=== PATIENT | female | born 1980 | race Caucasian/White ===

== ENCOUNTER 2016-07-05 06:09 | Observation (INO) | payer OTHER ==
[2016-06-08 11:50] VITALS: BMI 53.0
--- NOTE | 2016-06-08 12:35 | PAT Medication Instructions ---
Service Date Jun 08, 2016. Current Home Medication List Albuterol Inhaler (Ventolin Inhaler), 2 PUFFS INH QID PRN for PRN Albuterol Sulf (Albuterol Sulfate 0.083% For Inh), 3 ML INH Q4H PRN for Wheezing Budesonide/Formoterol Fumarate (Symbicort 160/4.5 Inhaler ), 1 PUFFS INH BID Carisoprodol (Soma), 350 MG PO TID PRN for PRN Cholestyramine (Questran), 1 PKT PO TID PRN for PRN Dexlansoprazole (Dexilant), 60 MG PO BID Diphenhydramine Hcl (Benadryl Allergy), 50 MG PO DIRECTED PRN for ALLERGIC REACTION Diphenoxylate W/ Atropine (Lomotil), 1 TAB PO QID PRN for Diarrhea Lidocaine (Lidoderm Patch 5%), 1 PATCH EX DAILY Montelukast Sodium (Singulair), 10 MG PO HS Pentosan Polysulfate Sodium (Elmiron), 100 MG PO TID Phenazopyridine Hcl (Pyridium), 1 TAB PO TID PRN for PRN Potassium Chloride Microencaps (Potassium Chloride Er), 1 TAB PO QAM Ranitidine Hcl (Ranitidine Hcl), 1 CAP PO BID Sucralfate (Carafate), 1 GM PO BID PRN for Topiramate (Topamax), 400 MG PO QAM Topiramate (Topamax), 200 MG PO HS Triamcinolone Acetonide (Nasal (Nasacort Allergy 24Hr), 1 SPRAY MARGARETTE BID Triamterene/Hctz (Triamterene/Hctz 37.5-25MG), 1 TAB PO DAILY PRN for Swelling Venlafaxine Hcl (Venlafaxine Hcl Er), 1 TAB PO HS [Vicodin], 1 TAB PO Q4H PRN for director decision support Instructions For Your Scheduled Surgery - Hold the following medications the morning of surgery: Triamterene/Hctz (Triamterene/Hctz 37.5-25MG), 1 TAB PO DAILY PRN for Swelling Sucralfate (Carafate), 1 GM PO BID PRN for Ranitidine Hcl (Ranitidine Hcl), 1 CAP PO BID Potassium Chloride Microencaps (Potassium Chloride Er), 1 TAB PO QAM Diphenhydramine Hcl (Benadryl Allergy), 50 MG PO DIRECTED PRN for ALLERGIC REACTION Diphenoxylate W/ Atropine (Lomotil), 1 TAB PO QID PRN for Diarrhea Cholestyramine (Questran), 1 PKT PO TID PRN for PRN Carisoprodol (Soma), 350 MG PO TID PRN for PRN Pentosan Polysulfate Sodium (Elmiron), 100 MG PO TID - Take the following medications the morning of surgery with a sip of water: Triamcinolone Acetonide (Nasal (Nasacort Allergy 24Hr), 1 SPRAY MARGARETTE BID Topiramate (Topamax), 400 MG PO QAM Phenazopyridine Hcl (Pyridium), 1 TAB PO TID PRN for PRN Dexlansoprazole (Dexilant), 60 MG PO BID Budesonide/Formoterol Fumarate (Symbicort 160/4.5 Inhaler ), 1 PUFFS INH BID Albuterol Inhaler (Ventolin Inhaler), 2 PUFFS INH QID PRN for PRN (bring with you to hospital morning of surgery if needed) Albuterol Sulf (Albuterol Sulfate 0.083% For Inh), 3 ML INH Q4H PRN for Wheezing [Vicodin], 1 TAB PO Q4H PRN for RN (okay to take up to 4 hours prior to surgery if needed) - Take the following medications as scheduled the night before surgery: Venlafaxine Hcl (Venlafaxine Hcl Er), 1 TAB PO HS Triamcinolone Acetonide (Nasal (Nasacort Allergy 24Hr), 1 SPRAY MARGARETTE BID Topiramate (Topamax), 200 MG PO HS Sucralfate (Carafate), 1 GM PO BID PRN for Ranitidine Hcl (Ranitidine Hcl), 1 CAP PO BID Phenazopyridine Hcl (Pyridium), 1 TAB PO TID PRN for PRN Montelukast Sodium (Singulair), 10 MG PO HS Diphenhydramine Hcl (Benadryl Allergy), 50 MG PO DIRECTED PRN for ALLERGIC REACTION Diphenoxylate W/ Atropine (Lomotil), 1 TAB PO QID PRN for Diarrhea Lidocaine (Lidoderm Patch 5%), 1 PATCH EX DAILY (uses on back) Dexlansoprazole (Dexilant), 60 MG PO BID Cholestyramine (Questran), 1 PKT PO TID PRN for PRN Budesonide/Formoterol Fumarate (Symbicort 160/4.5 Inhaler ), 1 PUFFS INH BID Albuterol Inhaler (Ventolin Inhaler), 2 PUFFS INH QID PRN for PRN Albuterol Sulf (Albuterol Sulfate 0.083% For Inh), 3 ML INH Q4H PRN for Wheezing Carisoprodol (Soma), 350 MG PO TID PRN for PRN [Vicodin], 1 TAB PO Q4H PRN for RN Pentosan Polysulfate Sodium (Elmiron), 100 MG PO TID If you have any questions please call us at [phone] (Emy Trevino PA-C) or [phone] or [phone]
[2016-06-08 13:23] LABS: BASO % 0.4 %; BASO ABS # 0.04 K/uL (0-0.2); COMPLETE YES; EOS % 3.1 %; HEMATOCRIT 40.2 % (37-47); IG% 0.4 %; LYMPH % 24.1 %; MEAN CELL VOLUME 85.7 fL (80-100); MEAN CORPUSCULAR HEMOGLOBIN 28.4 pg (25-34); MEAN CORPUSCULAR HGB CONC 33.1 g/dl (32-36); MONO % 6.3 %; NEUT % 65.7 %; PLATELET COUNT 291 K/uL (130-400); RED BLOOD COUNT 4.69 M/uL (4.2-5.4); WHITE BLOOD COUNT 11.19 K/uL (4.8-10.8)
[2016-06-08 13:38] LABS: BUN/CREATININE RATIO 14.2 (10-20); CALCIUM 9.2 mg/dl (8.5-10.1); CREATININE 0.62 mg/dl (0.60-1.20); POTASSIUM 3.7 mmol/L (3.5-5.1)
[~2016-07-05] VITALS: Ht 162.6 cm; Wt 140.5 kg
[2016-07-05] VITALS (7 sets, daily range): BP systolic 95–140; BP diastolic 61–74; PULSE 70–106; TEMP 36.5–36.9; O2SAT 95–97; Ht 162.6 cm; Wt 140.5 kg
[~2016-07-05 06:09] MED LIST: ALBU1NEB10 INH; ALBUAER19 INH; CARI350T28 PO; CEFAZOLIN 3000 MG/65 ML D5W 65 ML IV SCH; CHOL4POW11 PO; DEXL60CA4 PO; DIPH1TAB PO; DPH/ PO; LACTATED RINGER'S 1000ML 1,000 ML IV SCH; LACTATED RINGER'S 1000ML IV SCH; MONT1TAB3 PO; NF656 EX; PENT100C6 PO; PHEN-775 PO; POTA20TA13 PO; RANI300C PO; SUCR1TAB29 PO; SYMIN160 INH; TOPI200T20 PO; TOPI200T6 PO; TRIA1SPR4 NAE; TRIATAB3 PO; VENL150T33 PO; VICODIN PO
[2016-07-05] MEDS ORDERED: [UNRECOGNIZED DRUG - OTHER] INH (06:33)
[2016-07-05] MEDS ORDERED: MULT-506 PO (06:34)
[2016-07-05] MEDS ORDERED: BUPIVACAINE 0.5 % 5 MG/1 ML MPF 30ML VIAL ONE (06:59)
[2016-07-05] MEDS ORDERED: METHYLENE BLUE 0.5% 10 ML VIAL ONE (06:59)
[2016-07-05] MEDS ORDERED: ATROPINE SULFATE 0.1 MG/ML 5ML SYR IV PRN (07:00)
[2016-07-05] MEDS ORDERED: FENTANYL CITRATE INJ 50 MCG/1 ML 2 ML VIAL IV PRN (07:00)
[2016-07-05] MEDS ORDERED: EpHEDrine SULFATE INJ 50 MG/ML AMP IV PRN (07:00)
[2016-07-05] MEDS ORDERED: ONDANSETRON INJ 2 MG/ML 2 ML VIAL IV PRN (07:00)
[2016-07-05] MEDS ORDERED: MIDAZOLAM HCL 1 MG/ML 2ML VIAL ONE ×2 (07:11)
[2016-07-05] MEDS ORDERED: FENTANYL CITRATE INJ 50 MCG/1 ML 2 ML VIAL ONE ×3 (07:12→09:30)
--- NOTE | 2016-07-05 07:20 | History & Physical Bridge Note ---
H&P Re-Evaluation Bridge Note: I have examined the patient, reviewed the History & Physical and in the interval since the performance of the History & Physical I have noted the following changes of clinical significance: No changes noted
[2016-07-05] MEDS ORDERED: SCOPOLAMINE 1.5 MG TDSY TD ONE (07:21)
[2016-07-05] MEDS ORDERED: ROCURONIUM BROMIDE 10 MG/ML 5 ML VIAL ONE ×2 (07:56)
[2016-07-05] MEDS ORDERED: LIDOCAINE HCL 2% 2 ML VIAL (20MG/ML) ONE (07:56)
[2016-07-05] MEDS ORDERED: PROPOFOL IV EMULSION 10 MG/ML 20 ML VIAL IV ONE (07:56)
[2016-07-05] MEDS ORDERED: DEXAMETHASONE SOD INJ 4 MG/ML VIAL ONE (07:57)
[2016-07-05] MEDS ORDERED: TISSEEL FIBRIN SEALANT 4ML TOP ONE (10:32)
[2016-07-05] MEDS ORDERED: GLYCOPYRROLATE INJ 0.2 MG/ML VIAL ONE (10:51)
[2016-07-05] MEDS ORDERED: HYDROmorphone INJ 2 MG/ML SYR/VIAL ONE (10:52)
--- NOTE | 2016-07-05 11:13 | [facility] Post Operative Brief Note ---
Immediate Operative Summary Operative Date Jul 05, 2016. Pre-Operative Diagnosis Menorrhagia with irregular cycles Post-Operative Diagnosis Same, adhesive disease Procedure(s) Performed Robotic Assisted Total Laparoscopic Hysterectomy, Bilateral Salpingectomy, Cystoscopy Surgeon Dr Jimenez Job Service Specialist Surgeon(s) Dr. Guevara Estimated Blood Loss 50ml Findings Normal appearing uterus, tubes, ovaries. Multiple adhesions of peritoneum to omentum from prior surgery. Bilateral urine jets from ureters at conclusion of case. Specimens A. uterus, bilateral fallopian tubes and cervix Drains fuentes, clear yellow Anesthesia General Complication(s) None Disposition Recovery Room / PACU
[2016-07-05] MEDS ORDERED: BISACODYL 10 MG SUPP PR PRN (11:15)
[2016-07-05] MEDS ORDERED: PROMETHAZINE HCL INJ 25 MG in SODIUM CHLORIDE 0.9% 50ML 50 ML IV PRN (11:15)
[2016-07-05] MEDS ORDERED: MAGNESIUM HYDROXIDE SUSP 30 ML UDC PO PRN (11:15)
[2016-07-05] MEDS: ONDANSETRON INJ 2 MG/ML 2 ML VIAL IV PRN ×2 (12:00→18:37)
[2016-07-05] MEDS ORDERED: NURSING VERBAL MED ORDER ONE (12:15)
[2016-07-05] MEDS ORDERED: PROMETHAZINE HCL INJ 12.5 MG in SODIUM CHLORIDE 0.9% 50ML 50 ML IV ONE (12:30)
--- NOTE | 2016-07-05 12:44 | Anesthesiology Progress Note ---
Anesthesia Post Op Note Date & Time Jul 05, 2016 at 12:44 Vital Signs Pain Intensity: 3 Vital Signs Past 12 Hours Date Time Temp Pulse Resp B/P Pulse Ox O2 Delivery O2 Flow Rate FiO2 07/05/16 12:25 82 21 94 07/05/16 12:25 86 21 07/05/16 12:23 118/57 07/05/16 12:20 89 18 07/05/16 12:20 91 18 94 07/05/16 12:18 122/55 07/05/16 12:15 83 18 95 07/05/16 12:15 80 18 07/05/16 12:13 116/56 07/05/16 12:10 71 17 95 07/05/16 12:10 72 17 07/05/16 12:08 109/60 07/05/16 12:05 92 16 95 07/05/16 12:05 89 16 07/05/16 12:03 112/59 07/05/16 12:00 73 18 93 07/05/16 12:00 73 18 07/05/16 11:58 104/60 07/05/16 11:55 94 17 95 07/05/16 11:55 95 17 07/05/16 11:53 130/76 07/05/16 11:50 76 18 07/05/16 11:50 77 18 96 07/05/16 11:48 124/74 07/05/16 11:45 73 19 96 07/05/16 11:45 73 19 07/05/16 11:43 134/67 07/05/16 11:42 132/68 07/05/16 11:40 89 20 07/05/16 11:40 89 20 96 07/05/16 11:38 82/44 07/05/16 11:35 77 19 07/05/16 11:35 76 19 96 07/05/16 11:33 89/37 07/05/16 11:30 83 21 95 07/05/16 11:30 82 21 07/05/16 11:28 92/38 07/05/16 11:25 75 17 94 07/05/16 11:25 75 17 07/05/16 11:25 36.1 82 12 89/39 96 Mask 10 07/05/16 06:37 36.6 106 20 140/70 97 Room Air Notes Mental Status: alert / awake / arousable, participated in evaluation Pt Amnestic to Procedure: Yes Nausea / Vomiting: adequately controlled, improving with treatment Pain: adequately controlled Airway Patency, RR, SpO2: stable & adequate BP & HR: stable & adequate Hydration State: stable & adequate Anesthetic Complications: no major complications apparent
[2016-07-05] MEDS: KETOROLAC TROMETHAMINE 30 MG/ML VIAL IV. PRN ×2 (13:23→21:21)
[2016-07-05] MEDS ORDERED: IV FLUIDS COMPLETED PRN (14:00)
[2016-07-05] MEDS ORDERED: MoRPHine SULFATE 2 MG/ML CARP IV PRN (15:15)
[2016-07-05] MEDS ORDERED: MoRPHine SULFATE 4 MG/ML 1 ML CARP\\VIAL IV PRN (15:15)
[2016-07-05] MEDS: PHENAZOPYRIDINE HCL 200 MG TAB PO PRN (17:41)
[2016-07-05] MEDS: OXYCODONE/ACETAMINOPHEN 5-325 TAB PO PRN ×2 (19:54→20:56)
[2016-07-05] MEDS: DOCUSATE SODIUM 100 MG CAP PO SCH (20:57)
[2016-07-05 21:11] LABS: HEMATOCRIT 37.2 % (37-47)
[2016-07-05] MEDS: SIMETHICONE 80 MG CHEW PO PRN (23:19)
--- NOTE | 2016-07-06 00:12 | OPERATIVE REPORT ---
DATE OF OPERATION: 07/05/2016 PREOPERATIVE DIAGNOSES: 1. Menorrhagia with irregular cycles. 2. Obesity. 3. History of section x2 with history of wound infection. POSTOPERATIVE DIAGNOSES: Same plus adhesive disease. PROCEDURES PERFORMED: 1. Robotic-assisted total laparoscopic hysterectomy. 2. Bilateral salpingectomy. 3. Cystoscopy. SURGEON: Dr. Bhavya Jimenez. CHIEF MECHANICAL ENGINEER: Dr. Guevara. ESTIMATED BLOOD LOSS: 50 mL FINDINGS: Normal appearing uterus, tubes and ovaries, with multiple adhesions in the peritoneum to omentum from prior surgery. Bilateral urine jets noted from ureters at the conclusion of the case during cystoscopy. SPECIMENS: Uterus, bilateral fallopian tubes, and cervix. DRAINS: Shane, clear yellow. ANESTHESIA: General. COMPLICATIONS: None. DISPOSITION: Recovery room, PACU. CONDITION: Stable and good. DESCRIPTION OF PROCEDURE: The patient was seen in the preoperative holding area where risks, benefits, alternatives were reviewed. She elected to proceed with surgery. Informed consent had previously been obtained in the office under no duress. The patient was taken to the operating room where general anesthesia was introduced. The abdomen and vagina were prepped and draped in the normal sterile fashion. A Shane catheter was inserted. A long weighted speculum was placed in the vagina and anterior wall retractor was placed into the vagina. Cervix was grasped with a single tooth tenaculum. 0 Vicryl stay sutures were placed at 3 o'clock and 9 o'clock on the cervix. A VCare manipulator, medium size, was placed through the cervix. Cervical cup was placed around the cervix. Gloves were changed and attention was turned to the abdomen. Using the open Vineet cut down technique, the umbilical port was placed. This was the da Macy camera port. Bilaterally two additional ports were placed on each side with the arm #1 on the patient's right and lateral to this arm x3 and to the patient's left the post production assistant port, followed by arm #2. Adequate pneumoperitoneum was obtained and all ports were placed under direct visualization. The da Macy robot was then docked in the normal fashion and the patient was placed in steep Trendelenburg position. Inspection of the pelvis showed normal uterus, tubes and ovaries. The left uteroovarian ligament was cauterized using PK [place] bipolar cautery and was ligated using the hot madiha. The left fallopian was excised, and the round ligament was coagulated and cut. A bladder flap was created with the hot madiha and the bladder was dissected down from the cervix. Due to the patient's history of section x2, and therefore, scar tissue, bladder dissection was difficult. The entire procedure was then repeated on the contralateral side. The VCare cuff was identified, and uterine arteries were coagulated and cut on bilateral sides. The cervicovaginal junction incision was made on top of the vaginal cuff. This was repeated posteriorly and extended laterally, freeing the uterus from the surrounding vagina. The uterus was then delivered through the vagina using an Allis clamp. The vaginal cuff was then reapproximated with V-Loc suture. The ureters were identified bilaterally. The entire pelvis was hemostatic. Tisseel was used for excellent hemostasis. Cystoscopy showed bilateral ureteral jets and no sutures in the bladder. The robot was then undocked. The supraumbilical site fascia was reapproximated with 0 Vicryl. The skin was closed using 4-0 Monocryl using subcuticular stitches. Dermabond glue was placed. The final sponge, instrument and needle counts were correct. The patient tolerated the procedure well. She then went to the recovery room in good and stable condition. I attest to the content of the Intraoperative Record and any orders documented therein. Any exceptio ns are noted below.
[2016-07-06] MEDS: OXYCODONE/ACETAMINOPHEN 5-325 TAB PO PRN ×3 (00:43→08:18)
[2016-07-06 00:45] VITALS: BP 113/68; PULSE 66; TEMP 36.9; O2SAT 98
[2016-07-06] MEDS: PHENAZOPYRIDINE HCL 200 MG TAB PO PRN ×2 (01:06→08:17)
[2016-07-06] MEDS ORDERED: OXYC-57 PO (03:05)
--- NOTE | 2016-07-06 03:07 | Discharge Instructions ---
Discharge Instructions Admission Reason for Admission: Menorrhagia W/Irregular Cycles Discharge Discharge Diagnosis / Problem: s/p laparoscopic total hysterectomy Discharge Goals Goal(s): Routine recovery after surgery Activity Recommendations Activity Limitations: per Instructions/Follow-up section . Current Hospital Diet Patient's current hospital diet: Clear Liquid Diet Discharge Diet Recommended Diet: Regular Diet Procedures Procedures Performed: Robotic Assisted Total Laparoscopic Hysterectomy, Bilateral Salpingectomy, Cystoscopy Pending Studies Studies pending at discharge: no Medical Emergencies . Who to Call and When: Medical Emergencies: If at any time you feel your situation is an emergency, please call 911 immediately. . Non-Emergent Contact Non-Emergency issues call your: Primary Care Provider, Inspector Penetrant . . "Provider Documentation" section prepared by Bhavya Jimenez. VTE Core Measure Inpt VTE Proph given/why not?: Contraindicated
[2016-07-06] MEDS: KETOROLAC TROMETHAMINE 30 MG/ML VIAL IV. PRN ×2 (03:16→11:35)
[2016-07-06 04:30] VITALS: BP 108/71; PULSE 80; TEMP 36.8; O2SAT 98
[2016-07-06 07:01] LABS: BASO % 0.3 %; BASO ABS # 0.03 K/uL (0-0.2); COMPLETE YES; EOS % 2.6 %; HEMATOCRIT 34.3 % (37-47); IG% 0.5 %; LYMPH % 16.9 %; LYMPH ABS # 1.87 K/uL (1.2-3.4); MEAN CELL VOLUME 87.1 fL (80-100); MEAN CORPUSCULAR HEMOGLOBIN 28.7 pg (25-34); MEAN CORPUSCULAR HGB CONC 32.9 g/dl (32-36); MEAN PLATELET VOLUME 9.6 fL (7.4-10.4); MONO % 9.6 %; NEUT % 70.1 %; PLATELET COUNT 225 K/uL (130-400); RED BLOOD COUNT 3.94 M/uL (4.2-5.4); WHITE BLOOD COUNT 11.06 K/uL (4.8-10.8)
[2016-07-06 07:33] LABS: CALCIUM 8.1 mg/dl (8.5-10.1); POTASSIUM 3.2 mmol/L (3.5-5.1)
[2016-07-06 07:45] LABS: BUN/CREATININE RATIO 9.1 (10-20); CREATININE 0.64 mg/dl (0.60-1.20)
[2016-07-06 08:00] VITALS: BP 114/78; PULSE 75; TEMP 36.7; O2SAT 100
--- NOTE | 2016-07-06 08:16 | OB/GYN Progress Note ---
MICROBIOLOGY QUALITY CONTROL TECHNICIAN Progress Note Date of Service Jul 06, 2016. Subjective conversation w/ patient Ambulation: ambulating normally Voiding: no voiding problems Passing Gas: Yes Diet Tolerance: Regular Diet Pain: controlled with meds Review of Systems Constitutional: No problem reported Respiratory: No problem reported Cardiac: No problem reported Breast: No problem reported Abdomen: No problem reported Female : No problem reported Objective Vital Signs Date Time Temp Pulse Resp B/P Pulse Ox O2 Delivery O2 Flow Rate FiO2 07/06/16 04:30 36.8 80 18 108/71 98 Room Air 07/06/16 00:45 98 Room Air 07/06/16 00:45 36.9 66 18 113/68 98 Room Air 07/05/16 20:20 36.8 80 20 120/71 Room Air 07/05/16 16:10 97 Room Air 07/05/16 16:10 36.8 72 20 95/64 97 Room Air 07/05/16 15:10 36.9 73 18 109/74 96 Nasal Cannula 2.0 07/05/16 14:10 36.5 82 18 107/71 97 Nasal Cannula 2.0 07/05/16 13:40 36.7 70 16 96/61 95 Nasal Cannula 2.0 07/05/16 13:10 95 Nasal Cannula 2.0 07/05/16 13:10 36.5 99 16 96/63 95 Nasal Cannula 2.0 07/05/16 13:10 95 Nasal Cannula 2.0 07/05/16 12:50 36.4 82 16 102/55 95 Nasal Cannula 2 07/05/16 12:48 102/55 07/05/16 12:46 92 17 07/05/16 12:46 93 17 97 07/05/16 12:43 112/53 07/05/16 12:41 82 18 94 07/05/16 12:41 80 18 07/05/16 12:38 112/62 07/05/16 12:36 71 18 07/05/16 12:36 71 18 94 07/05/16 12:33 108/61 07/05/16 12:31 91 18 07/05/16 12:31 92 18 95 07/05/16 12:28 116/51 07/05/16 12:26 88 17 96 07/05/16 12:26 88 17 07/05/16 12:25 82 21 94 07/05/16 12:25 86 21 07/05/16 12:23 118/57 07/05/16 12:20 89 18 07/05/16 12:20 91 18 94 07/05/16 12:18 122/55 07/05/16 12:15 83 18 95 07/05/16 12:15 80 18 07/05/16 12:13 116/56 07/05/16 12:10 71 17 95 07/05/16 12:10 72 17 07/05/16 12:08 109/60 07/05/16 12:05 92 16 95 07/05/16 12:05 89 16 07/05/16 12:03 112/59 07/05/16 12:00 73 18 93 07/05/16 12:00 73 18 07/05/16 11:58 104/60 07/05/16 11:55 94 17 95 07/05/16 11:55 95 17 07/05/16 11:53 130/76 07/05/16 11:50 76 18 07/05/16 11:50 77 18 96 07/05/16 11:48 124/74 07/05/16 11:45 73 19 96 07/05/16 11:45 73 19 07/05/16 11:43 134/67 07/05/16 11:42 132/68 07/05/16 11:40 89 20 07/05/16 11:40 89 20 96 07/05/16 11:38 82/44 07/05/16 11:35 77 19 07/05/16 11:35 76 19 96 07/05/16 11:33 89/37 07/05/16 11:30 83 21 95 07/05/16 11:30 82 21 07/05/16 11:28 92/38 07/05/16 11:25 75 17 94 07/05/16 11:25 75 17 07/05/16 11:25 36.1 82 12 89/39 96 Mask 10 Physical Exam General Appearance: WELL-APPEARING, NO APPARENT DISTRESS Respiratory/Chest: normal breath sounds, no respiratory distress Cardiovascular: regular rate, rhythm Abdomen: non tender, soft Incision Description: Clean, Dry & Intact Extremities: non-tender, normal inspection Laboratory Results Last 24 Hours Test 07/05/16 20:55 07/06/16 06:43 Hemoglobin 12.0 g/dL 11.3 g/dL Hematocrit 37.2 % 34.3 % White Blood Count 11.06 K/uL Red Blood Count 3.94 M/uL Mean Corpuscular Volume 87.1 fL Mean Corpuscular Hemoglobin 28.7 pg Mean Corpuscular Hemoglobin Concent 32.9 g/dl Platelet Count 225 K/uL Mean Platelet Volume 9.6 fL Neutrophils (%) (Auto) 70.1 % Lymphocytes (%) (Auto) 16.9 % Monocytes (%) (Auto) 9.6 % Eosinophils (%) (Auto) 2.6 % Basophils (%) (Auto) 0.3 % Neutrophils # (Auto) 7.76 K/uL Lymphocytes # (Auto) 1.87 K/uL Monocytes # (Auto) 1.06 K/uL Eosinophils # (Auto) 0.29 K/uL Basophils # (Auto) 0.03 K/uL RDW Standard Deviation 46.8 fL RDW Coefficient of Variation 14.7 % Immature Granulocyte % (Auto) 0.5 % Immature Granulocyte # (Auto) 0.05 K/uL Sodium Level 143 mmol/L Potassium Level 3.2 mmol/L Chloride Level 109 mmol/L Carbon Dioxide Level 23 mmol/L Anion Gap 11.0 mmol/L Blood Urea Nitrogen 6 mg/dl Creatinine 0.64 mg/dl Est Creatinine Clear Calc Drug Dose 172.5 ml/min Estimated GFR () 134.0 Estimated GFR (Non- 115.6 BUN/Creatinine Ratio 9.1 Random Glucose 101 mg/dl Calcium Level 8.1 mg/dl Assessment and Plan Post-Op Day Number: 1 Continue Routine Care: Doing well Post-op Day 1. Discharge to home today. Rx QUINTEN bennett PDMP checked. Discharge instructions discussed. RTO 2 weeks for postop followup.
[2016-07-06] MEDS: DOCUSATE SODIUM 100 MG CAP PO SCH (08:17)
[2016-07-06] MEDS: SIMETHICONE 80 MG CHEW PO PRN (08:17)
[2016-07-06] MEDS ORDERED: POTASSIUM CHLORIDE 10 MEQ TABCR PO ONE (08:30)
[2016-07-06] MEDS: ONDANSETRON INJ 2 MG/ML 2 ML VIAL IV PRN (10:01)
[2016-07-06 10:48] VITALS: BP 114/78; PULSE 75; TEMP 36.7; O2SAT 100
--- NOTE | 2016-07-19 10:59 | DISCHARGE SUMMARY ---
PREOPERATIVE DIAGNOSIS: Menorrhagia with irregular cycles. POSTOPERATIVE DIAGNOSIS: Same. PROCEDURE PERFORMED: Robotic assisted total laparoscopic hysterectomy, bilateral salpingectomy and cystoscopy. COURSE OF STAY: The patient was admitted for the above noted procedures. She was then observed postoperatively and her postoperative course was uncomplicated. She was discharged to home on the morning of 07/06/2016. CONDITION ON DISCHARGE: Stable and good. MEDICATIONS: Motrin and Percocet. ACTIVITY: Pelvic rest. No heavy lifting. DIET: General. FOLLOWUP: Followup in the office in 2 weeks.
== END 2016-07-06 11:50 | disposition home or self-care (01) ==
LOC: C.ACU 06:09 → C.MS4N 11:16 → EDBEDREQSVC 12:00 → EDBEDREQ 12:00
PROVIDERS: ADMIT Obstetrics & Gynecology; ATTEND Obstetrics & Gynecology
DX: N92.1 Excessive and frequent menstruation with irregular cycle (principal); N83.8 Other noninflammatory disorders of ovary, fallopian tube and broad ligament; E66.9 Obesity, unspecified; N99.4 Postprocedural pelvic peritoneal adhesions; J45.909 Unspecified asthma, uncomplicated; F32.9 Major depressive disorder, single episode, unspecified; K21.9 Gastro-esophageal reflux disease without esophagitis; H91.93 Unspecified hearing loss, bilateral; Z98.891 History of uterine scar from previous surgery; Z86.19 Personal history of other infectious and parasitic diseases; Z68.43 Body mass index [BMI] 50.0-59.9, adult
CPT/HCPCS: 58571; S2900

== ENCOUNTER → 2016-09-29 | Outpatient (CLI) | payer OTHER ==
[~2016-09-29] MED LIST changes: -CEFAZOLIN 3000 MG/65 ML D5W 65 ML IV SCH; -DIPH1TAB PO; +DIPH1TAB87 PO; -LACTATED RINGER'S 1000ML 1,000 ML IV SCH; -LACTATED RINGER'S 1000ML IV SCH; +MULT-506 PO; -VICODIN PO; +[UNRECOGNIZED DRUG - OTHER] INH
[2016-09-29 14:30] LABS: BASO % 0.3 %; BASO ABS # 0.04 K/uL (0-0.2); COMPLETE YES; EOS % 0.3 %; HEMATOCRIT 45.6 % (37-47); IG% 0.6 %; LYMPH % 13.4 %; LYMPH ABS # 2.13 K/uL (1.2-3.4); MEAN CELL VOLUME 87.2 fL (80-100); MEAN CORPUSCULAR HEMOGLOBIN 27.5 pg (25-34); MEAN CORPUSCULAR HGB CONC 31.6 g/dl (32-36); MEAN PLATELET VOLUME 10.1 fL (7.4-10.4); MONO % 3.7 %; NEUT % 81.7 %; PLATELET COUNT 332 K/uL (130-400); RED BLOOD COUNT 5.23 M/uL (4.2-5.4); WHITE BLOOD COUNT 15.86 K/uL (4.8-10.8)
[2016-09-29 15:12] LABS: ALKALINE PHOSPHATASE 94 U/L (45-117); ALT/SGPT 37 U/L (12-78); AST/SGOT 15 U/L (15-37); THYROID STIMULATING HORMONE 0.451 uIu/ml (0.300-4.500)
--- NOTE | 2016-09-29 15:28 | DIAGNOSTIC IMAGING REPORT ---
CHEST 2 VIEWS ROUTINE CLINICAL HISTORY: Shortness of breath. Chest tightness. COMPARISON STUDY: Chest radiograph and chest CT March 25, 2016. FINDINGS: Thoracolumbar spine hardware is again noted. There is no pneumothorax or pleural effusion. There is no evidence of pulmonary edema. Lungs are clear. Cardiomediastinal silhouette is normal. IMPRESSION: No acute cardiopulmonary findings. Electronically signed by: Abhijeet Marcum M.D. 09/29/2016 3:26 PM Dictated Date/Time: 09/29/2016 3:26 PM
--- NOTE | 2016-09-29 17:39 | ECHOCARDIOGRAM REPORT ---
*NOTICE TO RECEIVING CONSTITUTION PARTY AGENCY This information is strictly Confidential and protected under [place] law. [place] law prohibits you from making any further disclosure of this information unless further disclosure is expressly permitted by the written consent of the person to whom it pertains or is authorized by law. A general authorization for the release of medical or other information is not sufficient for this purpose. Hospital accepts no responsibility if the information is made available to any other person, INCLUDING THE PATIENT. Interpretation Summary * Name: WILLIAN CM Study Date: 09/29/2016 02:34 PM BP: 129/78 mmHg * Patient Location: [facility] HR: 80 * : 1980 (M/d/yyyy) Gender: Female Height: 64 in * Age: 36 yrs Ethnicity: CA Weight: 306 lb * Ordering Physician: Brennan Tejada * Referring Physician: Brennan Tejada * Performed By: Susana Presley RDCS * * Reason For Study: Abnormal EKG, shortness of breath * BSA: 2.3 m2 * -- Conclusions -- * 1. Normal LV size. Mild concentric LVH. * 2. Normal LV systolic function. LVEF 55-60%. No regional wall motion abnormalities. * 3. Normal RV size and function. * 4. No significant valvular pathology. * 5. No prior studies for comparison. Procedure Details * A complete two-dimensional transthoracic echocardiogram was performed (2D, M-mode, Doppler and color flow Doppler). Left Ventricle * The left ventricle is grossly normal size. * There is mild concentric left ventricular hypertrophy. * Ejection Fraction = 55-60%. * No regional wall motion abnormalities noted. Right Ventricle * The right ventricle is grossly normal size. * The right ventricular systolic function is normal as assessed by tricuspid annular plane systolic excursion (TAPSE) (normal >1.5 cm). Atria * The left atrial size is normal. * Right atrial size is normal. * No ASD detected; PFO is not assessed. Mitral Valve * The mitral valve is grossly normal. * There is no mitral valve stenosis. * There is no mitral regurgitation noted. Tricuspid Valve * The tricuspid valve is not well visualized. * Significant tricuspid regurgitation is absent. Aortic Valve * The aortic valve is trileaflet. * No hemodynamically significant valvular aortic stenosis. * There is no significant aortic regurgitation. Pulmonic Valve * The pulmonary valve is inadequately visualized, but the Doppler data is adequate for interpretation. * Pulmonic stenosis is absent. * There is no significant pulmonary regurgitation. Great Vessels * The aortic root and proximal ascending aorta are normal sized. Pericardium/Pleural * There is no pericardial effusion. MMode 2D Measurements and Calculations IVSd 1.2 cm LVIDd 3.9 cm LVIDs 2.7 cm LVPWd 1.1 cm IVS/LVPW 1.1 FS 31.3 % EDV(Teich) 67.3 ml ESV(Teich) 27.1 ml EF(Teich) 59.8 % EDV(cubed) 60.9 ml ESV(cubed) 19.7 ml EF(cubed) 67.6 % LV mass(C)d 146.1 grams LV mass(C)dI 62.4 grams/m\S\2 CO(Teich) 3.6 l/min CI(Teich) 1.5 l/min/m\S\2 SV(Teich) 40.2 ml SI(Teich) 17.2 ml/m\S\2 CO(cubed) 3.7 l/min CI(cubed) 1.6 l/min/m\S\2 SV(cubed) 41.2 ml SI(cubed) 17.6 ml/m\S\2 Ao root diam 2.7 cm Ao root area 5.7 cm\S\2 ACS 1.9 cm LA dimension 2.7 cm asc Aorta Diam 2.5 cm LA/Ao 1.0 LVAd ap4 19.6 cm\S\2 LVLd ap4 7.1 cm EDV(MOD-sp4) 45.0 ml LVAs ap4 12.3 cm\S\2 LVLs ap4 6.5 cm ESV(MOD-sp4) 20.0 ml EF(MOD-sp4) 55.6 % LVAd ap2 22.8 cm\S\2 LVLd ap2 8.0 cm EDV(MOD-sp2) 54.0 ml LVAs ap2 13.1 cm\S\2 LVLs ap2 6.5 cm ESV(MOD-sp2) 23.0 ml EF(MOD-sp2) 57.4 % CO(MOD-sp4) 2.3 l/min CI(MOD-sp4) 0.96 l/min/m\S\2 SV(MOD-sp4) 25.0 ml SI(MOD-sp4) 10.7 ml/m\S\2 CO(MOD-sp2) 2.8 l/min CI(MOD-sp2) 1.2 l/min/m\S\2 SV(MOD-sp2) 31.0 ml SI(MOD-sp2) 13.2 ml/m\S\2 Doppler Measurements and Calculations MV E max samira 66.1 cm/sec MV A max samira 73.5 cm/sec MV E/A 0.90 MV dec time 0.30 sec Ao V2 max 143.5 cm/sec Ao max PG 8.2 mmHg Ao max PG (full) 3.6 mmHg LV V1 max PG 4.6 mmHg LV V1 max 107.6 cm/sec PA V2 max 99.1 cm/sec PA max PG 3.9 mmHg PA acc slope 499.4 cm/sec\S\2 PA acc time 0.17 sec PA pr(Accel) 2.9 mmHg
== END | disposition home or self-care (01) ==
LOC: C.CPL 13:54
PROVIDERS: ATTEND Internal Medicine Critical Care Medicine
DX: R06.02 Shortness of breath (principal); R07.89 Other chest pain; R07.9 Chest pain, unspecified; J45.901 Unspecified asthma with (acute) exacerbation; K75.81 Nonalcoholic steatohepatitis (NASH)

== ENCOUNTER → 2017-02-15 | Outpatient (CLI) | payer OTHER ==
[~2017-02-15] MED LIST changes: +DIPH1TAB PO; -DIPH1TAB87 PO
--- NOTE | 2017-02-16 07:13 | PAP/PSG TECHNICIAN REPORT ---
[facility] [place] Ship [employer] Polysomnogram Report Study name: None Report date: 02/16/2017 Study date: 02/15/2017 Referring Physician: Linda Calles M.D. Name: WILLIAN CM Interpreting Physician: Kevin Calles M.D. Date of : 1980 Ship Pilot: Linn Self, PSGT. Sex: Female Age: 36 StudyType: PSG Weight: 314 lbs Height: 36 years, Height 5' 3.5" Neck Circum:16.5 inches BMI: 54.74 Medications: See List of 31 Medications In Chart. Patient History 36 yr. old here for a split night study, whom snores, obesity hypoventilation syndrome, nocturia, morbid obesity. sleeps upright = 12, Neck = 16.5 inches. Parameters Monitored NPSG: E1-M2, E2-M1, Fp1-M2, Fp2-M1, F3-M2, F4-M2, F4-M1, C3-M2, C4-M2, C4-M1, O1-M2, O2-M2, O2-M1, T3-M2, T4-M1, P3-M2, P4-M1, CHIN1, CHIN2, HR, EKG, Legs, PFLOW, SNOR, FLOW, CFLOW, Tidal Volume, THOR, ABDO, SpO2, PLTH, CPRESS, ETCO2 Wave, ETCO2, pH Sleep Architecture Sleep Stages Time at Lights Off 11:07:24 PM STAGES Time (min.) TST (%) Time at Lights On 5:36:54 AM Wake 44.0 -- Total Recording Time (TRT) 389.00 min. N1 10.0 3 Total Sleep Period (TSP) 367.0 min. N2 254.0 74 Total Sleep Time (TST) 345.0min. N3 18.0 5 Awake Time 44.0 min. REM 63.0 18 Wake after Sleep Onset 22.5 min. Sleep Efficiency (SE) 89 % Sleep Onset Latency (LOU) 22.0 min. Number of Stage 1 Shifts None Awakenings 4 Stage Changes 28 Number of REM periods 2 REM 63.0 18 REM Latency 156.5 min. NREM 282.0 82 Body Position Analysis Supine Right Left Side Prone Vertical Total Sleep Time (min.) 192.8 117.6 43.5 161.17 0.0 0.5 Total Sleep Time (%) 53% 34% 13% 47 0% N/A% Total Sleep Time REM (min.) 30.0 33.0 0.0 None 0.0 0.0 Total Sleep Time NREM (min.) 153.8 84.6 43.5 None 0.0 0.0 Intermittent Wake (min.) 9.0 13.0 21.5 None 0.0 0.5 Total Sleep Period (%) 53% None None None None None Arousals Myoclonus (PLM) * Events Count Index Events Count Index Spontaneous 53 9 Events Awake (PLMW) 3 4.1 Respiratory 0 0.0 Events Asleep w/ Arousal (PLMA) 7 1.2 PLM 7 1 Events Asleep w/o Arousal (PLMS) 123 21.4 Snoring 6 1 Total Asleep 130 22.6 Total 66 11 Total 133 21 Respiratory Analysis * CA OA MA CH H RERA Total Count 1 0 0 0 6 0 7 Index 0.2 0.0 0.0 0 1.0 0 1.2 Mean Duration 17.7 0.0 0.0 0.00 25.0 0.0 23.9 Longest Duration 17.7 0.0 0.0 0.00 0.0 0.0 42.3 Respiratory Event Summary Total Supine ~Supine Right Left Prone REM NREM Apneas Count 1 1 0 0 0 N/A 1 0 Index 0.2 0 0 0.0 0.0 N/A 1 0 Hypopneas (4% Desat) Count 6 2 4 2 2 N/A 0 6 Index 1.0 0.7 1 1.0 2.8 N/A 0.0 1.3 Apneas & All Hypopneas Count 7 3 4 2 2 N/A 1 6 Index 1.2 1 1 1 3 N/A 1.0 1.3 Respiratory Events (Manager Life+All Hyp+RERA) Count 7 3 4 2 2 N/A 1 6 Index 1.2 1 1 1.0 2.8 N/A 1.0 1.3 Respiratory Related Arousal Count 0 3 0 0 0 N/A 0 0 Index 0.0 0 0 0 0 N/A 0 0 Snoring Analysis Supine Right Left Prone REM NREM Total Snore duration 4.9 min Snores count 145 29 7 N/A 7 174 181 Snore mean duration 1.6 Sec Snores index 47 15 10 N/A 6.7 37.0 31.5 TST with snoring (%) 1.4% SpO2 Analysis Total REM NREM Awake <50% 0.0 min. 0.0 min. 0.0 min. 0.0 min. 51 - 60% 0.0 min. 0.0 min. 0.0 min. 0.0 min. 61 - 70% 0.0 min. 0.0 min. 0.0 min. 0.0 min. 71 - 80% 0.0 min. 0.0 min. 0.0 min. 0.0 min. 81 - 90% 25.4 min. 2.0 min. 18.7 min. 4.7 min. 91 - 100% 351.2 min. 61.0 min. 263.2 min. 27.1 min. Average 92 92 92 92 Minimum SpO2 81 81 89 85 Desaturation Event Index 2.9 1.9 3.6 0.0 # Desat. Events below 89% 2 2 N/A N/A Time(%) with Saturation below 89% 0.2 0.1 0.0 0.1 Time(min.) with Saturation below 89% 0.9 0.3 0.0 0.5 Heart Rate Analysis End Tidal CO2 Analysis Min (bpm) Max (bpm) Average (bpm) TSP (mins) % of TSP Awake 68 167 94 Above 55 mmHg 0.0 0.0 NREM 75 111 89 50-55 mmHg 0.0 0.0 REM 61 100 80 45-50 mmHg 0.0 0.0 Overall 61 111 87 40-45 mmHg 75.5 21.9 35-40 mmHg 213.4 61.9 30-35 mmHg 31.3 9.1 Average ETCO2 0.1 Supplemental O2 Values Minimum O2 level: None Value Start Time End Time Ship Pilot Comments PSG Study MS. Cm slept in the right, left, and supine positions. No cardiac arrhythmia or PLM's noted. No bruxism noted. Snoring was noted and scored as a 3 on a scale of 1 through 5. (0=no snoring, 5=snoring loud enough to be heard through a closed door or down the womack way) Ms. Cm awoke to use the restroom 3 times during the night. Ms. Cm stated, I did not sleep as well as I do when I am in my own bed, I'm use to three dogs in the bed. The final report will be interpreted and signed by a sleep physician. The completed physician report will then be placed in the patient medical record. Pt. slept pretty well, she was up to use the restroom three times. Moderate snoring was displayed and heard. did not sleep upright, the head of the bed was elevated at 20 degree angle. Therapy (cm H2O) 0 TIB (min.) 389.0 TST (min.) 345.0 Sleep Onset (min.) 22.0 REM Onset From Sleep (min.) 156.5 Sleep Efficiency % 89 Wakefulness (%) 11 Wakefulness (min.) 44.0 NREM 1 (%) 3 NREM 1 (min.) 10.0 NREM 2 (%) 74 NREM 2 (min.) 254.0 NREM 3 (%) 5 NREM 3 (min.) 18.0 REM (%) 18 REM (min.) 63.0 # Arousals 66 Arousal Index 11 # Snore 181 Snore Index 31.5 AHI 1.2 AHI Supine 1 AHI Non-Supine 1 NREM AHI 1.3 REM AHI 1.0 RDI 1.2 # Obstructive Apnea 0 # Central Apnea 1 # Mixed Apnea 0 # Hypopneas 6 RERAs 0 Total Respiratory Events 7 Time Below SpO2 89% (min.) 0.3 Mean NREM SpO2 (%) 92 Mean REM SpO2 (%) 92 Mean Sleep SpO2 (%) 92 Min NREM SpO2 (%) 89 Min REM SpO2 (%) 81 Position Supine (min.) 192.8 Position Non-supine (min.) 161.2 LM Index Sleep 22.6 LM Index NREM 25.5 LM Index REM 9.5 Mean Heart Rate (bpm) 87 Min Heart Rate (bpm) 61
--- NOTE | 2017-02-28 19:23 | POLYSOMNOGRAPH REPORT ---
REFERRING PERSON: Dr. Kristal Calles. ROVING OR YARN COLOR CHECKER: Shannan Self. Ms. Rushing is 36-year-old morbidly obese female who snores, has nocturia and complains of excessive daytime sleepiness. She is sent to the sleep lab to rule out obesity hypoventilation as well as obstructive sleep apnea. She often sleeps upright at night. Per the technologist's notes tonight, this patient is sleeping with the head of her bed elevated 20 degrees. Beaver sleepiness scale score on the evening of this study is 12. BMI is a 54.74. Following the technical and digital specifications of the [place] [employer] (AASM) a standard diagnostic polysomnogram was performed monitoring EEG, EOG, EMG (chin and leg deviations), oxygen saturation, body position, digital video, respiratory effort and airflow. The sleep Stage and event scoring was based on the AASM Manual for the Scoring of Sleep and Associated Events 2007 edition. Apneas are defined as a drop in the peak thermal sensor excursion by >90% of baseline for at least 10 seconds. Hypopneas were scored using the 4% oxygen desaturation rule (4A-Medicare) and a decrease in the nasal pressure excursions by >30% of baseline for at least 10 seconds. Respiratory effort-related arousal (RERA's) is defined as a sequence of breaths lasting at least 10 seconds characterized by increasing respiratory effort or flattening of the nasal pressure waveform leading to an arousal from sleep when the sequence of breaths does not meet criteria for an apnea or hypopnea. Apnea Hypopnea index (AHI) is defined as the number of apneas and hypopneas occurring in an hour of sleep. Respiratory disturbance index (RDI) is defined as the number of apneas, hypopneas, and RERA's occurring in an hour of sleep. Ms. Rushing's total sleep period time was 367 minutes. Total sleep time was 345 minutes. Sleep efficiency was 89%. Latency to sleep onset was 22 minutes with wake after sleep onset was 22.5 minutes. Total non-REM sleep time was 282 minutes. She spent 3% of that time in N1 sleep, 74% in N2 sleep, and 5% in N3 sleep. REM latency was 156.5 minutes. Total REM sleep time was 63 minutes or 18% of total sleep time. There were 66 cortical arousals from sleep. Fifty four of these arousals were spontaneous, 7 were due to periodic limb movements of sleep and 6 were due to snoring. There were 130 periodic limb movements noted on this test. Limb movement index was 22.6. Limb movement with arousal index was 1.2. There was 1 central, no obstructive, and no mixed apneas on this test. There were 6 hypopneas and no RERA. Apnea-hypopnea index was normal at 1.2. One hundred and eighty one snoring events were recorded. Total sleep time with snoring was 1.4%. Mean saturation was 92%. Saturations were only less than 89% for 0.9 minutes of recorded time. There was no cardiac ectopy noted on this study. During sleep, this patient's heart rate ranged from a low of 61 beats per minute to a high of 111 beats per minute. End-tidal CO2 was recorded on this test. End-tidal CO2s were between 40 and 45 mmHg for 21.9% of total sleep period time, between 35 and 40 mmHg for 61.9% and between 30 and 35 mmHg for 9.1% of total sleep period time. IMPRESSION AND PLAN: A 36-year-old female with morbid obesity without evidence of sleep-disordered breathing, nocturnal hypoxemia, bruxism, parasomnia, clinically significant periodic limb movements of sleep or obesity hypoventilation on this study.
== END | disposition home or self-care (01) ==
LOC: C.NEUR 20:00
PROVIDERS: ATTEND Family Medicine
DX: E66.2 Morbid (severe) obesity with alveolar hypoventilation (principal); R06.83 Snoring; G47.33 Obstructive sleep apnea (adult) (pediatric)

== ENCOUNTER 2017-06-24 08:42 | Emergency (ER) | payer OTHER ==
[~2017-06-24] VITALS: Ht 162.6 cm; Wt 135.3 kg
[~2017-06-24 08:42] MED LIST changes: -DIPH1TAB PO; +DIPH1TAB87 PO
[2017-06-24 08:44] VITALS: TEMP 36.7; Ht 162.6 cm; Wt 135.3 kg
[2017-06-24] MEDS ORDERED: ALBINS/ INH (09:27)
[2017-06-24] MEDS ORDERED: VNTHFA/IN INH (09:27)
[2017-06-24] MEDS ORDERED: SPIR50TA3 PO (09:30)
[2017-06-24] MEDS ORDERED: MORP1TAB11 PO (09:30)
[2017-06-24] MEDS ORDERED: HYDR-4079 PO (09:30)
[2017-06-24] MEDS ORDERED: TOPI200T14 PO (09:30)
[2017-06-24] MEDS ORDERED: MoRPHine SULFATE 4 MG/ML 1 ML CARP\\VIAL IV STA ×2 (09:37→11:33)
[2017-06-24] MEDS ORDERED: SODIUM CHLORIDE 0.9% 1000ML 1,000 ML IV STA (09:37)
[2017-06-24] MEDS ORDERED: ONDANSETRON INJ 2 MG/ML 2 ML VIAL IV STA (09:37)
--- NOTE | 2017-06-24 10:24 | EMERGENCY ROOM VISIT NOTE ---
History Report prepared by Jatin: Rodrigo Huff Under the Supervision of: Dr. Lino Weir M.D. First contact with patient: 09:29 Chief Complaint: URINARY SYMPTOMS Stated Complaint: BLADDER PAIN AND BACK Nursing Triage Summary: Pt states x 1 week, diarrhea. Hx of interstitial cystitis. Pt states, "It arboleda when I pee, but I can't pee. I am having extreme back pain and pain in my upper abdomen. I am having a lot of burning." Nausea, emesis x 2 yesterday. History of Present Illness The patient is a 37 year old female who presents to the Emergency Room with complaints of intermittent generalized back pain beginning this week. She rates her pain as an 8/10 in severity. The patient states that her pain begins in her lower back, and radiates upward. She also complains of urinary symptoms including increased urgency, increased frequency, and burning with urination. She also complains of intermittent diarrhea, nausea, vomiting, and abdominal pain. The patient vomited twice total. She has a history of chronic back pain, but states that her current back pain feels different. She states that she felt "shaky" and lightheaded a few days ago. The patient has a history of interstitial cystitis, hysterectomy, and kidney stones. She denies fevers, loss of continence, numbness, or weakness. She is not on any antibiotics. The patient has taken Vicodin for her pain which has improved her symptoms briefly. Source of History: patient Onset: This week Position: back (generalized) Symptom Intensity: 8/10 Timing: intermittent Modifying Factors (Relieving): other (Vicodin) Associated Symptoms: + nausea, + vomiting (x2), + abdominal pain, + diarrhea (intermittent), + urinary symptoms (increased frequency, increased urgency, burning), No fevers, No weakness, No numbness Note: The patient also complains of an episode of lightheadedness and shakiness a few days ago. She denies loss of continence. Review of Systems See HPI for pertinent positives & negatives. A total of 10 systems reviewed and were otherwise negative. 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 Nurse's notes were reviewed and I agree with. Family History Diabetes mellitus FH: cancer FH: heart disease FH: lung disease Hypertension Kidney disease Kidney stones Social History Smoking Status: Never Smoker Alcohol Use: none Drug Use: none Marital Status: Housing Status: lives with significant other Current/Historical Medications Scheduled Budesonide/Formoterol Fumarate (Symbicort 160/4.5 Inhaler ), 1 PUFFS INH BID Ciprofloxacin Hcl (Cipro), 500 MG PO BID Montelukast Sodium (Singulair), 10 MG PO HS Multivitamin (Multivitamin), 1 TAB PO DAILY Pentosan Polysulfate Sodium (Elmiron), 100 MG PO TID Phenazopyridine HCl (Pyridium), 200 MG PO TID Potassium Chloride Microencaps (Potassium Chloride Er), 20 MEQ PO QAM Ranitidine Hcl (Ranitidine Hcl), 300 MG PO BID Spironolactone (Aldactone), 50 MG PO DAILY Topiramate (Topamax), 400 MG PO QAM Topiramate (Topamax), 200 MG PO QPM Triamcinolone Acetonide (Nasal (Nasacort Allergy 24Hr), 1 SPRAY MARGARETTE BID Venlafaxine Hcl (Venlafaxine Hcl Er), 300 MG PO HS Scheduled PRN Albuterol Hfa (Ventolin Hfa), 2-4 PUFFS INH Q6H PRN for SOB/Wheezing Albuterol Sulf (Proventil 0.083% 2.5MG/3ML), 2.5 MG INH QID PRN for SOB/Wheezing Carisoprodol (Soma), 350 MG PO TID PRN for PRN Cholestyramine (Questran), 1 PKT PO TID PRN for PRN Diphenhydramine Hcl (Benadryl Allergy), 50 MG PO DIRECTED PRN for ALLERGIC REACTION Diphenoxylate W/ Atropine (Lomotil), 1 TAB PO QID PRN for Diarrhea Hydrocodone/Acetaminophen 10MG/325MG ([place] 10MG/325MG), 0.5 TAB PO BID PRN for Pain Morphine Sulfate (Morphine Sulfate Er), 15 MG PO DAILY PRN for Pain Phenazopyridine Hcl (Pyridium), 1 TAB PO TID PRN for PRN Sucralfate (Carafate), 1 GM PO BID PRN for Triamterene/Hctz (Triamterene/Hctz 37.5-25MG), 1 TAB PO DAILY PRN for Swelling Allergies Coded Allergies: Azithromycin (Verified Allergy, Intermediate, HIVES, 06/24/17) Sulfa Antibiotics (Verified Allergy, Intermediate, RASH, 06/24/17) Sulfamethoxazole w/Trimethoprim (Verified Allergy, Unknown, RASH HEAD TO TOE- LASTED 3 WEEKS, 06/24/17) Codeine (Verified Adverse Reaction, Severe, TROUBLE BREATHING AND GI, ) tolerates hydromorphone Adhesives (Verified Adverse Reaction, Intermediate, ADHESIVE TAPE: RED WELTS AND BLISTERED SKIN, 06/24/17) Dimethyl Sulfoxide (Verified Adverse Reaction, Intermediate, ABDOMINAL PAIN AND CRAMPING, 06/24/17) Nitrofurantoin (Verified Adverse Reaction, Intermediate, SEVERE VOMITING, 06/24/17) HAS BEEN OK WITH RECENT DOSES PER PT Sumatriptan (Verified Adverse Reaction, Unknown, FEEL WEIRD, DIZZY, 06/24/17 ) Physical Exam Vital Signs Date Time Temp Pulse Resp B/P (MAP) Pulse Ox O2 Delivery O2 Flow Rate FiO2 06/24/17 12:25 75 16 116/74 97 06/24/17 10:56 81 16 118/84 98 Room Air 06/24/17 08:44 36.7 107 18 130/86 100 Room Air Physical Exam General: Mildly-uncomfortable appearing middle aged female in no acute distress. Complaining of back pain. HEENT: Normal cephalic atraumatic. Pupils are equal round and reactive to light. Extraocular movements are intact. Oropharynx is pink with moist mucous membranes. No swelling of the mouth lips or tongue. Neck: Supple with a midline trachea. No meningeal signs or stiffness, no JVD or bruits. No Stridor. Chest: Clear to auscultation bilaterally. No wheezes or rhonchi. No increased work of breathing. Heart: regular rate and rhythm. Abdomen: Soft nontender, nondistended without rebound guarding or rigidity. Extremities: No cyanosis clubbing or edema. No calf tenderness or assymetry Spine/Back. Non tender to palpation. No CVA tenderness Skin: Good turgor without rashes. Neurologic exam: Cranial nerves two through 12 are intact. Motor and sensation are intact and symmetrical throughout. Medical Decision & Procedures ER Provider Diagnostic Interpretation: Radiology results as stated below per my review and radiologist interpretation: ABDOMEN AND PELVIS CT WITHOUT CONTRAST FINDINGS: A stable 3 mm nodule within the right middle lobe on image 39. Punctate calcified granuloma within the right middle lobe. 2 mm subpleural nodule within the left lower lobe, unchanged. No pneumoperitoneum. No pneumatosis. No suspicious lytic or blastic osseous lesions. Posterior fusion hardware seen within the visualized thoracic and upper lumbar spine. Therefore, there are suboptimal evaluation of the upper abdominal structures due to the metallic artifact. Tiny fat-containing supraumbilical hernia and infraumbilical hernias. Hepatic steatosis. Cholecystectomy. The unenhanced liver, adrenal glands, pancreas, and kidneys are unremarkable. No renal or ureteral calculi. No hydronephrosis. Normal bladder. No retroperitoneal lymphadenopathy. Hysterectomy. Suboptimal evaluation for bowel pathology due to the lack of intravenous and oral contrast. However, there is no definite bowel wall thickening or obstruction. Normal appendix. The ovaries are within normal limits. IMPRESSION: 1. No renal or ureteral stones. No hydronephrosis. 2. No definite bowel wall thickening or obstruction. 3. Normal appendix. 4. Hepatic steatosis. 5. Subcentimeter pulmonary nodules within the right middle lobe and left lower lobe remain stable. These are technically indeterminate but likely benign. Electronically signed by: Puneet Leroy M.D. 06/24/2017 10:50 AM Laboratory Results 06/24/17 10:05 Red Blood Count 4.43, Mean Corpuscular Volume 87.8, Mean Corpuscular Hemoglobin 29.1, Mean Corpuscular Hemoglobin Concent 33.2, Mean Platelet Volume 10.2, Neutrophils (%) (Auto) 56.3, Lymphocytes (%) (Auto) 31.1, Monocytes (%) (Auto) 7.2, Eosinophils (%) (Auto) 4.8, Basophils (%) (Auto) 0.4, Neutrophils # (Auto) 5.12, Lymphocytes # (Auto) 2.83, Monocytes # (Auto) 0.66, Eosinophils # (Auto) 0.44, Basophils # (Auto) 0.04 06/24/17 10:05 Test 06/24/17 09:30 06/24/17 10:05 Urine Color YELLOW Urine Appearance CLOUDY (CLEAR) Urine pH 5.0 (4.5-7.5) Urine Specific [place] 1.017 (1.000-1.030) Urine Protein NEG (NEG) Urine Glucose (UA) NEG (NEG) Urine Ketones NEG (NEG) Urine Occult Blood TRACE (NEG) Urine Nitrite NEG (NEG) Urine Bilirubin NEG (NEG) Urine Urobilinogen NEG (NEG) Urine Leukocyte Esterase MODERATE (NEG) Urine WBC (Auto) >30 /hpf (0-5) Urine RBC (Auto) 5-10 /hpf (0-4) Urine Hyaline Casts (Auto) 10-30 /lpf (0-5) Urine Epithelial Cells (Auto) >30 /lpf (0-5) Urine Bacteria (Auto) 1+ (NEG) White Blood Count 9.11 K/uL (4.8-10.8) Red Blood Count 4.43 M/uL (4.2-5.4) Hemoglobin 12.9 g/dL (12.0-16.0) Hematocrit 38.9 % (37-47) Mean Corpuscular Volume 87.8 fL (80-100) Mean Corpuscular Hemoglobin 29.1 pg (25-34) Mean Corpuscular Hemoglobin Concent 33.2 g/dl (32-36) Platelet Count 249 K/uL (130-400) Mean Platelet Volume 10.2 fL (7.4-10.4) Neutrophils (%) (Auto) 56.3 % Lymphocytes (%) (Auto) 31.1 % Monocytes (%) (Auto) 7.2 % Eosinophils (%) (Auto) 4.8 % Basophils (%) (Auto) 0.4 % Neutrophils # (Auto) 5.12 K/uL (1.4-6.5) Lymphocytes # (Auto) 2.83 K/uL (1.2-3.4) Monocytes # (Auto) 0.66 K/uL (0.11-0.59) Eosinophils # (Auto) 0.44 K/uL (0-0.5) Basophils # (Auto) 0.04 K/uL (0-0.2) RDW Standard Deviation 47.4 fL (36.4-46.3) RDW Coefficient of Variation 14.8 % (11.5-14.5) Immature Granulocyte % (Auto) 0.2 % Immature Granulocyte # (Auto) 0.02 K/uL (0.00-0.02) Anion Gap 6.0 mmol/L (3-11) Est Creatinine Clear Calc Drug Dose 166.8 ml/min Estimated GFR () 133.1 Estimated GFR (Non- 114.8 BUN/Creatinine Ratio 9.3 (10-20) Calcium Level 8.3 mg/dl (8.5-10.1) Total Bilirubin 0.4 mg/dl (0.2-1) Direct Bilirubin 0.1 mg/dl (0-0.2) Aspartate Amino Transf (AST/SGOT) 29 U/L (15-37) Alanine Aminotransferase (ALT/SGPT) 34 U/L (12-78) Alkaline Phosphatase 85 U/L (45-117) Total Protein 7.2 gm/dl (6.4-8.2) Albumin 3.6 gm/dl (3.4-5.0) Lipase 161 U/L (73-393) Laboratory studies as stated above per my review. Medications Administered Medications (Trade) Dose Ordered Sig/Michelle Route Start Time Stop Time Status Last Admin Dose Admin Sodium Chloride 1,000 ml @ 999 mls/hr Q1H1M STAT IV 06/24/17 09:37 06/24/17 10:37 DC 06/24/17 10:09 999 MLS/HR Morphine Sulfate (MoRPHine SULFATE INJ) 4 mg NOW STAT IV 06/24/17 09:37 06/24/17 09:39 DC 06/24/17 10:09 4 MG Ondansetron HCl (Zofran Inj) 4 mg NOW STAT IV 06/24/17 09:37 06/24/17 09:39 DC 06/24/17 10:08 4 MG Morphine Sulfate (MoRPHine SULFATE INJ) 4 mg NOW STAT IV 06/24/17 11:33 06/24/17 11:34 DC 06/24/17 11:38 4 MG Ciprofloxacin (Cipro Tab) 500 mg NOW STAT PO 06/24/17 11:57 06/24/17 11:58 DC 06/24/17 12:16 500 MG Fluconazole (Diflucan Tab) 200 mg STK-MED ONCE .ROUTE 06/24/17 12:21 06/24/17 12:22 DC 06/24/17 12:23 200 MG ED Course 0930: Past medical records reviewed. The patient was evaluated in room B7, and a complete history and physical examination were performed. 0937: Ordered Zofran Inj 4 mg IV, Morphine Sulfate 4 mg IV, Sodium Chloride 1000 ml @ 999 mls/hr IV. 1133: Ordered Morphine Sulfate 4 mg IV. 1155: Upon reevaluation, the patient is resting comfortably. I discussed the results and treatment plan with her. She verbalized agreement of the treatment plan. The patient was discharged home. 1157: Ordered Cipro Tab 500 mg PO. Medical Decision Differentials include, but are not limited to; UTI, interstitial cystitis, kidney stone, musculoskeletal, infection, and electrolyte or metabolic abnormality. This patient comes in as described above. She has a history of interstitial cystitis as well as back problems and has been having urinary symptoms and back pain. It is worse with movement. She's been afebrile. She's had some nausea as well. She has no neurologic deficits nothing to suggest cauda equina syndrome or central spinal process. IV access was established and she was given IV morphine 4 mg and IV Zofran 4 mg. Her is at the bedside and driving. Urinalysis was obtained as well as blood work and a CAT scan of her abdomen to rule out obstructive uropathy. She was reassessed frequently. She did request additional IV morphine is resting comfortably with this. She has no white count or fever to suggest infection. Clinically she has nothing to suggest pyelonephritis. She has normal renal function and no acute electrode or metabolic abnormalities. I did a noncontrast CT the abdomen is no obstructive uropathy or any other acute findings which would explain her symptoms. I do not think this is likely related to spinal infection or epidural abscess. Her urinalysis does suggest a UTI with a backup culture pending she's felt like this before with her interstitial cystitis. She has multiple antibiotic allergies but says she does well with Cipro. I'll start on Cipro 500 mg twice a day for 10 days. She should rest and drink plenty of fluids. Return if increasing pain, worsening of symptoms, fever or chills, not tolerating fluids, any problems concerns. She is happy with the plan and discharged to home. Medication Reconcilliation Current Medication List: was personally reviewed by me Blood Pressure Screening Patient's blood pressure: Normal blood pressure Blood pressure disposition: Did not require urgent referral Impression Primary Impression: Urinary tract infection Additional Impression: Back pain Scribe Attestation The scribe's documentation has been prepared under my direction and personally reviewed by me in its entirety. I confirm that the note above accurately reflects all work, treatment, procedures, and medical decision making performed by me. Departure Information Dispostion Home / Self-Care Prescriptions Phenazopyridine HCl (Pyridium) 200 Mg Tab 200 MG PO TID for Bladder Pain, #6 TAB Prov: Lino Weir M.D. 06/24/17 Ciprofloxacin Hcl (CIPRO) 500 Mg Tab 500 MG PO BID, #20 TAB Prov: Lino Weir M.D. 06/24/17 Referrals Jenna Madrigal [facility] (PCP) Forms HOME CARE DOCUMENTATION FORM, IMPORTANT VISIT INFORMATION Patient Instructions My [facility] Additional Instructions Rest. Drink plenty of fluids. Use Cipro 500 mg twice a day for 10 daysantibiotic May use Pyridium every 8 hours as needed for the next 48 hours Return if: Fever or chills, increasing pain, worsening symptoms, not tolerating fluids, any new problems or concerns Follow-up with your doctor Tuesday for recheck or return to the ER over the weekend if symptoms worsen Problem Qualifiers
[2017-06-24 10:33] LABS: BASO % 0.4 %; BASO ABS # 0.04 K/uL (0-0.2); EOS % 4.8 %; EOS ABS # 0.44 K/uL (0-0.5); HEMATOCRIT 38.9 % (37-47); HEMOGLOBIN 12.9 g/dL (12.0-16.0); IG# 0.02 K/uL (0.00-0.02); LYMPH % 31.1 %; LYMPH ABS # 2.83 K/uL (1.2-3.4); MEAN CELL VOLUME 87.8 fL (80-100); MEAN CORPUSCULAR HEMOGLOBIN 29.1 pg (25-34); MEAN CORPUSCULAR HGB CONC 33.2 g/dl (32-36); MEAN PLATELET VOLUME 10.2 fL (7.4-10.4); MONO % 7.2 %; MONO ABS # 0.66 K/uL (0.11-0.59); NEUT % 56.3 %; NEUT ABS # 5.12 K/uL (1.4-6.5); PLATELET COUNT 249 K/uL (130-400); RED CELL DISTRIBUTION WIDTH CV 14.8 % (11.5-14.5); RED CELL DISTRIBUTION WIDTH SD 47.4 fL (36.4-46.3); WHITE BLOOD COUNT 9.11 K/uL (4.8-10.8)
[2017-06-24 10:51] LABS: ALBUMIN 3.6 gm/dl (3.4-5.0); CALCIUM 8.3 mg/dl (8.5-10.1); CREATININE 0.64 mg/dl (0.60-1.20); POTASSIUM 3.5 mmol/L (3.5-5.1)
--- NOTE | 2017-06-24 10:51 | DIAGNOSTIC IMAGING REPORT ---
ABDOMEN AND PELVIS CT WITHOUT CONTRAST CT DOSE: 2325.01 mGy.cm HISTORY: Right-sided abdominal pain. TECHNIQUE: Multiaxial CT images of the abdomen and pelvis were performed without the use of intravenous and oral contrast according to the standard department stone protocol. A dose lowering technique was utilized adhering to the principles of ALARA. COMPARISON STUDY: Abdomen and pelvis CT 03/25/2016. FINDINGS: A stable 3 mm nodule within the right middle lobe on image 39. Punctate calcified granuloma within the right middle lobe. 2 mm subpleural nodule within the left lower lobe, unchanged. No pneumoperitoneum. No pneumatosis. No suspicious lytic or blastic osseous lesions. Posterior fusion hardware seen within the visualized thoracic and upper lumbar spine. Therefore, there are suboptimal evaluation of the upper abdominal structures due to the metallic artifact. Tiny fat-containing supraumbilical hernia and infraumbilical hernias. Hepatic steatosis. Cholecystectomy. The unenhanced liver, adrenal glands, pancreas, and kidneys are unremarkable. No renal or ureteral calculi. No hydronephrosis. Normal bladder. No retroperitoneal lymphadenopathy. Hysterectomy. Suboptimal evaluation for bowel pathology due to the lack of intravenous and oral contrast. However, there is no definite bowel wall thickening or obstruction. Normal appendix. The ovaries are within normal limits. IMPRESSION: 1. No renal or ureteral stones. No hydronephrosis. 2. No definite bowel wall thickening or obstruction. 3. Normal appendix. 4. Hepatic steatosis. 5. Subcentimeter pulmonary nodules within the right middle lobe and left lower lobe remain stable. These are technically indeterminate but likely benign. Electronically signed by: Puneet Leroy M.D. 06/24/2017 10:50 AM Dictated Date/Time: 06/24/2017 10:35 AM
[2017-06-24 10:54] LABS: TOTAL PROTEIN 7.2 gm/dl (6.4-8.2)
[2017-06-24] MEDS ORDERED: CIPROFLOXACIN 500 MG TAB PO STA (11:57)
[2017-06-24] MEDS ORDERED: CIPR-255 PO (12:00)
[2017-06-24] MEDS ORDERED: PHEN-876 PO (12:00)
[2017-06-24] MEDS ORDERED: FLUCONAZOLE 50 MG TAB ONE (12:21)
[2017-06-24 12:25] VITALS: BP 116/74; PULSE 75; O2SAT 97
== END 2017-06-24 12:25 | disposition home or self-care (01) ==
LOC: C.EDB 08:43
DX: N39.0 Urinary tract infection, site not specified (principal); M54.9 Dorsalgia, unspecified; G89.29 Other chronic pain; Z90.710 Acquired absence of both cervix and uterus; J45.40 Moderate persistent asthma, uncomplicated; K21.9 Gastro-esophageal reflux disease without esophagitis; K58.9 Irritable bowel syndrome, unspecified; K75.81 Nonalcoholic steatohepatitis (NASH); M42.00 Juvenile osteochondrosis of spine, site unspecified; Z98.1 Arthrodesis status; Z83.3 Family history of diabetes mellitus; Z80.9 Family history of malignant neoplasm, unspecified; Z82.49 Family history of ischemic heart disease and other diseases of the circulatory system; Z84.1 Family history of disorders of kidney and ureter; Z79.899 Other long term (current) drug therapy

== ENCOUNTER 2024-09-24 08:27 | Observation (INO) ==
--- NOTE | 2024-09-24 08:50 | Emergency Department Note ---
ED DC CONDITION Conditon at Discharge Condition at Discharge: Fair Impression & Plan Acute appendicitis, Adnexal cyst, Right lower quadrant abdominal pain, Leukocytosis ED Provider Note HISTORY OF PRESENT ILLNESS: Patient is a 44-year-old female presenting with abdominal pain. Patient reports she has been having intermittent episodes of dizziness, nausea and vomiting with diarrhea over the last 1.5 weeks. She states that yesterday while out with her daughters she was having chills and developed an intense pain in her right lower quadrant. Reports when she took a deep breath it would hurt. Reports that when she would walk she would have immense pain. Reports an abdominal surgical history significant for cholecystectomy. She has had continued nausea despite taking Zofran 8 mg tabs at home. She describes the pain as sharp in nature. Denies any measured fevers at home. Denies any chest pain or shortness of breath. She reports a history of intermittent cystitis and reports that she has been unable to urinate this morning. She does have history of kidney stones. States that the pain radiates into her back. ROS: as above PHYSICAL EXAM: Constitutional: Patient appears in no acute distress. HENT: Head: Normocephalic and atraumatic. Eyes: EOMI, PERRL Mouth/Throat: Mucous membranes moist. Neck: Trachea midline. Neck supple. Abdominal: Abdomen soft, no rebound or guarding. RLQ TTP Musculoskeletal: No edema, tenderness or deformity noted. Skin: Warm and dry. No rash, erythema, pallor or cyanosis Psychiatric: Appropriate mood and affect for situation. Neurological: Alert and keenly responsive. CN II-XII grossly intact, moving all extremities equally and fully. MDM: - Vitals signs stable. - History obtained via patient. History as above. - Chronic conditions affecting care: obesity; hx of pancreatitis; GERD; HAIRSTON; IBS - Differential diagnoses include, but are not limited to: Aortic aneurysm; appendicitis; diverticulitis; ischemic colitis; ovarian cyst; ureteral calculi - Order placed for continuous cardiac monitoring. At this time, monitor showed rate of 100 bpm with normal sinus rhythm, per my interpretation. - External medical records reviewed. Hematology report dated 04/19/2023 was reviewed. Patient follows with [facility] for fatty liver. - Laboratory workup interpreted by myself showed slight leukocytosis (WBC 11.32) with neutrophilic shift; stable electrolytes; slightly elevated lipase (95); negative hCG; normal AST/ALT - UA negative for infection - Patient initially given 1L NS, 50 mcg IV fentanyl and 4 mg IV zofran on arrival for symptomatic management. - CT abdomen/pelvis with IV contrast showed findings consistent with acute appendicitis with moderate periappendiceal inflammation. No free air or abscess. Patient is noted to have a 6 cm cystic left adnexal lesion which is increased in size from March 2022. - On reassessment, patient reports pain initially improved but has returned. Given another 50 mcg IV fentanyl. - Discussed case with general surgeon on-call, Dr. Sears, at 10:57 via [place] text. He reports that he would like the patient to get mefoxin for antibiotic and that the OR will be calling for patient to come for apendectomy. - Patient taken to the OR with general surgery. Please see the final disposition of the patient in their note. 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) Portal hypertension (Chronic) Failed back syndrome (Chronic) Chronic abdominal pain (Chronic) Cervical radiculopathy (Chronic) Edema Acute lateral meniscus tear of left knee Cyst of meniscus of left knee Vitamin D deficiency History of COVID-19 (Acute 05/2021) Adnexal cyst Pelvic pain Essential tremor (Chronic) Hypothyroidism Gastroparesis Dyslipidemia Diabetes mellitus, type 2 IDDM Depression with anxiety (Chronic) Mild persistent asthma controlled with inhalers Morbid obesity (Acute) Anemia (Chronic) Pancreatitis (Chronic) last episode 2 years ago Kidney stones (Chronic) History of anesthesia reaction (Chronic) "If they bring me out of it too fast I become violent" Endometriosis (Chronic) reason for hysterectomy Interstitial cystitis (Chronic) IBS (irritable bowel syndrome) (Chronic) HAIRSTON (nonalcoholic steatohepatitis) (Chronic) GERD (gastroesophageal reflux disease) (Chronic) Sphincter of Oddi dysfunction (Chronic) "s/p ERCP with sphincterotomy" Migraines (Chronic) F/U DR DANIEL Medical History History of COVID-19 multiple times. last had 06/07/2022 - tested with home test. mild cold symptoms. no current issues. Celiac disease Autoimmune disorder PT UNSURE OF NAME OF DISORDER, STATES FOLLOW W/ [facility] Arthritis BACK Scheurmann's disease Chronic back pain Somatic dysfunction Surgical History History of meniscectomy of left knee History of ERCP History of section x2 History of bladder surgery x5 History of colonoscopy History of esophagogastroduodenoscopy (EGD) History of cholecystectomy S/P laparoscopic hysterectomy S/P lumbar fusion hardware in place S/P tonsillectomy H/O wisdom tooth extraction Family History Uncle Diabetes Grandfather (Paternal) Family hx of colon cancer Colorectal cancer Prostate cancer Grandmother Breast cancer Father Myocardial infarction Mother Stroke Ulcerative colitis Other No family history of adverse response to anesthesia Denies family history of Ovarian cancer Crohn's disease Social History Smoking Status: Never smoker Second Hand Exposure: No; Do You Dip or Chew Tobacco: No; Hx Alcohol Use: Yes Alcohol type: beer and wine Hx Substance Use: No Preferred Language: [place] Communication Ability: Effective Visual Impairment: No Limitations Hearing Ability: Normal Strapper Operator Required: No Beliefs That Will Affect Care: None marital status: Current Living Situation: Spouse and Family Current Living Situation Comment: Lives with and 3 kids current occupational status: unemployed Feels Safe at Home: Yes Childhood Exposure to Second-Hand Smoke: Yes Diet: diabetic and regular Diet Comment: Regular caffeine: Yes during the past year weight has: remained stable Dental Care, Regularly: Yes Physical Activity Frequency: Does not Exercise Seatbelt Use: always Sunscreen Use: Yes Assistive Devices: Cane and Glasses Allergies Allergies Allergy/AdvReac Type Severity Reaction Status Date / Time celecoxib [From Celebrex] Allergy Intermediate SOB,RASH Verified 11/23/23 10:21 azithromycin [From Zithromax] Allergy Mild Rash Verified 11/23/23 10:21 camphor [From Biofreeze] Allergy Mild Rash Verified 11/23/23 10:21 menthol [From Biofreeze] Allergy Mild Rash Verified 11/23/23 10:21 Sulfa (Sulfonamide Allergy Mild RASH Verified 11/23/23 10:21 Antibiotics) sulfamethoxazole Allergy Mild RASH HEAD Verified 11/23/23 10:21 TO TOE- LASTED 3 WEEKS trimethoprim Allergy Mild RASH HEAD Verified 11/23/23 10:21 TO TOE- LASTED 3 WEEKS acetaminophen [From Tylenol] Allergy Unknown Unknown Verified 11/23/23 10:21 Bactrim Allergy Unknown RASH HEAD Verified 06/24/17 09:23 TO TOE- LASTED 3 WEEKS ibuprofen Allergy Unknown Unknown Verified 11/23/23 10:21 codeine AdvReac Severe TROUBLE Verified 11/23/23 10:21 BREATHING AND GI adhesive AdvReac Intermediate ADHESIVE Verified 11/23/23 10:21 TAPE: RED WELTS AND BLISTERED SKIN nitrofurantoin AdvReac Intermediate SEVERE Verified 11/23/23 10:21 VOMITING gabapentin AdvReac Mild Drowsy Verified 11/23/23 10:21 semaglutide [From Ozempic] AdvReac Mild Nausea Verified 11/23/23 10:21 sumatriptan AdvReac Mild FEEL Verified 11/23/23 10:21 WEIRD, DIZZY Dimethyl Sulfoxide AdvReac Intermediate ABDOMINAL Uncoded 11/23/23 10:21 PAIN AND CRAMPING Home Meds Home Medications Medication Instructions Recorded Confirmed diclofenac sodium 1 % topical gel 2 gm topical QID PRN Pain 10/08/19 11/23/23 sucralfate 1 gram tablet (Carafate) 1 g PO BID PRN Gi Upset 10/08/19 11/23/23 buprenorphine HCl 450 mcg buccal 450 mcg buccal Q12H 08/17/21 11/23/23 film (Belbuca) atorvastatin 20 mg tablet 20 mg PO HS 08/11/22 11/23/23 dexlansoprazole 60 mg 60 mg PO QAM 08/11/22 11/23/23 capsule,biphase delayed release (Dexilant) tirzepatide 7.5 mg/0.5 mL 7.5 mg subcut .weekly 11/23/23 11/23/23 subcutaneous pen injector (Karlo) Previous Rx's Medication Instructions Recorded albuterol sulfate 1.25 mg/3 mL 1.25 mg (3 mL) inhalation Q6H PRN 04/10/20 solution for nebulization shortness of breath or wheezing #180 mL nystatin 100,000 unit/gram topical 1 applic topical BID #30 grams 12/19/20 cream pen needle, diabetic 32 gauge x #100 ea 10/14/21" (BD Ultra-Fine Dena Pen Needle) promethazine 25 mg tablet 25 mg PO BID PRN nausea and 12/07/21 vomiting #30 tabs montelukast 10 mg tablet 10 mg PO HS #30 tabs 12/17/21 pregabalin 150 mg capsule 150 mg PO HS #90 caps 12/31/21 furosemide 20 mg tablet 40 mg (2 x 20 mg) PO DAILY PRN 01/12/22 edema #60 tabs lidocaine 5 % topical patch 1 patch topical DAILY PRN Pain #30 04/26/22 (Lidoderm) ea albuterol sulfate 90 mcg/actuation 2 puff inhalation Q4 PRN Shortness 05/10/22 aerosol inhaler (Ventolin HFA) Of Breath Or Wheezing #18 grams buspirone 10 mg tablet 10 mg PO BID #60 tabs 08/05/22 ondansetron 8 mg disintegrating 8 mg PO Q8H PRN nausea and 08/05/22 tablet vomiting #20 tabs levofloxacin 500 mg tablet 500 mg PO DAILY 5 days #5 tabs 08/09/22 lancets #100 ea 08/13/22 budesonide-formoterol HFA 160 2 puff inhalation BID #3 Inhalers 08/30/22 mcg-4.5 mcg/actuation aerosol inhaler (Symbicort) prednisone 20 mg tablet 40 mg (2 x 20 mg) PO DAILY 5 days 08/30/22 #10 tabs blood sugar diagnostic (Blood #100 ea 09/02/22 Glucose Test strips) blood-glucose meter (Blood Glucose #1 ea 09/02/22 Monitoring kit) liothyronine 25 mcg tablet 25 mcg PO QAM #90 tabs 09/02/22 insulin glargine U-300 conc 300 28 unit (0.0933 mL) subcut QAM 09/16/22 unit/mL (1.5 mL) subcutaneous pen #4.5 mL (Touprince SoloStar U-300 Insulin) phenazopyridine 200 mg tablet 200 mg PO Q8H PRN pain #10 tabs 11/08/22 (Pyridium) tamsulosin 0.4 mg capsule 0.4 mg PO HS #30 caps 11/08/22 linaclotide 72 mcg capsule 72 mcg PO QAM #30 caps 12/06/22 (Linzess) methocarbamol 750 mg tablet 750 mg PO TID PRN Muscle Spasm #60 12/06/22 tabs venlafaxine 150 mg 300 mg (2 x 150 mg) PO HS #180 caps 12/06/22 capsule,extended release 24 hr (Effexor XR) potassium chloride 20 mEq 20 meq PO TID #160 tabs 12/22/22 tablet,extended release triamterene 37.5 1 cap PO QAM #90 caps 12/23/22 mg-hydrochlorothiazide 25 mg capsule fluconazole 150 mg tablet 150 mg PO Q48H #3 tabs 12/24/22 (Diflucan) metformin 500 mg tablet 500 mg PO BID #60 tabs 01/04/23 solifenacin 5 mg tablet (Vesicare) 5 mg PO DAILY #30 tabs 05/09/23 topiramate 200 mg tablet 400 mg (2 x 200 mg) PO BID #360 11/21/23 tabs fremanezumab-vfrm 225 mg/1.5 mL 225 mg (1.5 mL) subcut MONTHLY 11/23/23 subcutaneous syringe (Ajovy #1.5 mL Syringe) ketorolac 10 mg tablet 10 - 20 mg (1 - 2 x 10 mg) PO BID 11/23/23 PRN Migraine Headache #20 tabs cholecalciferol (vitamin D3) 1,250 50,000 unit PO WK 90 days #12 tabs 12/14/23 mcg (50,000 unit) tablet zolmitriptan 5 mg nasal spray 1 spray intranasal DIRECTED PRN 07/16/24 Migraine Headache #6 ea fluconazole 150 mg tablet 150 mg PO Q3D 2 doses #2 tabs 08/01/24 lorazepam 1 mg tablet (Ativan) 1 mg PO Q8H PRN anxiety #10 tabs 08/01/24 Results & Data (ED) Vital Signs Vital Signs - 24 hr 09/24/24 08:28 09/24/24 09:37 09/24/24 09:37 Temperature 36.7 C Temperature Source Temporal Artery Scan Pulse Rate 85 93 H Pulse Rate [Apical] 97 H Respiratory Rate 14 19 21 Blood Pressure 114/78 Blood Pressure [Right Arm] 139/87 Blood Pressure Mean 90 Blood Pressure Mean [Right Arm] 104 Pulse Oximetry 99 98 99 Oxygen Delivery Method Room Air Room Air Room Air Sepsis New/Unexplained Change in Mental Status No Sepsis Action Taken by Nursing No Action Required 09/24/24 09:37 Temperature Temperature Source Pulse Rate 98 H Pulse Rate [Apical] Respiratory Rate Blood Pressure Blood Pressure [Right Arm] Blood Pressure Mean Blood Pressure Mean [Right Arm] Pulse Oximetry Oxygen Delivery Method Sepsis New/Unexplained Change in Mental Status Sepsis Action Taken by Nursing Laboratory Data 09/24/24 09:30 09/24/24 09:30 Lab Results 09/24/24 09/24/24 Range/Units : 09:30 WBC 11.32 H (4.8-10.8) K/ul RBC 4.95 (4.20-5.40) M/uL Hgb 14.0 (12.0-16.0) g/dl Hct 41.8 (37.0-47.0) % MCV 84.4 (80.0-100.0) fL MCH 28.3 (25.0-34.0) pg MCHC 33.5 (32.0-36.0) g/dL RDW Std Deviation 42.3 (36.4-46.3) fL RDW Coeff of Hernan 13.7 (11.5-14.5) % Plt Count 204 (130-400) K/uL MPV 10.7 (9.4-12.4) fL Immature Gran % (Auto) 0.2 % Neut % (Auto) 69.1 % Lymph % (Auto) 22.0 % [place] % (Auto) 5.6 % Eos % (Auto) 2.7 % Baso % (Auto) 0.4 % Neut # (Auto) 7.83 H (1.40-6.50) K/uL Lymph # (Auto) 2.49 (1.20-3.40) K/uL [place] # (Auto) 0.63 H (0.11-0.59) K/uL Eos # (Auto) 0.30 (0.00-0.50) K/uL Baso # (Auto) 0.05 (0.00-0.20) K/uL Immature Gran # (Auto) 0.02 (0.01-0.20) K/uL Sodium 140 (136-145) mmol/L Potassium 3.5 (3.5-5.1) mmol/L Chloride 110 H (98-107) mmol/L Carbon Dioxide 24 (21-32) mmol/L Anion Gap 6 (3-11) BUN 9 (6-23) mg/dl Creatinine 0.77 (0.6-1.2) mg/dl Est Cr Clr Drug Dosing 116.5 ml/min eGFR 98.10 BUN/Creatinine Ratio 11.7 (10-20) Glucose 82 (70-99(Fasting)) mg/dl Calcium 8.7 (8.6-10.3) mg/dl Total Bilirubin 0.3 (0.2-1.0) mg/dl AST 15 (13-39) U/L ALT 13 (7-52) U/L Alkaline Phosphatase 90 (34-104) U/L Total Protein 6.8 (6.0-8.3) gm/dl Albumin 4.1 (3.4-5.0) gm/dl Globulin 2.7 (2.5-4.0) gm/dl Albumin/Globulin Ratio 1.5 (0.9-2) Lipase 95 H (11-82) U/L HCG, Qual Negative (Negative) Urine Color Yellow Urine Appearance Clear (Clear) Urine pH 6.0 (4.5-7.5) Ur Specific [place] 1.012 (1.000-1.030) Urine Protein Negative (Negative) Urine Glucose (UA) Negative (Negative) Urine Ketones Negative (Negative) Urine Blood Negative (Negative) Urine Nitrite Negative (Negative) Urine Bilirubin Negative (Negative) Urine Urobilinogen Negative (Negative) Ur Leukocyte Esterase Negative (Negative) Administered Medications Cefoxitin Sodium (Mefoxin) 2,000 mg in 60 mls @ 100 mls/hr IV NOW STA Stop: 09/24/24 11:42 Last Admin: 09/24/24 11:32 Dose: 100 mls/hr Documented By: ARMANDO Discontinued Medications Fentanyl Citrate (Fentanyl Citrate Pf 100 Mcg/2 Ml Vial) 50 mcg IV NOW STA Stop: 09/24/24 08:49 Last Admin: 09/24/24 09:39 Dose: 50 mcg Documented By: ARMANDO Sodium Chloride (Nss) 1,000 mls @ 999 mls/hr IV .Q1H1M ONE Stop: 09/24/24 09:47 Last Infusion: 09/24/24 10:57 Dose: Infused Documented By: Admin: 09/24/24 09:39 Dose: 999 mls/hr Documented By: ARMANDO Piperacillin Sod/Tazobactam Sod (Zosyn) 4.5 gm in 100 mls @ 200 mls/hr IV NOW ONE; Protocol Stop: 09/24/24 11:25 Last Admin: 09/24/24 11:27 Dose: Not Given Documented By: ARMANDO Ioversol (Optiray 320 100ml) 94 ml IV ONCE ONE Stop: 09/24/24 10:21 Last Admin: 09/24/24 10:20 Dose: 94 ml Documented By: ABILIO Ondansetron HCl (Ondansetron Inj 2 Mg/Ml 2 Ml Vial) 4 mg IV NOW STA Stop: 09/24/24 08:49 Last Admin: 09/24/24 09:39 Dose: 4 mg Documented By: ARMANDO Imaging Data Radiologist's Impression: Abdomen/Pelvis CT 09/24/24 08:47 CT SCAN OF THE ABDOMEN AND PELVIS WITH IV CONTRAST CLINICAL HISTORY: Right flank pain. COMPARISON STUDY: CT of the abdomen and pelvis March 26, 2022. TECHNIQUE: Following the IV administration of 94 cc of Optiray 320, CT scan of the abdomen and pelvis is performed from the lung bases to the proximal femora. Images are reviewed in the axial, sagittal, and coronal planes. IV contrast was administered without complication. A dose lowering technique was utilized adhering to the principles of ALARA. CT DOSE: 1518.87 mGy.cm FINDINGS: Lung bases: The size of the heart is normal. There is no pericardial effusion. The lung bases are clear. Images of the lower chest and upper abdomen are degraded by streak artifact from thoracolumbar spine fusion hardware. Liver: The liver morphology is normal and there are no hepatic lesions. There is no biliary ductal dilatation status post cholecystectomy. The hepatic veins and portal veins are patent. Gallbladder: Unremarkable. Spleen: Splenomegaly has decreased since prior CT. Pancreas: There are no pancreatic lesions. No pancreatic ductal dilatation is present. Adrenal glands: Unremarkable. Kidneys: There are no renal lesions. There is no hydronephrosis. The kidneys enhance symmetrically. Abdominal vasculature: The caliber of the abdominal aorta is normal. Major vasculature is patent. Bowel: The caliber and wall thickness of small and large bowel are normal. The appendix is mildly dilated, measuring 9 mm in caliber. There is moderate periappendiceal inflammation. No free air is present. There is no fluid collection. Peritoneum: There is no intraperitoneal free air or abdominal ascites. Lymphadenopathy: None. Skeletal structures: No lytic or blastic lesions are seen. Pelvic viscera: A 6 x 4.3 cm cystic left adnexal lesion has mildly increased in size since CT of March 26, 2022. This is better depicted on pelvic ultrasound March 31, 2022. IMPRESSION: 1. Findings consistent with acute appendicitis. Moderate periappendiceal inflammation. No free air or abscess. 2. 6 cm cystic left adnexal lesion, mildly increased in size since CT of March 26, 2022. This is likely benign although indeterminate and could be reassessed with a follow-up nonemergent pelvic ultrasound. ACT 112: Negative or not required by law. Electronically signed by: Abhijeet Marcum M.D. 09/24/2024 10:47 AM Discharge Plan Visit Data Chief Complaint: Flank Pain Stated Complaint: RT FLANK PAIN ED Provider: Debbie Corona Discharge Problem: Acute appendicitis, Adnexal cyst, Right lower quadrant abdominal pain, Leukocytosis Patient Disposition: Being Evaluated by Surgeon Condition: Fair Forms Stand Alone Forms: My [facility] Prescriptions Prescriptions: No Action albuterol sulfate 1.25 mg/3 mL solution for nebulization 1.25 mg INH Q6H PRN (Reason: shortness of breath or wheezing) Qty: 180 0RF furosemide 20 mg tablet 40 mg PO DAILY PRN (Reason: edema) Qty: 60 4RF albuterol sulfate [Ventolin HFA] 90 mcg/actuation HFA aerosol inhaler 2 puff INHALATION Q4 PRN (Reason: Shortness Of Breath Or Wheezing) Qty: 18 0RF ondansetron 8 mg tablet,disintegrating 8 mg PO Q8H PRN (Reason: nausea and vomiting) Qty: 20 0RF buspirone 10 mg tablet 10 mg PO BID Qty: 60 3RF (DME) lancets Misc See Rx Instructions .Route Qty: 100 0RF Rx Instructions: As directed, testing BS daily (DME) Blood Glucose Test Strip See Rx Instructions .ROUTE .MEDSUPPLY Qty: 100 1RF Rx Instructions: As directed. Testing BS daily. Dx: E11.9 (DME) blood-glucose meter [Blood Glucose Monitoring] Kit See Rx Instructions .ROUTE .MEDSUPPLY Qty: 1 0RF Rx Instructions: As directed Testing BS daily. Dx: E11.9 liothyronine 25 mcg tablet 25 mcg PO QAM Qty: 90 1RF Toujeo SoloStar U-300 Insulin 300 unit/mL (1.5 mL) insulin pen 28 unit subcut QAM Qty: 4.5 5RF Rx Instructions: 28 units per patient methocarbamol 750 mg tablet 750 mg PO TID PRN (Reason: Muscle Spasm) Qty: 60 1RF Linzess 72 mcg capsule 72 mcg PO QAM Qty: 30 1RF venlafaxine [Effexor XR] 150 mg capsule,extended release 24hr 300 mg PO HS Qty: 180 1RF potassium chloride 20 mEq tablet extended release 20 meq PO TID Qty: 160 3RF Rx Instructions: 40 mEq Q AM, 20 mEq in the afternoon, 40 mEq in the evenings triamterene-hydrochlorothiazid 37.5-25 mg capsule 1 cap PO QAM Qty: 90 3RF fluconazole [Diflucan] 150 mg tablet 150 mg PO Q48H Qty: 3 0RF metformin 500 mg tablet 500 mg PO BID Qty: 60 0RF Hold Instructions: Diarrhea solifenacin [Vesicare] 5 mg tablet 5 mg PO DAILY Qty: 30 3RF topiramate 200 mg tablet 400 mg PO BID Qty: 360 3RF cholecalciferol (vitamin D3) 1,250 mcg (50,000 unit) tablet 50,000 unit PO WK 90 Days Qty: 12 3RF Rx Instructions: 50,000 units once weekly, mon zolmitriptan 5 mg spray,non-aerosol 1 spray Intranasal DIRECTED PRN (Reason: Migraine Headache) Qty: 6 5RF Rx Instructions: 1 spray intranasal per nostril at onset of migraine , may repeat in 2 hours if needed PRN; tamsulosin 0.4 mg capsule 0.4 mg PO HS Qty: 30 5RF phenazopyridine [Pyridium] 200 mg tablet 200 mg PO Q8H PRN (Reason: pain) Qty: 10 0RF promethazine 25 mg tablet 25 mg PO BID PRN (Reason: nausea and vomiting) Qty: 30 0RF pregabalin 150 mg capsule 150 mg PO HS Qty: 90 1RF montelukast 10 mg tablet 10 mg PO HS Qty: 30 5RF Symbicort 160-4.5 mcg/actuation HFA aerosol inhaler 2 puff INHALATION BID Qty: 3 3RF prednisone 20 mg tablet 40 mg PO DAILY 5 Days Qty: 10 0RF levofloxacin 500 mg tablet 500 mg PO DAILY 5 Days Qty: 5 0RF (DME) pen needle, diabetic [BD Ultra-Fine Dena Pen Needle] 32 gauge x 5/32" needle See Rx Instructions .Route Qty: 100 2RF Rx Instructions: As directed lidocaine [Lidoderm] 5 % adhesive patch,medicated 1 patch TOP DAILY PRN (Reason: Pain) Qty: 30 5RF Rx Instructions: leave on most painful area for 12 hrs nystatin 100,000 unit/gram cream 1 applic topical BID Qty: 30 1RF buprenorphine HCl [Belbuca] 450 mcg film 450 mcg buccal Q12H Mounjaro 7.5 mg/0.5 mL pen injector 7.5 mg subcut .weekly Ajovy Syringe 225 mg/1.5 mL syringe 225 mg subcut MONTHLY Qty: 1.5 11RF ketorolac 10 mg tablet 10 - 20 mg PO BID PRN (Reason: Migraine Headache) Qty: 20 0RF diclofenac sodium 1 % gel 2 gm TOP QID PRN (Reason: Pain) sucralfate [Carafate] 1 gram tablet 1 g PO BID PRN (Reason: Gi Upset) Patient Comments: atorvastatin 20 mg tablet 20 mg PO HS dexlansoprazole [Dexilant] 60 mg capsule,biphase delayed releas 60 mg PO QAM fluconazole 150 mg tablet 150 mg PO Q3D Qty: 2 0RF Rx Instructions: may repeat second dose 72 hrs after first dose if symptoms persist lorazepam [Ativan] 1 mg tablet 1 mg PO Q8H PRN (Reason: anxiety) Qty: 10 0RF Referrals Referrals: Melissa Fitzpatrick CRNP [Primary Care Provider] -
--- OUTSIDE RECORDS SUMMARY | 2024-09-24 09:12 | External Medical Summary | Continuity of Care Document ---
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 Name Role Phone Melissa Ma Primary Care Physician [phone] Encounter [facility] [phone] Date(s): 08/02/24 - 08/02/24 [facility] [address] [id number] [phone] Encounter Diagnosis Anxiety(Discharge Diagnosis) - 08/03/24 Discharge Disposition: Home or Self Care Attending Physician: DO Schwartz Franklin J Encounter Type: Clinic Allergies, Adverse Reactions, Alerts Substance Criticality Severity Reaction Reaction Severity Status codeine Vomiting Shortness of breath Active Macrobid Vomiting Active Bactrim 1 Rash Active Biofreeze rash swelling Active Ozempic (1 mg dose) n/v/d; rash Active 1NOted from the [facility] EMR chart. Immunizations Given and Recorded Vaccine Date Status Refusal Reason SARS-CoV-2 mRNA-1273 (6y+ bivalent) 03/17/22 Recor ded SARS-CoV-2 (COVID-19) mRNA-1273 vaccine 01/08/21 R ecorded SARS-CoV-2 (COVID-19) mRNA-1273 vaccine 08/26/20 R ecorded SARS-CoV-2 (COVID-19) mRNA-1273 vaccine 06/21/20 R ecorded tetanus/diphtheria/pertuss, acel (Tdap) 09/09/16 R ecorded tetanus/diphtheria/pertuss, acel (Tdap) 05/24/06 R ecorded pneumococcal 13-valent vaccine 02/05/16 Recorded pneumococcal 23-valent vaccine 03/11/15 Recorded pneumococcal 23-valent vaccine 03/11/08 Recorded influenza virus vaccine, H1N1 04/12/09 Recorded measles/mumps/rubella virus vaccine 01/01/98 Recor ded measles/mumps/rubella virus vaccine 01/13/84 Recor ded Medications Ajovy 225 mg/1.5 mL subcutaneous solution Start: 03/02/23 2:47:00 PM EDT Start Date: 03/02/23 Status: Ordered Repeat number: 1 Ativan 1 mg oral tablet Start: 08/02/24 3:59:00 PM EDT, 1 tab, PO, tid, PRN: as needed for anxiety Start Date: 08/02/24 Status: Ordered Repeat number: 1 Belbuca 600 mcg buccal film Start: 03/02/23 2:46:00 PM EDT Start Date: 03/02/23 Status: Ordered Repeat number: 1 buPROPion 300 mg/24 hours (XL) oral tablet, extended release Start: 04/18/24 3:18:00 PM EST, 1 tab, PO, Daily, Disp# 90 tab, Refills: 0, Pharmacy: [id number] Start Date: 04/18/24 Status: Ordered Quantity: 90.0 Unit: tab Repeat number: 1 buPROPion HCl ER (XL) Oral Tablet Extended Release 24 Hour 150 MG Start: 08/03/24 9:49:00 AM EDT, buPROPion HCl ER (XL) Oral Tablet Extended Release 24 Hour 150 MG, 1tab, PO, Daily, Disp# 90 tab, Refills: 0, Pharmacy [id number] Start Date: 08/03/24 Status: Ordered Quantity: 90.0 Unit: tab Repeat number: 1 buPROPion HCl ER (XL) Oral Tablet Extended Release 24 Hour 150 MG Start: 05/03/24 10:01:00 PM EST, buPROPion HCl ER (XL) Oral Tablet Extended Release 24 Hour 150 MG,1 tab, PO, Daily, Disp# 90 tab, Refills: 0, Pharmacy [id number] Start Date: 05/03/24 Status: Ordered Quantity: 90.0 Unit: tab Repeat number: 1 busPIRone 10 mg oral tablet Start: 03/19/24 10:58:00 AM EDT, 1 tab, PO, tid, Disp# 90 tab, Refills: 3, Pharmacy: [id number] Start Date: 03/19/24 Status: Ordered Quantity: 90.0 Unit: tab Repeat number: 1 Colace 10 mg/mL oral liquid Start: 07/22/08 9:53:46 AM EST, 10 mL, PO, bid, Refills: 0, current medication from another provider Start Date: 07/22/08 Status: Ordered Repeat number: 1 dexlansoprazole 60 mg oral delayed release capsule Start: 03/27/24 10:35:00 AM EST, 1 cap, PO, Daily, Disp# 90 cap, Refills: 0, Pharmacy: [id number] Start Date: 03/27/24 Stop Date: 06/25/24 Status: Ordered Quantity: 90.0 Unit: cap Repeat number: 1 Flonase 0.05 mg/inh nasal spray Start: 03/31/09 11:39:38 AM EST, 1 spray, intranasal, Daily, Refills: 0, current medication from another provider Start Date: 03/31/09 Status: Ordered Repeat number: 1 fluconazole 200 mg oral tablet Start: 06/12/24 4:48:00 PM EST, 1 tab, PO, tid, Disp# 5 tab, Refills: 0, Pharmacy: [id number] Start Date: 06/12/24 Stop Date: 06/26/24 Status: Ordered Quantity: 5.0 Unit: tab Repeat number: 1 FreeStyle Rasheed 2 - 14 day reader Start: 07/25/23 10:18:00 AM EST, See Instructions, Disp# 1 each, Check sugars up to three times daily, Note to Pharmacy: E11.65;, Pharmacy: [id number] Start Date: 07/25/23 Status: Ordered Quantity: 1.0 Unit: each Repeat number: 1 FreeStyle Rasheed 2 - 14 day sensor Start: 07/25/23 10:18:00 AM EST, See Instructions, Disp# 2 each, Refills: 5, Check sugars three timesdaily, Note to Pharmacy: E11.65, Pharmacy: [id number] Start Date: 07/25/23 Status: Ordered Quantity: 2.0 Unit: each Repeat number: 6 FreeStyle Rasheed 2 [place] Device Start: 10/03/23 2:06:00 PM EDT, FreeStyle Rasheed 2 [place] Device, See Instructions, Disp# 1 unknown unit, Refills: 5, CHECK SUGARS UP TO 3 TIMES DAILY, Pharmacy [id number] Start Date: 10/03/23 Status: Ordered Quantity: 1.0 Unit: unknown unit Repeat number: 1 FreeStyle Rasheed 2 Sensor Miscellaneous Start: 02/01/24 5:11:00 PM EDT, FreeStyle Rasheed 2 Sensor Miscellaneous, See Instructions, Disp# 2 unknown unit, Refills: 0, CHECK BLOOD SUGARS 3 TIMES DAILY, Pharmacy [id number] Start Date: 02/01/24 Status: Ordered Quantity: 2.0 Unit: unknown unit Repeat number: 1 FreeStyle Rasheed 2 Sensor Miscellaneous Start: 12/12/23 11:01:00 AM EDT, FreeStyle Rasheed 2 Sensor Miscellaneous, See Instructions, Disp# 2 unknown unit, Refills: 0, CHECK BLOOD SUGARS 3 TIMES DAILY, Pharmacy [facility] Start Date: 12/12/23 Status: Ordered Quantity: 2.0 Unit: unknown unit Repeat number: 1 furosemide 20 mg oral tablet Start: 07/17/24 8:42:00 AM EST, 1 tab, PO, Daily, Disp# 30 tab, Refills: 0, PRN: NEEDED FOR SWELLING, Pharmacy: [id number] Start Date: 07/17/24 Status: Ordered Quantity: 30.0 Unit: tab Repeat number: 1 hydrochlorothiazide-triamterene 25 mg-37.5 mg oral capsule Start: 04/18/24 3:18:00 PM EST, 1 cap, PO, qAM, Disp# 90 cap, Refills: 0, Pharmacy: [id number] Start Date: 04/18/24 Status: Ordered Quantity: 90.0 Unit: cap Repeat number: 1 hydrOXYzine pamoate 25 mg oral capsule Start: 12/05/23 9:59:00 AM EDT, 1 cap, PO, tid, Disp# 60 cap, Refills: 0, PRN: NEEDED for anxiety, Pharmacy: [id number] Start Date: 12/05/23 Status: Ordered Quantity: 60.0 Unit: cap Repeat number: 1 Linzess 72 mcg oral capsule Start: 06/12/24 4:48:00 PM EST, 1 cap, PO, Daily, Disp# 90 cap, Refills: 0, on an empty stomach., Pharmacy: [id number] Start Date: 06/12/24 Status: Ordered Quantity: 90.0 Unit: cap Repeat number: 1 liothyronine 25 mcg oral tablet Start: 04/18/24 3:18:00 PM EST, 1 tab, PO, Daily, Disp# 90 tab, Refills: 0, Pharmacy: [facility] Start Date: 04/18/24 Status: Ordered Quantity: 90.0 Unit: tab Repeat number: 1 LORazepam 0.5 mg oral tablet Start: 05/19/24 1:57:00 PM EST, 1 tab, PO, bid, Disp# 15 tab, Refills: 0, PRN: as needed for anxiety, Pharmacy: [facility] Start Date: 05/19/24 Status: Ordered Quantity: 15.0 Unit: tab Repeat number: 1 metFORMIN 500 mg oral tablet Start: 06/12/24 4:48:00 PM EST, 1 tab, PO, bid, Disp# 180 tab, Refills: 0, Pharmacy: [facility] Start Date: 06/12/24 Status: Ordered Quantity: 180.0 Unit: tab Repeat number: 1 methocarbamol 750 mg oral tablet Start: 08/02/24 4:55:00 PM EDT, 1 tab, PO, Daily, Disp# 20 tab, PRN: spasms, Pharmacy: [facility] Start Date: 08/02/24 Stop Date: 08/22/24 Status: Ordered Quantity: 20.0 Unit: tab Repeat number: 1 Mounjaro 10 mg/0.5 mL subcutaneous solution Start: 07/17/24 8:46:00 AM EST, 10 mg =, subQ, q7days, Disp# 2 mL, Refills: 0, Pharmacy: [facility] ([facility]) Start Date: 07/17/24 Status: Ordered Quantity: 2.0 Unit: mL Repeat number: 1 ondansetron 8 mg oral tablet Start: 07/25/23 10:20:00 AM EST, 1 tab, PO, ONCE, Disp# 90 tab, Refills: 1, PRN: as needed for nausea/vomiting, Pharmacy: [id number] Start Date: 07/25/23 Status: Ordered Quantity: 90.0 Unit: tab Repeat number: 2 potassium chloride 10 mEq oral capsule, extended release Start: 07/17/24 8:42:00 AM EST, 2 cap, PO, bid, Disp# 120 cap, Refills: 0, Pharmacy: [facility] Start Date: 07/17/24 Status: Ordered Quantity: 120.0 Unit: cap Repeat number: 1 Symbicort 160 mcg-4.5 mcg/inh inhalation aerosol Start: 10/01/22 3:06:00 PM EDT Start Date: 10/01/22 Status: Ordered Repeat number: 1 Sharif Palomo SoloStar 300 units/mL subcutaneous solution Start: 11/21/23 7:23:00 PM EDT, 38 unit =, subQ, Daily, Disp# 6 mL, Refills: 0, Pharmacy: [facility] Start Date: 11/21/23 Status: Ordered Quantity: 6.0 Unit: mL Repeat number: 1 Ubrelvy 50 mg oral tablet Start: 07/25/23 10:08:00 AM EST, 1 tab, PO, ONCE, Disp# 9 tab, Pharmacy: [facility] Start Date: 07/25/23 Status: Ordered Quantity: 9.0 Unit: tab Repeat number: 1 venlafaxine 75 mg oral capsule, extended release Start: 12/05/23 9:59:00 AM EDT, 1 cap, PO, Daily, Disp# 90 cap, Refills: 0, Pharmacy: [facility] Start Date: 12/05/23 Status: Ordered Quantity: 90.0 Unit: cap Repeat number: 1 Vitamin D3 50,000 intl units (1250 mcg) oral capsule Start: 10/01/22 3:05:00 PM EDT Start Date: 10/01/22 Status: Ordered Repeat number: 1 ZOLMitriptan 5 mg nasal spray Start: 10/01/22 3:04:00 PM EDT Start Date: 10/01/22 Status: Ordered Repeat number: 1 Mental Status 08/02/24 Barriers to Learning one year None evide nt Mandatory Health Literacy Documentation Yes Health Literacy Communication Barriers N ever Primary Language Bol[place]ian Problem List Condition Confirmation Course Effective Dates Status H ealth Status Informant Acquired hypothyroidism Confirmed Active ALLERGIC RHINITIS Confirmed Active Arthritis of left knee Confirmed Active IC (interstitial cystitis) Confirmed Active Constipation Confirmed Active Diabetes mellitus Confirmed Active Liver disease Confirmed Active Hip pain 1 Confirmed Active Migraine Confirmed Active HAIRSTON (nonalcoholic steatohepatitis) Confirmed Active Obesity due to excess calories Confirmed Active Depression, major, recurrent, moderate Confirmed Active 1bilat hips Diagnosis Diagnosis Type Effective Dates Health Status Clini meeta Service Informant Anxiety Discharge Diagnosis 08/03/24 Non-Specified Procedures Procedure Date Related Diagnosis Body Site Status Hysterectomy 2012 Completed Vital Signs Most recent to oldest [Reference Range]: 1 Heart Rate 93 bpm (08/02/24 4:00 PM) Respiratory Rate 12 br/min (08/02/24 4:00 PM) Blood Pressure 110/78mmHg (08/02/24 4:00 PM) Social History Social History Type Response Smoking Status Never smoked cigaret mariah Sex Female Sex Representation Female (finding) Patient Care team information Care Team Personnel Name: LOUANN Ma, Melissa Neumann Position: Physician Asst [place] - Family Med Member Role: Primary Care Provider Address: [address] [place] [address] Telecom: [phone] Care Team Related Persons Name: LISSETTE CM Name: LUIS ANTONIO CM Insurance Providers Guarantor name: WILLIAN CM Health Plan Information #: 1 Payer: [employer] Member Number: [id number] Policy Number: NA Group Number: [id number] Health Plan Information #: 2 Payer: [employer] Member Number: [id number] Policy Number: NA Group Number: NA Health Plan Information #: 3 Payer: JORGE SHIPLEY Member Number: NA Policy Number: NA Group Number: NA
--- OUTSIDE RECORDS SUMMARY | 2024-09-24 09:12 | External Medical Summary | Summary of Care ---
Author Name Unknown Organization [facility] Address [address] [place] [address] Phone [phone] Care Team Providers Care Main Line Assembler Name Role Phone Fernanda Stone DO Primary Care Provider [phone]- [phone] Reason for Visit * Reason Onset Date Comments TRIAGE 11/30/2023 Diabetes Management 11/30/2023 Non-CE DM Encounter Details Date Type Department Care Team (Late st Contact Info) Description 11/30/2023 Telephone Centralized Clinical Pharmacy Services, Trisha Leon [address] [place] [address] [place] [address] [address] [address] TRIAGE; Diabetes Management (Non-CE DM) Allergies Active Allergy Reactions Criticality Noted Date Comments Adhesive Tape Other (Please comment) 08/07/2013 Red welts with blistering of skin-localized Sulfamethoxazole-Trimeth oprim 04/07/2016 Rash Menthol (Topical Analgesic) Rash 05/01/2018 Celecoxib 06/04/2019 Codeine 12/03/2004 Trouble breathing, GI issues Gabapentin Other (Please comment) 03/22/2018 Makes patient too drowsy 03/22/18 Meloxicam Rash 03/13/2018 Nitrofurantoin 11/07/2012 Dimethyl Sulfoxide High 12/11/2013 abd pain and cramping Sulfa Antibiotics Rash 03/22/2016 Azithromycin Rash 08/02/2011 Rash documented as of this encounter (statuses as of 08/03/2024) Medications diphenoxylate-a tropine 2.5-0.025 mg per tab (LOMOTIL) 2.5-0.025 MG Tablet Take 1 Tab by mouth 4 times a day as needed for Diarrhea. 30 Tab 0 07/24/19 16 Active Nebulizers (NEBULIZER COMPRESSOR) MISCIndications :Moderate persistent asthma with acute exacerbation Use every 4 hours as needed for shortness of breath wheezing 1 Each 0 10/27/19 16 Active Pentosan polysulfate (ELMIRON) 100 MG Capsule Take 1 Cap by mouth 3 times a day. 270 Cap 3 11/18/19 16 Active Albuterol Sulfate 0.63 MG/3ML nebulizer solutionIndicat ions:Moderate persistent asthma with acute exacerbation Use 1 vial in nebulizer every 4 hours as needed for wheezing 120 Vial 1 03/22/20 16 Active Budesonide-Form oterol Fumarate (SYMBICORT) 160-4.5 MCG/ACT inhaler Inhale 2 Puffs by mouth 2 times a day. 1 Inhaler 5 04/07/20 16 Active albuterol (VENTOLIN HFA) 108 (90 BASE) MCG/ACT inhalerIndicati ons:pt takes this twice daily Inhale 2 Puffs by mouth every 4 hours as needed for Cough, Shortness of Breath or Wheezing. 1 Inhaler 3 06/16/19 17 Active montelukast (SINGULAIR) 10 MG Tablet Take 1 Tab by mouth every evening. 30 Tab 11 06/16/19 17 Active triamcinolone acetonide (ARISTOCORT) 0.1 % cream Apply topically to affected area 2 times a day. Apply to contact rash 80 g 3 06/16/19 17 Active Additional Information Patient taking differently:Topical BID (.AM/PM), Apply to contact rash,Indications: pt takes as needed, Reported on 07/10/2018 sucralfate (CARAFATE) 1 GM Tablet TAKE 1 TABLET BY MOUTH TWICE A DAY 60 Tab 5 08/19/19 17 Active Additional Information Patient taking differently: TAKE 1 TABLET BY MOUTH TWICE A DAY- pt taking as needed, Reported on 07/10/2018 Tiotropium Floyd Monohydrate (SPIRIVA RESPIMAT) 1.25 MCG/ACT AERSIndications :twice in the AM Inhale by mouth every morning. Indications: twice in the AM Active Frovatriptan Succinate (FROVA) 2.5 MG Tablet Take 1 Tab by mouth as needed for Migraine. If recurs, may repeat after 2 hours. Max of 3 tabs in 24 hours. 10 Tab 11/20/19 17 Active Beclomethasone Dipropionate (QVAR) 40 MCG/ACT inhaler Inhale 2 Puffs by mouth 2 times a day. Active cholestyramine (QUESTRAN) 4 GM powder Take 1 Packet by mouth 3 times a day. mixed with liquid. 270 Packet 1 01/07/20 17 Active Additional Information Patient taking differently:4 g Oral TID(AM/NOON/HS), mixed with liquid.,Indications: pt takes as needed, Reported on 07/10/2018 topiramate (TOPAMAX) 200 MG Tablet 200 mg. TAKE 2 TABS TWICE A DAY 60 Tab 5 04/20/20 17 Active venlafaxine XR (EFFEXOR XR) 150 MG CP24 Do not cut, crush or chew TAKE 2 TABS TWICE A DAY 30 Cap 5 04/20/20 17 Active ZOMIG 5 MG SOLN 0 10/28/19 18 Active lidocaine (LIDODERM) 5 %Indications:Ch ronic bilateral low back pain without sciatica,Myalgi a Place 1 Patch topically on the skin daily. 30 Patch 5 11/16/19 18 Active Ketoconazole 2 % cream Apply topically to affected area daily. Apply to abdomen skin fold 30 g 1 11/30/19 18 Active Additional Information Patient taking differently:External Daily(AM), Apply to abdomen skin fold,Indications: pt uses as needed, Reported on 07/10/2018 Potassium Chloride Kira ER 20 MEQ TBCR Take 1 Tab by mouth daily. 30 Tab 11 02/10/20 18 Active Diclofenac Sodium 1 % gel Apply 2 g topically to affected area 4 times a day. Active ASMANEX 60 METERED DOSES 220 MCG/INH inhaler TAKE 2 PUFFS BY MOUTH TWICE A DAY 0 03/07/20 18 Active FREMANEZUMAB-VF RM 225 MG/1.5ML SOSY INJECT MONTHLY 3 04/03/20 18 Active Phenazopyridine HCl 200 MG Tablet Take 100 mg by mouth 3 times a day as needed. Active hydrocortisone (ANUSOL-HC) 2.5 % rectal cream Administer into the rectum 2 times a day. 30 g 05/17/20 18 Active Triamterene-HCT Z (MAXZIDE) 37.5-25 MG per capsule TAKE ONE CAPSULE BY MOUTH DAILY NEEDED FOR SWELLING 90 Cap 3 08/09/19 19 Active pregabalin (LYRICA) 75 MG Capsule Take 75 mg by mouth 2 times a day. Active spironolactone (ALDACTONE) 50 MG TabletIndicatio ns:Adult acne Take 1 Tab by mouth daily. 30 Tab 11 01/30/20 19 Active metroNIDAZOLE, topical, (METROCREAM) 0.75 % cream Apply topically to affected area 2 times a day. apply thin layer to the face 45 g 3 01/30/20 19 Active dicyclomine (BENTYL) 20 MG Tablet Take 1 Tab by mouth 3 times a day as needed for Pain, Cramping or Diarrhea. 270 Tab 1 03/09/20 19 Active fluconazole (DIFLUCAN) 200 MG Tablet Take 1 Tab by mouth daily. 14 Tab 06/06/19 20 Active pantoprazole (PROTONIX) 40 MG TBECIndications :Gastroesophage al reflux disease, esophagitis presence not specified TAKE 1 TABLET BY MOUTH EVERY DAY 90 Tab 1 07/20/19 20 Active nystatin 535364 UNIT/GM cream Apply topically to affected area 2 times a day. apply to affected area. 30 g 10/31/19 20 Active hydrocortisone acetate (ANUSOL HC) 25 MG suppository Administer 1 Suppository into the rectum at bedtime. 12 Suppository 3 11/20/19 20 Active ondansetron ODT (ZOFRAN) [address] 1 Tab on tongue every 12 hours as needed for Nausea. dissolve on tongue. 30 Tab 11/20/19 20 Active liothyronine (CYTOMEL) 25 MCG TABS 1 at bedtime 12/11/19 20 Active BELBUCA 300 MCG FILM Twice daily 11/25/19 20 Active Carisoprodol 250 MG Tablet As needed 12/02/19 20 Active furosemide (LASIX) 20 MG Tablet Take 1 Tab by mouth daily. As needed 90 Tab 12/13/19 20 Active DEXILANT 60 MG CPDR Take 1 Cap by mouth daily. 01/29/20 20 Active methocarbamol (ROBAMOL) 750 MG Tablet 09/03/20 20 Active Ketorolac Tromethamine 10 MG Tablet 01/11/20 20 Active prochlorperazin e (COMPAZINE) 10 MG Tablet 01/01/20 20 Active Fluconazole 100 MG Oral Tablet (Diflucan) Take 2 tablets by mouth and repeat dose in 1 week. 4 Tablet 2 04/02/20 21 Active metFORMIN HCl 500 MG Oral Tablet (Glucophage) Take by mouth 500 mg 2 times a day with morning and evening meals . 08/21/19 22 Active Clindamycin Phosphate 1 % External GelIndications: Acne vulgaris Apply to clean face daily in morning 60 g 5 09/08/19 22 Active Tretinoin 0.025 % External CreamIndication s:Acne vulgaris Apply to clean face every other night x 2-3 weeks and increase to nightly as tolerated 45 g 09/08/19 22 Active Betamethasone Dipropionate 0.05 % External Cream (Diprosone) apply topically to affected area 2 times a day 45 g 01/13/20 22 Active Toujeo Max SoloStar 300 UNIT/ML Subcutaneous Solution Pen-injector (Insulin Glargine (2 Unit Dial)) Inject under the skin 22 Units daily . Active One-A-Day Womens 50+ Advantage Oral Tablet Take by mouth 1 Tablet in the morning. Active traMADol 12.5 MG OR TABS Take by mouth . Act brennon Finacea 15 % External Foam (Azelaic Acid) Apply to face twice a day 50 g 3 09/25/19 23 Active Clindamycin Phosphate 1 % External Solution Apply to areas of inflamed follicles 60 mL 5 09/25/19 23 Active Euflexxa 20 MG/2ML Intra-articular Solution Prefilled Syringe (Sodium Hyaluronate) Inject 20 mg intra-articularly to left knee every 7 days for 3 weeks 6 mL 3 1:54 PM EDT 10/02/19 23 Active Mounjaro 5 MG/0.5ML Subcutaneous Solution Pen-injector (Tirzepatide) inject 5mg subcutaneously every 7 days 12 mL 4 2:19 PM EDT 08/23/19 24 Active Mounjaro 5 MG/0.5ML Subcutaneous Solution Pen-injector (Tirzepatide) INJECT 1 PEN (5 MG) INTO THE SKIN EVERY 7 DAYS 2 mL 3 4 12:19 PM EDT 09/16/19 24 Active Zepbound 7.5 MG/0.5ML Subcutaneous Solution Auto-injector (Tirzepatide-We ight Management) Inject 7.5 mg (1 pen) under the skin once a week. 2 mL 3 11/02/19 24 Active Tirzepatide 7.5 MG/0.5ML Subcutaneous Solution Pen-injector (Mounjaro) inject 7.5mg into the skin every 7 days 4 mL 4 3:36 PM EDT 11/14/19 24 Active documented as of this encounter (statuses as of 08/03/2024) Active Problems Problem Noted Date Diagnosed Date Sebaceous cyst 01/19/2022 Other cirrhosis of liver 05/03/2018 Medical marijuana use 05/03/2018 Morbid obesity with BMI of 45.0-49.9, adult 02/22 TERMINATED MEDICATION USAGE AGREEMENT 02/23/2018 Overview (02/23/2018): Failed UDS from 02/09/18 Neck pain 11/11/2017 S/P fusion of thoracic spine 11/08/2017 Bilateral low back pain without sciatica 016 Myalgia 06/04/2015 Motion sickness 03/13/2014 Overview (03/13/2014): Sometimes helped by ondansetron. Avoids back seat, reading in car. 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 09/14/2013 Migraines 10/02/2012 Steatohepatitis, non-alcoholic 03/16/2011 Asthma, moderate persistent 03/23/2010 Gastroparesis 07/11/2009 Internal hemorrhoids 07/11/2009 Overview (07/11/2009): Internal and external hemorroids Urinary incontinence 06/11/2008 Overview (02/21/2017): ICD-10 update of inactive term PELV PERIT ENDOMETRIOSIS 05/18/2005 GERD (gastroesophageal reflux disease) 4 Irritable bowel syndrome 03/19/2004 CHR INTERSTIT CYSTITIS 12/03/2003 documented as of this encounter (statuses as of 08/03/2024) Resolved Problems Problem Noted Date Diagnosed Date Resolved Date Narcotic dependence 03/22/2018 04/17/20 18 Narcotic abuse 03/22/2018 04/17/2018 Body mass index (BMI) of 45. 0 to 49.9 in adult 02/27/2018 03/22/2018 Overview: Per Obesity protocol #1 - Well adult exam 01/26/2018 03/22/2018 Overview (03/11/2018): 02/07 EMG --Dr Govea--mild right cervical radiculopathy Low back pain 11/11/2017 03/22/2018 Body mass index (BMI) of 50. 0 to 59.9 in adult 02/21/2017 03/06/2018 Overview: Per Obesity protocol #1 Deconditioned low back 06/04/201504/17 Mixed urge and stress incontinence 12/11/2013 08/11/2014 Overview (12/11/2013): Minimal concern and does seem to be related to state of bladder. ADVANCE DIRECTIVE INFORMATION 03/29/2013 09/09/2016 Overview (06/24/2011): No, Advance Directive brochure offered , patient declined. Backache 11/28/2012 09/09/2016 Somatic dysfunction 11/28/2012 09/10/19 17 GERD 01/18/2012 12/02/2017 Gestational diabetes 09/28/2011 017 Obesity, BMI 50.0 - 59.9 03/10/201109/2015 Asthma with severity to be determined 11/13/2009 03/23/2010 Overview (09/01/2015): Per Asthma Taxonomy ICD-10 update of inactive term GERD (gastroesophageal reflux disease) 10/31/2009 07/07/2011 Obesity, morbid (more than 1 00 lbs over ideal weight or BMI > 40) 08/19/2009 03/10/2011 Overview (08/11/2015): Per Obesity Taxonomy ICD-10 update of inactive term Abnormal levels of other serum enzymes 07/08/2009 09/09/2016 Overview (02/21/2017): ICD-10 update of inactive term Chronic diarrhea 06/12/2009 09/09/2016 Urinary incontinence 10/22/2008 011 Overview (02/21/2017): ICD-10 update of inactive term Obesity, BMI not known 12/14/200708/19 Overview (08/19/2009): Per Obesity Taxonomy Asthma, allergic 06/15/2007 11/13/2009 Closed fracture of metatarsal bone 09/23/2005 09/09/2016 Overview (02/21/2017): ICD-10 update of inactive term Overflow incontinence 05/18/20052013 FEM STRESS INCONTINENCE 05/18/200507/22 Nocturia 05/18/2005 03/22/2018 Chronic constipation 05/18/2005 017 Female genital symptoms 05/18/200507/22 Overview (02/21/2017): ICD-10 update of inactive term NEUROGENIC BLADDER, NOT OTHERWISE SPECIFIED 05/18/2005 08/11/2014 Dysuria 05/18/2005 09/09/2016 Incomplete bladder emptying 05/18/2005 08/11/2014 Hematuria 05/18/2005 08/11/2014 Overview (08/14/2015): ICD-10 update of inactive term Urgency of urination 05/18/2005 014 Urinary frequency 05/18/2005 01/09/2014 CHR INTERSTIT CYSTITIS 05/18/200506/27 Overview (06/27/2008): Resolved per Duplicate Protocol #2. Chronic cholecystitis 06/24/20032013 Endometriosis of other specified sites 12/11/2002 09/09/2016 OBESITY, UNSPECIFIED 11/21/2000 004 documented as of this encounter (statuses as of 08/03/2024) Immunizations Name Administration Dates Next Due COVID-19 mRNA, LNP-s, No Pre serve, 2-Dose Series (Moderna) 06/21/2020 MMR - Measles/Mumps/Rubella Vaccine 01/01/1998,0 01/13/1984 PPD 11/28/2006,12/11/2002 Pneumococcal Conjugate Vacc, 13 Valent (Prevnar) 02/05/2016 Pneumococcal Polysaccharide PPV23 (Pneumovax) 03/11/2008 Seasonal Influenza Vac., MDV , IM, 0.5 mL (Fluzone) 03/26/2016,02/11/2015,02/16/2014,01/27,02/02/2011,08/20/2010,05/04/2010 (Deferred: Patient Refused),03/11/2008 Seasonal Influenza, PF, 6 M & above, IM , (FluLaval or Fluzone) 02/09/2018 Seasonal Influenza, Quadriva lent, No Preserve, IM 02/17/2017 TDAP (age 10 and older)(Boostrix) 09/09/2016 TDAP, Age 7 and older, IM (Adacel) 05/24/2006 documented as of this encounter Social History Tobacco Use Types Packs/Day Years Used Date Smoking Tobacco: Never Smokeless Tobacco: Never Alcohol Use Standard Drinks/Week Comments No 0 (1 standard drink = 0.6 oz pur e alcohol) AUDIT-C Answer Date Recorded Frequency of Alcohol Consumption Never 10/03/2018 Average Number of Drinks Not on file 019 Frequency of Binge Drinking Not on file 09/20 PHQ-2 Answer Date Recorded PHQ-2 Score -1 03/26/2018 Comments No Sex and Gender Information Value Date Recorded Sex Assigned at Not on file Legal Sex Female 5:58 AM EST Gender Identity Not on file Sexual Orientation Not on file Occupation Industry Job Start Date Job End Date Homemaker, [id number] Not on file Not on file Not on file documented as of this encounter Functional Status * Are you deaf or do you have serious difficulty hearing? Answer Date of Assessment Author No 03/13/2014 9:00 PM Nel Das RN * Are you blind or do you have serious difficulty seeing, even when wearing glasses? Answer Date of Assessment Author No 03/13/2014 9:00 PM Nel Das RN * Do you have serious difficulty walking or climbing stairs? (5 years old or older) Answer Date of Assessment Author No 03/13/2014 9:00 PM EDT Nel Llanos RN * Do you have difficulty dressing or bathing? (5 years old or older) Answer Date of Assessment Author No 03/13/2014 9:00 PM GHASSANT Nel Llanos RN * Because of a physical, mental, or emotional condition, do you have difficulty doing errands alone such as visiting a doctor’s office or shopping? (15 years old or older) Answer Date of Assessment Author No 03/13/2014 9:00 PM GHASSANT Nel Llanos RN documented as of this encounter Mental Status * Because of a physical, mental, or emotional condition, do you have serious difficulty concentrating, remembering, or making decisions? (5 years old or older) Answer Entry Date Author No 03/13/2014 9:00 PM Nel Das RN documented in this encounter Miscellaneous Notes * Telephone Encounter - Frida Tello CPhT - 05/28/2024 1:53 PM EST We have previously attempted to reach patient twice during normal business hours. Please reattempt to contact after 4:30pm on weekday or during weekends hours. * Telephone Encounter - Ken Mendez RPh - 04/30/2024 9:26 AM EST [facility] Non-Clinical [place] [facility] THIS NOTE SERVES FOR TRIAGING PURPOSES ONLY AND IS NOT A PATIENT CONTACT. PATIENT MAY BE CONTACTED FOLLOWING MY ASSESSMENT. Patient was identified to be a candidate for the Non-CE telephonic program based on the following criteria: Pharmacy AND/OR Medical High Cost / No A1c Result / PDC <80% Patient managed by [facility] provider? No; Is Pertinent Diabetes Info in Care Everywhere? No information available Reattempt- new number through [facility] [phone] Last A1C: ? (Result Date: ?) Diabetes Diagnosis: Type 2 After chart review the following opportunities were identified: Mail Order Invite, Obtain Updated A1c, and Therapy Optimization (statin?) Action to be taken by physical therapy technician: Please contact and warm transfer to [facility] if patient is agreeable Needs Language Line: No Medication Claims Data (To verify during call): Med: MOUNJARO 2.5 Fill date: 04/18/2024 Day Supply: 28 Quantity: 2 || Med: TOUJEO MAX SOLOSTAR 300 Fill date: 11/23/2023 Day Supply: 47 Quantity: 6 || Med: METFORMIN HYDROCHLORIDE 500 Fill date: 02/20/2024 Day Supply: 90 Quantity: 180 || Med: JARDIANCE 10 Fill date: 02/20/2024 Day Supply: 100 Quantity: 30 Ken Mendez [facility] Clinical Pharmacist 04/30/2024, 9:26 AM * Telephone Encounter - Brendan Ronquillo PHARM Tech - 01/04/2024 9:52 AM EDT We have previously attempted to reach patient twice during normal business hours. Please reattempt to contact after 4:30pm on weekday or during weekends hours. * Telephone Encounter - Ken Mendez jazmyn - 11/30/2023 8:05 AM EDT [facility] Plan Non-Clinical [place] [facility] THIS NOTE SERVES FOR TRIAGING PURPOSES ONLY AND IS NOT A PATIENT CONTACT. PATIENT MAY BE CONTACTED FOLLOWING MY ASSESSMENT. Patient was identified to be a candidate for the Non-CE telephonic program based on the following criteria: Pharmacy AND/OR Medical High Cost / No A1c result / PDC >=80% Patient managed by [facility] provider? No; Is Pertinent Diabetes Info in Care Everywhere? Yes Last A1C: ? (Result Date: ?) Diabetes Diagnosis: unsure After chart review the following opportunities were identified: Mail Order Invite and Obtain Updated A1c Action to be taken by physical therapy technician: Please contact and warm transfer to [facility] if patient is agreeable Needs Language Line: No Medication Claims Data (To verify during call): Med: MOUNJARO 7.5 Fill date: 11/19/2023 Day Supply: 28 Quantity: 2 || Med: METFORMIN HYDROCHLORIDE 500 Fill date: 06/06/2023 Day Supply: 90 Quantity: 180 || Med: JARDIANCE 10 Fill date: 06/17/2023 Day Supply: 30 Quantity: 30 || Med: TOUJEO MAX SOLOSTAR 300 Fill date: 09/20/2023 Day Supply: 47 Quantity: 6 Ken Mendez [facility] Clinical Pharmacist 11/30/2023, 8:05 AM documented in this encounter Plan of Treatment Health Maintenance Due Date Last Done Comments Hepatitis B Vaccine (1 of 3 - 19+ 3-dose series) 2000 Lipid Panel 12/18/2014 12/18/2009, 05/19/2002 Depression Screening 02/16/2019 02/16/2018, 02/05/20 16 Diabetes Screening 12/29/2021 12/29/2018, 0 07/27/2018, 03/14/2018, Additional history exists COVID-19 Vaccine ( season) 2024 06/21/2020 Influenza Vaccine (FLU shot) (#1) 2024 02/09/2018, 02/17/2017, 03/26/2016, Additional history exists Mammogram 01/05/2025 01/06/2024, 12/31/2022 DTap/Tdap Vaccines (3 - Td or Tdap) 09/09/2026 09/09/2016, 05/24/2006 Pneumococcal Vaccine: Pediatrics (0 to 5 Years) and At-Risk Patients (6 to 18 Years and 19+ Years) (3 of 3 - PCV20 or PCV21) 2031 02/05/2016, 03/11/2015, 03/11/2008 HPV (Gardasil) Vaccine Aged Out No lo nger eligible based on patient's age to complete this topic MENINGOCOCCAL (MENACTRA/MENVEO) Aged Out No longer eligible based on patient's age to complete this topic Meningitis B Vaccine (Bexsero/Trumemba) Aged Out No longer eligible based on patient's age to complete this topic documented as of this encounter Medical Devices Implanted Type Area Director Money Device Identifier Shelf Expiration Date Model / Serial / Lot Dbx [facility] [id number] - [id number] [place] [facility] - Human N/A: Back [employer] FND 10/03/2015 [id number] / [id number] / Dbx [facility] [id number] - [id number] Implanted:Qty : 1 on 03/13/2014 [place] [facility] [place] - Human N/A: Back [employer]LETAL [employer]ANSPL[employer] FND 11/01/2015 [id number] / [id number] / [place] [employer]ight 450 Hex [id number] - [id number] Implanted:Qty : 2 on 03[place]13/2014 [place] [facility]A: Back JNJ : [employer] [id number] / / Expedium Ss Sfx 6.35 Lat A1 - [id number] [place]planted:Qty : 1 on 03[place]13[place]2014 [place] [facility] [place]: Back JNJ : [employer] [id number] / / Expedium Ss Sfx 6.35 Lat A3 - [id number] [place]planted:Qty : 1 on 03[place]13[place]2014 [place] [facility] [place] Back JNJ : [employer] [id number] / / Screw 6.35 5x30 P [id number] - [id number] Implanted:Qty : 8 on 03/13/2014 [place] [facility] [place] Back JNJ : [employer] [id number] / / Screw 6.35 6x35 P [id number] - [id number] Implanted:Qty : 2 on 03/13/2014 [place] [facility] [place] Back JNJ : [employer] [id number] / / Screw 6.35 6x40 P [id number] - [id number] Implanted:Qty : 2 on 03/13/2014 [place] [facility] [place] Back JNJ : [employer] [id number] / / Screw 6.35 6x45 P [id number] - [id number] Implanted:Qty : 2 on 03/13/2014 [place] [facility] [place] Back JNJ : [employer] [id number] / / Screw 6.35 6x50 P [id number] - [id number] Implanted:Qty : 2 on 03/13/2014 [place] [facility] [place] Back JNJ : [employer] [id number] / / Screw 6.35 7x45 P [id number] - [id number] Implanted:Qty : 2 on 03/13/2014 [place] [facility] [place]: Back JNJ : [employer] [id number] / / Screw Set 635 [id number] - [id number] Implanted:Qty : 18 on 03/13/2014 [place] [facility] [place] Back JNJ : [employer] [id number] / / documented as of this encounter Advance Directives * Full Code (Latest Code Status on File) Date Activated Date Inactivated Comments 03/13/2014 6:16 AM 03/20/2014 5:42 PM This order reflects the patients wishes and were consensually agreed upon. Question Answer Comments Discussion of Advance Directives occurred with: Patient Does the patient have a Living Will? No Does the patient have Health Care Power of Attor prateek? No Care Teams Main Line Assembler Relationship Specialty Start Date End Date Fernanda Stone DO [address] [facility] [address] [place] [address] PCP - General Family Medicine 09/23/22 documented as of this encounter"
[2024-09-24] MEDS: ONDANSETRON INJ 2 MG/ML 2 ML VIAL IV STA (09:39)
[2024-09-24] MEDS: fentaNYL citrate PF 100 MCG/2 ML VIAL IV STA ×2 (09:39→14:40)
[2024-09-24] MEDS: SODIUM CHLORIDE 0.9% 1,000 ML IV ONE (09:39)
[2024-09-24 09:54] LABS: Appearance Urine Clear (Clear); Bilirubin Urine Negative (Negative); Blood Urine Negative (Negative); Color Urine Yellow; Glucose Urine UA Negative (Negative); Ketones Urine Negative (Negative); Leukocyte Esterase Urine Negative (Negative); Nitrite Urine Negative (Negative); Protein Urine Negative (Negative); Specific Gravity Urine 1.012 (1.000-1.030); Urobilinogen Urine Negative (Negative)
[2024-09-24 09:56] LABS: Basophils # (auto) 0.05 K/uL (0.00-0.20); Basophils % (auto) 0.4 %; Eosinophils % (auto) 2.7 %; Hematocrit (blood only) 41.8 % (37.0-47.0); Immature Granulocytes # (auto) 0.02 K/uL (0.01-0.20); Immature Granulocytes % (auto) 0.2 %; Lymphocytes # (auto) 2.49 K/uL (1.20-3.40); Mean Corpuscular Hemoglobin 28.3 pg (25.0-34.0); Mean Corpuscular Hgb Conc 33.5 g/dL (32.0-36.0); Mean Corpuscular Volume 84.4 fL (80.0-100.0); Mean Platelet Volume 10.7 fL (9.4-12.4); Monocytes # (auto) 0.63 K/uL (0.11-0.59); Monocytes % (auto) 5.6 %; Neutrophils # (auto) 7.83 K/uL (1.40-6.50); Neutrophils % (auto) 69.1 %; Platelet Count 204 K/uL (130-400); RDW Coefficient of Variation 13.7 % (11.5-14.5); RDW Standard Deviation 42.3 fL (36.4-46.3); Red Blood Count 4.95 M/uL (4.20-5.40); White Blood Count 11.32 K/ul (4.8-10.8)
[2024-09-24 10:11] LABS: Pregnancy Test, Serum Negative (Negative)
[2024-09-24 10:12] LABS: Albumin Globulin Ratio 1.5 (0.9-2); Albumin Level 4.1 gm/dl (3.4-5.0); BUN Creatinine Ratio 11.7 (10-20); Bilirubin,Total 0.3 mg/dl (0.2-1.0); Calcium 8.7 mg/dl (8.6-10.3); Creatinine Clr Calc Pharmacy 116.5 ml/min; Globulin 2.7 gm/dl (2.5-4.0); Potassium 3.5 mmol/L (3.5-5.1); Total Protein 6.8 gm/dl (6.0-8.3)
[2024-09-24] MEDS: OPTIRAY 320 100ml IV ONE (10:20)
--- NOTE | 2024-09-24 10:49 | CT Scan Report ---
CT SCAN OF THE ABDOMEN AND PELVIS WITH IV CONTRAST CLINICAL HISTORY: Right flank pain. COMPARISON STUDY: CT of the abdomen and pelvis March 26, 2022. TECHNIQUE: Following the IV administration of 94 cc of Optiray 320, CT scan of the abdomen and pelvi s is performed from the lung bases to the proximal femora. Images are reviewed in the axial, sagittal , and coronal planes. IV contrast was administered without complication. A dose lowering technique wa s utilized adhering to the principles of ALARA. CT DOSE: 1518.87 mGy.cm FINDINGS: Lung bases: The size of the heart is normal. There is no pericardial effusion. The lung bases are manisha ar. Images of the lower chest and upper abdomen are degraded by streak artifact from thoracolumbar sp ine fusion hardware. Liver: The liver morphology is normal and there are no hepatic lesions. There is no biliary ductal di latation status post cholecystectomy. The hepatic veins and portal veins are patent. Gallbladder: Unremarkable. Spleen: Splenomegaly has decreased since prior CT. Pancreas: There are no pancreatic lesions. No pancreatic ductal dilatation is present. Adrenal glands: Unremarkable. Kidneys: There are no renal lesions. There is no hydronephrosis. The kidneys enhance symmetrically. Abdominal vasculature: The caliber of the abdominal aorta is normal. Major vasculature is patent. Bowel: The caliber and wall thickness of small and large bowel are normal. The appendix is mildly dil ated, measuring 9 mm in caliber. There is moderate periappendiceal inflammation. No free air is prese nt. There is no fluid collection. Peritoneum: There is no intraperitoneal free air or abdominal ascites. Lymphadenopathy: None. Skeletal structures: No lytic or blastic lesions are seen. Pelvic viscera: A 6 x 4.3 cm cystic left adnexal lesion has mildly increased in size since CT of [facility]2021. This is better depicted on pelvic ultrasound March 31, 2022. IMPRESSION: 1. Findings consistent with acute appendicitis. Moderate periappendiceal inflammation. No free air or abscess. 2. 6 cm cystic left adnexal lesion, mildly increased in size since CT of March 26, 2022. This is li wale benign although indeterminate and could be reassessed with a follow-up nonemergent pelvic ultras ound. ACT 112: Negative or not required by law. Electronically signed by: Abhijeet Marcum M.D. 09/24/2024 10:47 AM
[2024-09-24] MEDS ORDERED: fentaNYL citrate PF 100 MCG/2 ML VIAL ONE ×2 (11:15→13:08)
[2024-09-24] MEDS ORDERED: ONDANSETRON INJ 2 MG/ML 2 ML VIAL ONE (11:15)
[2024-09-24] MEDS ORDERED: NEOSTIGMINE METHYLSULFATE 1 MG/ML 10ML VIAL ONE (11:15)
[2024-09-24] MEDS ORDERED: MIDAZOLAM HCL 1 MG/ML 2ML VIAL ONE (11:15)
[2024-09-24] MEDS ORDERED: LIDOCAINE 2% 2 ML VIAL/AMP(20MG/ML) INFIL ONE (11:15)
[2024-09-24] MEDS ORDERED: GLYCOPYRROLATE 0.2 MG/ML VIAL ONE (11:15)
[2024-09-24] MEDS ORDERED: PROPOFOL IV EMULSION 10 MG/ML 20 ML VIAL IV ONE (11:15)
[2024-09-24] MEDS ORDERED: DEXAMETHASONE SOD INJ 4 MG/ML VIAL ONE (11:15)
[2024-09-24] MEDS ORDERED: ROCURONIUM BROMIDE 10 MG/ML 5 ML VIAL IV ONE ×2 (11:15→11:17)
[2024-09-24] MEDS ORDERED: SUGAMMADEX SODIUM 200 MG/2 ML VIAL IV ONE (11:20)
[2024-09-24] MEDS: PIPERACILLIN/TAZOBACTAM 4.5 GM/100 ML BAG IV ONE (11:27)
--- NOTE | 2024-09-24 11:31 | History & Physical Report ---
Date of Service September 24, 2024 Assessment & Plan (1) Acute appendicitis: Plan: IV abx IVF to OR for lap appendectomy Medical consult for DM Present on Admission?: Yes History of Present Illness Primary Care Provider: CARLOTTA Garcia This is a 44YO who came to ED with abdominal pain. She first with chills and then developed an intense pain in her right lower quadrant. She has associated nausea but no fevers, A CT scan shows acute appendicitis. Allergies Allergy/AdvReac Type Severity Reaction Status Date / Time celecoxib [From Celebrex] Allergy Intermediate SOB,RASH Verified 11/23/23 10:21 azithromycin [From Zithromax] Allergy Mild Rash Verified 11/23/23 10:21 camphor [From Biofreeze] Allergy Mild Rash Verified 11/23/23 10:21 menthol [From Biofreeze] Allergy Mild Rash Verified 11/23/23 10:21 Sulfa (Sulfonamide Allergy Mild RASH Verified 11/23/23 10:21 Antibiotics) sulfamethoxazole Allergy Mild RASH HEAD Verified 11/23/23 10:21 TO TOE- LASTED 3 WEEKS trimethoprim Allergy Mild RASH HEAD Verified 11/23/23 10:21 TO TOE- LASTED 3 WEEKS acetaminophen [From Tylenol] Allergy Unknown Unknown Verified 11/23/23 10:21 Bactrim Allergy Unknown RASH HEAD Verified 06/24/17 09:23 TO TOE- LASTED 3 WEEKS ibuprofen Allergy Unknown Unknown Verified 11/23/23 10:21 codeine AdvReac Severe TROUBLE Verified 11/23/23 10:21 BREATHING AND GI adhesive AdvReac Intermediate ADHESIVE Verified 11/23/23 10:21 TAPE: RED WELTS AND BLISTERED SKIN nitrofurantoin AdvReac Intermediate SEVERE Verified 11/23/23 10:21 VOMITING gabapentin AdvReac Mild Drowsy Verified 11/23/23 10:21 semaglutide [From Ozempic] AdvReac Mild Nausea Verified 11/23/23 10:21 sumatriptan AdvReac Mild FEEL Verified 11/23/23 10:21 WEIRD, DIZZY Dimethyl Sulfoxide AdvReac Intermediate ABDOMINAL Uncoded 11/23/23 10:21 PAIN AND CRAMPING Home Medications Medication Instructions Recorded Confirmed Type diclofenac sodium 1 % topical gel 2 gm topical QID PRN Pain 10/08/19 11/23/23 History sucralfate 1 gram tablet (Carafate) 1 g PO BID PRN Gi Upset 10/08/19 11/23/23 History albuterol sulfate 1.25 mg/3 mL 1.25 mg (3 mL) inhalation Q6H PRN 04/10/20 11/23/23 Rx solution for nebulization shortness of breath or wheezing #180 mL nystatin 100,000 unit/gram topical 1 applic topical BID #30 grams 12/19/20 11/23/23 Rx cream buprenorphine HCl 450 mcg buccal 450 mcg buccal Q12H 08/17/21 11/23/23 History film (Belbuca) pen needle, diabetic 32 gauge x #100 ea 10/14/21 11/23/23 Rx 5/32" (BD Ultra-Fine Dena Pen Needle) promethazine 25 mg tablet 25 mg PO BID PRN nausea and 12/07/21 11/23/23 Rx vomiting #30 tabs montelukast 10 mg tablet 10 mg PO HS #30 tabs 12/17/21 11/23/23 Rx pregabalin 150 mg capsule 150 mg PO HS #90 caps 12/31/21 11/23/23 Rx furosemide 20 mg tablet 40 mg (2 x 20 mg) PO DAILY PRN 01/12/22 11/23/23 Rx edema #60 tabs lidocaine 5 % topical patch 1 patch topical DAILY PRN Pain #30 04/26/22 11/23/23 Rx (Lidoderm) ea albuterol sulfate 90 mcg/actuation 2 puff inhalation Q4 PRN Shortness 05/10/22 11/23/23 Rx aerosol inhaler (Ventolin HFA) Of Breath Or Wheezing #18 grams buspirone 10 mg tablet 10 mg PO BID #60 tabs 08/05/22 11/23/23 Rx ondansetron 8 mg disintegrating 8 mg PO Q8H PRN nausea and 08/05/22 11/23/23 Rx tablet vomiting #20 tabs levofloxacin 500 mg tablet 500 mg PO DAILY 5 days #5 tabs 08/09/22 11/23/23 Rx atorvastatin 20 mg tablet 20 mg PO HS 08/11/22 11/23/23 History dexlansoprazole 60 mg 60 mg PO QAM 08/11/22 11/23/23 History capsule,biphase delayed release (Dexilant) lancets #100 ea 08/13/22 11/23/23 Rx budesonide-formoterol HFA 160 2 puff inhalation BID #3 Inhalers 08/30/22 11/23/23 Rx mcg-4.5 mcg/actuation aerosol inhaler (Symbicort) prednisone 20 mg tablet 40 mg (2 x 20 mg) PO DAILY 5 days 08/30/22 11/23/23 Rx #10 tabs blood sugar diagnostic (Blood #100 ea 09/02/22 11/23/23 Rx Glucose Test strips) blood-glucose meter (Blood Glucose #1 ea 09/02/22 11/23/23 Rx Monitoring kit) liothyronine 25 mcg tablet 25 mcg PO QAM #90 tabs 09/02/22 11/23/23 Rx insulin glargine U-300 conc 300 28 unit (0.0933 mL) subcut QAM 09/16/22 11/23/23 Rx unit/mL (1.5 mL) subcutaneous pen #4.5 mL (Toujeo SoloStar U-300 Insulin) phenazopyridine 200 mg tablet 200 mg PO Q8H PRN pain #10 tabs 11/08/22 11/23/23 Rx (Pyridium) tamsulosin 0.4 mg capsule 0.4 mg PO HS #30 caps 11/08/22 11/23/23 Rx linaclotide 72 mcg capsule 72 mcg PO QAM #30 caps 12/06/22 11/23/23 Rx (Linzess) methocarbamol 750 mg tablet 750 mg PO TID PRN Muscle Spasm #60 12/06/22 11/23/23 Rx tabs venlafaxine 150 mg 300 mg (2 x 150 mg) PO HS #180 caps 12/06/22 11/23/23 Rx capsule,extended release 24 hr (Effexor XR) potassium chloride 20 mEq 20 meq PO TID #160 tabs 12/22/22 11/23/23 Rx tablet,extended release triamterene 37.5 1 cap PO QAM #90 caps 12/23/22 11/23/23 Rx mg-hydrochlorothiazide 25 mg capsule fluconazole 150 mg tablet 150 mg PO Q48H #3 tabs 12/24/22 11/23/23 Rx (Diflucan) metformin 500 mg tablet 500 mg PO BID #60 tabs 08/15/23 07/03/24 Rx solifenacin 5 mg tablet (Vesicare) 5 mg PO DAILY #30 tabs 05/09/23 11/23/23 Rx topiramate 200 mg tablet 400 mg (2 x 200 mg) PO BID #360 11/21/23 11/23/23 Rx tabs fremanezumab-vfrm 225 mg/1.5 mL 225 mg (1.5 mL) subcut MONTHLY 11/23/23 11/23/23 Rx subcutaneous syringe (Ajovy #1.5 mL Syringe) ketorolac 10 mg tablet 10 - 20 mg (1 - 2 x 10 mg) PO BID 11/23/23 11/23/23 Rx PRN Migraine Headache #20 tabs tirzepatide 7.5 mg/0.5 mL 7.5 mg subcut .weekly 11/23/23 11/23/23 History subcutaneous pen injector (Karlo) cholecalciferol (vitamin D3) 1,250 50,000 unit PO WK 90 days #12 tabs 12/14/23 Rx mcg (50,000 unit) tablet zolmitriptan 5 mg nasal spray 1 spray intranasal DIRECTED PRN 07/16/24 Rx Migraine Headache #6 ea fluconazole 150 mg tablet 150 mg PO Q3D 2 doses #2 tabs 08/01/24 Rx lorazepam 1 mg tablet (Ativan) 1 mg PO Q8H PRN anxiety #10 tabs 08/01/24 Rx Past Med/Surg History Problem List (Updated 09/24/24 @ 11:37 by Debbie Corona MD) Leukocytosis (Acute) Right lower quadrant abdominal pain (Acute) Adnexal cyst (Acute) Acute appendicitis (Acute) Witnessed episode of apnea Hypersomnia 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) Portal hypertension (Chronic) Failed back syndrome (Chronic) Chronic abdominal pain (Chronic) Cervical radiculopathy (Chronic) Edema Acute lateral meniscus tear of left knee Cyst of meniscus of left knee Vitamin D deficiency History of COVID-19 (Acute 05/2021) Adnexal cyst Pelvic pain Essential tremor (Chronic) Hypothyroidism Gastroparesis Dyslipidemia Diabetes mellitus, type 2 IDDM Depression with anxiety (Chronic) Mild persistent asthma controlled with inhalers Morbid obesity (Acute) Anemia (Chronic) Pancreatitis (Chronic) last episode 2 years ago Kidney stones (Chronic) History of anesthesia reaction (Chronic) "If they bring me out of it too fast I become violent" Endometriosis (Chronic) reason for hysterectomy Interstitial cystitis (Chronic) IBS (irritable bowel syndrome) (Chronic) HAIRSTON (nonalcoholic steatohepatitis) (Chronic) GERD (gastroesophageal reflux disease) (Chronic) Sphincter of Oddi dysfunction (Chronic) "s/p ERCP with sphincterotomy" Migraines (Chronic) F/U DR DANIEL Medical History History of COVID-19 multiple times. last had 06/07/2022 - tested with home test. mild cold symptoms. no current issues. Celiac disease Autoimmune disorder PT UNSURE OF NAME OF DISORDER, STATES FOLLOW / [facility] Arthritis BACK Scheurmann's disease Chronic back pain Somatic dysfunction Surgical History History of meniscectomy of left knee History of ERCP History of section x2 History of bladder surgery x5 History of colonoscopy History of esophagogastroduodenoscopy (EGD) History of cholecystectomy S/P laparoscopic hysterectomy S/P lumbar fusion hardware in place S/P tonsillectomy H/O wisdom tooth extraction Family History Uncle Diabetes Grandfather (Paternal) Family hx of colon cancer Colorectal cancer Prostate cancer Grandmother Breast cancer Father Myocardial infarction Mother Stroke Ulcerative colitis Other No family history of adverse response to anesthesia Denies family history of Ovarian cancer Crohn's disease Social History Smoking Status: Never smoker Second Hand Exposure: No; Do You Dip or Chew Tobacco: No; Hx Alcohol Use: Yes Alcohol type: beer and wine Hx Substance Use: No Preferred Language: Moldovan Communication Ability: Effective Visual Impairment: No Limitations Hearing Ability: Normal Sales Floor Associate Required: No Beliefs That Will Affect Care: None marital status: Current Living Situation: Spouse and Family Current Living Situation Comment: Lives with and 3 kids current occupational status: unemployed Feels Safe at Home: Yes Childhood Exposure to Second-Hand Smoke: Yes Diet: diabetic and regular Diet Comment: Regular caffeine: Yes during the past year weight has: remained stable Dental Care, Regularly: Yes Physical Activity Frequency: Does not Exercise Seatbelt Use: always Sunscreen Use: Yes Assistive Devices: Cane and Glasses Review of Systems + chills and + anorexia; no fever no problem reported no problem reported no cough and no dyspnea no chest pain + abdominal pain, + nausea and + diarrhea/loose stools; no vomiting no dysuria + back pain no problem reported no localized weakness and no generalized weakness no behavioral changes no easy bleeding and no easy bruising Physical Exam Constitutional: WD/WN, vitals as above Eyes: no scleral abnormality ENMT: external ear and nose normal, oropharynx normal Neck: trachea midline Respiratory: normal respiratory effort, lungs clear to auscultation Cardiovascular: RRR, no murmur, no edema Gastrointestinal (Abdomen): Inspection/Auscultation: abdomen normal to inspection and normal bowel sounds; abdomen not distended Percussion/Palpation: + abdomen tender and abdomen soft; no guarding and abdomen not rigid Musculoskeletal: Head/Neck/Chest: normocephalic and head atraumatic Skin: no rashes, warm and dry Psychiatric: Orientation: alert Results & Data Vital Signs (Past 12 Hours) Vital Signs Temp Pulse Pulse Resp BP BP Pulse Ox 09/24/24 09:37 98 H 09/24/24 09:37 93 H 21 99 09/24/24 09:37 97 H 19 139/87 98 09/24/24 08:28 36.7 C 85 14 114/78 99 O2 Del Method 09/24/24 09:37 09/24/24 09:37 Room Air 09/24/24 09:37 Room Air 09/24/24 08:28 Room Air Diagnostic Findings CT SCAN OF THE ABDOMEN AND PELVIS WITH IV CONTRAST CLINICAL HISTORY: Right flank pain. COMPARISON STUDY: CT of the abdomen and pelvis March 26, 2022. TECHNIQUE: Following the IV administration of 94 cc of Optiray 320, CT scan of the abdomen and pelvis is performed from the lung bases to the proximal femora. Images are reviewed in the axial, sagittal, and coronal planes. IV contrast was administered without complication. A dose lowering technique was utilized adhering to the principles of ALARA. CT DOSE: 1518.87 mGy.cm FINDINGS: Lung bases: The size of the heart is normal. There is no pericardial effusion. The lung bases are clear. Images of the lower chest and upper abdomen are degraded by streak artifact from thoracolumbar spine fusion hardware. Liver: The liver morphology is normal and there are no hepatic lesions. There is no biliary ductal dilatation status post cholecystectomy. The hepatic veins and portal veins are patent. Gallbladder: Unremarkable. Spleen: Splenomegaly has decreased since prior CT. Pancreas: There are no pancreatic lesions. No pancreatic ductal dilatation is present. Adrenal glands: Unremarkable. Kidneys: There are no renal lesions. There is no hydronephrosis. The kidneys enhance symmetrically. Abdominal vasculature: The caliber of the abdominal aorta is normal. Major v asculature is patent. Bowel: The caliber and wall thickness of small and large bowel are normal. The appendix is mildly dilated, measuring 9 mm in caliber. There is moderate periappendiceal inflammation. No free air is present. There is no fluid collection. Peritoneum: There is no intraperitoneal free air or abdominal ascites. Lymphadenopathy: None. Skeletal structures: No lytic or blastic lesions are seen. Pelvic viscera: A 6 x 4.3 cm cystic left adnexal lesion has mildly increased in size since CT of March 26, 2022. This is better depicted on pelvic ultrasound March 31, 2022. IMPRESSION: 1. Findings consistent with acute appendicitis. Moderate periappendiceal inflammation. No free air or abscess. 2. 6 cm cystic left adnexal lesion, mildly increased in size since CT of [facility] 2021. This is likely benign although indeterminate and could be reassessed with a follow-up nonemergent pelvic ultrasound.
[2024-09-24] MEDS: cefOXitin 2,000 MG/60 ML BAG IV STA (11:32)
[2024-09-24] MEDS ORDERED: ATROPINE SULFATE 0.1 MG/ML 10ML SYR IV PRN (12:13)
[2024-09-24] MEDS ORDERED: ONDANSETRON INJ 2 MG/ML 2 ML VIAL IV PRN (12:13)
[2024-09-24] MEDS ORDERED: ePHEDrine sulfate 50 MG/ML AMP IV PRN (12:13)
[2024-09-24] MEDS ORDERED: fentaNYL citrate PF 100 MCG/2 ML VIAL IV PRN (12:13)
--- NOTE | 2024-09-24 12:17 | Anesthesiology Consultation ---
Date of Service September 24, 2024 Assessment & Plan Chart Review Chart Review: Acceptable Risk for Surgery Consults Requested none ASA ASA3 Proposed Anesthesia Anesthesia Type: General History Surgery Operation Date: 09/24/24 12:35 Proposed Procedures p Laparoscopic Appendectomy - Jass Sears MD Height/Weight Height: 5 ft 4 in Weight: 113.8 kg Allergies Allergy/AdvReac Type Severity Reaction Status Date / Time celecoxib [From Celebrex] Allergy Intermediate SOB,RASH Verified 09/24/24 11:54 azithromycin [From Zithromax] Allergy Mild Rash Verified 09/24/24 11:54 camphor [From Biofreeze] Allergy Mild Rash Verified 09/24/24 11:54 menthol [From Biofreeze] Allergy Mild Rash Verified 09/24/24 11:54 Sulfa (Sulfonamide Allergy Mild RASH Verified 09/24/24 11:54 Antibiotics) sulfamethoxazole Allergy Mild RASH HEAD Verified 09/24/24 11:54 TO TOE- LASTED 3 WEEKS trimethoprim Allergy Mild RASH HEAD Verified 09/24/24 11:54 TO TOE- LASTED 3 WEEKS acetaminophen [From Tylenol] Allergy Unknown Unknown Verified 09/24/24 11:54 Bactrim Allergy Unknown RASH HEAD Verified 06/24/17 09:23 TO TOE- LASTED 3 WEEKS ibuprofen Allergy Unknown Unknown Verified 09/24/24 11:54 codeine AdvReac Severe TROUBLE Verified 09/24/24 11:54 BREATHING AND GI adhesive AdvReac Intermediate ADHESIVE Verified 09/24/24 11:54 TAPE: RED WELTS AND BLISTERED SKIN nitrofurantoin AdvReac Intermediate SEVERE Verified 09/24/24 11:54 VOMITING gabapentin AdvReac Mild Drowsy Verified 09/24/24 11:54 semaglutide [From Ozempic] AdvReac Mild Nausea Verified 09/24/24 11:54 sumatriptan AdvReac Mild FEEL Verified 09/24/24 11:54 WEIRD, DIZZY Dimethyl Sulfoxide AdvReac Intermediate ABDOMINAL Uncoded 09/24/24 11:54 PAIN AND CRAMPING Medications Home Medications Medication Instructions Recorded Confirmed Last Taken diclofenac sodium 1 % topical gel 2 gm topical QID PRN Pain 10/08/19 09/24/24 12/08/21 sucralfate 1 gram tablet (Carafate) 1 g PO BID PRN Gi Upset 10/08/19 09/24/24 09/23/24 18:00 albuterol sulfate 1.25 mg/3 mL 1.25 mg (3 mL) inhalation Q6H PRN 04/10/20 09/24/24 08/18/22 20:00 solution for nebulization shortness of breath or wheezing #180 mL buprenorphine HCl 450 mcg buccal 450 mcg buccal Q12H 08/17/21 09/24/24 09/17/24 film (Belbuca) pen needle, diabetic 32 gauge x #100 ea 10/14/21 11/23/23 Unknown " (BD Ultra-Fine Dena Pen Needle) promethazine 25 mg tablet 25 mg PO BID PRN nausea and 12/07/21 09/24/24 09/17/24 vomiting #30 tabs montelukast 10 mg tablet 10 mg PO HS #30 tabs 12/17/21 09/24/24 09/17/24 lidocaine 5 % topical patch 1 patch topical DAILY PRN Pain #30 04/26/22 09/24/24 08/16/22 (Lidoderm) ea albuterol sulfate 90 mcg/actuation 2 puff inhalation Q4 PRN Shortness 05/10/22 09/24/24 Unknown aerosol inhaler (Ventolin HFA) Of Breath Or Wheezing #18 grams buspirone 10 mg tablet 10 mg PO BID #60 tabs 08/05/22 09/24/24 09/23/24 18:00 ondansetron 8 mg disintegrating 8 mg PO Q8H PRN nausea and 08/05/22 09/24/24 09/23/24 23:00 tablet vomiting #20 tabs dexlansoprazole 60 mg 60 mg PO QAM 08/11/22 09/24/24 09/23/24 11:00 capsule,biphase delayed release (Dexilant) lancets #100 ea 08/13/22 11/23/23 Unknown budesonide-formoterol HFA 160 2 puff inhalation BID #3 Inhalers 08/30/22 09/24/24 09/22/24 mcg-4.5 mcg/actuation aerosol inhaler (Symbicort) blood sugar diagnostic (Blood #100 ea 09/02/22 11/23/23 Unknown Glucose Test strips) blood-glucose meter (Blood Glucose #1 ea 09/02/22 11/23/23 Unknown Monitoring kit) phenazopyridine 200 mg tablet 200 mg PO Q8H PRN pain #10 tabs 11/08/22 09/24/24 Unknown (Pyridium) methocarbamol 750 mg tablet 750 mg PO TID PRN Muscle Spasm #60 12/06/22 09/24/24 09/17/24 tabs venlafaxine 150 mg 300 mg (2 x 150 mg) PO HS #180 caps 12/06/22 09/24/24 09/23/24 18:00 capsule,extended release 24 hr (Effexor XR) potassium chloride 20 mEq 20 meq PO TID #160 tabs 12/22/22 09/24/24 09/23/24 23:00 tablet,extended release triamterene 37.5 1 cap PO QAM #90 caps 12/23/22 09/24/24 09/23/24 11:00 mg-hydrochlorothiazide 25 mg capsule fluconazole 150 mg tablet 150 mg PO Q48H #3 tabs 12/24/22 09/24/24 Unknown (Diflucan) solifenacin 5 mg tablet (Vesicare) 5 mg PO DAILY #30 tabs 05/09/23 09/24/24 09/23/24 18:00 fremanezumab-vfrm 225 mg/1.5 mL 225 mg (1.5 mL) subcut MONTHLY 11/23/23 09/24/24 09/17/24 subcutaneous syringe (Ajovy #1.5 mL Syringe) ketorolac 10 mg tablet 10 - 20 mg (1 - 2 x 10 mg) PO BID 11/23/23 09/24/24 Unknown PRN Migraine Headache #20 tabs tirzepatide 7.5 mg/0.5 mL 10 mg subcut .weekly 11/23/23 09/24/24 09/17/24 subcutaneous pen injector (Karlo) cholecalciferol (vitamin D3) 1,250 50,000 unit PO WK 90 days #12 tabs 12/14/23 09/24/24 09/23/24 18:00 mcg (50,000 unit) tablet fluconazole 150 mg tablet 150 mg PO Q3D 2 doses #2 tabs 08/01/24 09/24/24 Unknown lorazepam 1 mg tablet (Ativan) 1 mg PO Q8H PRN anxiety #10 tabs 08/01/24 09/24/24 Unknown bupropion HCl 100 mg tablet 300 mg PO DAILY 09/24/24 09/24/24 09/23/24 18:00 furosemide 20 mg tablet (Lasix) 40 mg PO DAILY PRN edema 09/24/24 09/24/24 Unknown liothyronine 25 mcg tablet 25 mcg PO QAM 09/24/24 09/24/24 09/23/24 11:00 (Cytomel) prednisone 20 mg tablet 40 mg PO DAILY PRN Pain 09/24/24 09/24/24 Unknown pregabalin 150 mg capsule (Lyrica) 150 mg PO HS 09/24/24 09/24/24 09/23/24 18:00 tamsulosin 0.4 mg capsule (Flomax) 0.4 mg PO HS 09/24/24 09/24/24 09/23/24 18:00 topiramate 200 mg tablet (Topamax) 400 mg PO BID 09/24/24 09/24/24 09/23/24 18:00 trazodone 100 mg tablet 100 mg PO HS PRN Sleep 09/24/24 09/24/24 09/23/24 18:00 zolmitriptan 5 mg nasal spray 1 spray intranasal DIRECTED PRN 09/24/24 09/24/24 Unknown (Zomig) Migraine Headache NPO Date Last Intake of Fluids: 09/24/24 Time Last Intake of Fluids: 07:30 Date Last Intake of Solids: 09/23/24 Time Last Intake of Solids: 16:00 Past Medical History Medical History (Updated 09/24/24 @ 11:52 by Monica Rubalcava RN) Migraine Interstitial cystitis IBS (irritable bowel syndrome) History of pancreatitis Gastroparesis Anxiety Diabetes History of COVID-19 multiple times. last had 06/07/2022 - tested with home test. mild cold symptoms. no current issues. Celiac disease Autoimmune disorder PT UNSURE OF NAME OF DISORDER, STATES FOLLOW W/ [facility] Arthritis BACK Scheurmann's disease Chronic back pain Somatic dysfunction Exercise / Class Metabolic Activity II 4-5 Yardwork/Stairs/Walk up hill Past Family History Family History Uncle Diabetes Grandfather (Paternal) Family hx of colon cancer Colorectal cancer Prostate cancer Grandmother Breast cancer Father Myocardial infarction Mother Stroke Ulcerative colitis Other No family history of adverse response to anesthesia Denies family history of Ovarian cancer Crohn's disease Past Surgical History Surgical History (Updated 09/24/24 @ 11:53 by Monica Rubalcava RN) Hx of rectal sphincterotomy History of meniscectomy of left knee History of ERCP History of section x2 History of bladder surgery x5 History of colonoscopy History of esophagogastroduodenoscopy (EGD) History of cholecystectomy S/P laparoscopic hysterectomy S/P lumbar fusion hardware in place S/P tonsillectomy H/O wisdom tooth extraction Past Anesthesia History No Hx of Anesthesia Complications and Other (Can wake up "violent" ) Social History Smoking Status: Never smoker Do You Dip or Chew Tobacco: No Hx Alcohol Use: Yes Alcohol type: beer and wine alcohol intake frequency: holidays/special occasions only Hx Substance Use: No substance use type: does not use Physical Exam Vital Signs Last Vital Signs Temp 36.8 C 09/24/24 11:44 Pulse 75 09/24/24 11:38 Resp 16 09/24/24 11:44 BP 127/93 09/24/24 11:44 Pulse Ox 100 09/24/24 11:44 O2 Del Method Room Air 09/24/24 11:44 Constitutional no acute distress ENMT Mouth: + loose teeth ([employer] ); no TMJ abnormality Thyromental Distance: > or= 3.5 Finger Breadths Mallampati Class: II Neck normal visual inspection, + short neck and + thick neck Respiratory normal respiratory effort Auscultation: lungs clear to auscultation bilaterally Cardiovascular Rate/Rhythm: regular rate and regular rhythm Neurologic moves all extremities Psychiatric Orientation: alert and oriented x 3 Testing Laboratory Results 09/24/24 09:30 09/24/24 09:30 Urine Color Yellow 09/24/24 09:25 Urine Appearance Clear (Clear) 09/24/24 09:25 Urine pH 6.0 (4.5-7.5) 09/24/24 09:25 Ur Specific [place] 1.012 (1.000-1.030) 09/24/24 09:25 Urine Protein Negative (Negative) 09/24/24 09:25 Urine Glucose (UA) Negative (Negative) 09/24/24 09:25 Urine Ketones Negative (Negative) 05/05/25 09:25 Urine Nitrite Negative (Negative) 09/24/24 09:25 Ur Leukocyte Esterase Negative (Negative) 09/24/24 09:25 09/24/24 11:56 POC Glucose 70
[2024-09-24] MEDS ORDERED: KETAMINE HCL 10MG/ML SYR ONE (12:20)
[2024-09-24] MEDS: BUPIVACAINE/EPINEPHRINE 0.5% MPF 1:200,000 30 ML VIAL ONE (12:56)
--- NOTE | 2024-09-24 13:12 | Operative Report ---
Post Operative Report Pre & Post Diagnosis Operation Date: 09/24/24 12:35 Acute appendicitis I identified the patient and participated in the time-out.: Yes Procedure Operation Date: 09/24/24 12:35 Laparoscopic appendectomy Surgeon Jass Sears MD Cable Tool Operator none Estimated Blood Loss 7 Findings Consistent with Post-Op Diagnosis Early acute appendicitis Specimens Appendix to pathology Drains none Anesthesia Type General Complications none Indications This is a 43-year-old female who was admitted through the ED with abdominal pain. A CT scan showed an acute appendicitis. We talked her in detail and recommended a laparoscopic appendectomy. We went over all we went over all the risks in detail. Description of Procedure The patient was taken to the OR and underwent excellent general anesthesia. Their abdomen was prepped and draped in normal sterile fashion. A transverse supraumbilical incision was made, towel clamps were used to create tension on the abdominal wall and a visualized 11 port was placed in the supraumbilical position. A 12 mm left lower quadrant port , a 5mm suprapubic port , and a 5mm right upper quadrant port were all placed in normal fashion. She had a low midline scar that had some adhesions, these adhesions were avoided in placing the LLQ port. The patient was then placed in head down and rolled to the left. A good diagnostic lap was performed, she had some cirrhotic changes to her liver. They had obvious acute appendicitis. The cecum was grasped with an atraumatic grasper. A grasper was then was then used to grasp the tip of the appendix. The mesoappendix was splayed open and a harmonic scalpel was used to take down the mesoappendix. The base of the appendix was identified and an Endo DANYA stapler was used to transect the appendix at its base. A endobag was then inserted through the left lower quadrant port and the appendix was placed into the bag, The bag was removed through the left lower quadrant port. The appendix was sent for pathologic evaluation. The pneumoperitoneum was re- established after the 12 mm port was replaced. Saline was then used to irrigate the abdomen. There was no active bleeding nor any other abnormalities noted in the abdomen. The patient was then placed back in neutral position, the ports were removed and the pneumoperitoneum decompressed. The skin was then anesthetized with 0.5% Marcaine with epinephrine local. Interrupted Vicryl is used to close the skin. Dermabond was used to reinforce the incisions. Sterile dressings were applied. The patient tolerated procedure without complications was sent to the postop recovery period of observation. They will be sent to the floor for the rest of their care. I attest to the content of the Intraoperative Record and any orders documented therein. Any exceptions are noted below.
[2024-09-24] MEDS: HYDROmorphone INJ 1 MG/ML SYRINGE IV PRN (13:25)
--- NOTE | 2024-09-24 14:13 | Anesthesiology Progress Note ---
Date of Service September 24, 2024 Anesthesia Post Procedure Vital Signs Vital Signs: Temp Pulse Pulse Resp BP BP Pulse Ox 09/24/24 13:50 70 16 115/50 L 100 09/24/24 13:40 77 20 102/63 100 09/24/24 13:30 36.5 C 81 20 115/68 99 09/24/24 13:20 80 14 110/72 97 09/24/24 13:12 36.2 C L 92 H 12 117/42 L 100 09/24/24 11:44 36.8 C 16 127/93 100 09/24/24 11:38 75 20 98/77 L 100 09/24/24 09:37 98 H 09/24/24 09:37 93 H 21 99 09/24/24 09:37 97 H 19 139/87 98 09/24/24 08:28 36.7 C 85 14 114/78 99 O2 Del Method O2 Flow Rate 09/24/24 13:50 Room Air 09/24/24 13:40 Room Air 09/24/24 13:30 Room Air 09/24/24 13:20 Oxymask 4 09/24/24 13:12 Oxymask 6 09/24/24 11:44 Room Air 09/24/24 11:38 Room Air 09/24/24 09:37 09/24/24 09:37 Room Air 09/24/24 09:37 Room Air 09/24/24 08:28 Room Air Pain Intensity Right Lower Abdomen: Pain Intensity: 6 Abdomen: Pain Intensity: 4 Transfer of Care Handoff Completed per policy Notes Mental Status: alert / awake / arousable Patient Amnestic to Procedure: Yes Nausea / Vomiting: adequately controlled Pain: adequately controlled Airway Patency, RR, SpO2: stable & adequate BP & HR: stable & adequate Hydration State: stable & adequate Anesthetic Complications: no major complications apparent and Pt Satisfied with anesthetic care
[2024-09-24] MEDS ORDERED: oxyCODONE/ACETAMINOPHEN 5mg/325mg TAB PO PRN (14:21)
[2024-09-24] MEDS ORDERED: MoRPHine SULFATE 2 MG/ML CARP IV PRN (14:21)
[2024-09-24] MEDS ORDERED: MoRPHine SULFATE 4 MG/ML 1 ML CARP\\VIAL IV PRN (14:21)
--- NOTE | 2024-09-24 14:35 | Hospitalist Consultation ---
Date of Consultation September 24, 2024 Assessment & Plan (1) Acute appendicitis: #Acute Appendicitis Monitor per primary team. Pain control and antiemetics as needed. Fluids and abx. Abdominal binder if tolerated. #Diabetes Well controlled on Mounjaro. Will cover with bolus SSI while inpatient, add basal if needed. #Interstitial Cystitis Continue home meds #Migraines Continue home meds #Mood Disorder Patient on trazodone, buspar, wellbutrin. Continue home meds - monitor for sedation with the addition of opioids #Failed Back Syndrome #Chronic Back Pain Patient with a history of significant kyphosis and has a lot of hardware in her spine. Patient has chronic pain from this. Is on buprenorphine as needed for pain. Has topical diclofenac, lidocaine patch, methocarbamol as well. #HTN Continue triamterene-HCTZ. Has Lasix PRN for edema. #Asthma Continue home meds #IBS/gastroparesis/GERD Continue home meds #Hypothryoidism Continue Cytomel Rest of care per primary team. (2) Adnexal cyst: (3) Hypothyroidism: (4) Mild persistent asthma: (5) Depression with anxiety: (6) Failed back syndrome: (7) Migraines: (8) GERD (gastroesophageal reflux disease): (9) HAIRSTON (nonalcoholic steatohepatitis): (10) IBS (irritable bowel syndrome): (11) Interstitial cystitis: Supervising Physician Co-Signing Physician Notes I personally examined the patient and verified all pringle points of history and exam, discussed case, and agree with decision making with Dr Dyer Feeling okay except for some pain postop. Has not had pain medicine since she got upstairs yet. Vitals noted, in general she is awake and alert pleasant no distress. Does appear fatigued. Breathing unlabored no accessory muscle use good effort. Skin shows no rashes no pallor or icterus. Neuro without focal deficits. Acute appendicitisPer surgery [id number] appears to be well-controlled. Follow glucoses, treat if needed. DVT prophylaxisambulation and SCDs. Add pharmacologic prophylaxis if she is less mobile than I would expect, but I anticipate her being able to get up and moving fairly quickly. Otherwise as above History of Present Illness Reason for Consultation: med management Requesting Physician: Dr. Sears Attending Physician: Jass Sears MD History of Present Illness Patient with a complex PMHx - diabetes, IBS/gastroparesis/GERD, interstitial cystitis, mood disorder, migraines, prior pancreatitis, prior kidney stones, HTN, chronic back pain, asthma, hypothyroidism, edema Patient presented with abdominal pain and was found to have acute appendicitis. Patient underwent laparoscopic appendectomy 09/24. Hospitalist team consulted for management of chronic conditions. Doing okay after surgery. Does have pain. No SOB or CP. Allergies Allergy/AdvReac Type Severity Reaction Status Date / Time celecoxib [From Celebrex] Allergy Intermediate SOB,RASH Verified 09/24/24 11:54 azithromycin [From Zithromax] Allergy Mild Rash Verified 09/24/24 11:54 camphor [From Biofreeze] Allergy Mild Rash Verified 09/24/24 11:54 menthol [From Biofreeze] Allergy Mild Rash Verified 09/24/24 11:54 Sulfa (Sulfonamide Allergy Mild RASH Verified 09/24/24 11:54 Antibiotics) sulfamethoxazole Allergy Mild RASH HEAD Verified 09/24/24 11:54 TO TOE- LASTED 3 WEEKS trimethoprim Allergy Mild RASH HEAD Verified 09/24/24 11:54 TO TOE- LASTED 3 WEEKS acetaminophen [From Tylenol] Allergy Unknown Unknown Verified 09/24/24 11:54 Bactrim Allergy Unknown RASH HEAD Verified 06/24/17 09:23 TO TOE- LASTED 3 WEEKS ibuprofen Allergy Unknown Unknown Verified 09/24/24 11:54 codeine AdvReac Severe TROUBLE Verified 09/24/24 11:54 BREATHING AND GI adhesive AdvReac Intermediate ADHESIVE Verified 09/24/24 11:54 TAPE: RED WELTS AND BLISTERED SKIN nitrofurantoin AdvReac Intermediate SEVERE Verified 09/24/24 11:54 VOMITING gabapentin AdvReac Mild Drowsy Verified 09/24/24 11:54 semaglutide [From Ozempic] AdvReac Mild Nausea Verified 09/24/24 11:54 sumatriptan AdvReac Mild FEEL Verified 09/24/24 11:54 WEIRD, DIZZY Dimethyl Sulfoxide AdvReac Intermediate ABDOMINAL Uncoded 09/24/24 11:54 PAIN AND CRAMPING Home Medications Medication Instructions Recorded Confirmed Type diclofenac sodium 1 % topical gel 2 gm topical QID PRN Pain 10/08/19 09/24/24 History sucralfate 1 gram tablet (Carafate) 1 g PO BID PRN Gi Upset 10/08/19 09/24/24 History albuterol sulfate 1.25 mg/3 mL 1.25 mg (3 mL) inhalation Q6H PRN 04/10/20 09/24/24 Rx solution for nebulization shortness of breath or wheezing #180 mL buprenorphine HCl 450 mcg buccal 450 mcg buccal Q12H 08/17/21 09/24/24 History film (Belbuca) pen needle, diabetic 32 gauge x #100 ea 10/14/21 11/23/23 Rx 532" (BD Ultra-Fine Dena Pen Needle) promethazine 25 mg tablet 25 mg PO BID PRN nausea and 12/07/21 09/24/24 Rx vomiting #30 tabs montelukast 10 mg tablet 10 mg PO HS #30 tabs 12/17/21 09/24/24 Rx lidocaine 5 % topical patch 1 patch topical DAILY PRN Pain #30 04/26/22 09/24/24 Rx (Lidoderm) ea albuterol sulfate 90 mcg/actuation 2 puff inhalation Q4 PRN Shortness 05/10/22 09/24/24 Rx aerosol inhaler (Ventolin HFA) Of Breath Or Wheezing #18 grams buspirone 10 mg tablet 10 mg PO BID #60 tabs 08/05/22 09/24/24 Rx ondansetron 8 mg disintegrating 8 mg PO Q8H PRN nausea and 08/05/22 09/24/24 Rx tablet vomiting #20 tabs dexlansoprazole 60 mg 60 mg PO QAM 08/11/22 09/24/24 History capsule,biphase delayed release (Dexilant) lancets #100 ea 08/13/22 11/23/23 Rx budesonide-formoterol HFA 160 2 puff inhalation BID #3 Inhalers 08/30/22 09/24/24 Rx mcg-4.5 mcg/actuation aerosol inhaler (Symbicort) blood sugar diagnostic (Blood #100 ea 09/02/22 11/23/23 Rx Glucose Test strips) blood-glucose meter (Blood Glucose #1 ea 09/02/22 11/23/23 Rx Monitoring kit) phenazopyridine 200 mg tablet 200 mg PO Q8H PRN pain #10 tabs 11/08/22 09/24/24 Rx (Pyridium) methocarbamol 750 mg tablet 750 mg PO TID PRN Muscle Spasm #60 12/06/22 09/24/24 Rx tabs venlafaxine 150 mg 300 mg (2 x 150 mg) PO HS #180 caps 12/06/22 09/24/24 Rx capsule,extended release 24 hr (Effexor XR) potassium chloride 20 mEq 20 meq PO TID #160 tabs 12/22/22 09/24/24 Rx tablet,extended release triamterene 37.5 1 cap PO QAM #90 caps 12/23/22 09/24/24 Rx mg-hydrochlorothiazide 25 mg capsule fluconazole 150 mg tablet 150 mg PO Q48H #3 tabs 12/24/22 09/24/24 Rx (Diflucan) solifenacin 5 mg tablet (Vesicare) 5 mg PO DAILY #30 tabs 05/09/23 09/24/24 Rx fremanezumab-vfrm 225 mg/1.5 mL 225 mg (1.5 mL) subcut MONTHLY 11/23/23 09/24/24 Rx subcutaneous syringe (Twinov #1.5 mL Syringe) ketorolac 10 mg tablet 10 - 20 mg (1 - 2 x 10 mg) PO BID 11/23/23 09/24/24 Rx PRN Migraine Headache #20 tabs tirzepatide 7.5 mg/0.5 mL 10 mg subcut .weekly 11/23/23 09/24/24 History subcutaneous pen injector (Karlo) cholecalciferol (vitamin D3) 1,250 50,000 unit PO WK 90 days #12 tabs 12/14/23 09/24/24 Rx mcg (50,000 unit) tablet fluconazole 150 mg tablet 150 mg PO Q3D 2 doses #2 tabs 08/01/24 09/24/24 Rx lorazepam 1 mg tablet (Ativan) 1 mg PO Q8H PRN anxiety #10 tabs 08/01/24 09/24/24 Rx bupropion HCl 100 mg tablet 300 mg PO DAILY 09/24/24 09/24/24 History furosemide 20 mg tablet (Lasix) 40 mg PO DAILY PRN edema 09/24/24 09/24/24 History liothyronine 25 mcg tablet 25 mcg PO QAM 09/24/24 09/24/24 History (Cytomel) prednisone 20 mg tablet 40 mg PO DAILY PRN Pain 09/24/24 09/24/24 History pregabalin 150 mg capsule (Lyrica) 150 mg PO HS 09/24/24 09/24/24 History tamsulosin 0.4 mg capsule (Flomax) 0.4 mg PO HS 09/24/24 09/24/24 History topiramate 200 mg tablet (Topamax) 400 mg PO BID 09/24/24 09/24/24 History trazodone 100 mg tablet 100 mg PO HS PRN Sleep 09/24/24 09/24/24 History zolmitriptan 5 mg nasal spray 1 spray intranasal DIRECTED PRN 09/24/24 09/24/24 History (Zomig) Migraine Headache Patient History Medical History (Updated 09/24/24 @ 11:52 by Monica Rubalcava RN) Migraine Interstitial cystitis IBS (irritable bowel syndrome) History of pancreatitis Gastroparesis Anxiety Diabetes History of COVID-19 multiple times. last had 06/07/2022 - tested with home test. mild cold symptoms. no current issues. Celiac disease Autoimmune disorder PT UNSURE OF NAME OF DISORDER, STATES FOLLOW W/ [facility] Arthritis BACK Scheurmann's disease Chronic back pain Somatic dysfunction Surgical History (Updated 09/24/24 @ 11:53 by Monica Rubalcava RN) Hx of rectal sphincterotomy History of meniscectomy of left knee History of ERCP History of section x2 History of bladder surgery x5 History of colonoscopy History of esophagogastroduodenoscopy (EGD) History of cholecystectomy S/P laparoscopic hysterectomy S/P lumbar fusion hardware in place S/P tonsillectomy H/O wisdom tooth extraction Family History Uncle Diabetes Grandfather (Paternal) Family hx of colon cancer Colorectal cancer Prostate cancer Grandmother Breast cancer Father Myocardial infarction Mother Stroke Ulcerative colitis Other No family history of adverse response to anesthesia Denies family history of Ovarian cancer Crohn's disease Social History Smoking Status: Never smoker Second Hand Exposure: No; Do You Dip or Chew Tobacco: No; Hx Alcohol Use: Yes Alcohol type: beer and wine Hx Substance Use: No Preferred Language: Tristanian Communication Ability: Effective Visual Impairment: No Limitations Hearing Ability: Normal Reducer Required: No Beliefs That Will Affect Care: None marital status: Current Living Situation: Spouse and Family Current Living Situation Comment: Lives with and 3 kids current occupational status: unemployed Other Information That Helps Us Care for You: No Feels Safe at Home: Yes Safety Concerns: Feels Safe At This Time Childhood Exposure to Second-Hand Smoke: Yes Diet: diabetic and regular Diet Comment: Regular caffeine: Yes during the past year weight has: remained stable Dental Care, Regularly: Yes Physical Activity Frequency: Does not Exercise Seatbelt Use: always Sunscreen Use: Yes Assistive Devices: Cane and Walker Physical Exam 2 Physical Exam: Gen: well appearing patient in NAD, mild to moderate discomfort HEENT: AT NC MMM Resp: CTAB no wheezing noted no increased work of breathing CV: RRR no m/r/g clinically well perfused Abd: soft, non-distended MSK: no obvious deformities Skin: no rashes or bruising Neuro: alert and oriented Psych: appropriate mood and affect Results & Data Results & Data Laboratory Results 09/24/24 09:30 09/24/24 09:30 Diagnostic Findings Abdomen/Pelvis CT 09/24/24 08:47 FINDINGS: Lung bases: The size of the heart is normal. There is no pericardial effusion. The lung bases are clear. Images of the lower chest and upper abdomen are degraded by streak artifact from thoracolumbar spine fusion hardware. Liver: The liver morphology is normal and there are no hepatic lesions. There is no biliary ductal dilatation status post cholecystectomy. The hepatic veins and portal veins are patent. Gallbladder: Unremarkable. Spleen: Splenomegaly has decreased since prior CT. Pancreas: There are no pancreatic lesions. No pancreatic ductal dilatation is present. Adrenal glands: Unremarkable. Kidneys: There are no renal lesions. There is no hydronephrosis. The kidneys enhance symmetrically. Abdominal vasculature: The caliber of the abdominal aorta is normal. Major vasculature is patent. Bowel: The caliber and wall thickness of small and large bowel are normal. The appendix is mildly dilated, measuring 9 mm in caliber. There is moderate periappendiceal inflammation. No free air is present. There is no fluid collection. Peritoneum: There is no intraperitoneal free air or abdominal ascites. Lymphadenopathy: None. Skeletal structures: No lytic or blastic lesions are seen. Pelvic viscera: A 6 x 4.3 cm cystic left adnexal lesion has mildly increased in size since CT of March 26, 2022. This is better depicted on pelvic ultrasound March 31, 2022. IMPRESSION: 1. Findings consistent with acute appendicitis. Moderate periappendiceal inflammation. No free air or abscess. 2. 6 cm cystic left adnexal lesion, mildly increased in size since CT of March 26, 2022. This is likely benign although indeterminate and could be reassessed with a follow-up nonemergent pelvic ultrasound. Resident Activity Tracking Resident Involvement: Resident Care Provided Care Provided: [facility]
[2024-09-24] MEDS ORDERED: PROMETHAZINE HCL 25 MG TAB PO PRN (15:26)
[2024-09-24] MEDS ORDERED: FUROSEMIDE 40 MG TAB PO PRN (15:26)
[2024-09-24] MEDS ORDERED: NON-FORMULARY MEDICATION (Albuterol Sulfate 1.25 mg/3 mL solution for nebulization) INH PRN (15:26)
[2024-09-24] MEDS ORDERED: METHOCARBAMOL 750 MG TABLET PO PRN (15:26)
[2024-09-24] MEDS ORDERED: ALBUTEROL HFA 8 GM INHALER INH PRN (15:26)
[2024-09-24] MEDS ORDERED: GLUCOSE 10 TAB/TUBE PO PRN (15:30)
[2024-09-24] MEDS ORDERED: GLUCAGON FOR INJ 1 MG VIAL SQ PRN (15:30)
[2024-09-24] MEDS ORDERED: GLUCOSE 40% GEL 15 GM TUBE PO PRN (15:30)
[2024-09-24] MEDS ORDERED: DEXTROSE 50% 50 ML SYRINGE IV PRN (15:30)
[2024-09-24] MEDS ORDERED: CARBOHYDRATES FOR HYPOGLYCEMIA PO PRN (15:30)
[2024-09-24] MEDS: LACTATED RINGER'S 1,000 ML IV SCH (15:45)
[2024-09-24] MEDS: oxyCODONE/ACETAMINOPHEN 5mg/325mg TAB PO PRN (15:45)
--- NOTE | 2024-09-24 16:57 | Billing Data ---
Date of Service September 24, 2024 Coding Level of Care Code 26021 SUB INP/OBS CARE
[2024-09-24] MEDS: cefOXitin 2,000 MG in DEXTROSE 5 % MINI-B 50 ML IV SCH (17:21)
[2024-09-24] MEDS: INSULIN ASPART PER UNIT CHARGE SC SCH (17:25)
[2024-09-24] MEDS: MoRPHine SULFATE 4 MG/ML 1 ML CARP\\VIAL IV PRN (18:16)
[2024-09-24] MEDS: ONDANSETRON INJ 2 MG/ML 2 ML VIAL IV PRN (18:20)
[2024-09-24] MEDS: PREGABALIN 150 MG CAP PO SCH (20:36)
[2024-09-24] MEDS: traZODone HCL 100 MG TAB PO PRN (20:36)
[2024-09-24] MEDS: TAMSULOSIN HCL 0.4 MG CAP PO SCH (20:37)
[2024-09-24] MEDS: MONTELUKAST SODIUM 10 MG TABLET PO SCH (20:37)
[2024-09-24] MEDS: TOPIRAMATE 100 MG TAB PO SCH (20:37)
[2024-09-24] MEDS: VENLAFAXINE HCL XR 150 MG CAPXR PO SCH (20:37)
[2024-09-24] MEDS: busPIRone 5 MG TAB PO SCH (20:37)
[2024-09-24] MEDS: buPROPion XL 300 MG TABCR PO SCH (20:38)
[2024-09-24] MEDS: POTASSIUM CHLORIDE CRTAB 20 MEQ TABCR PO SCH (20:38)
[2024-09-24] MEDS ORDERED: buPROPion HCl 100 MG TABLET PO SCH (21:00)
[2024-09-25 06:08] LABS: Basophils # (auto) 0.03 K/uL (0.00-0.20); Basophils % (auto) 0.2 %; Eosinophils # (auto) 0.05 K/uL (0.00-0.50); Eosinophils % (auto) 0.4 %; Hematocrit (blood only) 37.2 % (37.0-47.0); Hemoglobin 12.6 g/dl (12.0-16.0); Immature Granulocytes # (auto) 0.04 K/uL (0.01-0.20); Immature Granulocytes % (auto) 0.3 %; Lymphocytes # (auto) 2.47 K/uL (1.20-3.40); Lymphocytes % (auto) 19.4 %; Mean Corpuscular Hemoglobin 28.8 pg (25.0-34.0); Mean Corpuscular Hgb Conc 33.9 g/dL (32.0-36.0); Mean Corpuscular Volume 85.1 fL (80.0-100.0); Monocytes # (auto) 0.81 K/uL (0.11-0.59); Monocytes % (auto) 6.4 %; Neutrophils # (auto) 9.33 K/uL (1.40-6.50); Neutrophils % (auto) 73.3 %; Platelet Count 172 K/uL (130-400); RDW Coefficient of Variation 13.7 % (11.5-14.5); RDW Standard Deviation 42.8 fL (36.4-46.3); Red Blood Count 4.37 M/uL (4.20-5.40); White Blood Count 12.73 K/ul (4.8-10.8)
[2024-09-25 06:26] LABS: Albumin Globulin Ratio 1.6 (0.9-2); Albumin Level 3.6 gm/dl (3.4-5.0); BUN Creatinine Ratio 8.5 (10-20); Bilirubin,Total 0.3 mg/dl (0.2-1.0); Calcium 8.3 mg/dl (8.6-10.3); Creatinine Clr Calc Pharmacy 147.2 ml/min; Globulin 2.3 gm/dl (2.5-4.0); Potassium 3.3 mmol/L (3.5-5.1); Total Protein 5.9 gm/dl (6.0-8.3)
[2024-09-25] MEDS: PANTOprazole 40 MG TAB PO SCH (07:42)
[2024-09-25] MEDS: LIOTHYRONINE SODIUM 25 MCG TAB PO SCH (07:42)
[2024-09-25] MEDS: TRIAMTERENE/HCTZ 37.5/25MG TAB PO SCH (07:43)
[2024-09-25] MEDS: OXYBUTYNIN CHLORIDE XL 5 MG TABCR PO SCH (07:44)
[2024-09-25] MEDS: FLUTICASONE/VILANTEROL 200/25MCG 14 PUFFS/INHALER INH SCH (07:45)
[2024-09-25] MEDS ORDERED: buPROPion HCl 100 MG TABLET PO SCH (09:00)
--- NOTE | 2024-09-25 10:52 | Surgery Progress Note ---
Date of Service September 25, 2024 Assessment & Plan (1) Acute appendicitis: Plan: POD # 1 lap appy avss postop pain moderate, controlled Plan: continue to ambulate to help alleviate gas pain pain management as needed Iv fluids reg diet possible discharge this afternoon Dr. Sears has seen and examined pt agrees with above. Admission and Anticipated Discharge Date Admission Date: September 24, 2024 Subjective moderate gas pain tolerating diet no n,v ambulating hallway Physical Exam Constitutional: WD/WN, vitals as above + obese, cooperative and comfortable; no acute distress and not ill appearing Respiratory: normal respiratory effort; no respiratory distress Gastrointestinal (Abdomen): Inspection/Auscultation: abdomen normal to inspection and + abdominal surgical incision (c/d/i with dermabond); abdomen not distended Percussion/Palpation: + abdomen tender (at incision sites) and abdomen soft; no guarding, abdomen not rigid and abdomen not firm Skin: no rashes, warm and dry Psychiatric: Orientation: alert and oriented x 3 Results & Data Vital Signs (Past 12 Hours) Vital Signs Temp Pulse Resp BP Pulse Ox O2 Del Method 09/25/24 07:26 36.4 C L 78 15 90/60 L 98 Room Air 09/25/24 04:08 36.8 C 68 16 112/73 99 Room Air 09/25/24 00:07 36.7 C 66 18 97/67 L 99 Room Air Laboratory Results 09/25/24 09/25/24 09/24/24 Range/Units 07:29 05:24 20:36 WBC 12.73 H (4.8-10.8) K/ul RBC 4.37 (4.20-5.40) M/uL Hgb 12.6 (12.0-16.0) g/dl Hct 37.2 (37.0-47.0) % MCV 85.1 (80.0-100.0) fL MCH 28.8 (25.0-34.0) pg MCHC 33.9 (32.0-36.0) g/dL RDW Std Deviation 42.8 (36.4-46.3) fL RDW Coeff of Hernan 13.7 (11.5-14.5) % Plt Count 172 (130-400) K/uL MPV 11.0 (9.4-12.4) fL Immature Gran % (Auto) 0.3 % Neut % (Auto) 73.3 % Lymph % (Auto) 19.4 % Bibb % (Auto) 6.4 % Eos % (Auto) 0.4 % Baso % (Auto) 0.2 % Neut # (Auto) 9.33 H (1.40-6.50) K/uL Lymph # (Auto) 2.47 (1.20-3.40) K/uL Bibb # (Auto) 0.81 H (0.11-0.59) K/uL Eos # (Auto) 0.05 (0.00-0.50) K/uL Baso # (Auto) 0.03 (0.00-0.20) K/uL Immature Gran # (Auto) 0.04 (0.01-0.20) K/uL Sodium 142 (136-145) mmol/L Potassium 3.3 L (3.5-5.1) mmol/L Chloride 114 H (98-107) mmol/L Carbon Dioxide 24 (21-32) mmol/L Anion Gap 4 (3-11) BUN 5 L (6-23) mg/dl Creatinine 0.59 L (0.6-1.2) mg/dl Est Cr Clr Drug Dosing 147.2 ml/min eGFR 114.61 BUN/Creatinine Ratio 8.5 L (10-20) Glucose 92 (70-99(Fasting)) mg/dl POC Glucose 95 93 (70-99) mg/dl Calcium 8.3 L (8.6-10.3) mg/dl Total Bilirubin 0.3 (0.2-1.0) mg/dl AST 12 L (13-39) U/L ALT 12 (7-52) U/L Alkaline Phosphatase 73 (34-104) U/L Total Protein 5.9 L (6.0-8.3) gm/dl Albumin 3.6 (3.4-5.0) gm/dl Globulin 2.3 L (2.5-4.0) gm/dl Albumin/Globulin Ratio 1.6 (0.9-2) 09/24/24 09/24/24 09/24/24 Range/Units 16:30 13:25 11:56 WBC (4.8-10.8) K/ul RBC (4.20-5.40) M/uL Hgb (12.0-16.0) g/dl Hct (37.0-47.0) % MCV (80.0-100.0) fL MCH (25.0-34.0) pg MCHC (32.0-36.0) g/dL RDW Std Deviation (36.4-46.3) fL RDW Coeff of Hernan (11.5-14.5) % Plt Count (130-400) K/uL MPV (9.4-12.4) fL Immature Gran % (Auto) % Neut % (Auto) % Lymph % (Auto) % Bibb % (Auto) % Eos % (Auto) % Baso % (Auto) % Neut # (Auto) (1.40-6.50) K/uL Lymph # (Auto) (1.20-3.40) K/uL Bibb # (Auto) (0.11-0.59) K/uL Eos # (Auto) (0.00-0.50) K/uL Baso # (Auto) (0.00-0.20) K/uL Immature Gran # (Auto) (0.01-0.20) K/uL Sodium (136-145) mmol/L Potassium (3.5-5.1) mmol/L Chloride (98-107) mmol/L Carbon Dioxide (21-32) mmol/L Anion Gap (3-11) BUN (6-23) mg/dl Creatinine (0.6-1.2) mg/dl Est Cr Clr Drug Dosing ml/min eGFR BUN/Creatinine Ratio (10-20) Glucose (70-99(Fasting)) mg/dl POC Glucose 112 H 100 H 70 (70-99) mg/dl Calcium (8.6-10.3) mg/dl Total Bilirubin (0.2-1.0) mg/dl AST (13-39) U/L ALT (7-52) U/L Alkaline Phosphatase (34-104) U/L Total Protein (6.0-8.3) gm/dl Albumin (3.4-5.0) gm/dl Globulin (2.5-4.0) gm/dl Albumin/Globulin Ratio (0.9-2)
[2024-09-25] MEDS: MoRPHine SULFATE 2 MG/ML CARP IV PRN (12:00)
[2024-09-25] MEDS ORDERED: POTASSIUM CHLORIDE CRTAB 20 MEQ TABCR PO SCH (12:00)
--- NOTE | 2024-09-25 13:59 | Hospitalist Progress Note ---
Date of Service September 25, 2024 Assessment & Plan (1) Acute appendicitis: Plan: Monitor per primary team. Pain control and antiemetics as needed. Fluids and abx. Possible D/C this afternoon (2) Diabetes: Plan: Well controlled on Mounjaro. SSI while inpatient (3) Adnexal cyst: (4) Hypothyroidism: Plan: Continue Cytomel (5) Mild persistent asthma: Plan: con't home meds (6) Depression with anxiety: Plan: Patient on trazodone, buspar, wellbutrin. (7) Failed back syndrome: Plan: Patient with a history of significant kyphosis and has a lot of hardware in her spine. Patient has chronic pain from this. Is on buprenorphine as needed for pain. Has topical diclofenac, lidocaine patch, methocarbamol as well. (8) Migraines: (9) GERD (gastroesophageal reflux disease): (10) HAIRSTON (nonalcoholic steatohepatitis): (11) IBS (irritable bowel syndrome): (12) Interstitial cystitis: (13) HTN (hypertension): Plan: Continue triamterene-HCTZ Admission and Anticipated Discharge Date Admission Date: September 24, 2024 Subjective Pt seen and examined in bed tolerating diet. Pain undercontrol. Review of Systems Review of Systems: CONST: Negative for fever, body aches and chills. HENT: Negative for neck pain/stiffness, headache, congestion, sore throat, swelling. EYES: Negative for discharge/pain or vision changes. RESP: Negative for cough/hemoptysis and shortness of breath. CV: Negative chest pain, difficulty breathing, palpitations. ABD: Negative pain, nausea, vomiting. : Negative increase frequency, dysuria, blood in urine or stool. MUSC: Negative for muscle aches, edema. SKIN: Negative rash, lesions/sores. NEURO: Negative headache, dizziness, weakness. Physical Exam Physical Exam: GENERAL APPEARANCE NAD, activity normal for age, well developed/ well nourished, no cyanosis, pallor, or diaphoresis. EYES lids/conjunctiva normal. EARS/NOSE/THROAT Mucous membranes moist, nares normal, lips/teeth normal uvula midline without oral pharyngeal erythema, exudate or swelling TMs normal bilaterally. No lymphangitis/lymphedema. HEAD/NECK normocephalic atraumatic, no facial trauma, neck is supple. RESPIRATORY respiratory effort normal, speaks in full sentences, no tripod position, no accessory muscle use. Lungs clear to auscultation without rhonchi, wheezes, rales CARDIAC Regular rate and rhythm, no edema. ABDOMINAL Soft, ND/NT. No evidence of fluid wave. No pulsatile masses on exam, rebound tenderness, Trammell sign or pain over Mcburney's point. Dress C/D/I MUSCLES/EXTREMITIES No abnormal range of motion, no swelling. SKIN Warm, pink and dry. No rashes, dermatoses, petechiae or lesions. NEUROLOGICAL Speech is clear and appropriate. Normal level of consciousness. Gait and coordination are normal. 5/5 strength in all extremities. PSYCH Normal mood and affect. Judgement/competence is appropriate Results & Data Results & Data Vital Signs (Past 12 Hours) Vital Signs Temp Pulse Resp BP Pulse Ox O2 Del Method 09/25/24 11:21 17 105/65 09/25/24 11:18 36.6 C 78 17 82/54 L 99 Room Air 09/25/24 07:26 36.4 C L 78 15 90/60 L 98 Room Air 09/25/24 04:08 36.8 C 68 16 112/73 99 Room Air PG Care Time/CCT Total # of Minutes Spent Total Time Spent with Patient: Total time spent is greater than 50% in coordination of care (as documented) at patient's floor/unit and/or counseling patient: Coding Level of Care Code 74507 SUB INP/OBS CARE 2/35MIN Diagnoses Acute appendicitis K35.80 Diabetes E11.9 Adnexal cyst N94.9 Hypothyroidism E03.9 Mild persistent asthma J45.30 Depression with anxiety F41.8 Failed back syndrome M96.1 Migraines G43.909 GERD (gastroesophageal reflux disease) K21.9 HAIRSTON (nonalcoholic steatohepatitis) K75.81 IBS (irritable bowel syndrome) K58.9 Interstitial cystitis N30.10 HTN (hypertension) I10
[2024-09-25] MEDS: POTASSIUM CHLORIDE CRTAB 20 MEQ TABCR PO SCH (14:13)
[2024-09-25] MEDS ORDERED: buPROPion XL 300 MG TABCR PO SCH (21:00)
[2024-09-26 04:47] VITALS: RESP 16
[2024-09-26 05:31] LABS: Basophils # (auto) 0.04 K/uL (0.00-0.20); Basophils % (auto) 0.6 %; Eosinophils # (auto) 0.26 K/uL (0.00-0.50); Eosinophils % (auto) 3.6 %; Hematocrit (blood only) 36.1 % (37.0-47.0); Hemoglobin 11.7 g/dl (12.0-16.0); Immature Granulocytes # (auto) 0.03 K/uL (0.01-0.20); Immature Granulocytes % (auto) 0.4 %; Lymphocytes # (auto) 3.23 K/uL (1.20-3.40); Lymphocytes % (auto) 44.9 %; Mean Corpuscular Hemoglobin 27.9 pg (25.0-34.0); Mean Corpuscular Hgb Conc 32.4 g/dL (32.0-36.0); Mean Corpuscular Volume 86.2 fL (80.0-100.0); Mean Platelet Volume 10.9 fL (9.4-12.4); Monocytes # (auto) 0.58 K/uL (0.11-0.59); Monocytes % (auto) 8.1 %; Neutrophils # (auto) 3.06 K/uL (1.40-6.50); Neutrophils % (auto) 42.4 %; Platelet Count 189 K/uL (130-400); RDW Coefficient of Variation 14.1 % (11.5-14.5); RDW Standard Deviation 44.1 fL (36.4-46.3); Red Blood Count 4.19 M/uL (4.20-5.40)
[2024-09-26 05:46] LABS: Albumin Globulin Ratio 1.6 (0.9-2); Albumin Level 3.6 gm/dl (3.4-5.0); BUN Creatinine Ratio 12.7 (10-20); Bilirubin,Total 0.2 mg/dl (0.2-1.0); Calcium 8.3 mg/dl (8.6-10.3); Creatinine Clr Calc Pharmacy 122.3 ml/min; Globulin 2.2 gm/dl (2.5-4.0); Potassium 3.7 mmol/L (3.5-5.1); Total Protein 5.8 gm/dl (6.0-8.3)
[2024-09-26 07:55] VITALS: PULSE 77; TEMP 97.7; O2SAT 100
[2024-09-26] MEDS: SUCRALFATE 1 GM TAB PO PRN (08:15)
--- NOTE | 2024-09-26 08:45 | Hospitalist Progress Note ---
Date of Service September 26, 2024 Assessment & Plan (1) Acute appendicitis: Plan: Monitor per primary team Pain control and antiemetics as needed Fluids and abx Possible D/C on 09/26 (2) Hypotension: Plan: Patient's BP found to be 82/55 this morning (MAP <65) Hold a.m. Jennifer Patient does report she tends to run low, and that it is somewhat positional Repeat BP 106/61 Lactated ringer at 100 mL/hr x 500 mL Orthostatic vitals positive (3) Burning with urination: Plan: Dysuria and burning with urination began evening of 09/25 Urinalysis negative for infection No leukocytosis IVF resuscitation for now, and continue to monitor (4) Constipation: Plan: Added on patient's Linzess QAM (5) Diabetes: Plan: Well controlled on Mounjaro SSI while inpatient (6) Hypothyroidism: Plan: Continue Cytomel (7) Mild persistent asthma: Plan: con't home meds (8) Depression with anxiety: Plan: Patient on trazodone, buspar, wellbutrin. (9) Failed back syndrome: Plan: Patient with a history of significant kyphosis and has a lot of hardware in her spine. Patient has chronic pain from this. Is on buprenorphine as needed for pain. Has topical diclofenac, lidocaine patch, methocarbamol as well. (10) Migraines: (11) GERD (gastroesophageal reflux disease): (12) HAIRSTON (nonalcoholic steatohepatitis): (13) IBS (irritable bowel syndrome): (14) Interstitial cystitis: (15) Adnexal cyst: Admission and Anticipated Discharge Date Admission Date: September 24, 2024 Subjective Mrs. Rushing reports that overall she is doing this morning. She had difficulty sleeping last night, but her pain is improving. She rates her right lower quadrant abdominal pain as a 4/10 at present, and an 8/10 at worst when she is attempting to urinate, or when she coughs. No radiation to the back or down the legs. Additionally, she reports that she has a low blood pressure at baseline, and it is somewhat positional. She has been eating and drinking okay. However, her one new complaint is that she had burning with urination started yesterday, and she was having difficulty peeing this morning. She also is requesting her Linzess as she has not had a bowel movement since her operation. ROS: Patient endorses congestion, pain in the right lower quadrant with deep breaths and coughing, nausea, dysuria, and burning with urination. Patient denies fever, chills, night sweats, dizziness/lightheadedness, CP, SOB, vomiting, or numbness or tingling in the arms or legs. Review of Systems Review of Systems: See HPI above Physical Exam Physical Exam: General: no acute distress; resting peacefully in bed eating breakfast; pleasant affect; non-toxic appearing; cooperative; SpO2 100% on RA HEENT: normocephalic, atraumatic; no scleral icterus; PERRLA; vision and hearing grossly intact Neck: supple; no lymphadenopathy; trachea midline Skin: warm, dry without signs of tenting; no cyanosis; no rashes, bruising, lesions, or erythema noted CV: chest wall NTP; RRR; S1/S2 normal; no murmurs/rubs/gallops; pulses intact and symmetric at radial, DP, and PT Lungs: no acute respiratory distress; symmetrical chest wall expansion; clear breath sounds across all lung barnhart w/o adventitious sounds; no wheezing ABD: Soft; RUQ and RLQ are TTP; left abdomen/flank are NTP; incision sites in the process of healing; BS present; no rebound/guarding MSK: no tics or fasciculations; no edema noted in the LEs b/l, nonerythematous; patient demonstrates ability to wiggle toes bilateral Neuro: A&Ox3; normal mood and affect; fluent speech; no focal deficits; sensation intact and symmetric in the LEs b/l Results & Data Results & Data Vital Signs (Past 12 Hours) Vital Signs Temp Pulse Resp BP Pulse Ox O2 Del Method 09/26/24 07:53 36.5 C 77 16 82/55 L 100 Room Air 09/26/24 03:40 37.0 C 79 16 101/68 97 Room Air 09/25/24 23:00 36.5 C 85 14 102/63 97 Room Air PG Care Time/CCT Total # of Minutes Spent Total Time Spent with Patient: Total time spent is greater than 50% in coordination of care (as documented) at patient's floor/unit and/or counseling patient: Coding [place] [address] SUB INP/OBS CARE 2/35MIN Patient Type Established Medical Decision Making Moderate Complexity Diagnoses Acute appendicitis K35.80 Hypotension I95.9 Burning with urination R30.0 Constipation K59.00 Diabetes E11.9 Hypothyroidism E03.9 Mild persistent asthma J45.30 Depression with anxiety F41.8 Failed back syndrome M96.1 Migraines G43.909 GERD (gastroesophageal reflux disease) K21.9 HAIRSTON (nonalcoholic steatohepatitis) K75.81 IBS (irritable bowel syndrome) K58.9 Interstitial cystitis N30.10 Adnexal cyst N94.9
[2024-09-26] MEDS: LACTATED RINGER'S 500 ML IV ONE (08:49)
[2024-09-26 08:50] VITALS: BP 106/61
[2024-09-26 10:53] LABS: Appearance Urine Clear (Clear); Bilirubin Urine Negative (Negative); Blood Urine Negative (Negative); Color Urine Yellow; Glucose Urine UA Negative (Negative); Ketones Urine Negative (Negative); Leukocyte Esterase Urine Negative (Negative); Nitrite Urine Negative (Negative); Protein Urine Negative (Negative); Specific Gravity Urine 1.006 (1.000-1.030); Urobilinogen Urine Negative (Negative); pH Urine 5.5 (4.5-7.5)
[2024-09-26] MEDS: linaCLOtide 72 MCG CAPSULE PO ONE (12:21)
--- NOTE | 2024-09-26 12:26 | Discharge Summary ---
Date of Service September 26, 2024 Admission HPI Per Admitting Provider This is a 44YO who came to ED with abdominal pain. She first with chills and then developed an intense pain in her right lower quadrant. She has associated nausea but no fevers, A CT scan shows acute appendicitis. Admission Exam Per Admitting Provider Constitutional: WD/WN, vitals as above Eyes: no scleral abnormality ENMT: external ear and nose normal, oropharynx normal Neck: trachea midline Respiratory: normal respiratory effort, lungs clear to auscultation Cardiovascular: RRR, no murmur, no edema Gastrointestinal (Abdomen): Inspection/Auscultation: abdomen normal to inspection and normal bowel sounds; abdomen not distended Percussion/Palpation: + abdomen tender and abdomen soft; no guarding and abdomen not rigid Musculoskeletal: Head/Neck/Chest: normocephalic and head atraumatic Skin: no rashes, warm and dry Psychiatric: Orientation: alert Principal Diagnosis Acute appendicitis Discharge Data Allergies Allergy/AdvReac Type Severity Reaction Status Date / Time celecoxib [From Celebrex] Allergy Intermediate SOB,RASH Verified 09/24/24 11:54 azithromycin [From Zithromax] Allergy Mild Rash Verified 09/24/24 11:54 camphor [From Biofreeze] Allergy Mild Rash Verified 09/24/24 11:54 menthol [From Biofreeze] Allergy Mild Rash Verified 09/24/24 11:54 Sulfa (Sulfonamide Allergy Mild RASH Verified 09/24/24 11:54 Antibiotics) sulfamethoxazole Allergy Mild RASH HEAD Verified 09/24/24 11:54 TO TOE- LASTED 3 WEEKS trimethoprim Allergy Mild RASH HEAD Verified 09/24/24 11:54 TO TOE- LASTED 3 WEEKS acetaminophen [From Tylenol] Allergy Unknown Unknown Verified 09/24/24 11:54 Bactrim Allergy Unknown RASH HEAD Verified 06/24/17 09:23 TO TOE- LASTED 3 WEEKS ibuprofen Allergy Unknown Unknown Verified 09/24/24 11:54 codeine AdvReac Severe TROUBLE Verified 09/24/24 11:54 BREATHING AND GI adhesive AdvReac Intermediate ADHESIVE Verified 09/24/24 11:54 TAPE: RED WELTS AND BLISTERED SKIN nitrofurantoin AdvReac Intermediate SEVERE Verified 09/24/24 11:54 VOMITING gabapentin AdvReac Mild Drowsy Verified 09/24/24 11:54 semaglutide [From Ozempic] AdvReac Mild Nausea Verified 09/24/24 11:54 sumatriptan AdvReac Mild FEEL Verified 09/24/24 11:54 WEIRD, DIZZY Dimethyl Sulfoxide AdvReac Intermediate ABDOMINAL Uncoded 09/24/24 11:54 PAIN AND CRAMPING Consultations 09/24/24 14:21 Consult Hospitalist Routine Procedures Performed Operation Date: 09/24/24 12:35 Actual Procedures p Laparoscopic Appendectomy(Not Applicable) - Jass Sears MD Ordered Studies 09/24/24 08:47 CT abd pelvis IV con only Stat Hospital Course (1) Acute appendicitis: This is a 43-year-old female who is admitted through the ED with acute appendicitis. She was begun on IV fluids IV antibiotics and taken to the OR for laparoscopic appendectomy. She did well with this. She had a little bit of issue with some nausea postop but this improved. Her diabetes was managed by the hospitalist. She did well overall and discharged to home on postoperative day #2 Total Time Total Time Spent Total Time Spent (In Minutes): 15 min Total Time Includes: Examination of the Patient, Discharge Planning and Medication Reconciliation Discharge Plan Discharge Items Patient Disposition: Home - Self-Care Reason For Visit: APPENDICITIS Discharge Diagnosis: Acute appendicitis Condition on Discharge: Good Activity: Per Instructions section Lifting: No more than 25 pounds Non-emergency contact: Primary Care Provider and Surgeon Call non-emergency contact if: you have any medication questions, your pain is not controlled, your pain is worsening, you have a fever, your temperature is above 101, your wound has increased redness, your wound has increased drainage and your wound pain has increased Follow-up/Referrals: Jass Sears MD [Physician] - 10/09/24 2:45 pm Melissa Fitzpatrick CRNP [Primary Care Provider] - Diet: Carb Consistent or DM2 Addtl Attending Provider Instructions: Post-Surgical ~Discharge Instructions Activity Recommendations: - lifting limitation: (20 pounds for 2-3 weeks), - exercise/sex/sports limit: (nonstrenuous for 2 weeks), - driving or machine use limit: (none for 1 week or until pain free and no longer taking narcotic pain medication), - Shower/bathe limit: (may shower, no submerging incisions underwater for two weeks) Diet: - Resume previous diet SPECIAL CARE INSTRUCTIONS: - May shower. Let water run over area and pat dry. - Leave surgical glue on incisions this will fall off on its own. - Call the surgeon's office with any questions or concerns - - (ex. temperature higher than 101 degrees F, excessive bleeding or pain). MEDICATIONS: - Resume previous medications unless instructed otherwise by your surgeon. - Ibuprofen 600 mg every 6 hours as needed (take with food), do not take for more than 3 consecutive days - Percocet 1 every 6 hours, as needed for moderate to severe pain - Recommend daily stool softener (Colace) while taking narcotic pain medication. Drink plenty of water daily. FOLLOW UP VISIT: - If not already scheduled, please call the office to schedule a two week follow-up appointment. Office number Pending Studies at Discharge: Yes (appendix pathology) Stand-Alone Forms: My Vtap, Smoking Cessation Medications and DC Order Prescriptions: New oxycodone 5 mg tablet 5 mg PO Q6H Qty: 14 0RF Continued albuterol sulfate 1.25 mg/3 mL solution for nebulization 1.25 mg INH Q6H PRN (Reason: shortness of breath or wheezing) Qty: 180 0RF albuterol sulfate [Ventolin HFA] 90 mcg/actuation HFA aerosol inhaler 2 puff INHALATION Q4 PRN (Reason: Shortness Of Breath Or Wheezing) Qty: 18 0RF ondansetron 8 mg tablet,disintegrating 8 mg PO Q8H PRN (Reason: nausea and vomiting) Qty: 20 0RF buspirone 10 mg tablet 10 mg PO BID Qty: 60 3RF (DME) lancets Misc See Rx Instructions .Route Qty: 100 0RF Rx Instructions: As directed, testing BS daily (DME) Blood Glucose Test Strip See Rx Instructions .ROUTE .MEDSUPPLY Qty: 100 1RF Rx Instructions: As directed. Testing BS daily. Dx: E11.9 (DME) blood-glucose meter [Blood Glucose Monitoring] Kit See Rx Instructions .ROUTE .MEDSUPPLY Qty: 1 0RF Rx Instructions: As directed Testing BS daily. Dx: E11.9 methocarbamol 750 mg tablet 750 mg PO TID PRN (Reason: Muscle Spasm) Qty: 60 1RF venlafaxine [Effexor XR] 150 mg capsule,extended release 24hr 300 mg PO HS Qty: 180 1RF potassium chloride 20 mEq tablet extended release 20 meq PO TID Qty: 160 3RF Rx Instructions: 40 mEq Q AM, 20 mEq in the afternoon, 40 mEq in the evenings triamterene-hydrochlorothiazid 37.5-25 mg capsule 1 cap PO QAM Qty: 90 3RF fluconazole [Diflucan] 150 mg tablet 150 mg PO Q48H Qty: 3 0RF solifenacin [Vesicare] 5 mg tablet 5 mg PO DAILY Qty: 30 3RF cholecalciferol (vitamin D3) 1,250 mcg (50,000 unit) tablet 50,000 unit PO WK 90 Days Qty: 12 3RF Rx Instructions: 50,000 units once weekly, mon phenazopyridine [Pyridium] 200 mg tablet 200 mg PO Q8H PRN (Reason: pain) Qty: 10 0RF promethazine 25 mg tablet 25 mg PO BID PRN (Reason: nausea and vomiting) Qty: 30 0RF montelukast 10 mg tablet 10 mg PO HS Qty: 30 5RF Symbicort 160-4.5 mcg/actuation HFA aerosol inhaler 2 puff INHALATION BID Qty: 3 3RF (DME) pen needle, diabetic [BD Ultra-Fine Dena Pen Needle] 32 gauge x 5/32" needle See Rx Instructions .Route Qty: 100 2RF Rx Instructions: As directed lidocaine [Lidoderm] 5 % adhesive patch,medicated 1 patch TOP DAILY PRN (Reason: Pain) Qty: 30 5RF Rx Instructions: leave on most painful area for 12 hrs buprenorphine HCl [Belbuca] 450 mcg film 450 mcg buccal Q12H Mounjaro 7.5 mg/0.5 mL pen injector 10 mg subcut .weekly Ajovy Syringe 225 mg/1.5 mL syringe 225 mg subcut MONTHLY Qty: 1.5 11RF ketorolac 10 mg tablet 10 - 20 mg PO BID PRN (Reason: Migraine Headache) Qty: 20 0RF diclofenac sodium 1 % gel 2 gm TOP QID PRN (Reason: Pain) sucralfate [Carafate] 1 gram tablet 1 g PO BID PRN (Reason: Gi Upset) Patient Comments: dexlansoprazole [Dexilant] 60 mg capsule,biphase delayed releas 60 mg PO QAM liothyronine [Cytomel] 25 mcg tablet 25 mcg PO QAM prednisone 20 mg tablet 40 mg PO DAILY PRN (Reason: Pain) Rx Instructions: back pain tamsulosin [Flomax] 0.4 mg capsule 0.4 mg PO HS topiramate [Topamax] 200 mg tablet 400 mg PO BID furosemide [Lasix] 20 mg tablet 40 mg PO DAILY PRN (Reason: edema) zolmitriptan [Zomig] 5 mg spray,non-aerosol 1 spray Intranasal DIRECTED PRN (Reason: Migraine Headache) Rx Instructions: 1 spray intranasal per nostril at onset of migraine , may repeat in 2 hours if needed PRN; pregabalin [Lyrica] 150 mg capsule 150 mg PO HS bupropion HCl 100 mg Tablet 300 mg PO DAILY trazodone 100 mg Tablet 100 mg PO HS PRN (Reason: Sleep) fluconazole 150 mg tablet 150 mg PO Q3D Qty: 2 0RF Rx Instructions: may repeat second dose 72 hrs after first dose if symptoms persist lorazepam [Ativan] 1 mg tablet 1 mg PO Q8H PRN (Reason: anxiety) Qty: 10 0RF Discharge Orders: Discharge Order (Routine); Ordered 09/26/24 Ordered By: Jass Sears Admission Data Admit Date/Time: 09/24/24 13:17 Attending Provider: Jass Sears Admit Provider: Jass Sears Primary Care Provider: Melissa Fitzpatrick Other Providers: Ty Garvin
--- NOTE | 2024-09-27 07:57 | Electrocardiogram Report ---
Test Reason : Blood Pressure : */* mmHG Vent. Rate : 72 BPM Atrial Rate : 72 BPM P-R Int : 134 ms QRS Dur : 92 ms QT Int : 444 ms P-R-T Axes : 51 6 36 degrees QTcB Int : 486 ms Normal sinus rhythm with sinus arrhythmia Low voltage QRS Prolonged QT Abnormal ECG When compared with ECG of 26-Mar-2022 20:51, No significant change was found Confirmed by Jossue Guillen ([id number]) on 09/27/2024 7:57:05 AM Referred By: REFERRED SELF Confirmed By: Jossue Guillen
[2024-09-27] MEDS ORDERED: linaCLOtide 72 MCG CAPSULE PO SCH (09:00)
== END 2024-09-26 14:20 | disposition home or self-care (01) ==
LOC: ED 08:27 → OR 11:38 → 4W 11:38 → ED 11:38

== ENCOUNTER 2025-03-08 12:21 | Inpatient (IN) ==
--- NOTE | 2025-03-08 13:39 | Emergency Department Note ---
History of Present Illness General Chief complaint: Shortness of Breath/Dyspnea Stated complaint: SOB DIZZY BLACKOUTS LOW BP PAIN Time Seen by Provider: 03/08/25 12:59 History of Present Illness Maximum Pain Intensity: 8 Patient is a 44-year-old female with past medical history significant for migraine disorder, IBS, endometriosis, history of pancreatitis, liver disease, obesity, hypothyroidism, asthma, type 2 diabetes, gastroparesis, dyslipidemia, among other chronic medical problems who presents to the emergency department for continued dizziness, and feeling near syncopal, with associated nausea, abdominal pain, anorexia and now with shortness of breath with exertion. Patient was seen in the emergency department 1 week ago for the same symptoms. She was thoroughly evaluated, noting orthostatic hypotension. She was discharged. The last week, patient states the symptoms have persisted. She is now noting she is short of breath with minimal exertion. She continues to feel dizzy with position changes,Patient states that she gets a flash of warmth and sometimes has to deangelo to objects to keep her from falling. She feels cold and clammy, and generally achy. She is having a lot of back pain, which is chronic for her. She reports nausea, generalized abdominal pain, anorexia, and diarrhea. She is on her chronic medications, including buprenorphine and, methocarbamol, she has tried Zofran for her nausea. She was at [facility] today, and referred back to the emergency department for continued workup, spouse reports that "they did not do any imaging" last week. She had her appendix out in September of this year, and is 4 weeks status post laparoscopic oophorectomy done at [facility] in [place]. Home Medications Medication Instructions Recorded Confirmed Type diclofenac sodium 1 % topical gel 2 gm topical QID PRN Pain 10/08/19 03/08/25 History sucralfate 1 gram tablet (Carafate) 1 g PO BID PRN Gi Upset 10/08/19 03/08/25 History albuterol sulfate 1.25 mg/3 mL 1.25 mg (3 mL) inhalation Q6H PRN 04/10/20 03/08/25 Rx solution for nebulization shortness of breath or wheezing #180 mL pen needle, diabetic 32 gauge x #100 ea 10/14/21 11/23/23 Rx " (BD Ultra-Fine Dena Pen Needle) promethazine 25 mg tablet 25 mg PO BID PRN nausea and 12/07/21 03/08/25 Rx vomiting #30 tabs montelukast 10 mg tablet 10 mg PO HS #30 tabs 12/17/21 03/08/25 Rx lidocaine 5 % topical patch 1 patch topical DAILY PRN Pain #30 04/26/22 03/08/25 Rx (Lidoderm) ea albuterol sulfate 90 mcg/actuation 2 puff inhalation Q4 PRN Shortness 05/10/22 03/08/25 Rx aerosol inhaler (Ventolin HFA) Of Breath Or Wheezing #18 grams dexlansoprazole 60 mg 60 mg PO QAM 08/11/22 03/08/25 History capsule,biphase delayed release (Dexilant) lancets #100 ea 08/13/22 11/23/23 Rx budesonide-formoterol HFA 160 2 puff inhalation BID #3 Inhalers 08/30/22 03/08/25 Rx mcg-4.5 mcg/actuation aerosol inhaler (Symbicort) blood sugar diagnostic (Blood #100 ea 09/02/22 11/23/23 Rx Glucose Test strips) blood-glucose meter (Blood Glucose #1 ea 09/02/22 11/23/23 Rx Monitoring kit) phenazopyridine 200 mg tablet 200 mg PO Q8H PRN pain #10 tabs 11/08/22 03/08/25 Rx (Pyridium) methocarbamol 750 mg tablet 750 mg PO TID PRN Muscle Spasm #60 12/06/22 03/08/25 Rx tabs venlafaxine 150 mg 300 mg (2 x 150 mg) PO HS #180 caps 12/06/22 03/08/25 Rx capsule,extended release 24 hr (Effexor XR) potassium chloride 20 mEq 20 meq PO TID #160 tabs 12/22/22 03/08/25 Rx tablet,extended release triamterene 37.5 1 cap PO QAM #90 caps 12/23/22 03/08/25 Rx mg-hydrochlorothiazide 25 mg capsule solifenacin 5 mg tablet (Vesicare) 5 mg PO DAILY #30 tabs 05/09/23 03/08/25 Rx lorazepam 1 mg tablet (Ativan) 1 mg PO Q8H PRN anxiety #10 tabs 08/01/24 03/08/25 Rx furosemide 20 mg tablet (Lasix) 40 mg PO DAILY PRN edema 09/24/24 03/08/25 History liothyronine 25 mcg tablet 25 mcg PO QAM 09/24/24 03/08/25 History (Cytomel) pregabalin 150 mg capsule (Lyrica) 150 mg PO HS 09/24/24 03/08/25 History tamsulosin 0.4 mg capsule (Flomax) 0.4 mg PO HS 09/24/24 03/08/25 History topiramate 200 mg tablet (Topamax) 400 mg PO BID 09/24/24 03/08/25 History trazodone 100 mg tablet 100 mg PO HS PRN Sleep 09/24/24 03/08/25 History zolmitriptan 5 mg nasal spray 1 spray intranasal DIRECTED PRN 09/24/24 03/08/25 History (Zomig) Migraine Headache ondansetron 4 mg disintegrating 4 - 8 mg (1 - 2 x 4 mg) PO Q8H PRN 10/01/24 03/08/25 Rx tablet nausea and vomiting #14 tabs oxycodone 5 mg tablet 5 mg PO Q6H PRN pain #12 tabs 10/01/24 03/08/25 Rx ketorolac 10 mg tablet 10 - 20 mg (1 - 2 x 10 mg) PO BID 10/24/24 03/08/25 Rx PRN Migraine Headache #20 tabs cholecalciferol (vitamin D3) 1,250 50,000 unit PO WK 90 days #12 tabs 01/18/25 03/08/25 Rx mcg (50,000 unit) tablet fremanezumab-vfrm 225 mg/1.5 mL 225 mg (1.5 mL) subcut MONTHLY 01/18/25 03/08/25 Rx subcutaneous syringe (Ajovy #1.5 mL Syringe) buprenorphine HCl 600 mcg buccal 600 mcg buccal BID 03/08/25 03/08/25 History film (Belbuca) bupropion HCl 300 mg 24 hr tablet, 300 mg PO DAILY 03/08/25 03/08/25 History extended release buspirone 30 mg tablet 30 mg PO BID 03/08/25 03/08/25 History clonidine HCl 0.2 mg tablet 0.2 mg PO BID 03/08/25 03/08/25 History linaclotide 72 mcg capsule 72 mcg PO QAM 03/08/25 03/08/25 History (Linzess) quetiapine 50 mg tablet 50 mg PO HS 03/08/25 03/08/25 History tirzepatide 12.5 mg/0.5 mL 12.5 mg subcut WK 03/08/25 03/08/25 History subcutaneous pen injector (Mounjaro) Allergies Allergy/AdvReac Type Severity Reaction Status Date / Time celecoxib [From Celebrex] Allergy Intermediate SOB,RASH Verified 03/08/25 16:11 sulfamethoxazole Allergy Intermediate RASH HEAD Verified 03/08/25 16:11 TO TOE- LASTED 3 WEEKS trimethoprim Allergy Intermediate RASH HEAD Verified 03/08/25 16:11 TO TOE- LASTED 3 WEEKS azithromycin [From Zithromax] Allergy Mild Rash Verified 03/08/25 16:11 camphor [From Biofreeze] Allergy Mild Rash Verified 03/08/25 16:11 menthol [From Biofreeze] Allergy Mild Rash Verified 03/08/25 16:11 Sulfa (Sulfonamide Allergy Mild RASH Verified 03/08/25 16:11 Antibiotics) ibuprofen Allergy Unknown Unknown Verified 03/08/25 16:11 codeine AdvReac Severe TROUBLE Verified 03/08/25 16:11 BREATHING AND GI adhesive AdvReac Intermediate ADHESIVE Verified 03/08/25 16:11 TAPE: RED WELTS AND BLISTERED SKIN nitrofurantoin AdvReac Intermediate SEVERE Verified 03/08/25 16:11 VOMITING gabapentin AdvReac Mild Drowsy Verified 03/08/25 16:11 semaglutide [From Ozempic] AdvReac Mild Nausea Verified 03/08/25 16:11 sumatriptan AdvReac Mild FEEL Verified 03/08/25 16:11 WEIRD, DIZZY acetaminophen [From Tylenol] AdvReac Unknown LIVER Verified 03/08/25 21:14 ISSUES Dimethyl Sulfoxide AdvReac Intermediate ABDOMINAL Uncoded 03/08/25 16:11 PAIN AND CRAMPING Past Med/Surg History Problem List (Updated 03/11/25 @ 00:03 by Background Daemon) Shortness of breath (Acute) Dizziness (Acute) Acute hypokalemia (Acute) Hypoglycemia (Acute) Generalized weakness (Acute) Lightheadedness (Acute) Orthostatic hypotension (Acute) Constipation Burning with urination Hypotension HTN (hypertension) Adnexal cyst (Acute) Acute appendicitis (Acute) Witnessed episode of apnea Hypersomnia Dyslipidemia Pelvic pain Adnexal cyst Gastroparesis Diabetes mellitus, type 2 IDDM History of COVID-19 (Acute 05/2021) Vitamin D deficiency Hypothyroidism Mild persistent asthma controlled with inhalers Morbid obesity (Acute) Cyst of meniscus of left knee Acute lateral meniscus tear of left knee Edema Cervical radiculopathy (Chronic) Chronic abdominal pain (Chronic) Depression with anxiety (Chronic) Essential tremor (Chronic) Failed back syndrome (Chronic) Portal hypertension (Chronic) History of anesthesia reaction (Chronic) "If they bring me out of it too fast I become violent" Kidney stones (Chronic) Pancreatitis (Chronic) last episode 2 years ago Anemia (Chronic) Migraines (Chronic) F/U DR DANIEL 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 last had 06/07/2022 - tested with home test. mild cold symptoms. no current issues. Celiac disease Autoimmune disorder PT UNSURE OF NAME OF DISORDER, STATES FOLLOW W/ [facility] Arthritis BACK Scheurmann's disease Chronic back pain Somatic dysfunction Surgical History Hx of rectal sphincterotomy History of meniscectomy of left knee History of ERCP History of section x2 History of bladder surgery x5 History of colonoscopy History of esophagogastroduodenoscopy (EGD) History of cholecystectomy S/P laparoscopic hysterectomy S/P lumbar fusion hardware in place S/P tonsillectomy H/O wisdom tooth extraction Family History Uncle Diabetes Grandfather (Paternal) Family hx of colon cancer Colorectal cancer Prostate cancer Grandmother Breast cancer Father Myocardial infarction Mother Stroke Ulcerative colitis Other No family history of adverse response to anesthesia Denies family history of Ovarian cancer Crohn's disease Social History Smoking Status: Never smoker Second Hand Exposure: No; Do You Dip or Chew Tobacco: No; Hx Alcohol Use: No Hx Substance Use: No Preferred Language: Czech Communication Ability: Effective Visual Impairment: No Limitations Hearing Ability: Normal Wholesale Representative Required: No Beliefs That Will Affect Care: None marital status: Current Living Situation: Spouse Current Living Situation Comment: Lives with and 3 kids current occupational status: unemployed Other Information That Helps Us Care for You: No Feels Safe at Home: Yes Safety Concerns: Feels Safe At This Time Childhood Exposure to Second-Hand Smoke: Yes Diet: diabetic and regular Diet Comment: Regular caffeine: Yes during the past year weight has: remained stable Dental Care, Regularly: Yes Physical Activity Frequency: Does not Exercise Seatbelt Use: always Sunscreen Use: Yes Assistive Devices: Walker Review of Systems A total of 10 systems reviewed and were otherwise negative Physical Exam Vital Signs Vital Signs - 24 hr 03/08/25 12:24 03/08/25 12:51 03/08/25 12:53 Temperature 36.0 C L Temperature Source Skin Pulse Rate 112 H 100 H Pulse Rate [Apical] Pulse Rhythm Regular Pulse Rhythm [Apical] Pulse Strength Normal Pulse Strength [Apical] Respiratory Rate 20 Respiratory Effort / Characteristics Non-Labored Spontaneous Respiratory Depth Normal Respiratory Pattern Regular Blood Pressure 101/67 Blood Pressure [Right Arm] Blood Pressure Mean 78 Blood Pressure Mean [Right Arm] Pulse Oximetry 100 99 Oxygen Delivery Method Room Air Room Air Sepsis Recent Fever Within 48 Hours No Sepsis New/Unexplained Change in Mental Status N/A Sepsis Action Taken by Nursing No Action Required 03/08/25 12:54 03/08/25 13:25 03/08/25 14:04 Temperature Temperature Source Pulse Rate 92 H Pulse Rate [Apical] Pulse Rhythm Pulse Rhythm [Apical] Pulse Strength Pulse Strength [Apical] Respiratory Rate 13 Respiratory Effort / Characteristics Non-Labored Spontaneous Respiratory Depth Normal Respiratory Pattern Regular Blood Pressure 129/110 H Blood Pressure [Right Arm] Blood Pressure Mean 117 Blood Pressure Mean [Right Arm] Pulse Oximetry 100 97 Oxygen Delivery Method Room Air Sepsis Recent Fever Within 48 Hours Sepsis New/Unexplained Change in Mental Status Sepsis Action Taken by Nursing 03/08/25 16:39 03/08/25 17:46 Temperature Temperature Source Pulse Rate 95 H Pulse Rate [Apical] 89 Pulse Rhythm Pulse Rhythm [Apical] Regular Pulse Strength Pulse Strength [Apical] Normal Respiratory Rate 16 Respiratory Effort / Characteristics Non-Labored Spontaneous Respiratory Depth Normal Respiratory Pattern Regular Blood Pressure Blood Pressure [Right Arm] 94/55 L Blood Pressure Mean Blood Pressure Mean [Right Arm] 68 Pulse Oximetry 100 Oxygen Delivery Method Room Air Sepsis Recent Fever Within 48 Hours Sepsis New/Unexplained Change in Mental Status Sepsis Action Taken by Nursing CONSTITUTIONAL: Overweight 44yof sitting semiupright on the gurney. is at the bedside. EYES: Pupils equal, round, reactive to light and accommodation. EOMs intact without nystagmus. Sclera are anicteric. ENT: Tympanic membranes intact, with normal landmarks. External canals are clear. Oral and nasopharynx are clear. Mucous membranes are moist, no lesions, tongue and gums appear normal. NECK: Supple without lymphadenopathy. No meningeal signs. Full active range of motion without discomfort. CARDIOVASCULAR: Regular rate and rhythm. Peripheral pulses easy to palpable. RESPIRATORY: Breath sounds equal and clear to auscultation. GI: Bowel sounds are present. Well healed surgical scars without signs of infection. Abdomen is soft, obese, nondistended. Diffusely TTP, primarily on left in the LUQ and LLQ. No guarding or rebound. MUSCULOSKELETAL: Full range of motion of extremities x 4 with good strength. No cyanosis, edema, joint tenderness or swelling. No deformity. INTEGUMENTARY: No lesions or rash, normal skin turgor. NEUROLOGICAL: Alert, oriented, and cooperative. Cranial nerves, sensation and strength grossly intact. LYMPH: No lymphadenopathy. Course Course The patient was seen and assessed as above. External medical records reviewed, including outside [facility] notes, and recent ED visit from 7 days ago. She returns to the emergency department with continued symptoms ongoing since last week, primarily dizziness with position changes and now shortness of breath with exertion. She has a complex extensive past medical history, and recent surgery 4 weeks ago. IV lock was initiated, repeat laboratory studies collected. EKG, chest x-ray, chest, abdominal/pelvic CTs obtained. Of note, I did order orthostatic vitals and ambulatory pulse ox, however these were not done by nursing staff prior to patient receiving IV hydration and therefore were never done. She was treated with a liter bolus of normal saline solution, Toradol 15 mg and Zofran 4 mg IV. Patient's potassium noted to be critically low at 2.4. Patient reviewed with Dr. Marx. She was ordered to 10 mEq K riders and 40 mg of p.o. potassium. She requested something additional for headache, was ordered Compazine and Benadryl IV. Patient is on chronic buprenorphine, and I did not feel comfortable ordering narcotics given this, in addition to the extensive symptoms she is endorsing today. Diagnostics, as interpreted by me: Laboratory studies: Normal white count at 9700. H&H 16 and 45. Sodium 138, potassium low at 2.4, chloride 94, carbon dioxide 32, BUN 17, creatinine 1.06. No transaminitis. Magnesium normal. Troponin not elevated. TSH indicates corrected state. Urine microscopy negative. ECG: Sinus tachycardia 110 bpm. No acute ischemic changes. Cardiac monitoring: An order was placed for continuous cardiac monitoring. The monitor shows sinus tachycardia in the 100s per my interpretation. Imaging studies: Chest x-ray clear, no infiltrate or consolidation. Chest CT negative for PE. Abdominal/pelvic CT: Post surgical changes without acute infectious/findings. Patient was reviewed with attending physician, Dr. Marx. All laboratory and diagnostic imaging studies were reviewed with the patient and her spouse at length. Admission/observation advised and she was agreeable. Patient discussed with ED case management coordinator and reviewed with the [facility] hospitalist service for admission. Patient discussed with R2, Dr. Mckinney. Chronic conditions affecting care: HTN, dyslipidemia, gastroparesis, obesity, DM type II, hypothyroidism, asthma, chronic pain syndrome, migraine disorder among others. Differential diagnosis: Benign positional vertigo, dehydration, hypovolemia, anemia, infection, hypoglycemia, electrolyte abnormalities, cardiac sources, pneumonia, asthma exacerbation, pulmonary embolism, musculoskeletal, as well as other pathologies. Administered Medications Acetaminophen (Acetaminophen 500 Mg Tab) 1,000 mg PO Q8H PRN PRN Reason: Pain or Fever Stop: 04/08/25 23:21 Last Admin: 03/10/25 20:55 Dose: 1,000 mg Documented By: EFK Bupropion HCl (Bupropion Xl 300 Mg Tabcr) 300 mg PO DAILY JOE Stop: 04/08/25 08:59 Last Admin: 03/11/25 08:45 Dose: 300 mg Documented By: mnk Admin: 03/10/25 08:42 Dose: 300 mg Documented By: Admin: 03/09/25 08:49 Dose: 300 mg Documented By: neema Buspirone HCl (Buspirone 15 Mg Tab) 30 mg PO BID JOE Stop: 04/07/25 20:59 Last Admin: 03/11/25 08:48 Dose: 30 mg Documented By: johanny Admin: 03/10/25 20:55 Dose: 30 mg Documented By: Admin: 03/10/25 08:42 Dose: 30 mg Documented By: Admin: 03/09/25 20:03 Dose: 30 mg Documented By: Admin: 03/09/25 08:44 Dose: 30 mg Documented By: neema Admin: 03/08/25 22:23 Dose: 30 mg Documented By: JULY Clonidine HCl (Clonidine Hcl 0.1 Mg Tab) 0.2 mg PO BID JOE Stop: 04/07/25 21:14 Last Admin: 03/11/25 08:47 Dose: 0.2 mg Documented By: johanny Admin: 03/10/25 21:18 Dose: 0.2 mg Documented By: Admin: 03/10/25 08:44 Dose: Not Given Documented By: Admin: 03/09/25 20:03 Dose: 0.2 mg Documented By: Admin: 03/09/25 08:45 Dose: 0.2 mg Documented By: neema Admin: 03/08/25 22:24 Dose: 0.2 mg Documented By: JULY Enoxaparin Sodium (Enoxaparin Inj 40 Mg/0.4 Ml Syr) 40 mg SQ BID JOE Stop: 04/07/25 21:29 Last Admin: 03/11/25 08:44 Dose: 40 mg Documented By: johanny Admin: 03/10/25 20:56 Dose: 40 mg Documented By: Admin: 03/10/25 08:41 Dose: 40 mg Documented By: Admin: 03/09/25 20:02 Dose: 40 mg Documented By: Admin: 03/09/25 08:46 Dose: 40 mg Documented By: neema Admin: 03/08/25 22:25 Dose: 40 mg Documented By: JULY Fluticasone/Vilanterol (Fluticasone/Vilanterol 100/25mcg 14 Puffs/Inhaler) 1 puffs INH DAILY JOE; Protocol Stop: 04/08/25 08:59 Last Admin: 03/11/25 08:44 Dose: 1 puffs Documented By: johanny Admin: 03/10/25 08:43 Dose: 1 puffs Documented By: Admin: 03/09/25 08:49 Dose: 1 puffs Documented By: neema Lidocaine (Lidocaine 5% 1 Patch) 1 patch TD DAILY PRN PRN Reason: Back pain Q12H Stop: 04/07/25 18:16 Last Admin: 03/10/25 21:18 Dose: 1 patch Documented By: Admin: 03/09/25 08:39 Dose: 1 patch Documented By: neema Liothyronine Sodium (Liothyronine Sodium 25 Mcg Tab) 25 mcg PO QAM JOE Stop: 04/08/25 08:59 Last Admin: 03/11/25 08:47 Dose: 25 mcg Documented By: johanny Admin: 03/10/25 08:43 Dose: 25 mcg Documented By: Admin: 03/09/25 08:46 Dose: 25 mcg Documented By: neema Lorazepam (Lorazepam 1 Mg Tab) 1 mg PO Q8H PRN PRN Reason: anxiety Stop: 04/07/25 18:16 Last Admin: 03/11/25 08:47 Dose: 1 mg Documented By: johanny Admin: 03/11/25 00:27 Dose: 1 mg Documented By: Admin: 03/10/25 16:24 Dose: 1 mg Documented By: Admin: 03/10/25 08:41 Dose: 1 mg Documented By: Admin: 03/09/25 17:52 Dose: 1 mg Documented By: neema Admin: 03/08/25 23:55 Dose: 1 mg Documented By: JULY Methocarbamol (Methocarbamol 750 Mg Tablet) 750 mg PO TID PRN PRN Reason: Muscle Spasm Stop: 04/07/25 18:22 Last Admin: 03/11/25 08:45 Dose: 750 mg Documented By: johanny Admin: 03/11/25 00:57 Dose: 750 mg Documented By: Admin: 03/10/25 16:24 Dose: 750 mg Documented By: Admin: 03/09/25 17:45 Dose: 750 mg Documented By: neema Admin: 03/09/25 08:42 Dose: 750 mg Documented By: neema Miscellaneous (Remove Lidoderm Patch) 1 each N/A DAILY@2100 [facility] Stop: 04/07/25 20:59 Last Admin: 03/10/25 21:01 Dose: 1 each Documented By: Admin: 03/09/25 20:08 Dose: 1 each Documented By: Admin: 03/08/25 22:24 Dose: Not Given Documented By: JULY Miscellaneous (Zolmitriptan [Zomig] 5 Mg [place],~Order Awaiting Action) 1 each N/A QS [facility] Stop: 04/07/25 21:14 Last Admin: 03/11/25 08:27 Dose: Not Given Documented By: Admin: 03/10/25 22:55 Dose: Not Given Documented By: Admin: 03/10/25 15:05 Dose: Not Given Documented By: Admin: 03/10/25 07:38 Dose: Not Given Documented By: Admin: 03/09/25 23:14 Dose: Not Given Documented By: [facility] Admin: 03/09/25 15:00 Dose: Not Given Documented By: neema Admin: 03/09/25 07:45 Dose: Not Given Documented By: neema Admin: 03/08/25 22:29 Dose: Not Given Documented By: JULY Montelukast Sodium (Montelukast Sodium 10 Mg Tablet) 10 mg PO HS [facility] Stop: 04/07/25 20:59 Last Admin: 03/10/25 21:01 Dose: 10 mg Documented By: Admin: 03/09/25 20:04 Dose: 10 mg Documented By: [facility] Admin: 03/08/25 22:29 Dose: 10 mg Documented By: [facility] Belbuca 600mcg [employer]--Non- Formulary Patient's Own Med 1 each PO BID JOE Stop: 04/09/25 20:59 Last Admin: 03/11/25 08:53 Dose: 600 mcg Documented By: otonielk Admin: 03/10/25 20:56 Dose: 600 mcg Documented By: ROXANNEK Ondansetron HCl (Ondansetron 4 Mg Od Tab) 4 - 8 mg PO Q4H PRN PRN Reason: nausea and vomiting Stop: 04/07/25 18:16 Last Admin: 03/10/25 16:24 Dose: 4 mg Documented By: Admin: 03/10/25 08:41 Dose: 4 mg Documented By: FAVIAN Pregabalin (Pregabalin 150 Mg Cap) 150 mg PO HS JOE Stop: 04/07/25 20:59 Last Admin: 03/10/25 20:55 Dose: 150 mg Documented By: Admin: 03/09/25 20:01 Dose: 150 mg Documented By: Admin: 03/08/25 22:39 Dose: 150 mg Documented By: JULY Quetiapine Fumarate (Quetiapine Fumarate 25 Mg Tablet) 50 mg PO HS JOE Stop: 04/07/25 20:59 Last Admin: 03/10/25 20:55 Dose: 50 mg Documented By: Admin: 03/09/25 20:03 Dose: 50 mg Documented By: Admin: 03/08/25 22:22 Dose: 50 mg Documented By: JULY Topiramate (Topiramate 100 Mg Tab) 400 mg PO BID JOE Stop: 04/07/25 20:59 Last Admin: 03/11/25 08:47 Dose: 400 mg Documented By: otonielk Admin: 03/10/25 21:22 Dose: 400 mg Documented By: Admin: 03/10/25 08:43 Dose: 400 mg Documented By: Admin: 03/09/25 20:06 Dose: 400 mg Documented By: Admin: 03/09/25 08:46 Dose: 400 mg Documented By: [facility] Admin: 03/08/25 22:29 Dose: 400 mg Documented By: JULY Trazodone HCl (Trazodone Hcl 100 Mg Tab) 100 mg PO HS PRN PRN Reason: Sleep Stop: 04/07/25 18:22 Last Admin: 03/09/25 22:29 Dose: 100 mg Documented By: JULY Venlafaxine HCl (Venlafaxine Hcl Xr 150 Mg Capxr) 300 mg PO HS JOE Stop: 04/07/25 20:59 Last Admin: 03/10/25 20:54 Dose: 300 mg Documented By: Admin: 03/09/25 20:07 Dose: 300 mg Documented By: Admin: 03/08/25 22:24 Dose: 300 mg Documented By: JULY Discontinued Medications Acetaminophen/Butalbital/Caffeine (Butalbital/Acetamin/Caffeine Tab) 1 tab PO NOW STA Stop: 03/09/25 07:49 Last Admin: 03/09/25 08:42 Dose: 1 tab Documented By: neema Diazepam (Diazepam 5 Mg Tablet) 5 mg PO NOW ONE Stop: 03/10/25 00:14 Last Admin: 03/10/25 00:22 Dose: 5 mg Documented By: JULY Diazepam (Diazepam 5 Mg Tablet) 5 mg PO NOW ONE Stop: 03/10/25 21:13 Last Admin: 03/10/25 21:18 Dose: 5 mg Documented By: EFK Diphenhydramine HCl (Diphenhydramine 50 Mg/Ml Vial) 50 mg IV NOW STA Stop: 03/08/25 16:07 Last Admin: 03/08/25 16:18 Dose: 50 mg Documented By: claudio Sodium Chloride (Nss) 1,000 mls @ 999 mls/hr IV .Q1H1M JOE Stop: 03/08/25 14:36 Last Infusion: 03/08/25 16:00 Dose: Infused Documented By: claudio Admin: 03/08/25 13:45 Dose: 999 mls/hr Documented By: BRJ Potassium Chloride (K Jesus / Wtr) 10 meq in 100 mls @ 100 mls/hr IV Q1H JOE Stop: 03/08/25 16:29 Last Infusion: 03/08/25 16:56 Dose: Infused Documented By: claudio Admin: 03/08/25 15:30 Dose: 100 mls/hr Documented By: claudio Infusion: 03/08/25 15:30 Dose: Infused Documented By: claudio Admin: 03/08/25 14:34 Dose: 100 mls/hr Documented By: hebert Prochlorperazine (Compazine) 2 mls @ 1 mls/min IV ONE ONE Stop: 03/08/25 16:07 Last Admin: 03/08/25 16:18 Dose: 1 mls/min Documented By: claudio Potassium Chloride (K Jesus / Wtr) 10 meq in 100 mls @ 100 mls/hr IV Q1H JOE Stop: 03/08/25 21:59 Last Infusion: 03/08/25 23:30 Dose: Infused Documented By: Admin: 03/08/25 22:26 Dose: 100 mls/hr Documented By: Infusion: 03/08/25 22:26 Dose: Infused Documented By: Admin: 03/08/25 21:27 Dose: 100 mls/hr Documented By: Infusion: 03/08/25 20:46 Dose: Infused Documented By: claudio Admin: 03/08/25 19:41 Dose: 100 mls/hr Documented By: claudio Infusion: 03/08/25 19:41 Dose: Infused Documented By: claudio Admin: 03/08/25 18:33 Dose: 100 mls/hr Documented By: claudio Potassium Chloride (K Jesus / Wtr) 10 meq in 100 mls @ 100 mls/hr IV Q1H JOE Stop: 03/09/25 05:29 Last Infusion: 03/09/25 06:08 Dose: Infused Documented By: [facility] Admin: 03/09/25 04:54 Dose: 100 mls/hr Documented By: [facility] Infusion: 03/09/25 04:54 Dose: Infused Documented By: [facility] Admin: 03/09/25 03:55 Dose: 100 mls/hr Documented By: [facility] Infusion: 03/09/25 03:52 Dose: Infused Documented By: [facility] Admin: 03/09/25 02:52 Dose: 100 mls/hr Documented By: [facility] Infusion: 03/09/25 02:39 Dose: Infused Documented By: [facility] Admin: 03/09/25 01:39 Dose: 100 mls/hr Documented By: [facility] Potassium Chloride 40 meq/ (Sodium Chloride) 1,020 mls @ 120 mls/hr IV .Q8H30M JOE Stop: 03/10/25 19:44 Last Infusion: 03/10/25 22:24 Dose: Infused Documented By: Admin: 03/10/25 12:02 Dose: 120 mls/hr Documented By: FAVIAN Ioversol (Optiray 320 125ml) 118 ml IV ONCE ONE Stop: 03/08/25 14:58 Last Admin: 03/08/25 14:58 Dose: 118 ml Documented By: TAMMIE Ketorolac Tromethamine (Ketorolac Tromethamine 15 Mg/Ml Vial) 15 mg IV NOW STA Stop: 03/08/25 13:36 Last Admin: 03/08/25 13:44 Dose: 15 mg Documented By: TEJA Miscellaneous ((Buprenorphine Hcl [Belbuca] 600 Mcg Film)~Order Awaiting Action) 1 each N/A QS [facility] Stop: 04/07/25 21:14 Last Admin: 03/10/25 15:05 Dose: Not Given Documented By: Admin: 03/10/25 07:37 Dose: Not Given Documented By: Admin: 03/09/25 23:14 Dose: Not Given Documented By: Admin: 03/09/25 15:00 Dose: Not Given Documented By: neema Admin: 03/09/25 07:45 Dose: Not Given Documented By: neema Admin: 03/08/25 22:29 Dose: Not Given Documented By: JULY Ondansetron HCl (Ondansetron Inj 2 Mg/Ml 2 Ml Vial) 4 mg IV NOW STA Stop: 03/08/25 13:36 Last Admin: 03/08/25 13:44 Dose: 4 mg Documented By: TEJA Potassium Chloride (Potassium Chloride Crtab 20 Meq Tabcr) 40 meq PO NOW STA Stop: 03/08/25 14:22 Last Admin: 03/08/25 14:33 Dose: 40 meq Documented By: hebert Potassium Chloride (Potassium Chloride Crtab 20 Meq Tabcr) 40 meq PO ONE ONE Stop: 03/08/25 21:31 Last Admin: 03/08/25 22:41 Dose: 40 meq Documented By: JULY Potassium Chloride (Potassium Chloride Crtab 20 Meq Tabcr) 40 meq PO NOW STA Stop: 03/09/25 09:40 Last Admin: 03/09/25 09:51 Dose: 40 meq Documented By: neema Potassium Chloride (Potassium Chloride Crtab 20 Meq Tabcr) 40 meq PO TID JOE Stop: 03/09/25 21:01 Last Admin: 03/09/25 20:02 Dose: 40 meq Documented By: Admin: 03/09/25 13:07 Dose: 40 meq Documented By: neema Potassium Chloride (Potassium Chloride Pwd 20 Meq Pack) 40 meq PO ONE ONE Stop: 03/10/25 11:04 Last Admin: 03/10/25 12:02 Dose: 40 meq Documented By: FAVIAN Potassium Chloride (Potassium Chloride Pwd 20 Meq Pack) 40 meq PO ONE ONE Stop: 03/10/25 17:31 Last Admin: 03/10/25 16:24 Dose: 40 meq Documented By: FAVIAN Medical Decision Making Differential Diagnosis See ED Course. Medical Records Attestation: I reviewed the patient's medical records. Home Medications Current Medication List: was personally reviewed by me Laboratory Data Attestation: I reviewed the patient's lab results. 03/11/25 06:10 03/11/25 06:10 Lab Results 03/08/25 03/08/25 Range/Units 12:47 13:58 WBC 9.78 (4.8-10.8) K/ul RBC 5.63 H (4.20-5.40) M/uL Hgb 16.1 H (12.0-16.0) g/dl POC Hgb 14.3 (12.0-16.0) g/dl Hct 45.2 (37.0-47.0) % POC Hct 42 (37-47) % MCV 80.3 (80.0-100.0) fL MCH 28.6 (25.0-34.0) pg MCHC 35.6 (32.0-36.0) g/dL RDW Std Deviation 37.5 (36.4-46.3) fL RDW Coeff of [place] 13.0 (11.5-14.5) % Plt Count 286 (130-400) K/uL MPV 10.9 (9.4-12.4) fL Immature Gran % (Auto) 0.2 % Neut % (Auto) 53.7 % Lymph % (Auto) 32.4 % [place] % (Auto) 6.6 % Eos % (Auto) 6.4 % Baso % (Auto) 0.7 % Neut # (Auto) 5.24 (1.40-6.50) K/uL Lymph # (Auto) 3.17 (1.20-3.40) K/uL [place] # (Auto) 0.65 H (0.11-0.59) K/uL Eos # (Auto) 0.63 H (0.00-0.50) K/uL Baso # (Auto) 0.07 (0.00-0.20) K/uL Immature Gran # (Auto) 0.02 (0.01-0.20) K/uL POC Sodium 138 (135-144) mmol/L Sodium 138 (136-145) mmol/L POC Potassium < 2.0 L* (3.3-5.0) mmol/L Potassium 2.4 L* (3.5-5.1) mmol/L POC Chloride 99 L (101-112) mmol/L Chloride 94 L (98-107) mmol/L Carbon Dioxide 32 (21-32) mmol/L POC Total CO2 25 (24-31) mmol/L Anion Gap 12 H (3-11) POC Anion Gap TNP POC BUN 15 (7-18) mg/dl BUN 17 (6-23) mg/dl Creatinine 1.06 (0.6-1.2) mg/dl POC Creatinine 1.0 (0.6-1.3) mg/dl Est Cr Clr Drug Dosing Not Reportable eGFR 66.85 BUN/Creatinine Ratio 16.0 (10-20) Glucose 97 (70-99(Fasting)) mg/dl POC Glucose (other) 92 (70-99) mg/dl Calcium 9.9 (8.6-10.3) mg/dl POC Ioniz Calcium Dasha 1.01 L (1.12-1.32) mmol/l Magnesium 1.8 (1.7-2.4) mg/dl Total Bilirubin 0.6 (0.2-1.0) mg/dl AST 26 (13-39) U/L ALT 30 (7-52) U/L Alkaline Phosphatase 125 H (34-104) U/L Troponin I High Sens 3.9 (0-14) pg/ml Total Protein 8.0 (6.0-8.3) gm/dl Albumin 4.7 (3.4-5.0) gm/dl Globulin 3.3 (2.5-4.0) gm/dl Albumin/Globulin Ratio 1.4 (0.9-2) TSH 0.404 (0.300-4.500) uIu/ml Imaging Data Attestation: I personally reviewed and interpreted this imaging study as follows: Radiologist's Impression: Abdomen/Pelvis CT 03/08/25 13:[address] WITH IV CONTRAST CT DOSE: 2278.88 mGy.cm HISTORY: 4 weeks s/p lap oophorectomy, abd pain, nausea TECHNIQUE: Multiaxial CT images of the abdomen and pelvis were performed following the IV administration of 120 cc of Optiray, A dose lowering technique was utilized adhering to the principles of ALARA. COMPARISON STUDY: 10/01/2024 FINDINGS: ABDOMEN: Stable mild hepatosplenomegaly. Gallbladder is surgically absent. Otherwise the liver, spleen, pancreas, and adrenal glands are unremarkable. Kidneys show no hydronephrosis or calculi. No abdominal aortic aneurysm. Pelvis: Uterus is absent. No adnexal mass seen. Urinary bladder is mildly distended. No bowel inflammation or obstruction seen. No free fluid, free air, or abscess. No enlarged adenopathy. Osseous structures: Stable thoracolumbar metallic spinal fusion. No acute osseous finding seen. IMPRESSION: No acute findings. Otherwise as described. ACT 112: Negative or not required by law. The above report was generated using voice recognition software. It may contain grammatical, syntax or spelling errors. Electronically signed by: Ben Bhagat M.D. 03/08/2025 3:22 PM Chest CTA 03/08/25 13:33 CT ANGIOGRAM OF THE CHEST CLINICAL HISTORY: Dyspnea COMPARISON STUDY: Chest CT dated 07/06/2021. A chest x-ray dated 03/08/2025. TECHNIQUE: Following the IV administration of 118 cc of Optiray 320, CT angiogram of the chest was performed from the upper abdomen to the thoracic inlet utilizing the pulmonary embolus protocol. Images are reviewed in the axial, sagittal, and coronal planes. 3-D MIPS images are created and assessed. IV contrast was administered without complication. A dose lowering technique was utilized adhering to the principles of ALARA. The examination is degraded by streak artifact from multilevel spinal hardware. FINDINGS: Thyroid: Imaged portions of the thyroid gland are normal in size and attenuation. Thoracic aorta: The thoracic aorta is normal in caliber and demonstrates standard 3-vessel arch anatomy. No dissection is seen. Pulmonary vasculature: The pulmonary trunk is normal in caliber. There are no filling defects identified in main, lobar, or segmental pulmonary branches to suggest pulmonary embolus. Heart: The heart is normal in size and without pericardial effusion. Lungs and pleural spaces: There is no airspace consolidation or pleural effusion. The trachea and central airways are clear. There are scattered calcified granulomas. A 3 mm right middle lobe pulmonary nodule on image #71 is unchanged from 202 and of doubtful significance. Mediastinum: There is no mediastinal lymphadenopathy. Leslie: Clear. Axillae: There is no axillary lymphadenopathy. Upper abdomen: The liver there is steatotic. The gallbladder is surgically absent. The spleen is enlarged measuring 14.7 cm in length. Skeletal structures: Extensive postsurgical changes seen throughout the thoracic spine. No lytic or blastic bony lesions are seen. IMPRESSION: 1. There is no evidence of pulmonary embolus in the main, lobar, or segmental pulmonary arteries. 2. There is no airspace consolidation or pleural effusion. 3. Hepatic steatosis and splenomegaly. 4. Additional findings as above. ACT 112: Negative or not required by law. Electronically signed by: Candido Corrales M.D. 03/08/2025 3:12 PM Chest X-Ray 03/08/25 13:33 XR chest 1V portable CLINICAL HISTORY: SOB with exertion COMPARISON STUDY: 06/14/2021 FINDINGS: Stable metallic thoracic spine fusion. Heart size and pulmonary vasculature are normal. No consolidation or pleural effusion. No pneumothorax. IMPRESSION: No acute findings. ACT 112: Negative or not required by law. Electronically signed by: Ben Bhagat M.D. 03/08/2025 1:57 PM MDM Narrative See ED Course. Impression & Plan Acute hypokalemia, Dizziness, Shortness of breath Discharge Plan Visit Data Chief Complaint: Shortness of Breath/Dyspnea Stated Complaint: SOB DIZZY BLACKOUTS LOW BP PAIN ED Provider: Sin Marx ED Midlevel Provider: Rohan Chahal Discharge Problem: Acute hypokalemia, Dizziness, Shortness of breath Patient Disposition: Admitted As Inpatient Condition: Fair Discharge Instructions Interventions: ED Discharge Assessment Last Done: 03/08/25 20:52
[2025-03-08] MEDS: KETOROLAC TROMETHAMINE 15 MG/ML VIAL IV STA (13:44)
[2025-03-08] MEDS: ONDANSETRON INJ 2 MG/ML 2 ML VIAL IV STA (13:44)
[2025-03-08] MEDS: SODIUM CHLORIDE 0.9% 1,000 ML IV SCH (13:45)
[2025-03-08 13:50] LABS: Hematocrit (blood only) 45.2 % (37.0-47.0); Hemoglobin 16.1 g/dl (12.0-16.0); Immature Granulocytes # (auto) 0.02 K/uL (0.01-0.20); Immature Granulocytes % (auto) 0.2 %; Mean Corpuscular Hemoglobin 28.6 pg (25.0-34.0); Mean Corpuscular Volume 80.3 fL (80.0-100.0); Platelet Count 286 K/uL (130-400); RDW Standard Deviation 37.5 fL (36.4-46.3); Red Blood Count 5.63 M/uL (4.20-5.40); White Blood Count 9.78 K/ul (4.8-10.8)
--- NOTE | 2025-03-08 13:58 | XRay Report ---
XR chest 1V portable CLINICAL HISTORY: SOB with exertion COMPARISON STUDY: 06/14/2021 FINDINGS: Stable metallic thoracic spine fusion. Heart size and pulmonary vasculature are normal. No consolidation or pleural effusion. No pneumothorax. IMPRESSION: No acute findings. ACT 112: Negative or not required by law. Electronically signed by: Ben Bhagat M.D. 03/08/2025 1:57 PM
[2025-03-08 14:10] LABS: Appearance Urine Clear (Clear); Glucose Urine UA Negative (Negative)
[2025-03-08 14:19] LABS: Alanine Aminotransferase 30 U/L (7-52); Albumin Globulin Ratio 1.4 (0.9-2); Albumin Level 4.7 gm/dl (3.4-5.0); Alkaline Phosphatase 125 U/L (34-104); Anion Gap 12 (3-11); Bilirubin,Total 0.6 mg/dl (0.2-1.0); Blood Urea Nitrogen 17 mg/dl (6-23); Calcium 9.9 mg/dl (8.6-10.3); Carbon Dioxide 32 mmol/L (21-32); Chloride 94 mmol/L (98-107); Globulin 3.3 gm/dl (2.5-4.0); Glucose 97 mg/dl (70-99(Fasting)); Potassium 2.4 mmol/L (3.5-5.1); Sodium 138 mmol/L (136-145); Total Protein 8.0 gm/dl (6.0-8.3)
[2025-03-08] MEDS: POTASSIUM CHLORIDE CRTAB 20 MEQ TABCR PO STA (14:33)
[2025-03-08] MEDS: POTASSIUM CHLORIDE / WTR 10 MEQ/100 ML PLCT IV SCH ×2 (14:34→18:33)
[2025-03-08 14:40] LABS: Thyroid Stimulating Hormone 0.404 uIu/ml (0.300-4.500)
[2025-03-08] MEDS: OPTIRAY 320 125ml IV ONE (14:58)
--- NOTE | 2025-03-08 15:14 | CT Scan Report ---
CT ANGIOGRAM OF THE CHEST CLINICAL HISTORY: Dyspnea COMPARISON STUDY: Chest CT dated 07/06/2021. A chest x-ray dated 03/08/2025. TECHNIQUE: Following the IV administration of 118 cc of Optiray 320, CT angiogram of the chest was pe rformed from the upper abdomen to the thoracic inlet utilizing the pulmonary embolus protocol. Images are reviewed in the axial, sagittal, and coronal planes. 3-D MIPS images are created and assessed. I V contrast was administered without complication. A dose lowering technique was utilized adhering to the principles of ALARA. The examination is degraded by streak artifact from multilevel spinal hardw are. FINDINGS: Thyroid: Imaged portions of the thyroid gland are normal in size and attenuation. Thoracic aorta: The thoracic aorta is normal in caliber and demonstrates standard 3-vessel arch anato my. No dissection is seen. Pulmonary vasculature: The pulmonary trunk is normal in caliber. There are no filling defects identif ied in main, lobar, or segmental pulmonary branches to suggest pulmonary embolus. Heart: The heart is normal in size and without pericardial effusion. Lungs and pleural spaces: There is no airspace consolidation or pleural effusion. The trachea and delta tral airways are clear. There are scattered calcified granulomas. A 3 mm right middle lobe pulmonary nodule on image #71 is unchanged from 2022 and of doubtful significance. Mediastinum: There is no mediastinal lymphadenopathy. Leslie: Clear. Axillae: There is no axillary lymphadenopathy. Upper abdomen: The liver there is steatotic. The gallbladder is surgically absent. The spleen is enla rged measuring 14.7 cm in length. Skeletal structures: Extensive postsurgical changes seen throughout the thoracic spine. No lytic or b lastic bony lesions are seen. IMPRESSION: 1. There is no evidence of pulmonary embolus in the main, lobar, or segmental pulmonary arteries. 2. There is no airspace consolidation or pleural effusion. 3. Hepatic steatosis and splenomegaly. 4. Additional findings as above. ACT 112: Negative or not required by law. Electronically signed by: Candido Corrales M.D. 03/08/2025 3:12 PM
--- NOTE | 2025-03-08 15:23 | CT Scan Report ---
ABDOMEN AND PELVIS CT WITH IV CONTRAST CT DOSE: 2278.88 mGy.cm HISTORY: 4 weeks s/p lap oophorectomy, abd pain, nausea TECHNIQUE: Multiaxial CT images of the abdomen and pelvis were performed following the IV administrat ion of 120 cc of Optiray, A dose lowering technique was utilized adhering to the principles of ALARA . COMPARISON STUDY: 10/01/2024 FINDINGS: ABDOMEN: Stable mild hepatosplenomegaly. Gallbladder is surgically absent. Otherwise the liver, splee n, pancreas, and adrenal glands are unremarkable. Kidneys show no hydronephrosis or calculi. No abdom inal aortic aneurysm. Pelvis: Uterus is absent. No adnexal mass seen. Urinary bladder is mildly distended. No bowel inflamm ation or obstruction seen. No free fluid, free air, or abscess. No enlarged adenopathy. Osseous structures: Stable thoracolumbar metallic spinal fusion. No acute osseous finding seen. IMPRESSION: No acute findings. Otherwise as described. ACT 112: Negative or not required by law. The above report was generated using voice recognition software. It may contain grammatical, syntax o r spelling errors. Electronically signed by: Ben Bhagat M.D. 03/08/2025 3:22 PM
[2025-03-08] MEDS: diphenhydrAMINE 50 MG/ML VIAL IV STA (16:18)
[2025-03-08] MEDS: PROCHLORPERAZINE 2 ML IV ONE (16:18)
--- NOTE | 2025-03-08 17:53 | History & Physical Report ---
Date of Service March 08, 2025 Assessment & Plan (1) Hypoglycemia: (2) Generalized weakness: (3) Lightheadedness: (4) Orthostatic hypotension: (5) Hypotension: (6) HTN (hypertension): (7) Gastroparesis: (8) Morbid obesity: (9) Hypothyroidism: (10) Vitamin D deficiency: (11) Depression with anxiety: (12) Chronic abdominal pain: (13) GERD (gastroesophageal reflux disease): (14) Migraine: Plan Raegan Rushing is a 44 y/o F with a past medical history of migraine disorder, IBS, endometriosis, cervical cancer s/p hysterectomy, hx of pancreatitis, hypothyroidism, T2DM, gastroparesis, dyslipidemia, recent hx of laparoscopic oophorectomy 5 weeks ago arriving at [facility] ED due to dizziness, lightheaded, darkened vision when rising, nausea, vomiting, diarrhea and fatigue and was seen on 03/01 with similar less severe symptoms and without hypokalemia. Hypoglycemia/Hypokalemia - 2x IV Potassium 10 meq given in ED - 4x IV Potassium 10 meq given while admitted with 40 meq PO given after - Potassium correction: 2.0 ->2.4->3.0 - Expect to continue replenishing as intracellular stores normalize - Hypoglycemia resolved - BMP QAM Nausea/Vomiting/diarrhea - Hx of vomiting yesterday, and diarrhea x1 week; likely reason behind potassium deficiency - Tirzepatide medication increase vs daily Linzess contributing to diarrhea, medications held - Stop stool softener medications, Zofran 4mg PO Q4H for nausea - BMP QAM Dizzy/lightheaded/hypotension - Likely in part due to vomiting/diarrhea, poor fluid intake and electrolyte abnormalities - Add MIVF if patient unable to tolerate PO intake - Orthostatic vitals - BMP QAM Dyspnea w/ exertion - Patient satting well on RA - Troponin's negative, unlikely to be cardiac in nature - CTA PE, and CXR negative for acute pulmonary findings, no PE, pulmonary edema - Hx of mild persistent asthma on Albuterol, Montelukast, and Fluticasone therapy - Continue to monitor Chronic problems: Morbid obesity: Tirzepatide 12.5mg SQ injections weekly held; next dose 03/14 Insomnia: Trazodone 100mg QHS/Quetiapine 50mg PO HS Migraines: Topimarate 400mg PO BID Depression/anxiety: Venlafaxine 300mg PO, Quetiapine 50mg PO HS/Buspar 300mg daily Chronic back pain/hx of spine surgery: Methocarbamol 750mg Neuropathy: Pregabalin 150mg PO QHS History of Present Illness Chief Complaint: lightheadedness Primary Care Provider: Melissa Ma Raegan Rushing is a 44 y/o F with a past medical history of migraine disorder, IBS, endometriosis, cervical cancer s/p hysterectomy, hx of pancreatitis, hypothyroidism, T2DM, gastroparesis, dyslipidemia, recent hx of laparoscopic oophorectomy 5 weeks ago arriving at [facility] ED due to dizziness, lightheaded, darkened vision when rising, nausea, vomiting, diarrhea and fatigue. Patient endorses palpitations, SOB w/ exertion, back pain, and headaches. Patient denies chest pain, abdominal pain, dyspnea at rest, fevers, and chills. Patient denies hematochezia, melena and hemoptysis. Patient has felt pre-syncopal but denies recent falls or significant trauma/head trauma. Patient was seen in the ED last Thursday 03/01 due to similar complaints but less severe, and now notes that she is also having SOB with exertion. Patient feels that these symptoms began approximately 4.5 weeks ago a few days before her laparoscopic oophorectomy, and these symptoms have persisted and progressively worsened over the following weeks leading to the previous ED admission. At the present time patient feels that symptoms have improved and typically feels that symptoms worsen when standing and ambulating. Patient notes that there are times when she stands up and feels that her vision darkens for the past few weeks and at the prior ED visit orthostatics were positive for blood pressure abnormalities. Additionally patient does report a history of hypokalemia with mild decreases in levels requiring oral medication. Patient notes that for the past week she has also had loose stools and diarrhea approximately 3x per day compared to her normal 1x daily BMs. Patient remains afebrile and hemodynamically stable. Patient is amenable to admission for further work-up and diagnosis. Allergies Allergy/AdvReac Type Severity Reaction Status Date / Time celecoxib [From Celebrex] Allergy Intermediate SOB,RASH Verified 03/08/25 16:11 sulfamethoxazole Allergy Intermediate RASH HEAD Verified 03/08/25 16:11 TO TOE- LASTED 3 WEEKS trimethoprim Allergy Intermediate RASH HEAD Verified 03/08/25 16:11 TO TOE- LASTED 3 WEEKS azithromycin [From Zithromax] Allergy Mild Rash Verified 03/08/25 16:11 camphor [From Biofreeze] Allergy Mild Rash Verified 03/08/25 16:11 menthol [From Biofreeze] Allergy Mild Rash Verified 03/08/25 16:11 Sulfa (Sulfonamide Allergy Mild RASH Verified 03/08/25 16:11 Antibiotics) ibuprofen Allergy Unknown Unknown Verified 03/08/25 16:11 codeine AdvReac Severe TROUBLE Verified 03/08/25 16:11 BREATHING AND GI adhesive AdvReac Intermediate ADHESIVE Verified 03/08/25 16:11 TAPE: RED WELTS AND BLISTERED SKIN nitrofurantoin AdvReac Intermediate SEVERE Verified 03/08/25 16:11 VOMITING gabapentin AdvReac Mild Drowsy Verified 03/08/25 16:11 semaglutide [From Ozempic] AdvReac Mild Nausea Verified 03/08/25 16:11 sumatriptan AdvReac Mild FEEL Verified 03/08/25 16:11 WEIRD, DIZZY acetaminophen [From Tylenol] AdvReac Unknown LIVER Verified 03/08/25 21:14 ISSUES Dimethyl Sulfoxide AdvReac Intermediate ABDOMINAL Uncoded 03/08/25 16:11 PAIN AND CRAMPING Home Medications Medication Instructions Recorded Confirmed Type diclofenac sodium 1 % topical gel 2 gm topical QID PRN Pain 10/08/19 03/08/25 History sucralfate 1 gram tablet (Carafate) 1 g PO BID PRN Gi Upset 10/08/19 03/08/25 History albuterol sulfate 1.25 mg/3 mL 1.25 mg (3 mL) inhalation Q6H PRN 04/10/20 03/08/25 Rx solution for nebulization shortness of breath or wheezing #180 mL pen needle, diabetic 32 gauge x #100 ea 10/14/21 11/23/23 Rx 5/32" (BD Ultra-Fine Dena Pen Needle) promethazine 25 mg tablet 25 mg PO BID PRN nausea and 12/07/21 03/08/25 Rx vomiting #30 tabs montelukast 10 mg tablet 10 mg PO HS #30 tabs 12/17/21 03/08/25 Rx lidocaine 5 % topical patch 1 patch topical DAILY PRN Pain #30 04/26/22 03/08/25 Rx (Lidoderm) ea albuterol sulfate 90 mcg/actuation 2 puff inhalation Q4 PRN Shortness 05/10/22 03/08/25 Rx aerosol inhaler (Ventolin HFA) Of Breath Or Wheezing #18 grams dexlansoprazole 60 mg 60 mg PO QAM 08/11/22 03/08/25 History capsule,biphase delayed release (Dexilant) lancets #100 ea 08/13/22 11/23/23 Rx budesonide-formoterol HFA 160 2 puff inhalation BID #3 Inhalers 08/30/22 03/08/25 Rx mcg-4.5 mcg/actuation aerosol inhaler (Symbicort) blood sugar diagnostic (Blood #100 ea 09/02/22 11/23/23 Rx Glucose Test strips) blood-glucose meter (Blood Glucose #1 ea 09/02/22 11/23/23 Rx Monitoring kit) phenazopyridine 200 mg tablet 200 mg PO Q8H PRN pain #10 tabs 11/08/22 03/08/25 Rx (Pyridium) methocarbamol 750 mg tablet 750 mg PO TID PRN Muscle Spasm #60 12/06/22 03/08/25 Rx tabs venlafaxine 150 mg 300 mg (2 x 150 mg) PO HS #180 caps 12/06/22 03/08/25 Rx capsule,extended release 24 hr (Effexor XR) potassium chloride 20 mEq 20 meq PO TID #160 tabs 12/22/22 03/08/25 Rx tablet,extended release triamterene 37.5 1 cap PO QAM #90 caps 12/23/22 03/08/25 Rx mg-hydrochlorothiazide 25 mg capsule solifenacin 5 mg tablet (Vesicare) 5 mg PO DAILY #30 tabs 05/09/23 03/08/25 Rx lorazepam 1 mg tablet (Ativan) 1 mg PO Q8H PRN anxiety #10 tabs 08/01/24 03/08/25 Rx furosemide 20 mg tablet (Lasix) 40 mg PO DAILY PRN edema 09/24/24 03/08/25 History liothyronine 25 mcg tablet 25 mcg PO QAM 09/24/24 03/08/25 History (Cytomel) pregabalin 150 mg capsule (Lyrica) 150 mg PO HS 09/24/24 03/08/25 History tamsulosin 0.4 mg capsule (Flomax) 0.4 mg PO HS 09/24/24 03/08/25 History topiramate 200 mg tablet (Topamax) 400 mg PO BID 09/24/24 03/08/25 History trazodone 100 mg tablet 100 mg PO HS PRN Sleep 09/24/24 03/08/25 History zolmitriptan 5 mg nasal spray 1 spray intranasal DIRECTED PRN 09/24/24 03/08/25 History (Zomig) Migraine Headache ondansetron 4 mg disintegrating 4 - 8 mg (1 - 2 x 4 mg) PO Q8H PRN 10/01/24 03/08/25 Rx tablet nausea and vomiting #14 tabs oxycodone 5 mg tablet 5 mg PO Q6H PRN pain #12 tabs 10/01/24 03/08/25 Rx ketorolac 10 mg tablet 10 - 20 mg (1 - 2 x 10 mg) PO BID 10/24/24 03/08/25 Rx PRN Migraine Headache #20 tabs cholecalciferol (vitamin D3) 1,250 50,000 unit PO WK 90 days #12 tabs 01/18/25 03/08/25 Rx mcg (50,000 unit) tablet fremanezumab-vfrm 225 mg/1.5 mL 225 mg (1.5 mL) subcut MONTHLY 01/18/25 03/08/25 Rx subcutaneous syringe ([employer] #1.5 mL Syringe) buprenorphine HCl 600 mcg buccal 600 mcg buccal BID 03/08/25 03/08/25 History film (Belbuca) bupropion HCl 300 mg 24 hr tablet, 300 mg PO DAILY 03/08/25 03/08/25 History extended release buspirone 30 mg tablet 30 mg PO BID 03/08/25 03/08/25 History clonidine HCl 0.2 mg tablet 0.2 mg PO BID 03/08/25 03/08/25 History linaclotide 72 mcg capsule 72 mcg PO QAM 03/08/25 03/08/25 History (Linzess) quetiapine 50 mg tablet 50 mg PO HS 03/08/25 03/08/25 History tirzepatide 12.5 mg/0.5 mL 12.5 mg subcut WK 03/08/25 03/08/25 History subcutaneous pen injector (Mounjaro) Past Med/Surg History Problem List (Updated 03/10/25 @ 00:04 by Eliot Edwards) Shortness of breath (Acute) Dizziness (Acute) Acute hypokalemia (Acute) Hypoglycemia (Acute) Generalized weakness (Acute) Lightheadedness (Acute) Orthostatic hypotension (Acute) Constipation Burning with urination Hypotension HTN (hypertension) Adnexal cyst (Acute) Acute appendicitis (Acute) Witnessed episode of apnea Hypersomnia Dyslipidemia Pelvic pain Adnexal cyst Gastroparesis Diabetes mellitus, type 2 IDDM History of COVID-19 (Acute 05/2021) Vitamin D deficiency Hypothyroidism Mild persistent asthma controlled with inhalers Morbid obesity (Acute) Cyst of meniscus of left knee Acute lateral meniscus tear of left knee Edema Cervical radiculopathy (Chronic) Chronic abdominal pain (Chronic) Depression with anxiety (Chronic) Essential tremor (Chronic) Failed back syndrome (Chronic) Portal hypertension (Chronic) History of anesthesia reaction (Chronic) "If they bring me out of it too fast I become violent" Kidney stones (Chronic) Pancreatitis (Chronic) last episode 2 years ago Anemia (Chronic) Migraines (Chronic) F/U DR DANIEL 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 last had 06/07/2022 - tested with home test. mild cold symptoms. no current issues. Celiac disease Autoimmune disorder PT UNSURE OF NAME OF DISORDER, STATES FOLLOW W/ [facility] Arthritis BACK Scheurmann's disease Chronic back pain Somatic dysfunction Surgical History Hx of rectal sphincterotomy History of meniscectomy of left knee History of ERCP History of section x2 History of bladder surgery x5 History of colonoscopy History of esophagogastroduodenoscopy (EGD) History of cholecystectomy S/P laparoscopic hysterectomy S/P lumbar fusion hardware in place S/P tonsillectomy H/O wisdom tooth extraction Family History Uncle Diabetes Grandfather (Paternal) Family hx of colon cancer Colorectal cancer Prostate cancer Grandmother Breast cancer Father Myocardial infarction Mother Stroke Ulcerative colitis Other No family history of adverse response to anesthesia Denies family history of Ovarian cancer Crohn's disease Social History Smoking Status: Never smoker Second Hand Exposure: No; Do You Dip or Chew Tobacco: No; Hx Alcohol Use: No Hx Substance Use: No Preferred Language: Mohawk Communication Ability: Effective Visual Impairment: No Limitations Hearing Ability: Normal Science Writer Required: No Beliefs That Will Affect Care: None marital status: Current Living Situation: Spouse Current Living Situation Comment: Lives with and 3 kids current occupational status: unemployed Other Information That Helps Us Care for You: No Feels Safe at Home: Yes Safety Concerns: Feels Safe At This Time Childhood Exposure to Second-Hand Smoke: Yes Diet: diabetic and regular Diet Comment: Regular caffeine: Yes during the past year weight has: remained stable Dental Care, Regularly: Yes Physical Activity Frequency: Does not Exercise Seatbelt Use: always Sunscreen Use: Yes Assistive Devices: Walker Physical Exam Physical Exam: General: patient resting comfortably, NAD, non-toxic in appearance, answers questions appropriately. Skin: warm, dry, intact HEENT: NC/AT, anicteric sclera, conjunctiva without injection, moist mucus membranes. Heart: +S1/S2, regular, no m/r/g Lungs: equal air entry bilaterally, no rales/rhonchi/wheezes Abd: +BS, soft, NT/ND Ext: warm, no clubbing/cyanosis or edema Neuro: nonfocal, speech intact, no facial droop, moving all extremities. Results & Data Results & Data Vital Signs (Past 12 Hours) Vital Signs Temp Pulse Resp BP Pulse Ox O2 Del Method 03/08/25 16:39 95 H 03/08/25 14:04 97 Room Air 03/08/25 13:25 92 H 13 129/110 H 100 03/08/25 12:53 99 Room Air 10/17/25 12:51 100 H 03/08/25 12:24 36.0 C L 112 H 20 101/67 100 Room Air Supervising Physician Co-Signing Physician Notes I personally examined the patient and verified all pringle points of history and exam, discussed case, and agree with decision making with Dr Mckinney PGY 2 Patient admitted with hypokalemia, various other symptoms. Dizziness, diarrhea, nausea, lightheadedness and chronic pain. Goal in the short term is to replete her elctrolytes and to assess if her symptoms improve. Patient will be admitted to [facility]. will obtain orthostatic vitals and monitor her symptoms. Resident Activity Tracking Resident Involvement: Resident Care Provided Care Provided: Adult Hospital Medicine
[2025-03-08] MEDS ORDERED: ALBUTEROL HFA 8 GM INHALER INH PRN (18:17)
[2025-03-08] MEDS ORDERED: PHARMACY GLYCEMIC MGMT CONSULT PRN (21:06)
[2025-03-08] MEDS ORDERED: ALBUTEROL 0.083% NEBU SOLN 3 ML VIAL INH PRN (21:13)
[2025-03-08 21:23] LABS: Magnesium 1.8 mg/dl (1.7-2.4)
[2025-03-08] MEDS: busPIRone 15 MG TAB PO SCH (22:23)
[2025-03-08] MEDS: VENLAFAXINE HCL XR 150 MG CAPXR PO SCH (22:24)
[2025-03-08] MEDS: REMOVE LIDODERM PATCH SCH (22:24)
[2025-03-08] MEDS: ENOXAPARIN INJ 40 MG/0.4 ML SYR SQ SCH (22:25)
[2025-03-08] MEDS: MONTELUKAST SODIUM 10 MG TABLET PO SCH (22:29)
[2025-03-08] MEDS: TOPIRAMATE 100 MG TAB PO SCH (22:29)
[2025-03-08] MEDS: PREGABALIN 150 MG CAP PO SCH (22:39)
[2025-03-08] MEDS: POTASSIUM CHLORIDE CRTAB 20 MEQ TABCR PO ONE (22:41)
[2025-03-08] MEDS: LORazepam 1 MG TAB PO PRN (23:55)
[2025-03-09 01:15] LABS: Anion Gap 9.0 (3-11); Blood Urea Nitrogen 15.0 mg/dl (6-23); Calcium 8.4 mg/dl (8.6-10.3); Carbon Dioxide 28.0 mmol/L (21-32); Chloride 100.0 mmol/L (98-107); Creatinine Clr Calc Pharmacy 91.8 ml/min; Glucose 101.0 mg/dl (70-99(Fasting)); Potassium 3.0 mmol/L (3.5-5.1); Sodium 137.0 mmol/L (136-145)
[2025-03-09] MEDS: POTASSIUM CHLORIDE / WTR 10 MEQ/100 ML PLCT IV SCH (01:39)
[2025-03-09 06:48] LABS: Hematocrit (blood only) 37.2 % (37.0-47.0); Hemoglobin 12.5 g/dl (12.0-16.0); Immature Granulocytes # (auto) 0.01 K/uL (0.01-0.20); Immature Granulocytes % (auto) 0.1 %; Mean Corpuscular Hemoglobin 27.8 pg (25.0-34.0); Mean Corpuscular Volume 82.9 fL (80.0-100.0); Platelet Count 183 K/uL (130-400); RDW Standard Deviation 40.3 fL (36.4-46.3); Red Blood Count 4.49 M/uL (4.20-5.40); White Blood Count 6.77 K/ul (4.8-10.8)
[2025-03-09 07:11] LABS: Alanine Aminotransferase 20.0 U/L (7-52); Albumin Globulin Ratio 1.5 (0.9-2); Albumin Level 3.5 gm/dl (3.4-5.0); Alkaline Phosphatase 87.0 U/L (34-104); Anion Gap 8.0 (3-11); Bilirubin,Total 0.5 mg/dl (0.2-1.0); Blood Urea Nitrogen 13.0 mg/dl (6-23); Calcium 8.3 mg/dl (8.6-10.3); Carbon Dioxide 26.0 mmol/L (21-32); Chloride 104.0 mmol/L (98-107); Creatinine Clr Calc Pharmacy 107.3 ml/min; Globulin 2.4 gm/dl (2.5-4.0); Glucose 83.0 mg/dl (70-99(Fasting)); Potassium 3.1 mmol/L (3.5-5.1); Sodium 138.0 mmol/L (136-145); Total Protein 5.9 gm/dl (6.0-8.3)
[2025-03-09] MEDS: LIDOCAINE 5% 1 PATCH TD PRN (08:39)
[2025-03-09] MEDS: METHOCARBAMOL 750 MG TABLET PO PRN (08:42)
[2025-03-09] MEDS: BUTALBITAL/ACETAMIN/CAFFEINE TAB PO STA (08:42)
[2025-03-09] MEDS: LIOTHYRONINE SODIUM 25 MCG TAB PO SCH (08:46)
[2025-03-09] MEDS: FLUTICASONE/VILANTEROL 100/25MCG 14 PUFFS/INHALER INH SCH (08:49)
[2025-03-09] MEDS: POTASSIUM CHLORIDE CRTAB 20 MEQ TABCR PO STA (09:51)
[2025-03-09] MEDS: POTASSIUM CHLORIDE CRTAB 20 MEQ TABCR PO SCH (13:07)
[2025-03-09 18:50] LABS: Adenovirus F 40/41 PCR Not Detected (NotDetected); Campylobacter PCR Not Detected (NotDetected); Enteroaggregative E.coli(EAEC) Not Detected (NotDetected); Shiga-like Toxin E.coli (STEC) Not Detected (NotDetected); Vibrio species PCR Not Detected (NotDetected)
--- NOTE | 2025-03-09 20:22 | Hospitalist Progress Note ---
Date of Service March 09, 2025 Assessment & Plan (1) Hypoglycemia: (2) Generalized weakness: (3) Lightheadedness: (4) Orthostatic hypotension: (5) Hypotension: (6) HTN (hypertension): (7) Gastroparesis: (8) Morbid obesity: (9) Hypothyroidism: (10) Vitamin D deficiency: (11) Depression with anxiety: (12) Chronic abdominal pain: (13) GERD (gastroesophageal reflux disease): (14) Migraine: Plan Raegan Rushing is a 44 y/o F with a past medical history of migraine disorder, IBS, endometriosis, cervical cancer s/p hysterectomy, hx of pancreatitis, hypothyroidism, T2DM, gastroparesis, dyslipidemia, recent hx of laparoscopic oophorectomy 5 weeks ago arriving at [facility] ED due to dizziness, lightheaded, darkened vision when rising, nausea, vomiting, diarrhea and fatigue and was seen on 03/01 with similar less severe symptoms and without hypokalemia. Hypoglycemia/Hypokalemia - 2x IV Potassium 10 meq given in ED - 4x IV Potassium 10 meq given while admitted with 40 meq PO given after - Potassium correction: 2.0 ->2.4->3.0 - Expect to continue replenishing as intracellular stores normalize - Hypoglycemia resolved - BMP QAM Nausea/Vomiting/diarrhea - Hx of vomiting yesterday, and diarrhea x1 week; likely reason behind potassium deficiency - Tirzepatide medication increase vs daily Linzess contributing to diarrhea, medications held - Stop stool softener medications, Zofran 4mg PO Q4H for nausea - BMP QAM Dizzy/lightheaded/hypotension - Likely in part due to vomiting/diarrhea, poor fluid intake and electrolyte abnormalities - Add MIVF if patient unable to tolerate PO intake - Orthostatic vitals - BMP QAM Dyspnea w/ exertion - Patient satting well on RA - Troponin's negative, unlikely to be cardiac in nature - CTA PE, and CXR negative for acute pulmonary findings, no PE, pulmonary edema - Hx of mild persistent asthma on Albuterol, Montelukast, and Fluticasone therapy - Continue to monitor Chronic problems: Morbid obesity: Tirzepatide 12.5mg SQ injections weekly held; next dose 03/14 Insomnia: Trazodone 100mg QHS/Quetiapine 50mg PO HS Migraines: Topimarate 400mg PO BID Depression/anxiety: Venlafaxine 300mg PO, Quetiapine 50mg PO HS/Buspar 300mg daily Chronic back pain/hx of spine surgery: Methocarbamol 750mg Neuropathy: Pregabalin 150mg PO QHS Admission and Anticipated Discharge Date Admission Date: March 08, 2025 Supervising Physician Co-Signing Physician Notes I personally examined the patient and verified all pringle points of history and exam, discussed case, and agree with decision making with Dr Mckinney PGY 2 Patient admitted with hypokalemia, various other symptoms. Dizziness, diarrhea, nausea, lightheadedness and chronic pain. Patient has shown improvement with fluids and replenishing her potassium. Potassium though remains low and will rerue 40 meq of oral potassum TID with close monitoring. Given her worsening diarrhea, will obtain a stool culture to assess for any diarrhea that requires treatment given the duration of this diarrhea. Her GI losses are likely contributing to her potassium being low and her symptoms. will obtain orthostatic vitals and monitor her symptoms. Subjective Patient is seen resting comfortably this AM, patient notes that her chronic back pain has been worse recently as she has not been on her buprenorphine/oxycodone therapy. Patient does note that her dizziness, lightheadedness and vertigo symptoms have improved, and has not ambulated yet, but feels less fatigued than the day prior. Patient remains afebrile and hemodynamically stable. Physical Exam Physical Exam: General: patient resting comfortably, NAD, non-toxic in appearance, answers questions appropriately. Skin: warm, dry, intact HEENT: NC/AT, anicteric sclera, conjunctiva without injection, moist mucus membranes. Heart: +S1/S2, regular, no m/r/g Lungs: equal air entry bilaterally, no rales/rhonchi/wheezes Abd: +BS, soft, NT/ND Ext: warm, no clubbing/cyanosis or edema Neuro: nonfocal, speech intact, no facial droop, moving all extremities. Results & Data Results & Data Vital Signs (Past 12 Hours) Vital Signs Temp Pulse Pulse Resp BP Pulse Ox O2 Del Method 03/09/25 14:54 36.8 C 91 H 18 103/66 99 Room Air 03/09/25 14:14 94 H 03/09/25 11:45 36.4 C L 88 16 98/68 L 100 Room Air Resident Activity Tracking Resident Involvement: Resident Care Provided Care Provided: Adult [facility] Medicine
[2025-03-10 06:49] LABS: Hematocrit (blood only) 34.6 % (37.0-47.0); Hemoglobin 11.7 g/dl (12.0-16.0); Mean Corpuscular Hemoglobin 28.5 pg (25.0-34.0); Mean Corpuscular Volume 84.4 fL (80.0-100.0); Platelet Count 172 K/uL (130-400); RDW Standard Deviation 41.2 fL (36.4-46.3); Red Blood Count 4.10 M/uL (4.20-5.40); White Blood Count 5.42 K/ul (4.8-10.8)
[2025-03-10 07:13] LABS: Immature Granulocytes # (auto) 0.02 K/uL (0.01-0.20); Immature Granulocytes % (auto) 0.4 %
[2025-03-10 07:14] LABS: Anion Gap 7.0 (3-11); Blood Urea Nitrogen 11.0 mg/dl (6-23); Calcium 8.6 mg/dl (8.6-10.3); Carbon Dioxide 25.0 mmol/L (21-32); Chloride 109.0 mmol/L (98-107); Creatinine Clr Calc Pharmacy 119.8 ml/min; Glucose 85.0 mg/dl (70-99(Fasting)); Potassium 3.1 mmol/L (3.5-5.1); Sodium 141.0 mmol/L (136-145)
[2025-03-10] MEDS: ONDANSETRON 4 MG OD TAB PO PRN (08:41)
--- NOTE | 2025-03-10 10:29 | Billing Data ---
Date of Service March 08, 2025 Coding Level of Care Code 86304 INT INP/OBS CARE
--- NOTE | 2025-03-10 10:31 | Billing Data ---
Date of Service March 09, 2025 Coding Level of Care Code 71637 SUB INP/OBS CARE MIN
[2025-03-10] MEDS: POTASSIUM CHLORIDE PWD 20 MEQ PACK PO ONE ×2 (12:02→16:24)
[2025-03-10] MEDS: POTASSIUM CHLORIDE 40 MEQ in SODIUM CHLORIDE 0.9% 1,000 ML IV SCH (12:02)
--- NOTE | 2025-03-10 13:44 | Hospitalist Progress Note ---
Date of Service March 10, 2025 Assessment & Plan (1) Hypoglycemia: (2) Generalized weakness: (3) Lightheadedness: (4) Orthostatic hypotension: (5) Hypotension: (6) HTN (hypertension): (7) Gastroparesis: (8) Morbid obesity: (9) Hypothyroidism: (10) Vitamin D deficiency: (11) Depression with anxiety: (12) Chronic abdominal pain: (13) GERD (gastroesophageal reflux disease): Plan Raegan Rushing is a 44 y/o F with a past medical history of migraine disorder, IBS, endometriosis, cervical cancer s/p hysterectomy, hx of pancreatitis, hypothyroidism, T2DM, gastroparesis, dyslipidemia, recent hx of laparoscopic oophorectomy 5 weeks ago arriving at [facility] ED due to dizziness, lightheaded, darkened vision when rising, nausea, vomiting, diarrhea and fatigue and was seen on 03/01 with similar less severe symptoms and without hypokalemia. Hypoglycemia/Hypokalemia - 2x IV Potassium 10 meq given in ED - 4x IV Potassium 10 meq given while admitted with 40 meq PO given after - Potassium 40mg TID scheduled 03/09 and 03/10 - Potassium correction: 2.0 ->2.4->3.0 -> 3.1 (03/09) - Expect to continue replenishing as intracellular stores normalize - Hypoglycemia resolved - BMP QAM Nausea/Vomiting/diarrhea - Hx of vomiting yesterday, and diarrhea x1 week; likely reason behind potassium deficiency - Tirzepatide medication increase vs daily Linzess contributing to diarrhea, medications held - Stop stool softener medications, Zofran 4mg PO Q4H for nausea - BMP QAM Dizzy/lightheaded/hypotension - Likely in part due to vomiting/diarrhea, poor fluid intake and electrolyte abnormalities - Add MIVF if patient unable to tolerate PO intake - Orthostatic vitals - Due to persistent 90s/60s BPs fluids started 1L NSS with 40meq K+ at 120ml/hr - BMP QAM Dyspnea w/ exertion - Patient satting well on RA - Troponin's negative, unlikely to be cardiac in nature - CTA PE, and CXR negative for acute pulmonary findings, no PE, pulmonary edema - Hx of mild persistent asthma on Albuterol, Montelukast, and Fluticasone therapy - Continue to monitor Chronic problems: Morbid obesity: Tirzepatide 12.5mg SQ injections weekly held; next dose 03/14 Insomnia: Trazodone 100mg QHS/Quetiapine 50mg PO HS Migraines: Topimarate 400mg PO BID Depression/anxiety: Venlafaxine 300mg PO, Quetiapine 50mg PO HS/Buspar 300mg daily Chronic back pain/hx of spine surgery: Methocarbamol 750mg Neuropathy: Pregabalin 150mg PO QHS Admission and Anticipated Discharge Date Admission Date: March 08, 2025 Supervising Physician Co-Signing Physician Notes I personally examined the patient and verified all pringle points of history and exam, discussed case, and agree with decision making with Dr Mckinney PGY 2 Patient admitted with hypokalemia, various other symptoms. Dizziness, diarrhea, nausea, lightheadedness and chronic pain. Patient has shown improvement with fluids and replenishing her potassium. Patient continues to have diarrhea, likely secondary to her home meds. Potassium though remains low and will rerue 40 meq of oral potassum TID with close monitoring. Stool cultures are negative, likely medication related Stilll requires potassium Subjective Patient is seen resting comfortably this AM, patient notes that her chronic back pain has been worse recently as she has not been on her buprenorphine/oxycodone therapy. Patient does note that her dizziness, lightheadedness and vertigo symptoms have improved, and rates improvement based on scale being worst symptoms at a 10/10 on arrival and today reports that she feels like she is at a 6/10. Patient notes that she has had 3 loose BMs yesterday and the day before and 1 accident in bed today. Patient reports that her will bring in her medications later today. Patient remains afebrile and hemodynamically stable. Physical Exam Physical Exam: General: patient resting comfortably, NAD, non-toxic in appearance, answers questions appropriately. Skin: warm, dry, intact HEENT: NC/AT, anicteric sclera, conjunctiva without injection, moist mucus membranes. Heart: +S1/S2, regular, no m/r/g Lungs: equal air entry bilaterally, no rales/rhonchi/wheezes Abd: +BS, soft, NT/ND Ext: warm, no clubbing/cyanosis or edema Neuro: nonfocal, speech intact, no facial droop, moving all extremities. Results & Data Results & Data Vital Signs (Past 12 Hours) Vital Signs Temp Pulse Pulse Resp BP Pulse Ox O2 Del Method 03/10/25 11:42 36.7 C 77 16 104/65 95 Room Air 03/10/25 09:29 Room Air 03/10/25 07:37 36.8 C 85 20 90/58 L 97 Room Air 03/10/25 07:28 89 03/10/25 02:30 36.6 C 91 H 18 93/60 L 97 Room Air Resident Activity Tracking Resident Involvement: Resident Care Provided Care Provided: Adult Hospital Medicine
[2025-03-10] MEDS ORDERED: POTASSIUM CHLORIDE CRTAB 20 MEQ TABCR PO SCH (14:00)
[2025-03-10] MEDS ORDERED: POTASSIUM CHLORIDE PWD 20 MEQ PACK PO SCH (14:00)
[2025-03-10] MEDS: ACETAMINOPHEN 500 MG TAB PO PRN (20:55)
[2025-03-10] MEDS: BUPRENORPHINE 600 MCG PO SCH (20:56)
--- NOTE | 2025-03-10 23:08 | Electrocardiogram Report ---
Test Reason : Blood Pressure : */* mmHG Vent. Rate : 110 BPM Atrial Rate : 110 BPM P-R Int : 152 ms QRS Dur : 104 ms QT Int : 372 ms P-R-T Axes : 37 -22 83 degrees QTcB Int : 503 ms Sinus tachycardia Minimal voltage criteria for LVH, may be normal variant ( García product ) Nonspecific ST and T wave abnormality Abnormal ECG When compared with ECG of 01-Mar-2025 17:49, Nonspecific T wave abnormality no longer evident in Inferior leads Nonspecific T wave abnormality now evident in Lateral leads Confirmed by Chevy Collins ([id number]) on 03/10/2025 11:08:02 PM Referred By: REFERRED SELF Confirmed By: Chevy Collins
[2025-03-11 07:02] LABS: Hematocrit (blood only) 37.1 % (37.0-47.0); Hemoglobin 11.9 g/dl (12.0-16.0); Mean Corpuscular Hemoglobin 27.9 pg (25.0-34.0); Mean Corpuscular Volume 87.1 fL (80.0-100.0); Platelet Count 145 K/uL (130-400); RDW Standard Deviation 42.6 fL (36.4-46.3); Red Blood Count 4.26 M/uL (4.20-5.40); White Blood Count 5.06 K/ul (4.8-10.8)
[2025-03-11 07:21] LABS: Anion Gap 5.0 (3-11); Blood Urea Nitrogen 8.0 mg/dl (6-23); Calcium 8.6 mg/dl (8.6-10.3); Carbon Dioxide 24.0 mmol/L (21-32); Chloride 115.0 mmol/L (98-107); Creatinine Clr Calc Pharmacy 115.2 ml/min; Glucose 76.0 mg/dl (70-99(Fasting)); Immature Granulocytes # (auto) 0.01 K/uL (0.01-0.20); Immature Granulocytes % (auto) 0.2 %; Potassium 3.5 mmol/L (3.5-5.1); Sodium 144.0 mmol/L (136-145)
[2025-03-11] MEDS: KETOROLAC 30 MG/ML VIAL IV ONE (15:29)
[2025-03-11] MEDS: diphenhydrAMINE Capsule 25 MG CAP PO ONE (15:29)
[2025-03-11] MEDS: LACTATED RINGER'S 1,000 ML IV ONE (15:30)
[2025-03-11] MEDS: MAGNESIUM SULFATE / D5W 1 GM/100 ML BAG IV SCH (15:30)
--- NOTE | 2025-03-11 16:58 | Hospitalist Progress Note ---
Date of Service March 11, 2025 Assessment & Plan (1) Hypoglycemia: (2) Generalized weakness: (3) Lightheadedness: (4) Orthostatic hypotension: (5) Hypotension: (6) HTN (hypertension): (7) Gastroparesis: (8) Morbid obesity: (9) Hypothyroidism: (10) Vitamin D deficiency: (11) Depression with anxiety: (12) Chronic abdominal pain: (13) GERD (gastroesophageal reflux disease): (14) Viral gastroenteritis: Plan Raegan Rushing is a 44 y/o F with a past medical history of migraine disorder, IBS, endometriosis, cervical cancer s/p hysterectomy, hx of pancreatitis, hypothyroidism, T2DM, gastroparesis, dyslipidemia, recent hx of laparoscopic oophorectomy 5 weeks ago arriving at [facility] ED due to dizziness, lightheaded, darkened vision when rising, nausea, vomiting, diarrhea and fatigue and was seen on 03/01 with similar less severe symptoms and without hypokalemia. Hypoglycemia/Hypokalemia - 2x IV Potassium 10 meq given in ED - 4x IV Potassium 10 meq given while admitted with 40 meq PO given after - Potassium 40mg TID scheduled 03/09 and 03/10 - Potassium correction: 2.0 ->2.4->3.0 -> 3.1 (03/09) - Expect to continue replenishing as intracellular stores normalize - Hypoglycemia resolved - BMP QAM Nausea/Vomiting/diarrhea/viral gastroenteritis - Hx of vomiting yesterday, and diarrhea x1 week; likely reason behind potassium deficiency - Tirzepatide medication increase vs daily Linzess contributing to diarrhea, medications held - Stop stool softener medications, Zofran 4mg PO Q4H for nausea Dizzy/lightheaded/hypotension - Likely in part due to vomiting/diarrhea, poor fluid intake and electrolyte abnormalities - Add MIVF if patient unable to tolerate PO intake - Orthostatic vitals - Due to persistent 90s/60s BPs fluids started 1L NSS with 40meq K+ at 120ml/hr Dyspnea w/ exertion - Patient satting well on RA - Troponin's negative, unlikely to be cardiac in nature - CTA PE, and CXR negative for acute pulmonary findings, no PE, pulmonary edema - Hx of mild persistent asthma on Albuterol, Montelukast, and Fluticasone therapy - Continue to monitor Chronic problems: Morbid obesity: Tirzepatide 12.5mg SQ injections weekly held; next dose 03/14 Insomnia: Trazodone 100mg QHS/Quetiapine 50mg PO HS Migraines: Topimarate 400mg PO BID Depression/anxiety: Venlafaxine 300mg PO, Quetiapine 50mg PO HS/Buspar 300mg daily Chronic back pain/hx of spine surgery: Methocarbamol 750mg Neuropathy: Pregabalin 150mg PO QHS Admission and Anticipated Discharge Date Admission Date: March 08, 2025 Supervising Physician Co-Signing Physician Notes I personally examined the patient and verified all pringle points of history and exam, discussed case, and agree with decision making with Dr Mckinney still having some fecal incontinence. A little bit of dizziness with standing. Headache. Back pain. Would like something additional for back pain at bedtime. Vitals noted, in general she is awake and alert pleasant no distress. HEENT normocephalic atraumatic mucous membranes moist. Breathing unlabored no accessory muscle use good effort. Skin without rashes pallor or icterus. Neuro without focal deficits. Nausea vomiting diarrheaimproving. Likely viral enteritis. Dizziness probably due to still being a bit hypovolemicadditional IV fluids ordered. Encourage p.o. intake. Fecal incontinence persistsone-time dose of Metamucil to try to thicken stool. Back pain/chronicprior back surgeriesshe requests additional medicationsat bedtime certainly seems reasonable. Additional lorazepam orderedat bedtime scheduled. dysuriaurinalysis ordered DVT prophylaxisLovenox otherwise as above Subjective Patient is seen resting comfortably this AM, patient notes that her chronic back pain has been worse recently as she has not been on her buprenorphine/oxycodone therapy. Patient does note that her dizziness, lightheadedness and vertigo symptoms have improved and reports daily improvements. Patient notes 1 accident in bed today and was unable to make it to the restroom. Patient reports that her will bring in her medications later today. Patient remains afebrile and hemodynamically stable. Physical Exam Physical Exam: General: patient resting comfortably, NAD, non-toxic in appearance, answers questions appropriately. Skin: warm, dry, intact HEENT: NC/AT, anicteric sclera, conjunctiva without injection, moist mucus membranes. Heart: +S1/S2, regular, no m/r/g Lungs: equal air entry bilaterally, no rales/rhonchi/wheezes Abd: +BS, soft, NT/ND Ext: warm, no clubbing/cyanosis or edema Neuro: nonfocal, speech intact, no facial droop, moving all extremities. Results & Data Results & Data Vital Signs (Past 12 Hours) Vital Signs Temp Pulse Pulse Resp BP Pulse Ox O2 Del Method 03/11/25 15:58 36.6 C 80 16 107/65 99 Room Air 03/11/25 11:32 36.5 C 86 20 104/63 98 Room Air 03/11/25 07:42 36.3 C L 74 20 124/72 100 Room Air 03/11/25 07:00 86 Resident Activity Tracking Resident Involvement: Resident Care Provided Care Provided: Adult Hospital Medicine
--- NOTE | 2025-03-11 17:59 | Billing Data ---
Date of Service March 11, 2025 Coding Level of Care Code 63476 SUB INP/OBS CARE MIN
[2025-03-11] MEDS: PSYLLIUM HUSK 4GM PACKET PO ONE (18:07)
[2025-03-11] MEDS: LACTATED RINGER'S 500 ML IV ONE (19:37)
[2025-03-11] MEDS: KETOROLAC TROMETHAMINE 15 MG/ML VIAL IV ONE (19:37)
[2025-03-11] MEDS: LORazepam 1 MG TAB PO SCH (21:07)
[2025-03-11 21:58] LABS: Appearance Urine Clear (Clear); Glucose Urine UA Negative (Negative)
[2025-03-12 07:32] LABS: Hematocrit (blood only) 36.3 % (37.0-47.0); Hemoglobin 11.5 g/dl (12.0-16.0); Immature Granulocytes # (auto) 0.01 K/uL (0.01-0.20); Immature Granulocytes % (auto) 0.2 %; Mean Corpuscular Hemoglobin 27.4 pg (25.0-34.0); Mean Corpuscular Volume 86.4 fL (80.0-100.0); Platelet Count 154 K/uL (130-400); RDW Standard Deviation 42.7 fL (36.4-46.3); Red Blood Count 4.20 M/uL (4.20-5.40); White Blood Count 5.36 K/ul (4.8-10.8)
[2025-03-12 07:49] LABS: Anion Gap 5.0 (3-11); Blood Urea Nitrogen 6.0 mg/dl (6-23); Calcium 8.7 mg/dl (8.6-10.3); Carbon Dioxide 24.0 mmol/L (21-32); Chloride 115.0 mmol/L (98-107); Creatinine Clr Calc Pharmacy 112.4 ml/min; Glucose 79.0 mg/dl (70-99(Fasting)); Magnesium 2.3 mg/dl (1.7-2.4); Potassium 3.6 mmol/L (3.5-5.1); Sodium 144.0 mmol/L (136-145)
[2025-03-12] MEDS: PSYLLIUM HUSK 4GM PACKET PO SCH (08:42)
[2025-03-12] MEDS: BUTALBITAL/ACETAMIN/CAFFEINE TAB PO STA (12:17)
[2025-03-12] MEDS: FLUCONAZOLE 50 MG TAB PO ONE (12:18)
[2025-03-12 13:39] LABS: Vitamin B12 264 pg/ml (180-914)
[2025-03-12 13:40] LABS: Folate (Folic Acid),Ser orPlas > 22.30 ng/ml (>5.38)
--- NOTE | 2025-03-12 13:43 | Magnetic Resonance Report ---
MRI OF THE BRAIN WITHOUT IV CONTRAST CLINICAL HISTORY: Migraines dizziness near syncope. COMPARISON STUDY: None TECHNIQUE: MRI of the brain was performed utilizing various T1 and T2-weighted sequences in the axial , sagittal, and coronal planes. IV contrast was not administered for this examination. FINDINGS: The examination is mildly compromised due to motion artifact. No intraventricular extra-axial mass lesions are visualized. Axial diffusion-weighted images reveal no evidence of acute or subacute infarction. Gradient echo images reveal no hemorrhagic products. T2-weighted and FLAIR images reveal no significant white matter lesions. IMPRESSION: Normal MRI of the brain. ACT 112: Negative or not required by law. Electronically signed by: Adalberto Jose M.D. 03/12/2025 1:40 PM
--- NOTE | 2025-03-12 17:03 | Hospitalist Progress Note ---
Date of Service March 12, 2025 Assessment & Plan (1) Hypoglycemia: (2) Generalized weakness: (3) Lightheadedness: (4) Orthostatic hypotension: (5) Hypotension: (6) HTN (hypertension): (7) Gastroparesis: (8) Morbid obesity: (9) Hypothyroidism: (10) Vitamin D deficiency: (11) Depression with anxiety: (12) Chronic abdominal pain: (13) GERD (gastroesophageal reflux disease): Plan Raegan Rushing is a 44 y/o F with a past medical history of migraine disorder, IBS, endometriosis, cervical cancer s/p hysterectomy, hx of pancreatitis, hypothyroidism, T2DM, gastroparesis, dyslipidemia, recent hx of laparoscopic oophorectomy 5 weeks ago arriving at [facility] ED due to dizziness, lightheaded, darkened vision when rising, nausea, vomiting, diarrhea and fatigue and was seen on 03/01 with similar less severe symptoms and without hypokalemia. Nausea/Vomiting/diarrhea - Seems to likely be viral enteritis worsened by medications. Improving, but still having some degree of fecal incontinence. Anticipate improvement with fiber to thicken stools. I suspect some of his liquid stools creating rectal urgency and some of his back pain and slow mobility making it impossible for her to make it to the bathroom in time with the urgency. (Considered such etiologies even as cauda equinabut given that she is not having urinary incontinence, and given that she is walking reasonably well, this seems extremely unlikely) - tolerating diet - continue current care forgetfulness - discussed with patient my lead differential is "pseudodementia" from anxiety/pain - certainly also I would have strong suspicion for elements of polypharmacy as well - to ensure not overlooking anything, especially given that she does have a surprisingly large disease burden for such a young age, will workup for other reversible and/or structural causescheck B12 (was a bit low a few years ago), folate, B1, recent TSH was okay, check RPR, MRI brain. Dizzy/lightheaded/hypotension - Due to volume depletion from problem #1. Improved with IV fluids. persistent dysuria urinalysis does not appear consistent with infection. Question vaginitis/Candidadiscussed empiric treatment versus exam/etc.patient and I both agree empiric treatment makes more sense right now, and then if symptoms persist moved to physical exam. (With everything she has been through, we both agree that anything that would feel embarrassing or dehumanizing is more risk at this point then simply an empiric dose of Diflucan) Dyspnea w/ exertion - Patient satting well on RA - Troponin's negative, unlikely to be cardiac in nature - CTA PE, and CXR negative for acute pulmonary findings, no PE, pulmonary edema - Suspect mostly due to back pain and added exertion making her feel a disproportionate degree of dyspnea for her degree of exertion, far more than a "true disease process" Hypoglycemia/Hypokalemia - overall improving. Continue to replace and follow Chronic problems: Morbid obesity: Tirzepatide 12.5mg SQ injections weekly held; next dose 03/14 Insomnia: Trazodone 100mg QHS/Quetiapine 50mg PO HS Migraines: Topimarate 400mg PO BID Depression/anxiety: Venlafaxine 300mg PO, Quetiapine 50mg PO HS/Buspar 300mg daily Chronic back pain/hx of spine surgery: Methocarbamol 750mg Neuropathy: Pregabalin 150mg PO QHS DVT prophylaxisLovenox Admission and Anticipated Discharge Date Admission Date: March 08, 2025 Subjective Still having some dysuria. Notes it could be a little bit of a vaginal discharge and irritation. Walking a bit better. Right leg not working ext remely well, but whenever asked the timeline on this, she relates it back to previous back surgery. Her biggest concern today is forgetfulnessshe notes over about the last 6 months she has been noticing a lot of forgetfulnesssometimes at simple things, other times it will be that she is driving one of her kids somewhere and she forgets where she is going. She notes that she is getting more and more worried about what she is forgetting. Relates that she was apparently referred to see someone about this, but nothing has actually happened yet. Very tearful today. Review of Systems Review of Systems: All systems reviewed & are unremarkable except as noted in HPI & below Physical Exam Physical Exam: In general she is awake alert oriented tearful at times, no physical distress. HEENT normocephalic atraumatic mucous membranes moist. Breathing unlabored no accessory muscle use good effort. Skin without rashes pallor or icterus. Neuro without focal deficits. Seen walking in the hallway with physical therapygait somewhat stooped related to her back, but otherwise. Steady with a walker. Results & Data Results & Data Vital Signs (Past 12 Hours) Vital Signs Temp Pulse Pulse Resp BP Pulse Ox O2 Del Method 03/12/25 15:18 98.2 F 85 20 148/90 H 95 Room Air 03/12/25 12:00 97.7 F 89 14 114/74 97 Room Air 03/12/25 10:39 82 03/12/25 08:02 97.5 F L 88 20 112/72 96 Room Air PG Care Time/CCT Total # of Minutes Spent Total Time Spent with Patient: Total time spent is greater than 50% in coordination of care (as documented) at patient's floor/unit and/or counseling patient: Coding Level of Care Code 97804 SUB INP/OBS CARE 3/50MIN Diagnoses Hypoglycemia E16.2 Generalized weakness R53.1 Lightheadedness R42 Orthostatic hypotension I95.1 Hypotension I95.9 HTN (hypertension) I10 Gastroparesis K31.84 Morbid obesity E66.01 Hypothyroidism E03.9 Vitamin D deficiency E55.9 Depression with anxiety F41.8 Chronic abdominal pain R10.9; G89.29 GERD (gastroesophageal reflux disease) K21.9
[2025-03-12] MEDS: CYANOCOBALAMIN 1000 MCG/ML VIAL IM SCH (19:55)
[2025-03-13] MEDS: DICLOFENAC SOD 1% GEL 100 GM TUBE EXT PRN (02:04)
[2025-03-13 06:14] LABS: Hematocrit (blood only) 35.7 % (37.0-47.0); Hemoglobin 12.1 g/dl (12.0-16.0); Immature Granulocytes # (auto) 0.01 K/uL (0.01-0.20); Immature Granulocytes % (auto) 0.2 %; Mean Corpuscular Hemoglobin 29.0 pg (25.0-34.0); Mean Corpuscular Volume 85.6 fL (80.0-100.0); Platelet Count 145 K/uL (130-400); RDW Standard Deviation 42.4 fL (36.4-46.3); Red Blood Count 4.17 M/uL (4.20-5.40); White Blood Count 5.82 K/ul (4.8-10.8)
[2025-03-13 06:33] LABS: Anion Gap 6.0 (3-11); Blood Urea Nitrogen 8.0 mg/dl (6-23); Calcium 8.8 mg/dl (8.6-10.3); Carbon Dioxide 24.0 mmol/L (21-32); Chloride 114.0 mmol/L (98-107); Creatinine Clr Calc Pharmacy 115.5 ml/min; Glucose 76.0 mg/dl (70-99(Fasting)); Potassium 3.5 mmol/L (3.5-5.1); Sodium 144.0 mmol/L (136-145)
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
[2025-03-13] MEDS: BUTALBITAL/ACETAMIN/CAFFEINE TAB PO STA (17:02)
[2025-03-13] MEDS: SUCRALFATE 1 GM TAB PO PRN (17:02)
--- NOTE | 2025-03-13 17:02 | Billing Data ---
Date of Service March 13, 2025 Coding Level of Care Code 48120 SUB INP/OBS CARE
[2025-03-14 08:06] LABS: Hematocrit (blood only) 37.2 % (37.0-47.0); Hemoglobin 12.1 g/dl (12.0-16.0); Immature Granulocytes # (auto) 0.02 K/uL (0.01-0.20); Immature Granulocytes % (auto) 0.3 %; Mean Corpuscular Hemoglobin 27.9 pg (25.0-34.0); Mean Corpuscular Volume 85.7 fL (80.0-100.0); Platelet Count 143 K/uL (130-400); RDW Standard Deviation 42.6 fL (36.4-46.3); Red Blood Count 4.34 M/uL (4.20-5.40); White Blood Count 6.11 K/ul (4.8-10.8)
[2025-03-14 08:21] LABS: Anion Gap 6.0 (3-11); Blood Urea Nitrogen 7.0 mg/dl (6-23); Calcium 8.9 mg/dl (8.6-10.3); Carbon Dioxide 24.0 mmol/L (21-32); Chloride 113.0 mmol/L (98-107); Creatinine Clr Calc Pharmacy 118.5 ml/min; Glucose 71.0 mg/dl (70-99(Fasting)); Potassium 3.6 mmol/L (3.5-5.1); Sodium 143.0 mmol/L (136-145)
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
[2025-03-14] MEDS ORDERED: DEXAMETHASONE SOD INJ 4 MG/ML VIAL IV SCH (12:30)
--- NOTE | 2025-03-14 12:58 | Billing Data ---
Date of Service March 14, 2025 Coding Level of Care Code 18921 SUB INP/OBS CARE
[2025-03-14] MEDS: HYDROmorphone INJ 0.5 MG/0.5 ML SYR IV PRN (13:12)
[2025-03-14] MEDS: dexAMETHasone 6 MG in SYRINGE 0 ML IV SCH (13:12)
--- NOTE | 2025-03-14 19:37 | Psychiatric Consultation ---
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 Dose: 50 mg Documented By: Admin: 03/08/25 22:22 Dose: 50 mg Documented By: JULY Sucralfate (Sucralfate 1 Gm Tab) 1 gm PO BID PRN PRN Reason: Gi Upset Stop: 04/07/25 18:22 Last Admin: 03/13/25 17:02 Dose: 1 gm Documented By: ELIZABETH Sumatriptan Succinate (Sumatriptan Succinate 25 Mg Tab) 25 mg PO TID PRN PRN Reason: Migraine Headache Stop: 04/12/25 12:13 Last Admin: 03/14/25 08:51 Dose: 25 mg Documented By: sara Admin: 03/13/25 12:43 Dose: 25 mg Documented By: maria elena Topiramate (Topiramate 100 Mg Tab) 400 mg PO BID JOE Stop: 04/07/25 20:59 Last Admin: 03/14/25 08:36 Dose: 400 mg Documented By: sara Admin: 03/13/25 20:01 Dose: 400 mg Documented By: Admin: 03/13/25 09:15 Dose: 400 mg Documented By: Admin: 03/12/25 20:44 Dose: 400 mg Documented By: Admin: 03/12/25 08:39 Dose: 400 mg Documented By: [email or web address] Admin: 03/11/25 21:09 Dose: 400 mg Documented By: Admin: 03/11/25 08:47 Dose: 400 mg Documented By: [email or web address] Admin: 03/10/25 21:22 Dose: 400 mg Documented By: Admin: 03/10/25 08:43 Dose: 400 mg Documented By: Admin: 03/09/25 20:06 Dose: 400 mg Documented By: Admin: 03/09/25 08:46 Dose: 400 mg Documented By: neema Admin: 03/08/25 22:29 Dose: 400 mg Documented By: JULY Trazodone HCl (Trazodone Hcl 100 Mg Tab) 100 mg PO HS PRN PRN Reason: Sleep Stop: 04/07/25 18:22 Last Admin: 03/09/25 22:29 Dose: 100 mg Documented By: JULY Venlafaxine HCl (Venlafaxine Hcl Xr 150 Mg Capxr) 300 mg PO HS JOE Stop: 04/07/25 20:59 Last Admin: 03/13/25 20:02 Dose: 300 mg Documented By: Admin: 03/12/25 20:43 Dose: 300 mg Documented By: Admin: 03/11/25 21:06 Dose: 300 mg Documented By: Admin: 03/10/25 20:54 Dose: 300 mg Documented By: Admin: 03/09/25 20:07 Dose: 300 mg Documented By: Admin: 03/08/25 22:24 Dose: 300 mg Documented By: JULY Coding Level of Care Code 26765 IN/OBS CONSULT LVL 3,45M Diagnoses Anxiety disorder, unspecified F41.9 Depression, unspecified F32.A
[2025-03-15 09:05] LABS: Hematocrit (blood only) 36.7 % (37.0-47.0); Hemoglobin 12.2 g/dl (12.0-16.0); Immature Granulocytes # (auto) 0.02 K/uL (0.01-0.20); Immature Granulocytes % (auto) 0.3 %; Mean Corpuscular Hemoglobin 28.8 pg (25.0-34.0); Mean Corpuscular Volume 86.8 fL (80.0-100.0); Platelet Count 154 K/uL (130-400); RDW Standard Deviation 43.4 fL (36.4-46.3); Red Blood Count 4.23 M/uL (4.20-5.40); White Blood Count 7.82 K/ul (4.8-10.8)
[2025-03-15 09:20] LABS: Anion Gap 7.0 (3-11); Blood Urea Nitrogen 10.0 mg/dl (6-23); Calcium 9.1 mg/dl (8.6-10.3); Carbon Dioxide 22.0 mmol/L (21-32); Chloride 114.0 mmol/L (98-107); Creatinine Clr Calc Pharmacy 114.0 ml/min; Glucose 71.0 mg/dl (70-99(Fasting)); Potassium 3.6 mmol/L (3.5-5.1); Sodium 143.0 mmol/L (136-145)
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
[2025-03-15] MEDS: FLUCONAZOLE 50 MG TAB PO ONE (12:12)
[2025-03-15] MEDS: HYDROmorphone INJ 0.5 MG/0.5 ML SYR IV ONE (13:31)
--- NOTE | 2025-03-15 18:11 | Billing Data ---
Date of Service March 15, 2025 Coding Level of Care Code 30885 SUB INP/OBS CARE
[2025-03-16 07:53] VITALS: RESP 16
[2025-03-16 11:33] VITALS: BP 103/71; PULSE 92; TEMP 98.2; O2SAT 97
--- NOTE | 2025-03-16 15:03 | Discharge Summary ---
Discharge Summary Date of Service March 16, 2025 Principal Dx & Hospital Course #1 = Principal Diagnosis (1) Depression, unspecified: (2) Anxiety disorder, unspecified: (3) Viral gastroenteritis: (4) Chronic back pain: Plan #Viral gastroenteritiswas the reason that she was admitted. Dehydration and viral GE symptoms have resolved. #Back pain/prior back surgeries/chronic migrainesseems to be within baseline range of pain control. Did note some improvement of leg radicular symptoms with corticosteroidswill finish out 7 days of dexamethasone. Extensive and repeated discussions with patient about a long-term roadmappredominantly with physical and biomechanical modalities, discussed the rationale, as well as my own prior experience/track record with helping people going down this roadmap. She expressed good understanding. Would recommend regular exercise as best she is able to tolerate, moist heat, regular OMT, and stress/anxiety management. #Anxiety/depressioninterfaces with her chronic pain syndromes, but we discussed in depth how the anxiety can be a major amplifier for other illnesses. Discussed stress management tools, discussed counseling. #Forgetfulnesssuspect some of it is pseudodementia from anxiety, suspect some is polypharmacy. Cannot rule out some effects of B12 deficiencybut doubt (I suspect the B12 is more of a precursor risk but will be supplementing). Work on anxiety, and discussed a strategy for gradual dose reduction of her rather sizable medication list. #Polypharmacysee above #B12 deficiencyreplaced IM while in the hospital, I doubt she needs ongoing IM replacement, hopefully if she will do well with p.o. Discharged with p.o. replacement. Check B12 level in 3-4 months; if not improving then would fall back on parenteral replacement. #DVT prophylaxisLovenox #dispositionpatient has been stable for discharge for days. Whenever we discussed the interface of her anxiety and depression with her physical symptoms, she started to become more insightful about this and asked a lot of good questions. Given that truly getting a handle on this could be game changing/life-changing for her she requested a few days in the hospital with some degree of respite to be able to contemplate the impact of this as well as start to build a strategy. We on 03/14 discussed that she has been medically stable for days, and agreed upon 03/16 as a reasonable compromise discharge date. Today, then she started noting that she did not have a ride, and probably would need to stay in the hospital until 03/18. Discussed that we would not force her out of the building/send her home without a ridebut case management was able to arrange transportation. Notes For Next Care Provider see discharge instructions given to patient for "overall roadmap" outlined. Medication Changes From Visit Short course of dexamethasone, addition of B12 orally Admission HPI Per Admitting Provider Raegan Rushing is a 44 y/o F with a past medical history of migraine disorder, IBS, endometriosis, cervical cancer s/p hysterectomy, hx of pancreatitis, hypothyroidism, T2DM, gastroparesis, dyslipidemia, recent hx of laparoscopic oophorectomy 5 weeks ago arriving at [facility] ED due to dizziness, lightheaded, darkened vision when rising, nausea, vomiting, diarrhea and fatigue. Patient endorses palpitations, SOB w/ exertion, back pain, and headaches. Patient denies chest pain, abdominal pain, dyspnea at rest, fevers, and chills. Patient denies hematochezia, melena and hemoptysis. Patient has felt pre-syncopal but denies recent falls or significant trauma/head trauma. Patient was seen in the ED last Thursday 03/01 due to similar complaints but less severe, and now notes that she is also having SOB with exertion. Patient feels that these symptoms began approximately 4.5 weeks ago a few days before her laparoscopic oophorectomy, and these symptoms have persisted and progressively worsened over the following weeks leading to the previous ED admission. At the present time patient feels that symptoms have improved and typically feels that symptoms worsen when standing and ambulating. Patient notes that there are times when she stands up and feels that her vision darkens for the past few weeks and at the prior ED visit orthostatics were positive for blood pressure abnormalities. Additionally patient does report a history of hypokalemia with mild decreases in levels requiring oral medication. Patient notes that for the past week she has also had loose stools and diarrhea approximately 3x per day compared to her normal 1x daily BMs. Patient remains afebrile and hemodynamically stable. Patient is amenable to admission for further work-up and diagnosis. Discharge Exam Awake and alert, pleasant. No distress. HEENT normocephalic atraumatic mucous membranes moist. Breathing unlabored no accessory muscle use good effort. Skin without rashes pallor or icterus. Neuro without focal deficits. Updated Medication List Medication Instructions Recorded Confirmed Type diclofenac sodium 1 % topical gel 2 gm topical QID PRN Pain 10/08/19 03/08/25 History sucralfate 1 gram tablet (Carafate) 1 g PO BID PRN Gi Upset 10/08/19 03/08/25 History albuterol sulfate 1.25 mg/3 mL 1.25 mg (3 mL) inhalation Q6H PRN 04/10/20 03/08/25 Rx solution for nebulization shortness of breath or wheezing #180 mL pen needle, diabetic 32 gauge x #100 ea 10/14/21 11/23/23 Rx 5/32" (BD Ultra-Fine Dena Pen Needle) promethazine 25 mg tablet 25 mg PO BID PRN nausea and 12/07/21 03/08/25 Rx vomiting #30 tabs montelukast 10 mg tablet 10 mg PO HS #30 tabs 12/17/21 03/08/25 Rx lidocaine 5 % topical patch 1 patch topical DAILY PRN Pain #30 04/26/22 03/08/25 Rx (Lidoderm) ea albuterol sulfate 90 mcg/actuation 2 puff inhalation Q4 PRN Shortness 05/10/22 03/08/25 Rx aerosol inhaler (Ventolin HFA) Of Breath Or Wheezing #18 grams dexlansoprazole 60 mg 60 mg PO QAM 08/11/22 03/08/25 History capsule,biphase delayed release (Dexilant) lancets #100 ea 08/13/22 11/23/23 Rx budesonide-formoterol HFA 160 2 puff inhalation BID #3 Inhalers 08/30/22 03/08/25 Rx mcg-4.5 mcg/actuation aerosol inhaler (Symbicort) blood sugar diagnostic (Blood #100 ea 09/02/22 11/23/23 Rx Glucose Test strips) blood-glucose meter (Blood Glucose #1 ea 09/02/22 11/23/23 Rx Monitoring kit) phenazopyridine 200 mg tablet 200 mg PO Q8H PRN pain #10 tabs 11/08/22 03/08/25 Rx (Pyridium) methocarbamol 750 mg tablet 750 mg PO TID PRN Muscle Spasm #60 12/06/22 03/08/25 Rx tabs venlafaxine 150 mg 300 mg (2 x 150 mg) PO HS #180 caps 12/06/22 03/08/25 Rx capsule,extended release 24 hr (Effexor XR) potassium chloride 20 mEq 20 meq PO TID #160 tabs 12/22/22 03/08/25 Rx tablet,extended release triamterene 37.5 1 cap PO QAM #90 caps 12/23/22 03/08/25 Rx mg-hydrochlorothiazide 25 mg capsule solifenacin 5 mg tablet (Vesicare) 5 mg PO DAILY #30 tabs 05/09/23 03/08/25 Rx lorazepam 1 mg tablet (Ativan) 1 mg PO Q8H PRN anxiety #10 tabs 08/01/24 03/08/25 Rx furosemide 20 mg tablet (Lasix) 40 mg PO DAILY PRN edema 09/24/24 03/08/25 History liothyronine 25 mcg tablet 25 mcg PO QAM 09/24/24 03/08/25 History (Cytomel) pregabalin 150 mg capsule (Lyrica) 150 mg PO HS 09/24/24 03/08/25 History tamsulosin 0.4 mg capsule (Flomax) 0.4 mg PO HS 09/24/24 03/08/25 History topiramate 200 mg tablet (Topamax) 400 mg PO BID 09/24/24 03/08/25 History trazodone 100 mg tablet 100 mg PO HS PRN Sleep 09/24/24 03/08/25 History zolmitriptan 5 mg nasal spray 1 spray intranasal DIRECTED PRN 09/24/24 03/08/25 History (Zomig) Migraine Headache ondansetron 4 mg disintegrating 4 - 8 mg (1 - 2 x 4 mg) PO Q8H PRN 10/01/24 03/08/25 Rx tablet nausea and vomiting #14 tabs oxycodone 5 mg tablet 5 mg PO Q6H PRN pain #12 tabs 10/01/24 03/08/25 Rx ketorolac 10 mg tablet 10 - 20 mg (1 - 2 x 10 mg) PO BID 10/24/24 03/08/25 Rx PRN Migraine Headache #20 tabs cholecalciferol (vitamin D3) 1,250 50,000 unit PO WK 90 days #12 tabs 01/18/25 03/08/25 Rx mcg (50,000 unit) tablet fremanezumab-vfrm 225 mg/1.5 mL 225 mg (1.5 mL) subcut MONTHLY 01/18/25 03/08/25 Rx subcutaneous syringe (Ajovy #1.5 mL Syringe) buprenorphine HCl 600 mcg buccal 600 mcg buccal BID 03/08/25 03/08/25 History film (Belbuca) bupropion HCl 300 mg 24 hr tablet, 300 mg PO DAILY 03/08/25 03/08/25 History extended release buspirone 30 mg tablet 30 mg PO BID 03/08/25 03/08/25 History clonidine HCl 0.2 mg tablet 0.2 mg PO BID 03/08/25 03/08/25 History linaclotide 72 mcg capsule 72 mcg PO QAM 03/08/25 03/08/25 History (Linzess) quetiapine 50 mg tablet 50 mg PO HS 03/08/25 03/08/25 History tirzepatide 12.5 mg/0.5 mL 12.5 mg subcut WK 03/08/25 03/08/25 History subcutaneous pen injector (Mounjaro) cyanocobalamin (vitamin B-12) 1,000 mcg PO DAILY #30 tabs 03/16/25 Rx 1,000 mcg tablet dexamethasone 6 mg tablet 6 mg PO DAILY #4 tabs 03/16/25 Rx Hospital Stay Data Consultations 03/08/25 16:20 ED Decision to Admit Stat 03/14/25 19:15 Consult Psychiatry Routine Diagnostic Imagining Performed 03/08/25 13:33 CT abd pelvis IV con only Stat CT angio chest PE protocol Stat 03/12/25 12:13 MRI Brain [MR brain wo con] Routine Pending Results Patient Have Any Pending Studies at Discharge: No Discharge Instructions Given to Patient (Per Discharging Provider) The reason you were first admitted to the hospital was fairly simpleit appears that you had the stomach bug that has been going around, and got reasonably dehydrated from it. Fortunately this resolved. Back pain and headaches - as we discussed, this tends to be much more of a "pie chart" than a "bar graph"meaning that there are multiple factors at play with the symptoms: Some of it is structural (the anatomic problems that led to the surgery, as well as the postop changes and scarring)we would look at the structural as "a constant" (i.e. there is not a lot that we are able to do to improve that part, but for most people it is less than half of what causes their symptoms). A lot of it is biomechanical (the overlying muscles and ligaments, which are, of course, thrown off by the structural changes)which often can be modified the most (this is also typically a little less than half of the actual pain) and the remaining minority of the pain ties back to what could be labeled as "nerve facilitation"i.e. whenever someone has pain constantly, the nerves that carry the pain signal/the part of the brain that interprets pain can constantly be "switched on" - because the biomechanical pain is the biggest modifiable portion, this is the part of it that is the most worth "going after" - what I found through the years to be most effective for the biomechanical pain is a multifaceted approach: Regular movement is hugethis is for 2 reasons. First, when muscles and ligaments are not moving they "gel" which means that they get even stiffer, which makes movement hurt even more. Once they are moving for a little while they do tend to loosen up, and while they still might hurt some, they tend to hurt less. Second, in my experience, good blood flow to muscles is really the best muscle relaxant I have seen (far better than any medical muscle relaxant)and in that respect moving your whole body in a way that gets your heart rate up and your breathing elevated improves blood flow everywhereeven beyond the muscles that you are specifically moving with exercise. In that respect, trying to be moving is much as your body will allow will help protect some against the "gelling phenomenon", and trying to move daily in a way that gets your heart rate up and blood flowing everywhere can act as a fairly effective muscle relaxant. -Moist heat can also open up blood vessels and improve blood flowit is typically not quite as good of a muscle relaxant as cardiovascular exercise, but it definitely can be quite helpful. This is where soaking in warm water could be quite useful, and I would definitely say to do that more or less daily, if you can. - Get hooked up with someone who does good "manipulative medicine" (ideally a DO that does OMTsuch as Dr. Don or Dr. Tarango with [facility], or highly skilled massage therapist who does OMT type techniques)like we talked, the difference between "simple massage" and true "manipulative medicine" is that w hen the muscle is tight, the nerves in the muscle have "decided" that the distance between the bones that the muscle anchors on is shorter than the actual anatomic distancethis then makes the muscle feel like it is being stretched, or even torngenerating the pain. A massage usually makes the muscle feel a little better while it is being worked on, but does very little to truly "reset" the nerves that tell the muscle how long it is supposed to be. Better manipulative medicine techniques tend to be more of a "neuromuscular trick" then simply rubbing out a tight muscle. This will probably take a while to make a difference, given how long your muscles have been tight, and how tight they are. In this respect, the best analogy would be "muscle memory" and thinking about playing a sportif you were trying to learn to hit a good slap shot, it would take repeated sessions and regular practice to develop and then keep the muscle memory. Because your muscles in your back/neck/head have been so tight for so long, it will probably be an ongoing process to first get your muscles loose in a meaningful way, and then keep them loose. - Medications usually do not help all that much, they can some, but what I have seen is that even "perfect medication management" is a pretty minor part of helping you feel the best that you can. In that respect, it will probably end up benefiting you more in the long run to gradually reduce medicines to minimize the impact that has on your mental state/forgetfulness/confusion, and as long as things are done slowly, I doubt you will suffer much "rebound pain" with your back - in line with discussion of medications, however, you did note some improvement in the pain in your leg with the steroidssometimes a short burst of steroids can be useful in reducing nerve inflammation/irritation and improve the nerve related pain. With that in mind, we will do another 4 days of dexamethasone (a week total) to get to the best benefit from the steroids for the nerve pain that we can. Obviously take it as early in the day as you can, so that it minimizes interrupting your sleep. It can still make you feel more shipley or irritable, which is why we will want to do this for short time. As we can. Anxiety/depression - as we have been discussing, the anxiety/depression are definitely a big factor in impacting your quality of life. This is happening directly from the anxiety and depression symptoms themselves, and as we have been discussing, in a very mind/body way that is quite real, uncontrolled anxiety/depression will absolutely be a "volume knob" on symptoms from problems that seem to be unrelated. In that respect, you could work off of the assumption that uncontrolled anxiety/depression will make your back pain feel much worse than it would otherwise, trigger the migraines to happen more often, and amplify the severity of the migraines. Further, as we have been discussing, I suspect the anxiety plays a big role in your forgetfulnesscausing what is diagnosed as "pseudodementia"where we are forgetful, not because her brain is failing, but because her brain is significantly distracted by what are anxiety is directing our attention to - improving life stressors is obviously a huge part of the anxietylife stressors will continue to add "fuel to the fire"and no matter how much water we are putting on the fire, if we continue to throw gas on it at the same time, things will not get better. - A lot of improving life stressors will be changing the way you view/interact with the world, and how you process things internally. In that respect, I would strongly recommend some form of regular counseling, whether it is cognitive behavioral therapy, dialectical behavioral therapy, or some combination of both. - Additionally, as we have been discussing quite a bit, building better tools to cope with the stress and anxiety will be immensely helpful. Given that stress is a form of energy, and based on physics/chemistry you cannot just get rid of energy "by magic" there is good research and good evidence that regular exercise can be enormously helpful in managing stress/anxiety. You can look at this as trying to get the "stress energy" outand obviously this can be doubly helpful given that the regular exercise can help with stress as well as improved blood flow to help with the back pain. Obviously right now you will be a bit limited on what you can do with exercise, but hopefully as you do more, and your back lets up, and you improve your overall wellbeing, you we will be able to do more and more, improving the situation exponentially. I would recommend doing something every single day if you can - If you remember my "toolbox analogy" for stress management skills, physical activity/regular exercise is 1 side of the toolbox, but quiet/meditative practices can also be enormously helpful (and I consider the other side of the toolbox). In that respect, the most effective would be prior where you truly turn your problems over to God, or meditation to the depth of where you see yourself almost as a separate person. Both of these take time and practice, but can be truly transformative. To a lesser degree of effectiveness but still quite effective is any activity that combines music and movementin that respect playing an instrument has good research that it can actually be exceedingly helpful in managing anxiety/depression, and there is emerging evidence that things like dance do similar benefit. Less effective than playing an instrument, but still quite effective are activities that combined art and movementsuch as painting, stitching, etc. The least effective, but still quite useful, are things that are essentially an active distraction. As we discussed, chronic anxiety tends to have a ebb and flow much likely tides. Sometimes for no particular reason anxiety will be worsethink of that almost as a "high tide" moment. This is where your dogs, or watching movies, or videogames, or anything that really just gives your brain something else to focus on can be helpful. None of these activities tends to truly change how you process things or change the actual anxiety, but they can essentially "put your brain on pause" while you are "waiting for the Tide to go out". - I suspect regular fishing could actually be quite helpfulI suspect some of it would just be "waiting for the Tide to go out"but also because there is physical activity and a bit of a meditative component, I think this could be quite helpful. If I could write "go fishing a few times a week" on a [email or web address] ription and have insurance cover it, I definitely would. Like we joked, they probably would not even pay for a goldfish. Forgetfulness - I strongly suspect we have to "nonominous" factors driving the forgetfulness - 1 is the anxiety itselfagain, this even has a diagnosis called "pseudodementia"my explanation of pseudodementia is that even a great brain can only juggle so much of the time. If you are able to focus on multiple things, but most of those multiple things are consumed by anxiety, your brain really does not process what you are trying to think aboutmaking it quick to be forgo tten. I suspect this is a big part of your forgetfulness - another big part of your forgetfulness is a lot of your chronic medications are "mind benders"another big part of your forgetfulness is a lot of your chronic medications are "mind benders"when someone is on multiple medications that can impact our consciousness, these can have us in a state where we are to a degree suppressed and our ability to think due to the medications themselves. This also has a label called "polypharmacy". While this will be a long processI think gradually reducing several of your medications could be quite helpful in the long run. Especially, given, as we have been discussing, medications play a limited role in helping with the back pain, and medications play a limited role with helping with the anxietythat the bigger part of managing both of these will be the self-care/movement/coping skills/stress management skills/how you process the world/etc. - Your "homework" as it relates to reducing medications will be to look at your medications and think through how much you think they help versus hurt. I would look at trying to classify them into 4 different overriding categories: First: Medications that you think are truly helpful and probably not causing you any problems. Second: Medications that you think are probably helping but also probably causing significant side effects. Third: Medications that you think are probably causing the way more side effect than benefit. Fourth: Medications that you wonder why you are still taking and you are not really sure if they are doing anything for you at all. The way we gradually reduce doses is to start with the easiest ones (category 3 and 4) and make small moves and reassessfor example reducing medication by 25% and then seeing how you feel over the following few weeks, repeat cycle. If we do it this way, if anyone "guesses wrong" then it is pretty easy to bump the dose back to where it needs to be for effect. - Your B12 level is a little lowwe started replacement with shots while you are in the hospital just to boost things up, most people do well with oral B12so rather than committing you to shots, will do supplement with a B12 vitamin daily. Have B12 levels checked in 3-4 months to make sure your levels are rising. If they are not, then you may need to be chronically replaced with B12 shots instead of orally. This will be a long road, but I really think following a plan like we have outlined above can help you feel way better and have a much better quality of lifeit is just that you will need to think of this as a persistent and probably "5-year plan". I would love to say that it will just be chronic progress and "sunshine and roses"but there will definitely be bumps in the road, unforeseen obstacles, and surprised setbacks. This is where you will want to constantly be touching base with your primary care physician and counselor to help get things back on track before things have gotten out of hand enough to be a real/new problem and/or major setback. Total Time Total Time Spent Total Time Spent (In Minutes): >30
--- NOTE | 2025-03-16 15:03 | Billing Data ---
Date of Service March 16, 2025 Coding Level of Care Code 82805 INP/OBS DISCH >30 MIN
--- NOTE | 2025-03-17 16:25 | Billing Data ---
Date of Service March 10, 2025 Coding Level of Care Code 40669 SUB INP/OBS CARE MIN
== END 2025-03-16 11:50 | disposition home or self-care (01) | DRG 392 ==
LOC: ED 12:21 → 2N 18:38 → SUATTDRO 18:38 → 2N 20:52

== ENCOUNTER 2025-05-13 17:21 | Observation (INO) ==
[2025-05-13] MEDS: FAMOTIDINE 20MG IV PUSH 20 MG/5 ML SYR IV STA ×2 (18:34→22:01)
[2025-05-13] MEDS: diphenhydrAMINE 50 MG/ML VIAL IV STA (18:34)
[2025-05-13] MEDS: SODIUM CHLORIDE 0.9% 500 ML IV ONE (18:34)
[2025-05-13] MEDS: LORazepam 1 MG/1 ML SYR ED Inj Use IV STA ×2 (18:34→23:47)
--- NOTE | 2025-05-13 18:34 | Emergency Department Note ---
Impression & Plan Allergic reaction, Shortness of breath, Rash, Anxiety, Failure of outpatient treatment ED Provider Note NAME: WILLIAN CM AGE: 45 SEX: F : 1980 ARRIVES VIA: Ambulance INFORMANT: [Patient][ems] ED PROVIDER(S): [Candido Jackson MD] CHIEF COMPLAINT: Allergic reaction HISTORY OF PRESENT ILLNESS: Patient is a 45-year-old female who states that she had her nails done 3 days ago. 3 hours after, she had burning on the fingernails and felt short of breath and developed a rash. She felt she was having an allergic reaction. She went to the [facility] ER 2 days ago and, received epinephrine, Solu-Medrol, Benadryl, morphine and Ativan. She felt a bit better and was discharged on Benadryl and a Medrol Dosepak. The patient went to the [facility] clinic today and was short of breath and had a throat closing sensation. Her rash had worsened. EMS was called. EMS gave 0.3 mg of IM epinephrine, she received IV Benadryl 50 mg and 125 mg of IV Solu-Medrol. She presents feeling a bit better but the rash is still present. The rash is itchy. She still feels the throat is somewhat tight. The patient states that she is anxious and upset over this whole thing. She states that other than the nails being done, nothing else is new. She has not eaten any different foods, no other new medications prior to the onset of her symptoms. PMHx/PSHx/Social Hx: See Below PHYSICAL EXAM: GENERAL: Patient is in no acute distress. Anxious. HEENT: No acute trauma, normocephalic atraumatic, mucous membranes dry, no nasal congestion. No uvular edema. NECK: No stridor, no adenopathy, no meningismus, trachea is midline. LUNGS: Clear to auscultation bilaterally, no wheeze, no rhonchi, breath sounds equal. HEART: Without murmurs gallops or rubs, regular rate and rhythm. ABDOMEN: Soft, nontender, no peritonitis. Obese. EXTREMITIES: No cyanosis, full range of motion of all the joints without pain or difficulty. NEUROLOGIC: Oriented x 3, no acute motor or sensory deficits, no focal weakness. SKIN: No jaundice, no diaphoresis. She has a blanching erythematous rash across the chest and cheeks. DIFFERENTIAL DIAGNOSIS: Allergic reaction, viral illness, dehydration, failed outpatient management, anaphylaxis, among others. EMERGENCY DEPARTMENT PROCEDURES: MEDICAL DECISION MAKING: There is a mild leukocytosis which would be consistent with her recent steroid use. There is a normal hemoglobin and platelet count. Potassium was slightly low but not in need of emergent correction. There was no renal failure. No concerning liver enzyme elevation. Tryptase value is pending. The patient appeared to be in a euthyroid state. On exam, the patient was anxious, she had a hive-like rash across her face and chest. Her lungs were clear, there was no uvular edema. Patient had already received IM epinephrine, IV Benadryl and IV Solu-Medrol prior to arrival. Here in the ED, she was given a 500 cc saline bolus, she received IV Ativan for her anxiety. She was given IV Pepcid and other small dose of IV Benadryl, 25 mg. Given her ongoing issues and complaints, given the throat closing sensation, given the use of IM epinephrine twice, given her lack of improvement outpatient, I do think a hospital stay, observation is warranted. I spoke with the patient and case management, the on-call hospitalist was consulted. Prior/Outside records/notes reviewed: Today's EMS notes describing her presentation and transport to this hospital. ECG per my interpretation: Indication was shortness of breath. The ECG shows a sinus tachycardia with a rate of 112. There is no ST elevation, no PVCs. The QTc is 488. Continuous Cardiac Monitoring per my interpretation: An order was placed for continuous cardiac monitoring. The monitor shows a rate of 102 with sinus tachycardia. Imaging/x-ray results per my interpretation: Chronic Medical/Social conditions affecting care: History of diabetes Care/Management discussed with: Case management and the on-call hospitalist. Level of care consideration(s): After review of the information above and other included data: --I believe the patient requires escalation of care to admission DISPOSITION: Admission Past Med/Surg History Problem List Failure of outpatient treatment (Acute) Anxiety (Acute) Rash (Acute) Shortness of breath (Acute) Allergic reaction (Acute) Hypokalemia Right upper quadrant abdominal pain (Acute) Depression, unspecified Anxiety disorder, unspecified Viral gastroenteritis Shortness of breath (Acute) Dizziness (Acute) Acute hypokalemia (Acute) Constipation Burning with urination Hypotension HTN (hypertension) Adnexal cyst (Acute) Acute appendicitis (Acute) Witnessed episode of apnea Hypersomnia Dyslipidemia Pelvic pain Adnexal cyst Gastroparesis Diabetes mellitus, type 2 IDDM History of COVID-19 (Acute 05/2021) Vitamin D deficiency Hypothyroidism Mild persistent asthma controlled with inhalers Morbid obesity (Acute) Cyst of meniscus of left knee Acute lateral meniscus tear of left knee Edema Cervical radiculopathy (Chronic) Chronic abdominal pain (Chronic) Depression with anxiety (Chronic) Essential tremor (Chronic) Failed back syndrome (Chronic) Portal hypertension (Chronic) History of anesthesia reaction (Chronic) "If they bring me out of it too fast I become violent" Kidney stones (Chronic) Pancreatitis (Chronic) last episode 2 years ago Anemia (Chronic) Migraines (Chronic) F/U DR DANIEL 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 last had 06/07/2022 - tested with home test. mild cold symptoms. no current issues. Celiac disease Autoimmune disorder PT UNSURE OF NAME OF DISORDER, STATES FOLLOW W/ [facility] Arthritis BACK Scheurmann's disease Chronic back pain Somatic dysfunction Surgical History Hx of rectal sphincterotomy History of meniscectomy of left knee History of ERCP History of section x2 History of bladder surgery x5 History of colonoscopy History of esophagogastroduodenoscopy (EGD) History of cholecystectomy S/P laparoscopic hysterectomy S/P lumbar fusion hardware in place S/P tonsillectomy H/O wisdom tooth extraction Family History Uncle Diabetes Grandfather (Paternal) Family hx of colon cancer Colorectal cancer Prostate cancer Grandmother Breast cancer Father Myocardial infarction Mother Stroke Ulcerative colitis Other No family history of adverse response to anesthesia Denies family history of Ovarian cancer Crohn's disease Social History Smoking Status: Never smoker Second Hand Exposure: No; Do You Dip or Chew Tobacco: No; Hx Alcohol Use: No Hx Substance Use: No Preferred Language: French Communication Ability: Effective Visual Impairment: No Limitations Hearing Ability: Normal Case Folder Required: No Beliefs That Will Affect Care: None marital status: Current Living Situation: Spouse Current Living Situation Comment: Lives with and 3 kids current occupational status: unemployed Other Information That Helps Us Care for You: No Feels Safe at Home: Yes Safety Concerns: Feels Safe At This Time Childhood Exposure to Second-Hand Smoke: Yes Diet: diabetic and regular Diet Comment: Regular caffeine: Yes during the past year weight has: remained stable Dental Care, Regularly: Yes Physical Activity Frequency: Does not Exercise Seatbelt Use: always Sunscreen Use: Yes Assistive Devices: Walker Allergies Allergies Allergy/AdvReac Type Severity Reaction Status Date / Time celecoxib [From Celebrex] Allergy Intermediate SOB,RASH Verified 03/08/25 16:11 sulfamethoxazole Allergy Intermediate RASH HEAD Verified 03/08/25 16:11 TO TOE- LASTED 3 WEEKS trimethoprim Allergy Intermediate RASH HEAD Verified 03/08/25 16:11 TO TOE- LASTED 3 WEEKS azithromycin [From Zithromax] Allergy Mild Rash Verified 03/08/25 16:11 camphor [From Biofreeze] Allergy Mild Rash Verified 03/08/25 16:11 menthol [From Biofreeze] Allergy Mild Rash Verified 03/08/25 16:11 Sulfa (Sulfonamide Allergy Mild RASH Verified 03/08/25 16:11 Antibiotics) ibuprofen Allergy Unknown Unknown Verified 03/08/25 16:11 codeine AdvReac Severe TROUBLE Verified 03/08/25 16:11 BREATHING AND GI adhesive AdvReac Intermediate ADHESIVE Verified 03/08/25 16:11 TAPE: RED WELTS AND BLISTERED SKIN nitrofurantoin AdvReac Intermediate SEVERE Verified 03/08/25 16:11 VOMITING gabapentin AdvReac Mild Drowsy Verified 03/08/25 16:11 semaglutide [From Ozempic] AdvReac Mild Nausea Verified 03/08/25 16:11 sumatriptan AdvReac Mild FEEL Verified 03/08/25 16:11 WEIRD, DIZZY acetaminophen [From Tylenol] AdvReac Unknown LIVER Verified 03/08/25 21:14 ISSUES Dimethyl Sulfoxide AdvReac Intermediate ABDOMINAL Uncoded 03/08/25 16:11 PAIN AND CRAMPING Home Meds Home Medications Medication Instructions Recorded Confirmed diclofenac sodium 1 % topical gel 2 gm topical QID PRN Pain 10/08/19 05/13/25 sucralfate 1 gram tablet (Carafate) 1 g PO BID PRN Gi Upset 10/08/19 05/13/25 dexlansoprazole 60 mg 60 mg PO QAM 08/11/22 05/13/25 capsule,biphase delayed release (Dexilant) furosemide 20 mg tablet (Lasix) 40 mg PO DAILY PRN edema 09/24/24 05/13/25 liothyronine 25 mcg tablet 25 mcg PO QAM 09/24/24 05/13/25 (Cytomel) pregabalin 150 mg capsule (Lyrica) 150 mg PO HS 09/24/24 05/13/25 tamsulosin 0.4 mg capsule (Flomax) 0.4 mg PO HS 09/24/24 05/13/25 topiramate 200 mg tablet (Topamax) 400 mg PO BID 09/24/24 05/13/25 trazodone 100 mg tablet 100 mg PO HS PRN Sleep 09/24/24 05/13/25 zolmitriptan 5 mg nasal spray 1 spray intranasal DIRECTED PRN 09/24/24 05/13/25 (Zomig) Migraine Headache buprenorphine HCl 600 mcg buccal 600 mcg buccal BID 03/08/25 05/13/25 film (Belbuca) bupropion HCl 300 mg 24 hr tablet, 300 mg PO DAILY 03/08/25 05/13/25 extended release buspirone 30 mg tablet 30 mg PO BID 03/08/25 05/13/25 clonidine HCl 0.2 mg tablet 0.2 mg PO BID 03/08/25 05/13/25 linaclotide 72 mcg capsule 72 mcg PO QAM 03/08/25 05/13/25 (Linzess) quetiapine 50 mg tablet 50 mg PO HS 03/08/25 05/13/25 tirzepatide 12.5 mg/0.5 mL 12.5 mg subcut WK 03/08/25 05/13/25 subcutaneous pen injector (Karlo) Previous Rx's Medication Instructions Recorded albuterol sulfate 1.25 mg/3 mL 1.25 mg (3 mL) inhalation Q6H PRN 04/10/20 solution for nebulization shortness of breath or wheezing #180 mL pen needle, diabetic 32 gauge x #100 ea 10/14/21" (BD Ultra-Fine Dena Pen Needle) promethazine 25 mg tablet 25 mg PO BID PRN nausea and 12/07/21 vomiting #30 tabs montelukast 10 mg tablet 10 mg PO HS #30 tabs 12/17/21 lidocaine 5 % topical patch 1 patch topical DAILY PRN Pain #30 04/26/22 (Lidoderm) ea albuterol sulfate 90 mcg/actuation 2 puff inhalation Q4 PRN Shortness 05/10/22 aerosol inhaler (Ventolin HFA) Of Breath Or Wheezing #18 grams lancets #100 ea 08/13/22 budesonide-formoterol HFA 160 2 puff inhalation BID #3 Inhalers 08/30/22 mcg-4.5 mcg/actuation aerosol inhaler (Symbicort) blood sugar diagnostic (Blood #100 ea 09/02/22 Glucose Test strips) blood-glucose meter (Blood Glucose #1 ea 09/02/22 Monitoring kit) phenazopyridine 200 mg tablet 200 mg PO Q8H PRN pain #10 tabs 11/08/22 (Pyridium) methocarbamol 750 mg tablet 750 mg PO TID PRN Muscle Spasm #60 12/06/22 tabs venlafaxine 150 mg 300 mg (2 x 150 mg) PO HS #180 caps 12/06/22 capsule,extended release 24 hr (Effexor XR) potassium chloride 20 mEq 20 meq PO TID #160 tabs 12/22/22 tablet,extended release triamterene 37.5 1 cap PO QAM #90 caps 12/23/22 mg-hydrochlorothiazide 25 mg capsule solifenacin 5 mg tablet (Vesicare) 5 mg PO DAILY #30 tabs 05/09/23 lorazepam 1 mg tablet (Ativan) 1 mg PO Q8H PRN anxiety #10 tabs 08/01/24 ondansetron 4 mg disintegrating 4 - 8 mg (1 - 2 x 4 mg) PO Q8H PRN 10/01/24 tablet nausea and vomiting #14 tabs oxycodone 5 mg tablet 5 mg PO Q6H PRN pain #12 tabs 10/01/24 ketorolac 10 mg tablet 10 - 20 mg (1 - 2 x 10 mg) PO BID 10/24/24 PRN Migraine Headache #20 tabs cholecalciferol (vitamin D3) 1,250 50,000 unit PO WK 90 days #12 tabs 01/18/25 mcg (50,000 unit) tablet fremanezumab-vfrm 225 mg/1.5 mL 225 mg (1.5 mL) subcut MONTHLY 01/18/25 subcutaneous syringe (Ajovy #1.5 mL Syringe) cyanocobalamin (vitamin B-12) 1,000 mcg PO DAILY #30 tabs 03/16/25 1,000 mcg tablet dexamethasone 6 mg tablet 6 mg PO DAILY #4 tabs 03/16/25 Results & Data (ED) Vital Signs Vital Signs - 24 hr 05/13/25 17:15 05/13/25 17:17 05/13/25 17:17 Temperature 36.7 C 36.7 C Temperature Source Oral Oral Pulse Rate 98 H Pulse Rate [Right Brachial] 99 H Pulse Rate from SpO2 Sensor Pulse Rhythm Regular Pulse Rhythm [Right Brachial] Regular Pulse Strength Normal Pulse Strength [Right Brachial] Normal Respiratory Rate 16 16 Respiratory Effort / Characteristics Non-Labored Non-Labored Respiratory Depth Normal Normal Respiratory Pattern Regular Regular Blood Pressure 133/64 Blood Pressure [Right Arm] 133/80 Blood Pressure Mean 87 Blood Pressure Mean [Right Arm] 97 Blood Pressure Position Sitting Blood Pressure Position [Right Arm] Sitting Pulse Oximetry 100 100 Oxygen Delivery Method Room Air Room Air Room Air Sepsis Recent Fever Within 48 Hours No Sepsis New/Unexplained Change in Mental Status N/A Sepsis Action Taken by Nursing No Action Required 05/13/25 17:35 05/13/25 17:52 05/13/25 18:00 Temperature Temperature Source Pulse Rate 106 H 103 H 106 H Pulse Rate [Right Brachial] Pulse Rate from SpO2 Sensor 105 H Pulse Rhythm Pulse Rhythm [Right Brachial] Pulse Strength Pulse Strength [Right Brachial] Respiratory Rate 17 18 Respiratory Effort / Characteristics Respiratory Depth Respiratory Pattern Blood Pressure 133/84 109/63 Blood Pressure [Right Arm] Blood Pressure Mean 98 77 Blood Pressure Mean [Right Arm] Blood Pressure Position Blood Pressure Position [Right Arm] Pulse Oximetry 100 100 Oxygen Delivery Method Room Air Room Air Sepsis Recent Fever Within 48 Hours Sepsis New/Unexplained Change in Mental Status Sepsis Action Taken by Nursing 05/13/25 18:27 05/13/25 19:00 Temperature Temperature Source Pulse Rate 95 H Pulse Rate [Right Brachial] Pulse Rate from SpO2 Sensor 96 H Pulse Rhythm Pulse Rhythm [Right Brachial] Pulse Strength Pulse Strength [Right Brachial] Respiratory Rate 16 Respiratory Effort / Characteristics Respiratory Depth Respiratory Pattern Blood Pressure 130/73 Blood Pressure [Right Arm] Blood Pressure Mean 92 Blood Pressure Mean [Right Arm] Blood Pressure Position Blood Pressure Position [Right Arm] Pulse Oximetry 100 100 Oxygen Delivery Method Room Air Room Air Sepsis Recent Fever Within 48 Hours Sepsis New/Unexplained Change in Mental Status Sepsis Action Taken by Care Home Medications Current Medication List: was personally reviewed by me Laboratory Data Attestation: I reviewed the patient's lab results. 05/13/25 17:47 05/14/25 03:57 Lab Results 05/13/25 Range/Units 17:47 WBC 12.23 H (4.8-10.8) K/ul RBC 5.03 (4.20-5.40) M/uL Hgb 14.5 (12.0-16.0) g/dL Hct 43.4 (37.0-47.0) % MCV 86.3 (80.0-100.0) fL MCH 28.8 (25.0-34.0) pg MCHC 33.4 (32.0-36.0) g/dL RDW Std Deviation 43.3 (36.4-46.3) fL RDW Coeff of [place]an 13.7 (11.5-14.5) % Plt Count 261 (130-400) K/uL MPV 10.8 (9.4-12.4) fL Immature Gran % (Auto) 0.4 % Neut % (Auto) 71.8 % Lymph % (Auto) 21.3 % [place] % (Auto) 5.2 % Eos % (Auto) 0.7 % Baso % (Auto) 0.6 % Neut # (Auto) 8.77 H (1.40-6.50) K/uL Lymph # (Auto) 2.61 (1.20-3.40) K/uL [place] # (Auto) 0.64 H (0.11-0.59) K/uL Eos # (Auto) 0.09 (0.00-0.50) K/uL Baso # (Auto) 0.07 (0.00-0.20) K/uL Immature Gran # (Auto) 0.05 (0.01-0.20) K/uL Sodium 142 (136-145) mmol/L Potassium 3.4 L (3.5-5.1) mmol/L Chloride 104 (98-107) mmol/L Carbon Dioxide 29 (21-32) mmol/L Anion Gap 9 (3-11) BUN 16 (6-23) mg/dl Creatinine 0.75 (0.6-1.2) mg/dl Est Cr Clr Drug Dosing 121.3 ml/min eGFR 100.62 BUN/Creatinine Ratio 21.3 H (10-20) Glucose 86 (70-99(Fasting)) mg/dl Calcium 9.7 (8.6-10.3) mg/dl Magnesium 1.9 (1.7-2.4) mg/dl Total Bilirubin 0.3 (0.2-1.0) mg/dl AST 19 (13-39) U/L ALT 19 (7-52) U/L Alkaline Phosphatase 111 H (34-104) U/L Total Protein 7.5 (6.0-8.3) gm/dl Albumin 4.5 (3.4-5.0) gm/dl Globulin 3.0 (2.5-4.0) gm/dl Albumin/Globulin Ratio 1.5 (0.9-2) TSH 0.395 (0.300-4.500) uIu/ml Administered Medications Bupropion HCl (Bupropion Xl 300 Mg Tabcr) 300 mg PO DAILY JOE Stop: 06/13/25 08:59 Last Admin: 05/14/25 09:43 Dose: 300 mg Documented By: CRISPIN Buspirone HCl (Buspirone 15 Mg Tab) 30 mg PO BID JOE Stop: 06/13/25 08:59 Last Admin: 05/14/25 10:17 Dose: 30 mg Documented By: CRISPIN Clonidine HCl (Clonidine Hcl 0.1 Mg Tab) 0.2 mg PO BID JOE Stop: 06/13/25 08:59 Last Admin: 05/14/25 09:43 Dose: 0.2 mg Documented By: CRISPIN Fluticasone/Vilanterol (Fluticasone/Vilanterol 200/25mcg 14 Puffs/Inhaler) 1 puffs INH DAILY [facility]; Protocol Stop: 06/13/25 08:59 Last Admin: 05/14/25 09:43 Dose: 1 puffs Documented By: CRISPIN Famotidine (Pepcid 20mg Iv Push) 20 mg in 5 mls @ 2.5 mls/min IV Q12 [facility] Stop: 06/13/25 08:59 Last Admin: 05/14/25 09:43 Dose: 2.5 mls/min Documented By: CRISPIN Methylprednisolone 40 mg/ (Syringe) 0.64 mls @ 1.5 mls/min IV BID [facility] Stop: 06/13/25 08:59 Last Admin: 05/14/25 09:43 Dose: 1.5 mls/min Documented By: CRISPIN Ketorolac Tromethamine (Ketorolac Tromethamine 10 Mg Tablet) 15 mg PO BID PRN PRN Reason: Migraine Headache Stop: 05/18/25 21:21 Last Admin: 05/13/25 22:57 Dose: 15 mg Documented By: STEPHANY Ketorolac Tromethamine (Ketorolac Tromethamine 15 Mg/Ml Vial) 15 mg IV Q6H PRN PRN Reason: Pain & Pre PT Stop: 05/18/25 23:04 Last Admin: 05/14/25 02:28 Dose: 15 mg Documented By: ITZ Linaclotide (Linaclotide 72 Mcg Capsule) 72 mcg PO QAM [facility] Stop: 06/13/25 08:59 Last Admin: 05/14/25 09:43 Dose: 72 mcg Documented By: CRISPIN Lorazepam (Lorazepam 1 Mg Tab) 1 mg PO Q8H PRN PRN Reason: anxiety Stop: 06/12/25 21:21 Last Admin: 05/14/25 09:49 Dose: 1 mg Documented By: Admin: 05/13/25 22:01 Dose: 1 mg Documented By: STEPHANY Miscellaneous (Order Awaiting Action Zolmitriptan [Zomig] 5 Mg [place],Non- Aerosol) 1 each N/A QS [facility] Stop: 06/13/25 00:00 Last Admin: 05/14/25 09:07 Dose: Not Given Documented By: Admin: 05/14/25 04:29 Dose: Not Given Documented By: ITZ Miscellaneous (Remove Lidoderm Patch) 1 each N/A DAILY@1100 [facility] Stop: 05/14/25 11:01 Last Admin: 05/14/25 10:34 Dose: 1 each Documented By: CRISPIN Oxybutynin Chloride (Oxybutynin Chloride Xl 5 Mg Tabcr) 5 mg PO DAILY JOE Stop: 06/13/25 08:59 Last Admin: 05/14/25 09:44 Dose: 5 mg Documented By: CRISPIN Pantoprazole Sodium (Pantoprazole 40 Mg Tab) [facility] Stop: 06/13/25 08:59 Last Admin: 05/14/25 09:43 Dose: 40 mg Documented By: CRISPIN Topiramate (Topiramate 100 Mg Tab) 200 mg PO BID [facility] Stop: 06/13/25 08:59 Last Admin: 05/14/25 09:43 Dose: 200 mg Documented By: CRISPIN Triamterene/Hydrochlorothiazide (Triamterene/Hctz 37.5/25mg Tab) [facility] Stop: 06/13/25 08:59 Last Admin: 05/14/25 09:43 Dose: 1 tab Documented By: CRISPIN Discontinued Medications Diphenhydramine HCl (Diphenhydramine 50 Mg/Ml Vial) 25 mg IV NOW STA Stop: 05/13/25 18:27 Last Admin: 05/13/25 18:34 Dose: 25 mg Documented By: STEPHANY Famotidine (Pepcid 20mg Iv Push) 20 mg in 5 mls @ 2.5 mls/min IV NOW STA Stop: 05/13/25 18:27 Last Admin: 05/13/25 18:34 Dose: 2.5 mls/min Documented By: STEPHANY Sodium Chloride (Nss) 500 mls @ 999 mls/hr IV .Q31M ONE Stop: 05/13/25 18:56 Last Infusion: 05/13/25 19:43 Dose: Infused Documented By: Admin: 05/13/25 18:34 Dose: 999 mls/hr Documented By: STEPHANY Famotidine (Pepcid 20mg Iv Push) 20 mg in 5 mls @ 2.5 mls/min IV NOW STA Stop: 05/13/25 21:17 Last Admin: 05/13/25 22:01 Dose: 2.5 mls/min Documented By: STEPHANY Lactated Ringer's (Lr) 1,000 mls @ 80 mls/hr IV .[id number] JOE Stop: 05/14/25 10:14 Last Infusion: 05/14/25 10:34 Dose: Infused Documented By: Admin: 05/13/25 22:01 Dose: 80 mls/hr Documented By: STEPHANY Lidocaine (Lidocaine 5% 1 Patch) 1 patch TD NOW STA Stop: 05/13/25 23:06 Last Admin: 05/13/25 23:53 Dose: 1 patch Documented By: ITZ Lorazepam (Lorazepam 1 Mg/1 Ml Syr Ed Inj Use) 1 mg IV ONE STA Stop: 05/13/25 18:27 Last Admin: 05/13/25 18:34 Dose: 1 mg Documented By: STEPHANY Lorazepam (Lorazepam 1 Mg/1 Ml Syr Ed Inj Use) 0.5 mg IV NOW STA Stop: 05/13/25 23:14 Last Admin: 05/13/25 23:47 Dose: 0.5 mg Documented By: ITZ Potassium Chloride (Potassium Chloride 10 Meq Tabcr) 10 meq PO NOW STA Stop: 05/13/25 21:23 Last Admin: 05/13/25 22:01 Dose: 10 meq Documented By: STEPHANY Promethazine HCl (Promethazine Hcl 25 Mg Tab) 25 mg PO NOW ONE Stop: 05/13/25 20:28 Last Admin: 05/13/25 22:01 Dose: 25 mg Documented By: STEPHANY Discharge Plan Visit Data Chief Complaint: Allergic Reaction Stated Complaint: ALLERGIC REACTION ED Provider: Candido Jackson Discharge Problem: Allergic reaction, Shortness of breath, Rash, Anxiety, Failure of outpatient treatment Patient Disposition: Admitted As Inpatient Condition: Fair Discharge Instructions Interventions: ED Discharge Assessment Last Done: 05/13/25 21:08 Discharge Problem: Allergic reaction Qualifiers: Encounter type: initial encounter Qualified Code(s): T78.40XA - Allergy, unspecified, initial encounter
[2025-05-13 18:39] LABS: Hematocrit (blood only) 43.4 % (37.0-47.0); Hemoglobin 14.5 g/dL (12.0-16.0); Immature Granulocytes # (auto) 0.05 K/uL (0.01-0.20); Immature Granulocytes % (auto) 0.4 %; Mean Corpuscular Hemoglobin 28.8 pg (25.0-34.0); Mean Corpuscular Volume 86.3 fL (80.0-100.0); Platelet Count 261 K/uL (130-400); RDW Standard Deviation 43.3 fL (36.4-46.3); Red Blood Count 5.03 M/uL (4.20-5.40); White Blood Count 12.23 K/ul (4.8-10.8)
[2025-05-13 18:47] LABS: Alanine Aminotransferase 19.0 U/L (7-52); Albumin Globulin Ratio 1.5 (0.9-2); Albumin Level 4.5 gm/dl (3.4-5.0); Alkaline Phosphatase 111.0 U/L (34-104); Anion Gap 9.0 (3-11); Bilirubin,Total 0.3 mg/dl (0.2-1.0); Blood Urea Nitrogen 16.0 mg/dl (6-23); Calcium 9.7 mg/dl (8.6-10.3); Carbon Dioxide 29.0 mmol/L (21-32); Chloride 104.0 mmol/L (98-107); Creatinine Clr Calc Pharmacy 121.3 ml/min; Globulin 3.0 gm/dl (2.5-4.0); Glucose 86.0 mg/dl (70-99(Fasting)); Magnesium 1.9 mg/dl (1.7-2.4); Potassium 3.4 mmol/L (3.5-5.1); Sodium 142.0 mmol/L (136-145); Total Protein 7.5 gm/dl (6.0-8.3)
[2025-05-13 19:02] LABS: Thyroid Stimulating Hormone 0.395 uIu/ml (0.300-4.500)
--- NOTE | 2025-05-13 19:35 | History & Physical Report ---
Date of Service May 13, 2025 Assessment & Plan (1) Hypokalemia: (2) Diabetes mellitus, type 2: Plan 45-year-old female with extensive PMHx presenting for concerns of an allergic reaction. 05/10/2025 did her nails with nail glue, severe burning sensation at the fingertips with subsequent rash developed. She was seen by [facility] ED 05/11/2025 and discharged home with Benadryl and Medrol Dosepak. Seen today at [facility] for concerns of throat swelling, EMS provided her with epinephrine, Solu-Medrol, and Benadryl. Her evaluation is with mild leukocytosis of 12.23 likely in setting of recent steroid use, and mild hypokalemia at 3.4. #Allergic reaction Started 05/11/2025, ? nail glue (from [employer]) vs Seroquel (started ~ 6-10 weeks ago). Symptoms improving since being at hospital with steroid use, not on steroids daily. Rash improving. Some mild SOB, improving also. Will continue to manage with IV medications and avoid triggers. - CBC leukocytosis 12.23 (recent steroid use); CMP K 3.4; alkaline phosphatase 111 - Hold Seroquel - IVF LR @ 80 mL/hr - Famotidine 20mg IV BID - Solu-Medrol 40mg IV BID - Epi prn - severe reactions (rash, throat closing, SOB) - notify provider #Hypokalemia Mild hypokalemia. Reports taking KCl 20 mEq orally, daily. Did take dose of Lasix the day of arrival. - K 3.4, Mg 1.9 - BMP am - Hold Lasix - KCl 10 mEq po now #T2DM H/o T2DM, at home regimen includes Mounjaro. - Glucose on arrival 86; most recent A1C 01/2025 @ 5.9% - Hold Mounjaro - SSI deferred at time of admission - BSG ACHS - Adjust regimen as needed #Asthma- Albuterol prn, Symbicort, montelukast - continue #Psych- Bupropion, buspirone, clonidine, lorazepam, quetiapine, trazodone prn, venlafaxine - continue all except quetiapine #Vitamin deficiency- Vitamin D3 weekly, vitamin B12 daily - hold while inpatient #GERD- Dexilant, Carafate- continue #Migraines- Ajovy monthly, zomig prn, promethazine prn - hold Ajovy, may continue Zomig and promethazine #Edema- Furosemide prn, KCl - Hold both, replace K as appropriate #IBS- Linzess - continue #Hypothyroidism- TSH 0.395 05/13/2025; Cytomel - Continue #Back pain- Methocarbamol, oxycodone (has not taken x 2-3 months per pt), Buprenorphine, pregabalin - continue Buprenorphine and pregabalin, hold remaining #IS/- Phenazopyridine prn, solifenacin, tamsulosin - continue #HTN- Triamterene/HCTZ - continue Dispo: Obs, med/tele VTE prophylaxis: SCDs This document was dictated utilizing [employer]. Please excuse any grammatical errors that may be secondary to use of this software. Admission and Anticipated Discharge Date Admission Date: 05/13/2025 History of Present Illness Chief Complaint: Allergic reaction Primary Care Provider: Melissa Ma 45-year-old female PMHx depression, anxiety, HTN, hypersomnia, dyslipidemia, T2DM, gastroparesis, vitamin D deficiency, mild asthma, cervical radiculopathy, chronic abdominal pain, essential tremor portal HTN, migraines, Schuermann's disease, GERD, HAIRSTON, and IBS presenting for concerns of an allergic reaction. 05/10/2025 did her nails with nail glue, severe burning sensation at the fingertips with subsequent rash developed. Reports that on 05/10 at approximately 0200 she was putting fake nails on her hands with a nail glue that she got off of [employer]. She never used this nail glue before. She states that approximately 3 hours after putting the nails on with this glue she started to have burning of her fingertips described as "acid like." States that the pain was unbearable, she tried to put her hands into water but this made it worse. The tips of her fingers were very swollen, and so she took nonacid toenail cameroonian remover which remove the top layer of her nails only but not all of the glue. States that she also took Benadryl and Tylenol and continued to have a throbbing sensation but was able to sleep for approximately 1 to 1-1/2 hours after getting the top layer of nails off. She then awoke and her daughter recommended that she put eggs on her nails but her recommended that she put in a use on her fingers and put gloves over them. She states that this helped decrease the burning sensation and may have remove the remaining glue but she is not quite sure. She states that the rash started approximately 3 hours after the nails were applied, starting at the backs of her hands and then spreading and no particular pattern up her upper extremities, onto her chest and blotches, and in her upper abdomen. She states that it is slightly itchy. She states that she was seen in the [facility] ED where she was prescribed a Medrol Dosepak and Benadryl at her discharge which seemed to help. 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 No dizziness or lightheadedness. She does not feel that her throat is swelling or that her tongue is enlarged. States that her symptoms have gotten better since coming to the ED. Patient states that she has not used this nail glue before, but off of a website, [employer], but is unsure what ingredients were inside it. Also reports that she was recently started on Seroquel approximately 6 to 10 weeks ago and has been taking this nightly. States that she often has slow drug reactions, telling me that at 1 time she had taken Celebrex for approximately 10 weeks before having an allergic reaction to it and then was discontinued off the medication. She is concerned that Seroquel is starting to have a similar effect. She also states that she was in [place] the day that the rash had started touching different lotions and perfumes. She has not had a reaction to any lotion or perfume in the past, but states that she has "sensitive skin." No other changes to medications, cleaning supplies, detergents, or other daily items. She has not been sick otherwise. He did take 1 dose of her Lasix the day of arrival because she felt that her hands were swollen and she feels that this may have helped her some, but did not take away the swelling completely. Denies palpitations, abdominal pain, N/V/D/C, numbness/tingling, fever/chills, URI symptoms, LUTS, weakness, syncope or falls. ED evaluation CBC with leukocytosis 12.23, stable H&H and platelets; CMP potassium 3.4, BUN/creatinine ratio 21.3, alkaline phosphatase 111; TSH 0.395; Tryptase pending; EKG sinus tachycardia at 112 bpm.; Provided with di phenhydramine 25 mg IV, famotidine 20 mg IV, lorazepam 1 jerald IV, and NSS 500 mL in ED. Please see Dr. Duffy's attestation for adjustments/additions to treatment plan. Allergies Allergy/AdvReac Type Severity Reaction Status Date / Time celecoxib [From Celebrex] Allergy Intermediate SOB,RASH Verified 03/08/25 16:11 sulfamethoxazole Allergy Intermediate RASH HEAD Verified 03/08/25 16:11 TO TOE- LASTED 3 WEEKS trimethoprim Allergy Intermediate RASH HEAD Verified 03/08/25 16:11 TO TOE- LASTED 3 WEEKS azithromycin [From Zithromax] Allergy Mild Rash Verified 03/08/25 16:11 camphor [From Biofreeze] Allergy Mild Rash Verified 03/08/25 16:11 menthol [From Biofreeze] Allergy Mild Rash Verified 03/08/25 16:11 Sulfa (Sulfonamide Allergy Mild RASH Verified 03/08/25 16:11 Antibiotics) ibuprofen Allergy Unknown Unknown Verified 03/08/25 16:11 codeine AdvReac Severe TROUBLE Verified 03/08/25 16:11 BREATHING AND GI adhesive AdvReac Intermediate ADHESIVE Verified 03/08/25 16:11 TAPE: RED WELTS AND BLISTERED SKIN nitrofurantoin AdvReac Intermediate SEVERE Verified 03/08/25 16:11 VOMITING gabapentin AdvReac Mild Drowsy Verified 03/08/25 16:11 semaglutide [From Ozempic] AdvReac Mild Nausea Verified 03/08/25 16:11 sumatriptan AdvReac Mild FEEL Verified 03/08/25 16:11 WEIRD, DIZZY acetaminophen [From Tylenol] AdvReac Unknown LIVER Verified 03/08/25 21:14 ISSUES Dimethyl Sulfoxide AdvReac Intermediate ABDOMINAL Uncoded 03/08/25 16:11 PAIN AND CRAMPING Home Medications Medication Instructions Recorded Confirmed Type diclofenac sodium 1 % topical gel 2 gm topical QID PRN Pain 10/08/19 05/13/25 History sucralfate 1 gram tablet (Carafate) 1 g PO BID PRN Gi Upset 10/08/19 05/13/25 History albuterol sulfate 1.25 mg/3 mL 1.25 mg (3 mL) inhalation Q6H PRN 04/10/20 05/14/25 Rx solution for nebulization shortness of breath or wheezing #180 mL pen needle, diabetic 32 gauge x #100 ea 10/14/21 05/14/25 Rx 5/32" (BD Ultra-Fine Dena Pen Needle) promethazine 25 mg tablet 25 mg PO BID PRN nausea and 12/07/21 05/13/25 Rx vomiting #30 tabs montelukast 10 mg tablet 10 mg PO HS #30 tabs 12/17/21 05/13/25 Rx lidocaine 5 % topical patch 1 patch topical DAILY PRN Pain #30 04/26/22 05/13/25 Rx (Lidoderm) ea albuterol sulfate 90 mcg/actuation 2 puff inhalation Q4 PRN Shortness 05/10/22 05/13/25 Rx aerosol inhaler (Ventolin HFA) Of Breath Or Wheezing #18 grams dexlansoprazole 60 mg 60 mg PO QAM 08/11/22 05/13/25 History capsule,biphase delayed release (Dexilant) lancets #100 ea 08/13/22 05/14/25 Rx budesonide-formoterol HFA 160 2 puff inhalation BID #3 Inhalers 08/30/22 05/13/25 Rx mcg-4.5 mcg/actuation aerosol inhaler (Symbicort) blood sugar diagnostic (Blood #100 ea 09/02/22 05/14/25 Rx Glucose Test strips) blood-glucose meter (Blood Glucose #1 ea 09/02/22 05/14/25 Rx Monitoring kit) phenazopyridine 200 mg tablet 200 mg PO Q8H PRN pain #10 tabs 11/08/22 05/13/25 Rx (Pyridium) methocarbamol 750 mg tablet 750 mg PO TID PRN Muscle Spasm #60 12/06/22 05/13/25 Rx tabs venlafaxine 150 mg 300 mg (2 x 150 mg) PO HS #180 caps 12/06/22 05/13/25 Rx capsule,extended release 24 hr (Effexor XR) potassium chloride 20 mEq 20 meq PO TID #160 tabs 12/22/22 05/13/25 Rx tablet,extended release triamterene 37.5 1 cap PO QAM #90 caps 12/23/22 05/13/25 Rx mg-hydrochlorothiazide 25 mg capsule solifenacin 5 mg tablet (Vesicare) 5 mg PO DAILY #30 tabs 05/09/23 05/13/25 Rx lorazepam 1 mg tablet (Ativan) 1 mg PO Q8H PRN anxiety #10 tabs 08/01/24 05/13/25 Rx furosemide 20 mg tablet (Lasix) 40 mg PO DAILY PRN edema 09/24/24 05/13/25 History liothyronine 25 mcg tablet 25 mcg PO QAM 09/24/24 05/13/25 History (Cytomel) pregabalin 150 mg capsule (Lyrica) 150 mg PO HS 09/24/24 05/13/25 History tamsulosin 0.4 mg capsule (Flomax) 0.4 mg PO HS 09/24/24 05/13/25 History topiramate 200 mg tablet (Topamax) 400 mg PO BID 09/24/24 05/13/25 History trazodone 100 mg tablet 100 mg PO HS PRN Sleep 09/24/24 05/13/25 History zolmitriptan 5 mg nasal spray 1 spray intranasal DIRECTED PRN 09/24/24 05/13/25 History (Zomig) Migraine Headache ondansetron 4 mg disintegrating 4 - 8 mg (1 - 2 x 4 mg) PO Q8H PRN 10/01/24 05/13/25 Rx tablet nausea and vomiting #14 tabs oxycodone 5 mg tablet 5 mg PO Q6H PRN pain #12 tabs 10/01/24 05/13/25 Rx ketorolac 10 mg tablet 10 - 20 mg (1 - 2 x 10 mg) PO BID 10/24/24 05/13/25 Rx PRN Migraine Headache #20 tabs cholecalciferol (vitamin D3) 1,250 50,000 unit PO WK 90 days #12 tabs 01/18/25 05/13/25 Rx mcg (50,000 unit) tablet fremanezumab-vfrm 225 mg/1.5 mL 225 mg (1.5 mL) subcut MONTHLY 01/18/25 05/13/25 Rx subcutaneous syringe (Ajovy #1.5 mL Syringe) buprenorphine HCl 600 mcg buccal 600 mcg buccal BID 03/08/25 05/13/25 History film (Belbuca) bupropion HCl 300 mg 24 hr tablet, 300 mg PO DAILY 03/08/25 05/13/25 History extended release buspirone 30 mg tablet 30 mg PO BID 03/08/25 05/13/25 History clonidine HCl 0.2 mg tablet 0.2 mg PO BID 03/08/25 05/13/25 History linaclotide 72 mcg capsule 72 mcg PO QAM 03/08/25 05/13/25 History (Linzess) quetiapine 50 mg tablet 50 mg PO HS 03/08/25 05/13/25 History tirzepatide 12.5 mg/0.5 mL 12.5 mg subcut WK 03/08/25 05/13/25 History subcutaneous pen injector (Mounjaro) cyanocobalamin (vitamin B-12) 1,000 mcg PO DAILY #30 tabs 03/16/25 05/13/25 Rx 1,000 mcg tablet dexamethasone 6 mg tablet 6 mg PO DAILY #4 tabs 03/16/25 05/14/25 Rx cetirizine 10 mg tablet 10 mg PO BID #60 tabs 05/15/25 Rx epinephrine 0.3 mg/0.3 mL 0.3 mg (0.3 mL) IM Q4H PRN 05/15/25 Rx injection, auto-injector (EpiPen anaphylaxis #2 ea 2-Juan Diego) famotidine 20 mg tablet 20 mg PO DAILY #30 tabs 05/15/25 Rx Past Med/Surg History Problem List (Updated 05/15/25 @ 07:53 by Robert Garcia MD) Morbid obesity with BMI of 45.0-49.9, adult Failure of outpatient treatment (Acute) Anxiety (Acute) Rash (Acute) Shortness of breath (Acute) Allergic reaction (Acute) Hypokalemia Right upper quadrant abdominal pain (Acute) Depression, unspecified Anxiety disorder, unspecified Viral gastroenteritis Shortness of breath (Acute) Dizziness (Acute) Acute hypokalemia (Acute) Constipation Burning with urination Hypotension HTN (hypertension) Adnexal cyst (Acute) Acute appendicitis (Acute) Witnessed episode of apnea Hypersomnia Dyslipidemia Pelvic pain Adnexal cyst Gastroparesis Diabetes mellitus, type 2 IDDM History of COVID-19 (Acute 05/2021) Vitamin D deficiency Hypothyroidism Mild persistent asthma controlled with inhalers Morbid obesity (Acute) Cyst of meniscus of left knee Acute lateral meniscus tear of left knee Edema Cervical radiculopathy (Chronic) Chronic abdominal pain (Chronic) Depression with anxiety (Chronic) Essential tremor (Chronic) Failed back syndrome (Chronic) Portal hypertension (Chronic) History of anesthesia reaction (Chronic) "If they bring me out of it too fast I become violent" Kidney stones (Chronic) Pancreatitis (Chronic) last episode 2 years ago Anemia (Chronic) Migraines (Chronic) F/U DR DANIEL 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 last had 06/07/2022 - tested with home test. mild cold symptoms. no current issues. Celiac disease Autoimmune disorder PT UNSURE OF NAME OF DISORDER, STATES FOLLOW [facility]/ [facility] Arthritis BACK Scheurmann's disease Chronic back pain Somatic dysfunction Surgical History Hx of rectal sphincterotomy History of meniscectomy of left knee History of ERCP History of section x2 History of bladder surgery x5 History of colonoscopy History of esophagogastroduodenoscopy (EGD) History of cholecystectomy S/P laparoscopic hysterectomy S/P lumbar fusion hardware in place S/P tonsillectomy H/O wisdom tooth extraction Family History Uncle Diabetes Grandfather (Paternal) Family hx of colon cancer Colorectal cancer Prostate cancer Grandmother Breast cancer Father Myocardial infarction Mother Stroke Ulcerative colitis Other No family history of adverse response to anesthesia Denies family history of Ovarian cancer Crohn's disease Social History Smoking Status: Never smoker Second Hand Exposure: No; Do You Dip or Chew Tobacco: No; Hx Alcohol Use: No Hx Substance Use: No Preferred Language: Bahamian Communication Ability: Effective Visual Impairment: No Limitations Hearing Ability: Normal 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 Beliefs That Will Affect Care: None marital status: Current Living Situation: Spouse Current Living Situation Comment: Lives with and 3 kids current occupational status: unemployed Feels Safe at Home: Yes Childhood Exposure to Second-Hand Smoke: Yes Diet: diabetic and regular Diet Comment: Regular caffeine: Yes during the past year weight has: remained stable Dental Care, Regularly: Yes Physical Activity Frequency: Does not Exercise Seatbelt Use: always Sunscreen Use: Yes Assistive Devices: Cane, Nebulizer, Walker and Other Review of Systems Review of Systems: All systems reviewed & are unremarkable except as noted in Subjective Physical Exam Physical Exam: General: No acute distress Skin: Warm and dry; multitude of erythematous patches across bilateral upper extremities, chest, upper abdomen, cheeks - not raised, no open lesions, no discrete pattern; nails thin, appear to have recently removed nails with exception of L pinky Head: Normocephalic, atraumatic Eyes: PERRL, conjunctivae clear, sclera non-icteric ENT: External ear and ear canal without swelling; nose atraumatic; good dentition, tongue normal appearance, pharynx normal Neck: Supple, no LAD Cardio: RRR, no M/G/R, S1 and S2 normal Resp: No respiratory distress, Lungs CTA in all lobes bilaterally, no wheezes, rales, or rhonchi Abdomen: Soft, symmetric, nontender; No masses or hepatosplenomegaly; Bowel sounds normoactive MSK: No deformities; pulses palpable and equal; no edema. Neuro: Awake, alert; Sensation intact bilaterally; CN grossly intact Psych: Appropriate mood and affect; good judgement and insight. present in room at time of visit. Results & Data Results & Data Vital Signs (Past 12 Hours) Vital Signs Temp Pulse Pulse Resp BP BP Pulse Ox 05/13/25 18:27 100 05/13/25 17:52 103 H 05/13/25 17:17 36.7 C 99 H 16 133/80 100 05/13/25 17:17 05/13/25 17:15 36.7 C 98 H 16 133/64 100 O2 Del Method 05/13/25 18:27 Room Air 05/13/25 17:52 05/13/25 17:17 Room Air 05/13/25 17:17 Room Air 05/13/25 17:15 Room Air Laboratory Results 05/13/25 17:47 WBC 12.23 H RBC 5.03 Hgb 14.5 Hct 43.4 MCV 86.3 MCH 28.8 MCHC 33.4 RDW Std Deviation 43.3 RDW Coeff of Hernan 13.7 Plt Count 261 MPV 10.8 Immature Gran % (Auto) 0.4 Neut % (Auto) 71.8 Lymph % (Auto) 21.3 [place] % (Auto) 5.2 Eos % (Auto) 0.7 Baso % (Auto) 0.6 Neut # (Auto) 8.77 H Lymph # (Auto) 2.61 [place] # (Auto) 0.64 H Eos # (Auto) 0.09 Baso # (Auto) 0.07 Immature Gran # (Auto) 0.05 Sodium 142 Potassium 3.4 L Chloride 104 Carbon Dioxide 29 Anion Gap 9 BUN 16 Creatinine 0.75 Est Cr Clr Drug Dosing 121.3 eGFR 100.62 BUN/Creatinine Ratio 21.3 H Glucose 86 Calcium 9.7 Magnesium 1.9 Total Bilirubin 0.3 AST 19 ALT 19 Alkaline Phosphatase 111 H Total Protein 7.5 Albumin 4.5 Globulin 3.0 Albumin/Globulin Ratio 1.5 TSH 0.395 Medications Administered 500 mL NSS Lorazepam 1 mg IV Famotidine 20 mg IV Diphenhydramine 25 mg IV ECG Additional Comments: Sinus tachycardia 112 bpm, MD 146, QRS 100, QT/QTc 358/48, PRT 59/-2/56 Code Status & VTE Plan Code Status Full Supervising Physician Co-Signing Physician Notes Attending addendum: I have physically seen this patient, have supervised the STORMY's activities, and agree with the H&P unless as otherwise noted. Assessment and Plan: The patient is a 45-year-old female with past medical history of anxiety, allergic reactions, depression, hypokalemia, hypertension, hypersomnia, dyslipidemia, gastroparesis, diabetes mellitus type 2, hypothyroidism, mild persistent asthma, pancreatitis, Schuermann's disease, HAIRSTON, GERD, IBS, and interstitial cystitis. She presents to the emergency department concerned regarding an allergic reaction to nail glue having had her nails done on May 10, 2025. She complains of a severe burning sensation of the fingertips with a subsequent rash that developed. She was seen at [facility] ED on 05/11/2025 and discharged home on Benadryl and Medrol Dosepak. She was seen today at [facility] outpatient clinic for concerns regarding throat swelling. EMS was called there, gave her epinephrine, Solu-Medrol, Benadryl and brought her to the ED for assessment. Allergic reaction- Questionable reaction to glue and nails that were applied to her fingers on 05/10/2025 LR at 80 mL/h Famotidine 20 mg IV twice daily Solu-Medrol 40 mg IV twice daily Benadryl 25 mg IV every 6 hours as needed Epinephrine will be available if develops Symptoms of throat closing shortness of breath. Hypokalemia- Potassium 3.4 magnesium 1.9 on admission Holding Lasix Give potassium chloride 10 mEq p.o. now Laboratories to be repeated in the a.m. Diabetes mellitus type 2- Glucose 86 on arrival Most recent A1c on 02/14 was 5.5% Holding Karlo Patient on Accu-Cheks AC at bedtime with NovoLog coverage per scale Remaining orders and notations as noted PG Care Time/CCT Total # of Minutes Spent Total Time Spent with Patient: Total time spent is greater than 50% in coordination of care (as documented) at patient's floor/unit and/or counseling patient: Coding Level of Care Code 18397 INT INP/OBS CARE 3/75MIN Diagnoses Hypokalemia E87.6 Diabetes mellitus, type 2 E11.9
[2025-05-13] MEDS ORDERED: POLYETHYLENE (MIRALAX) 17 GM PACK PO PRN (21:07)
[2025-05-13] MEDS ORDERED: ONDANSETRON 4 MG OD TAB PO PRN (21:22)
[2025-05-13] MEDS ORDERED: PROMETHAZINE HCL 25 MG TAB PO PRN (21:22)
[2025-05-13] MEDS ORDERED: NON-FORMULARY MEDICATION (Albuterol Sulfate 1.25 mg/3 mL solution for nebulization) INH PRN (21:22)
[2025-05-13] MEDS ORDERED: ALBUTEROL HFA 8 GM INHALER INH PRN (21:22)
[2025-05-13] MEDS ORDERED: SUCRALFATE 1 GM TAB PO PRN (21:28)
[2025-05-13] MEDS: PROMETHAZINE HCL 25 MG TAB PO ONE (22:01)
[2025-05-13] MEDS: LORazepam 1 MG TAB PO PRN (22:01)
[2025-05-13] MEDS: POTASSIUM CHLORIDE 10 MEQ TABCR PO STA (22:01)
[2025-05-13] MEDS: LACTATED RINGER'S 1,000 ML IV SCH (22:01)
[2025-05-13] MEDS: KETOROLAC TROMETHAMINE 10 MG TABLET PO PRN (22:57)
[2025-05-13] MEDS ORDERED: LORazepam Inj 0.5 MG in SYRINGE 0.25 ML IV STA (23:04)
[2025-05-13] MEDS: LIDOCAINE 5% 1 PATCH TD STA (23:53)
[2025-05-14] MEDS: KETOROLAC TROMETHAMINE 15 MG/ML VIAL IV PRN (02:28)
[2025-05-14 06:06] LABS: Anion Gap 10.0 (3-11); Blood Urea Nitrogen 16.0 mg/dl (6-23); Calcium 9.1 mg/dl (8.6-10.3); Carbon Dioxide 27.0 mmol/L (21-32); Chloride 106.0 mmol/L (98-107); Creatinine Clr Calc Pharmacy 135.8 ml/min; Glucose 118.0 mg/dl (70-99(Fasting)); Potassium 3.5 mmol/L (3.5-5.1); Sodium 143.0 mmol/L (136-145)
[2025-05-14] MEDS: TRIAMTERENE/HCTZ 37.5/25MG TAB PO SCH (09:43)
[2025-05-14] MEDS: FAMOTIDINE 20MG IV PUSH 20 MG/5 ML SYR IV SCH (09:43)
[2025-05-14] MEDS: TOPIRAMATE 100 MG TAB PO SCH (09:43)
[2025-05-14] MEDS: FLUTICASONE/VILANTEROL 200/25MCG 14 PUFFS/INHALER INH SCH (09:43)
[2025-05-14] MEDS: OXYBUTYNIN CHLORIDE XL 5 MG TABCR PO SCH (09:44)
[2025-05-14] MEDS: busPIRone 15 MG TAB PO SCH (10:17)
[2025-05-14] MEDS: REMOVE LIDODERM PATCH SCH (10:34)
--- NOTE | 2025-05-14 12:22 | Hospitalist Progress Note ---
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 05/10/2025 did her fingernails with nail glue, then developed severe burning sensation at the fingertips with subsequent rash of her hands/arms and eventual spread to chest? [facility] ED visit on 05/11/2025 for the rash and discharged home with Benadryl and Medrol Dosepak. Filled the Medrol dose pack but later developed throat swelling. En route to [facility] EMS provided her with epinephrine 0.3mg IM, Solu-Medrol 125mg IV, and Benadryl 50mg. ER documentation from ER provider shows that her oropharynx was clear at time of initial evaluation with no evidence of angioedema, etc. #Allergic reaction - -very unusual presentation -???developed a systemic reaction to fingernail glue (used for artificial nails)??? -reaction to Seroquel (only new medicine in the last couple of months)? -idiopathic allergic reaction? -mastocytosis? -other? -unusual in that her symptoms worsened WHILE ON MEDROL DOSE PACK -rash on examination today is not typical for urticaria -can't rule out that the rash is not viral induced vs other etiology; can't rule out neurodermatitis; can't rule out rash related to eating gluten-containing foods (patient with celiac disease per the EMR) -ER sent tryptase level to r/o mastocytosis -rash HAS improved on high-dose IV solumedrol (125mg of such in ambulance, followed by 40mg BID) -will lower solumedrol to 30mg IV BID -may use topical triamcinolone cream 0.1% TID in thin amounts to problem areas (avoid face/genitals) -cont pepcid 20mg BID -add high-dose zyrtec 10mg BID -benadryl IV prn -will ask psychiatry for their opinion re: ?allergic rxn to seroquel? #hypokalemia - -repleted/resolved -mag level noted to be wnl #severe anxiety disorder, depression, insomnia, other - -follows with psychiatry in [place] -seroquel added about 6-8 weeks ago for anxiety/insomnia -I cannot find a record of bipolar d/o or psychotic d/o -in addition to seroquel takes bupropion, buspirone, clonidine, lorazepam, trazodone, venlafaxine -she endorses numerous psychosocial stressors and anxiety -will ask for psych to see in consult -substitution for seroquel in the event seroquel contributed to rash? 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 - -toradol IV prn -steroids for rash will help -norco prn -we do not have her Belbuca (buprenorphine) that she takes at home #Asthma - -no exacerbation at this time -cont Albuterol prn, Symbicort, montelukast #GERD - -cont PPI -cont carafate #Migraines - -on Ajovy monthly -cont triptans prn -cont anti-emetics prn #Hypothyroidism - -TSH 0.395 -cont Cytomel 25mcg daily #celiac disease (per the EMR) - -change diet to gluten free #HTN - -cont Triamterene/HCTZ -cont clonidine 0.2mg BID if patient stays beyond the next 24 hours plan to add chemical DVT proph care d/w psychiatry provider Admission and Anticipated Discharge Date Admission Date: May 13, 2025 Subjective patient reports that her swelling in her hands/distal arms is improved rash on arms, chest - also improved continues to have itchiness over the areas of rash she was tearful during the visit she mentioned multiple psychosocial stressors in her life she voiced worry over her physical health status c/o chronic back pain dating back to teenage years she asks for medicine to help with this mentions she follows with psychiatry in [place] 6-8 weeks ago she was placed on seroquel -- 100mg HS, 25mg AM was added "for anxiety" and sleep mentions her pre-teen / teen age children have been sick with sore throats - strep, and several had exposure to mono Review of Systems Review of Systems: gen - no fevers cv - no chest pain pulm - no dyspnea GI - no abd pain Physical Exam Physical Exam: gen - obese, NAD, lying comfortably in bed, tearful skin - erythematous rash with various sizes of the lesions; they are not raised; they are not urticarial; location - right side of face, right side of neck, arms, and upper chest mouth - MMM, no lesions, no erythema heart - RRR, s1 s2, no murmur lungs - CTA b/l abd - soft NT ND BS+ ext - pulses 2+ b/l feet, no edema of legs musculo - b/l hands - no synovitis of any small/larger joint; fingernails appear normal today; mild swelling of distal arms/hands b/l psych - a/o x 3 but tearful and anxious Results & Data Results & Data Vital Signs (Past 12 Hours) Vital Signs Temp Pulse Resp BP Pulse Ox O2 Del Method 05/14/25 06:00 18 107/63 96 Room Air 05/14/25 05:54 90 20 96/60 L 99 Room Air 05/14/25 04:00 98 H 20 94/61 L 96 Room Air 05/14/25 03:22 36.8 C 67 18 98/59 L 97 BiPAP 05/14/25 02:00 36.8 C 96 H 20 96/51 L 95 Room Air Laboratory Results Abnormal Labs 05/13/25 05/14/25 05/14/25 17:47 03:57 12:46 WBC 12.23 H Neut # (Auto) 8.77 H [place] # (Auto) 0.64 H Potassium 3.4 L BUN/Creatinine Ratio 21.3 H 23.9 H Glucose 118 H Alkaline Phosphatase 111 H EBV Early Antigen IgG Positive A PG Care Time/CCT Total # of Minutes Spent Total Time Spent with Patient: Total time spent is greater than 50% in coordination of care (as documented) at patient's floor/unit and/or counseling patient: Coding Level of Care Code 74802 SUB INP/OBS CARE 3/50MIN Diagnoses Rash R21 Allergic reaction T78.40XA Encounter type: initial encounter Anxiety disorder, unspecified F41.9 Depression, unspecified F32.A Hypokalemia E87.6 Diabetes mellitus, type 2 E11.9 Morbid obesity with BMI of 45.0-49.9, adult E66.01; Z68.42 Interstitial cystitis N30.10 Celiac disease K90.0 Scheurmann's disease M42.00 HAIRSTON (nonalcoholic steatohepatitis) K75.81 GERD (gastroesophageal reflux disease) K21.9 Fusion of spine of thoracic region M43.24 Hypothyroidism E03.9 HTN (hypertension) I10 (2) Allergic reaction Encounter type: initial encounter Qualified Code(s): T78.40XA - Allergy, unspecified, initial encounter
[2025-05-14] MEDS: CYANOCOBALAMIN (B-12) 500 MCG TABLET PO SCH (13:22)
[2025-05-14] MEDS: TRIAMCINOLONE ACET 0.1% CR 80 GM TUBE EXT SCH (13:22)
[2025-05-14] MEDS: HYDROCODONE/ACETAMINOPHEN 7.5/325MG TAB PO PRN (13:22)
--- NOTE | 2025-05-14 13:38 | Communication Note ---
Date of Service: May 14, 2025 Reviewed presentation with referring physician. Pt seen 2 mo ago 02/2025 by our consult service and no medication changes rec at the time. Allergic rxn from quetiapine at 50mg dosing is very rare and not suspected. At doses up to 100mg demonstrates primarily an antihistamine effect. If suspected as a cause for her rxn, recommend substituting the equivalent dose of quetiapine with hydroxyzine, or can hold the quetiapine with no replacement. Continue other psychotropics. Liaison nurse will see patient and clarify mood symptoms, timeline, recent str essors, and connection to outpatient care to determine how we can optimize her care.
[2025-05-14 14:02] LABS: EBV Nuclear Antigen IgG Ab Positive; EBV Nuclear Antigen IgG Quant 76.2 U/mL (< 18.0)
[2025-05-14 14:04] LABS: EBV Early Antigen IgG Ab Positive (Negative); EBV Early Antigen IgG Quant 16.0 U/mL (< 9.0); EBV IgM Antibody Negative; EBV IgM Quant < 10.0 U/mL (< 36.0)
[2025-05-14 14:05] LABS: EBV IgG Antibody Positive; EBV IgG Quant 170.0 U/mL (< 18.0)
[2025-05-14 16:58] VITALS: RESP 16
[2025-05-14] MEDS: diphenhydrAMINE 50 MG/ML VIAL IV STA (18:08)
--- NOTE | 2025-05-14 18:42 | Electrocardiogram Report ---
Test Reason : Blood Pressure : */* mmHG Vent. Rate : 112 BPM Atrial Rate : 112 BPM P-R Int : 146 ms QRS Dur : 100 ms QT Int : 358 ms P-R-T Axes : 59 -2 56 degrees QTcB Int : 488 ms Sinus tachycardia Otherwise normal ECG When compared with ECG of 06-May-2025 10:42, No significant change was found Confirmed by James Martinez ([id number]) on 05/14/2025 6:42:15 PM Referred By: Confirmed By: James Martinez
[2025-05-14] MEDS: MONTELUKAST SODIUM 10 MG TABLET PO SCH (20:17)
[2025-05-14] MEDS: TAMSULOSIN HCL 0.4 MG CAP PO SCH (20:17)
[2025-05-14] MEDS: VENLAFAXINE HCL XR 150 MG CAPXR PO SCH (20:18)
[2025-05-14] MEDS: PREGABALIN 150 MG CAP PO SCH (20:29)
[2025-05-14] MEDS: ACETAMINOPHEN 1,000 MG/100 ML VIAL IV PRN (21:56)
[2025-05-15 08:25] VITALS: TEMP 98.2; O2SAT 96
--- NOTE | 2025-05-15 10:16 | Discharge Summary ---
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 She was also noted to have difficulty breathing prior to arrival in the ER therefore treated with epinephrine, Solu-medrol and Benadryl by EMS. She continued on Solu-medrol, cetirizine and Benadryl as an inpatient. Her rash has improved but continued to evolve and on discharge appears to be a flat macular rash mostly on upper chest and neck with small patches on extremities. Non vesicular or raised borders. Recommend ongoing treatment as an outpatient with her previously prescribed medrol dosepak, cetirizine twice a day and famotidine once a day. Suspect her rash will continue to wax and wane and she should follow up with allergy as an outpatient (appointment requested with Dr Cespedes) to evaluate for the cause of this. Given described difficulty breathing with tongue swelling and EMS given epinephrine and epipen was prescribed on discharge and she was advised to return to the ER if difficulty breathing or she uses the epipen. Advised patient to take pictures of how the rash changes for her follow up appointment with allergy. Only new medication was Seroquel which on review by psychiatry think this is unlikely an allergic reaction to this therefore elected to continue. More likely a glue allergy from the product off [employer] although multiple other possibilities also likely. Also consider dermatitis herpertiformis as celiacs mentioned as a diagnosis from patient however I could not find any confirmation of this diagnosis from prior notes including [facility] the rash does not have the appearance of this. Notes For Next Care Provider Follow up with area loss prevention manager Medication Changes From Visit Cetirizine, famotidine for presumed allergic reaction Epipen as needed for lip/tongue swelling or difficulty breathing Admission HPI Per Admitting Provider 45-year-old female PMHx depression, anxiety, HTN, hypersomnia, dyslipidemia, T2DM, gastroparesis, vitamin D deficiency, mild asthma, cervical radiculopathy, chronic abdominal pain, essential tremor portal HTN, migraines, Schuermann's disease, GERD, HAIRSTON, and IBS presenting for concerns of an allergic reaction. 05/10/2025 did her nails with nail glue, severe burning sensation at the fingertips with subsequent rash developed. Reports that on 05/10 at approximately 0200 she was putting fake nails on her hands with a nail glue that she got off of [employer]. She never used this nail glue before. She states that approximately 3 hours after putting the nails on with this glue she started to have burning of her fingertips described as "acid like." States that the pain was unbearable, she tried to put her hands into water but this made it worse. The tips of her fingers were very swollen, and so she took nonacid toenail german remover which remove the top layer of her nails only but not all of the glue. States that she also took Benadryl and Tylenol and continued to have a throbbing sensation but was able to sleep for approximately 1 to 1-1/2 hours after getting the top layer of nails off. She then awoke and her daughter recommended that she put eggs on her nails but her recommended that she put in a use on her fingers and put gloves over them. She states that this helped decrease the burning sensation and may have remove the remaining glue but she is not quite sure. She states that the rash started approximately 3 hours after the nails were applied, starting at the backs of her hands and then spreading and no particular pattern up her upper extremities, onto her chest and blotches, and in her upper abdomen. She states that it is slightly itchy. She states that she was seen in the [facility] ED where she was prescribed a Medrol Dosepak and Benadryl at her discharge which seemed to help. States that the remaining 2 days [employer] symptoms were manageable but then the day of arrival she states that the rash got worse that she started to have SOB and chest tightness. No dizziness or lightheadedness. She does not feel that her throat is swelling or that her tongue is enlarged. States that her symptoms have gotten better since coming to the ED. Patient states that she has not used this nail glue before, but off of a website, [employer], but is unsure what ingredients were inside it. Also reports that she was recently started on Seroquel approximately 6 to 10 weeks ago and has been taking this nightly. States that she often has slow drug reactions, telling me that at 1 time she had taken Celebrex for approximately 10 weeks before having an allergic reaction to it and then was discontinued off the medication. She is concerned that Seroquel is starting to have a similar effect. She also states that she was in [place] the day that the rash had started touching different lotions and perfumes. She has not had a reaction to any lotion or perfume in the past, but states that she has "sensitive skin." No other changes to medications, cleaning supplies, detergents, or other daily items. She has not been sick otherwise. He did take 1 dose of her Lasix the day of arrival because she felt that her hands were swollen and she feels that this may have helped her some, but did not take away the swelling completely. Denies palpitations, abdominal pain, N/V/D/C, numbness/tingling, fever/chills, URI symptoms, LUTS, weakness, syncope or falls. ED evaluation CBC with leukocytosis 12.23, stable H&H and platelets; CMP potassium 3.4, BUN/creatinine ratio 21.3, alkaline phosphatase 111; TSH 0.395; Tryptase pending; EKG sinus tachycardia at 112 bpm.; Provided with diphenhydramine 25 mg IV, famotidine 20 mg IV, lorazepam 1 jerald IV, and NSS 500 mL in ED. Please see Dr. Duffy's attestation for adjustments/additions to treatment plan. Discharge Exam Respiratory normal respiratory effort, lungs clear to auscultation Cardiovascular RRR, no murmur, no edema Gastrointestinal (Abdomen) normal bowel sounds, soft, nontender, no hepatosplenomegaly Skin erythematous smooth flat macular rash on neck, upper chest with small patches on arms and legs Discharge Plan Discharge Items Patient Disposition: Home - Self-Care Reason For Visit: ALLERGIC REACTION Discharge Diagnosis: Allergic reaction Condition on Discharge: Fair Activity: Resume your previous activity Non-emergency contact: Primary Care Provider Call non-emergency contact if: you have any medication questions and your symptoms worsen Follow-up/Referrals: Melissa Ma PA-C [Primary Care Provider] - (Please call your primary care provider to schedule a hospital follow-up appointment within 7-10 days) Doc Ba MD [Physician] - (Follow up allergic reaction) Diet: Regular and Gluten Free Addtl Attending Provider Instructions: You were observed to from May 13 - 2024 due to an allergic reaction appearing rash. You were treated with epinephrine, Solu-medrol and Benadryl by EMS. You continued on Solu-medrol and Benadryl as an inpatient. Your rash has continued to evolve but is non severe at this time and recommend ongoing treatment as an outpatient with your prior medrol dosepak, cetirizine twice a day and famotidine once a day. Suspect your rash will continue to wax and wane and you should follow up with allergy as an outpatient (see appointment above) to evaluate for the cause of this. If you have lip, tongue swelling or difficulty breathing recommend using an epipen and returning to the ER if this occurs. Pending Studies at Discharge: No Stand-Alone Forms: [facility], Smoking Cessation Medications and DC Order Prescriptions: New epinephrine [EpiPen 2-Juan Diego] 0.3 mg/0.3 mL auto-injector 0.3 mg IM Q4H PRN (Reason: anaphylaxis) Qty: 2 0RF cetirizine 10 mg Tablet 10 mg PO BID Qty: 60 0RF famotidine 20 mg tablet 20 mg PO DAILY Qty: 30 0RF Continued albuterol sulfate 1.25 mg/3 mL solution for nebulization 1.25 mg INH Q6H PRN (Reason: shortness of breath or wheezing) Qty: 180 0RF albuterol sulfate [Ventolin HFA] 90 mcg/actuation HFA aerosol inhaler 2 puff INHALATION Q4 PRN (Reason: Shortness Of Breath Or Wheezing) Qty: 18 0RF (DME) lancets Misc See Rx Instructions .Route Qty: 100 0RF Rx Instructions: As directed, testing BS daily (DME) Blood Glucose Test Strip See Rx Instructions .ROUTE .MEDSUPPLY Qty: 100 1RF Rx Instructions: As directed. Testing BS daily. Dx: E11.9 (DME) blood-glucose meter [Blood Glucose Monitoring] Kit See Rx Instructions .ROUTE .MEDSUPPLY Qty: 1 0RF Rx Instructions: As directed Testing BS daily. Dx: E11.9 methocarbamol 750 mg tablet 750 mg PO TID PRN (Reason: Muscle Spasm) Qty: 60 1RF venlafaxine [Effexor XR] 150 mg capsule,extended release 24hr 300 mg PO HS Qty: 180 1RF potassium chloride 20 mEq tablet extended release 20 meq PO TID Qty: 160 3RF triamterene-hydrochlorothiazid 37.5-25 mg capsule 1 cap PO QAM Qty: 90 3RF solifenacin [Vesicare] 5 mg tablet 5 mg PO DAILY Qty: 30 3RF ketorolac 10 mg tablet 10 - 20 mg PO BID PRN (Reason: Migraine Headache) Qty: 20 0RF Ajovy Syringe 225 mg/1.5 mL syringe 225 mg subcut MONTHLY Qty: 1.5 11RF Rx Instructions: TAKES THE OF THE MONTH cholecalciferol (vitamin D3) 1,250 mcg (50,000 unit) tablet 50,000 unit PO WK 90 Days Qty: 12 3RF Rx Instructions: MONDAYS phenazopyridine [Pyridium] 200 mg tablet 200 mg PO Q8H PRN (Reason: pain) Qty: 10 0RF promethazine 25 mg tablet 25 mg PO BID PRN (Reason: nausea and vomiting) Qty: 30 0RF montelukast 10 mg tablet 10 mg PO HS Qty: 30 5RF Symbicort 160-4.5 mcg/actuation HFA aerosol inhaler 2 puff INHALATION BID Qty: 3 3RF (DME) pen needle, diabetic [BD Ultra-Fine Dena Pen Needle] 32 gauge x 5/32" needle See Rx Instructions .Route Qty: 100 2RF Rx Instructions: As directed lidocaine [Lidoderm] 5 % adhesive patch,medicated 1 patch TOP DAILY PRN (Reason: Pain) Qty: 30 5RF Rx Instructions: leave on most painful area for 12 hrs diclofenac sodium 1 % gel 2 gm TOP QID PRN (Reason: Pain) sucralfate [Carafate] 1 gram tablet 1 g PO BID PRN (Reason: Gi Upset) Patient Comments: dexlansoprazole [Dexilant] 60 mg capsule,biphase delayed releas 60 mg PO QAM liothyronine [Cytomel] 25 mcg tablet 25 mcg PO QAM Rx Instructions: 05/11/2025 tamsulosin [Flomax] 0.4 mg capsule 0.4 mg PO HS topiramate [Topamax] 200 mg tablet 400 mg PO BID furosemide [Lasix] 20 mg tablet 40 mg PO DAILY PRN (Reason: edema) Rx Instructions: 05/13/2025 zolmitriptan [Zomig] 5 mg spray,non-aerosol 1 spray Intranasal DIRECTED PRN (Reason: Migraine Headache) Rx Instructions: 1 spray intranasal per nostril at onset of migraine , may repeat in 2 hours if needed PRN; pregabalin [Lyrica] 150 mg capsule 150 mg PO HS trazodone 100 mg Tablet 100 mg PO HS PRN (Reason: Sleep) ondansetron 4 mg tablet,disintegrating 4 - 8 mg PO Q8H PRN (Reason: nausea and vomiting) Qty: 14 0RF oxycodone 5 mg tablet 5 mg PO Q6H PRN (Reason: pain) Qty: 12 0RF Rx Instructions: 2-3 months last dose clonidine HCl 0.2 mg tablet 0.2 mg PO BID buspirone 30 mg tablet 30 mg PO BID quetiapine 50 mg tablet 50 mg PO HS Rx Instructions: started 6-10 weeks ago (as of 05/13) buprenorphine HCl [Belbuca] 600 mcg film 600 mcg BUCCAL BID Linzess 72 mcg capsule 72 mcg PO QAM Mounjaro 12.5 mg/0.5 mL pen injector 12.5 mg SUBCUT WK Rx Instructions: THURSDAYS bupropion HCl 300 mg tablet extended release 24 hr 300 mg PO DAILY cyanocobalamin (vitamin B-12) 1,000 mcg tablet 1,000 mcg PO DAILY Qty: 30 3RF dexamethasone 6 mg tablet 6 mg PO DAILY Qty: 4 0RF lorazepam [Ativan] 1 mg tablet 1 mg PO Q8H PRN (Reason: anxiety) Qty: 10 0RF Discharge Orders: Discharge Order (Routine); Ordered 05/15/25 Ordered By: Robert Moss/Other Patient Handouts: Famotidine Oral Tablet, ED General Allergic Reactions Admission Data Admit Date/Time: 05/13/25 20:22 Attending Provider: Robert Galicia Admit Provider: Luis Duffy Primary Care Provider: Melissa Ma Other Providers: Luis Duffy; Shanell Stallworth; Ben Salvador; Brit Batista; Brady Velásquez; Evaristo Bradley; Carmine Gant; Maira Gutierrez Other Interventions: Discharge Summary Assessment (RN) Last Done: 05/15/25 11:18 Hospital Stay Data Consultations 05/13/25 19:06 ED Decision to Admit Stat 05/14/25 12:24 Consult Psychiatry Routine Pending Results Patient Have Any Pending Studies at Discharge: No Discharge Instructions Given to Patient (Per Discharging Provider) You were observed to from May 13 - 2024 due to an allergic reaction appearing rash. You were treated with epinephrine, Solu-medrol and Benadryl by EMS. You continued on Solu-medrol and Benadryl as an inpatient. Your rash has continued to evolve but is non severe at this time and recommend ongoing treatment as an outpatient with your prior medrol dosepak, cetirizine twice a day and famotidine once a day. Suspect your rash will continue to wax and wane and you should follow up with allergy as an outpatient (see appointment above) to evaluate for the cause of this. If you have lip, tongue swelling or difficulty breathing recommend using an epipen and returning to the ER if this occurs. Total Time Total Time Spent Total Time Spent (In Minutes): 40 Total Time Includes: Examination of the Patient, Discharge Planning and Medication Reconciliation Coding Level of Care Code 66772 INP/OBS DISCH >30 MIN Diagnoses Rash R21 Allergic reaction T78.40XA Encounter type: initial encounter Anxiety disorder, unspecified F41.9 Depression, unspecified F32.A Hypokalemia E87.6 Diabetes mellitus, type 2 E11.9 Morbid obesity with BMI of 45.0-49.9, adult E66.01; Z68.42 Interstitial cystitis N30.10 Celiac disease K90.0 Scheurmann's disease M42.00 HAIRSTON (nonalcoholic steatohepatitis) K75.81 GERD (gastroesophageal reflux disease) K21.9 Fusion of spine of thoracic region M43.24 Hypothyroidism E03.9 HTN (hypertension) I10
[2025-05-15] MEDS: CETIRIZINE HCL 10 MG TABLET PO SCH (10:19)
[2025-05-15 11:06] VITALS: BP 109/76
[2025-05-15 11:13] VITALS: PULSE 81
[2025-05-15] MEDS: LIOTHYRONINE SODIUM 25 MCG TAB PO SCH (11:25)
[2025-05-15] MEDS: LORazepam 0.5 MG TAB PO STA (11:42)
== END 2025-05-15 12:14 | disposition home or self-care (01) ==
LOC: EDINP 17:21 → ED 17:21 → SUATTDRO 20:22 → 2W 05-14 18:28